=== PATIENT | female | born 1940 | race Caucasian/White ===

== ENCOUNTER → 2016-10-08 | Outpatient (CLI) | payer OTHER ==
[~2016-10-08] MED LIST: AMLO-114 PO; AMX500 PO; APR25 PO; ASPI-435 PO; CALC-388 PO; CALC600T9 PO; CARV12.5 PO; CHOL2000 PO; CLC100 PO; CYAN100020 PO; DABI1CAP PO; DEXT40GE20 PO; DEXT4CHW64 PO; DRON400T PO; FLUV1CAP11 PO; GLCI SQ; INSDGI SC; INSDGIPEN SC; INSDGIPEN SQ; LCTX PO; LORA-741 PO; MISCCAP80 PO; MRLP17X PO; MULTTAB58 PO; NUTR-7 PO; NVLG SQ; NVLGI SC; NVLGI/PEN; NVLGI/PEN SQ; NVLGIPEN SC; NXM/40 PO; OMEG5CAP PO; PANT40TA PO; POLYSOL4 OPB; PROB500T8 PO; PRVC/40; PRVC/40 PO; PYRI100T4 PO; QUET1TAB11 PO; QUET1TAB30 PO; QUET1TAB32 PO; QUET1TAB37 PO; RSP2 PO; RSP3 PO; SIMV10TA5 PO; SRQ25 PO; SRQ300 PO; TPRSR50 PO; XPNIN INH
[2016-10-08 15:53] LABS: HEMATOCRIT 32.9 % (37-47); MEAN CELL VOLUME 90.1 fL (80-100); MEAN CORPUSCULAR HEMOGLOBIN 30.7 pg (25-34); MEAN PLATELET VOLUME 9.9 fL (7.4-10.4); PLATELET COUNT 508 K/uL (130-400); RED BLOOD COUNT 3.65 M/uL (4.2-5.4); WHITE BLOOD COUNT 10.49 K/uL (4.8-10.8)
[2016-10-08 15:58] LABS: URINE APPEARANCE CLOUDY (CLEAR); URINE BILIRUBIN NEG (NEG); URINE COLOR YELLOW; URINE EPITHELIAL CELL AUTO >30 /lpf (0-5); URINE NITRITE POS (NEG); URINE PH 5.5 (4.5-7.5); URINE SPECIFIC GRAVITY 1.002 (1.000-1.030); UROBILINOGEN NEG (NEG)
[2016-10-08 16:00] LABS: MANUAL MICROSCOPIC REQUIRED? NO; REVIEW REQ? NO
[2016-10-08 16:04] LABS: BLOOD UREA NITROGEN 29 mg/dl (7-18); BUN/CREATININE RATIO 16.8 (10-20); CALCIUM 9.7 mg/dl (8.5-10.1); CARBON DIOXIDE 28 mmol/L (21-32); CHLORIDE 100 mmol/L (98-107); GLUCOSE 119 mg/dl (70-99); PHOSPHORUS 3.4 mg/dl (2.5-4.9); POTASSIUM 4.5 mmol/L (3.5-5.1); SODIUM 136 mmol/L (136-145)
== END | disposition home or self-care (01) ==
LOC: C.LAB1850 14:27
PROVIDERS: ATTEND Internal Medicine Nephrology
DX: N18.3 Chronic kidney disease, stage 3 (moderate) (principal)

== ENCOUNTER → 2016-10-15 | Outpatient (CLI) | payer OTHER ==
[2016-10-15 18:38] LABS: RATIO 82.5 mcg/mg (0-30.0)
[2016-10-15 19:14] LABS: URINE APPEARANCE CLOUDY (CLEAR); URINE BILIRUBIN NEG (NEG); URINE COLOR YELLOW; URINE EPITHELIAL CELL AUTO 0-5 /lpf (0-5); URINE NITRITE POS (NEG); URINE SPECIFIC GRAVITY 1.009 (1.000-1.030); UROBILINOGEN NEG (NEG)
[2016-10-15 19:32] LABS: MANUAL MICROSCOPIC REQUIRED? NO; REVIEW REQ? NO
== END | disposition home or self-care (01) ==
LOC: C.LABSPEC 17:28
PROVIDERS: ATTEND Nurse Practitioner Adult Health
DX: E11.65 Type 2 diabetes mellitus with hyperglycemia (principal); R82.90 Unspecified abnormal findings in urine

== ENCOUNTER 2017-02-25 01:53 | Inpatient (IN) | payer OTHER ==
[~2017-02-25] VITALS: Ht 160 cm; Wt 72.9 kg
[2017-02-25] VITALS (7 sets, daily range): BP systolic 104–129; BP diastolic 53–88; PULSE 65–80; TEMP 36.3–37; O2SAT 96–98; BMI 27.6; BMI 27.3
[~2017-02-25 01:53] MED LIST changes: -AMX500 PO; -CALC-388 PO; -CLC100 PO; -DEXT40GE20 PO; -DEXT4CHW64 PO; -GLCI SQ; -INSDGIPEN SC; -INSDGIPEN SQ; -LCTX PO; -MRLP17X PO; -NUTR-7 PO; -NVLG SQ; -NVLGI/PEN; -NVLGI/PEN SQ; -NVLGIPEN SC; -PANT40TA PO; -PRVC/40; -PRVC/40 PO; -PYRI100T4 PO; -QUET1TAB30 PO; -QUET1TAB32 PO; -QUET1TAB37 PO; -RSP2 PO; -RSP3 PO; -SRQ25 PO; -SRQ300 PO; -TPRSR50 PO
[2017-02-25] MEDS ORDERED: SODIUM CHLORIDE 0.9% 500ML 500 ML IV STA (02:39)
--- NOTE | 2017-02-25 02:51 | EMERGENCY ROOM VISIT NOTE ---
History Report prepared by Andrew: Ru Wright Under the Supervision of: Dr. Nini Isabel D.O. First contact with patient: 02:12 Chief Complaint: CONFUSION Stated Complaint: CONFUSION Nursing Triage Summary: pt arrives to ed via ems from home. per ems pt was unclear why she called the ambulance pt was found on couch unable to get up to answer door. pt reports "I thought I was going to . I am blacking in and out. My breathing wasn't right. My spleen hurts and my abdomen." pt also reports black and tary stools. History of Present Illness The patient is a 76 year old female who presents to the Emergency Room with complaints of sudden onset weakness that began shortly prior to arrival. The patient states that she was sitting on her couch at home and was not able to get up. When EMS arrived to her home she was not able to get to the door to let them in and she claims that she felt like she was going to pass out. She denies any vomiting. The patient also mentions noticing some black stools recently. She has had black stool in the past. She has been eating and drinking over the past couple of days. The patient admits to taking Seroquel and Tylenol this evening. She takes Pradaxa daily as a blood thinner. 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 A total of 10 systems reviewed and were otherwise negative. Past Medical & Surgical Medical Problems: (1) Anxiety (2) Benign hypertension (3) Bipolar disorder (4) Cholecystectomy (5) Confusion (6) Diabetes mellitus (7) Gastroesophageal reflux disease (8) Hyperlipidemia (9) Obesity (10) Polyarthritis (11) Schizoaffective disorder (12) UTI Family History Cancer Hypertension Lung disease Social History Smoking Status: Former Smoker Alcohol Use: none Drug Use: none Marital Status: Housing Status: lives alone Occupation Status: retired Current/Historical Medications Scheduled Amlodipine (Norvasc), 10 MG PO DAILY Aspirin (Aspirin 81), 1 TAB PO DAILY Calcium Carbonate-Vitamin D (Calcium + D3 600-200 mg-Unit), 1 TAB PO DAILY Carvedilol (Coreg), 12.5 MG PO BID Cholecalciferol (Vitamin D3), 2,000 UNITS PO Q2D Cyanocobalamin (Vitamin B12), 1,000 MCG PO BID Dabigatran Etexilate Mesylate (Pradaxa), 75 MG PO BID Dronedarone Hcl (Multaq), 400 MG PO BID Fluvoxamine Maleate (Fluvoxamine Maleat Er), 300 MG PO HS Hydralazine Hcl (Apresoline), 25 MG PO TID Insulin Aspart (Novolog), 7 UNITS SQ AC Insulin Glargine (Lantus Solostar), 20 UNITS SQ AMPM Multiple Vitamin (Multivitamin), 1 TAB PO DAILY [place]-3 Fatty Acids (Fish Oil 1200 mg), 2 CAP PO BID Pantoprazole (Protonix), 40 MG PO DAILY Polyethylene Glycol-Propylene (Systane), 1 DROP OPB QID Pravastatin Sod (Pravastatin Sodium), 40 MG HS Probenecid (Benemid), 500 MG PO BID Probiotic Product (Probiotic), 1 CAP PO DAILY Pyridoxine (Vitamin B6), 100 MG PO DAILY Quetiapine Fumarate (Seroquel), 300 MG PO HS Scheduled PRN Levalbuterol Tartrate (Xopenex Hfa), 1-2 PUFFS INH Q6H PRN for SOB/Wheezing Lorazepam (Ativan), 0.5 MG PO BID PRN for Anxiety/Agitation Allergies Coded Allergies: MARIANO Inhibitors (Unverified Allergy, Intermediate, HEPATOTOXICITY, 02/25/17) Amiodarone (Unverified Allergy, Intermediate, HEPATOTOXICITY, 05/01/15) Cephalexin (Verified Allergy, Unknown, unknown, 02/25/17) Erythromycin (Verified Allergy, Unknown, UNSURE, 02/25/17) Levofloxacin (Verified Allergy, Unknown, Unknown., 02/25/17) Reported by PT. Physical Exam Vital Signs Date Time Temp Pulse Resp B/P (MAP) Pulse Ox O2 Delivery O2 Flow Rate FiO2 02/25/17 04:16 93 16 142/57 99 Room Air 02/25/17 03:12 80 20 126/90 99 Room Air 02/25/17 02:00 84 02/25/17 02:00 36.5 86 30 104/70 97 Room Air Physical Exam General: Seems slightly confused, HEENT: Head - normocephalic and atraumatic Pupils are equal, round, and reactive to light. Extraocular eye muscles are intact, and sclera are anicteric. Nose - moist nasal mucosa without discharge. Mouth - Dry buccal mucosa. Oropharynx is nonerythematous and there is no tonsillar exudate or edema noted. Neck: Supple; no JVD, nuchal rigidity, cervical lymphadenopathy. Heart: Regular rate and rhythm. There is a normal S1 and S2 with no murmurs, clicks, or gallops appreciated. Lungs Diminished in all lung kaufman bilaterally. with no wheezes, rales, or rhonchi. Abdomen: Soft, pain to palpation in the LUQ, nondistended, with good bowel sounds. There are no palpable pulsatile masses or hepatosplenomegaly. There is no guarding, rigidity, or rebound noted. Extremities: No evidence of cyanosis, clubbing, or edema. There are easily palpable peripheral pulses. Skin: warm and dry with good turgor. There are multiple area of excoriation over the skin secondary to eczema. Rectal: Heme positive stool. Medical Decision & Procedures ER Provider Diagnostic Interpretation: Radiology results as stated below per my review and the radiologist's interpretation: CT HEAD: Comparison: CT sinuses 08/26/15. No ICH, mass effect, or edema. Ashby-what matter differentiation appears preserved. Patchy cerebral white matter hypoattenuation likely represents chronic small vessel ischemic disease. No evidence of skull fracture. opacified right maxillary sinus and sphenoid sinus, partially opacified ethmoid air cells, similar to prior exam. Clear mastoid air cells. Radiologist: Gabriel Connell M.D. Laboratory Results 02/25/17 02:50 Red Blood Count 3.89, Mean Corpuscular Volume 86.4, Mean Corpuscular Hemoglobin 29.6, Mean Corpuscular Hemoglobin Concent 34.2, Mean Platelet Volume 9.8, Neutrophils (%) (Auto) 59.0, Lymphocytes (%) (Auto) 28.2, Monocytes (%) (Auto) 8.6, Eosinophils (%) (Auto) 3.0, Basophils (%) (Auto) 0.6, Neutrophils # (Auto) 7.38, Lymphocytes # (Auto) 3.53, Monocytes # (Auto) 1.07, Eosinophils # (Auto) 0.38, Basophils # (Auto) 0.07 02/25/17 02:50 Test 02/25/17 02:35 02/25/17 02:50 Urine Color YELLOW Urine Appearance CLEAR (CLEAR) Urine pH 6.5 (4.5-7.5) Urine Specific [place] 1.017 (1.000-1.030) Urine Protein 1+ (NEG) Urine Glucose (UA) NEG (NEG) Urine Ketones NEG (NEG) Urine Occult Blood NEG (NEG) Urine Nitrite NEG (NEG) Urine Bilirubin NEG (NEG) Urine Urobilinogen NEG (NEG) Urine Leukocyte Esterase TRACE (NEG) Urine WBC (Auto) 1-5 /hpf (0-5) Urine RBC (Auto) 0-4 /hpf (0-4) Urine Hyaline Casts (Auto) 1-5 /lpf (0-5) Urine Epithelial Cells (Auto) >30 /lpf (0-5) Urine Bacteria (Auto) NEG (NEG) White Blood Count 12.50 K/uL (4.8-10.8) Red Blood Count 3.89 M/uL (4.2-5.4) Hemoglobin 11.5 g/dL (12.0-16.0) Hematocrit 33.6 % (37-47) Mean Corpuscular Volume 86.4 fL (80-100) Mean Corpuscular Hemoglobin 29.6 pg (25-34) Mean Corpuscular Hemoglobin Concent 34.2 g/dl (32-36) Platelet Count 509 K/uL (130-400) Mean Platelet Volume 9.8 fL (7.4-10.4) Neutrophils (%) (Auto) 59.0 % Lymphocytes (%) (Auto) 28.2 % Monocytes (%) (Auto) 8.6 % Eosinophils (%) (Auto) 3.0 % Basophils (%) (Auto) 0.6 % Neutrophils # (Auto) 7.38 K/uL (1.4-6.5) Lymphocytes # (Auto) 3.53 K/uL (1.2-3.4) Monocytes # (Auto) 1.07 K/uL (0.11-0.59) Eosinophils # (Auto) 0.38 K/uL (0-0.5) Basophils # (Auto) 0.07 K/uL (0-0.2) RDW Standard Deviation 45.4 fL (36.4-46.3) RDW Coefficient of Variation 14.3 % (11.5-14.5) Immature Granulocyte % (Auto) 0.6 % Immature Granulocyte # (Auto) 0.07 K/uL (0.00-0.02) Prothrombin Time 13.5 SECONDS (9.0-12.0) Prothromb Time International Ratio 1.3 (0.9-1.1) Activated Partial Thromboplast Time 39.4 SECONDS (21.0-31.0) Partial Thromboplastin Ratio 1.5 Anion Gap 5.0 mmol/L (3-11) Est Creatinine Clear Calc Drug Dose 33.4 ml/min Estimated GFR () 42.8 Estimated GFR (Non- 36.9 BUN/Creatinine Ratio 28.1 (10-20) Calcium Level 9.1 mg/dl (8.5-10.1) Total Bilirubin 0.2 mg/dl (0.2-1) Direct Bilirubin 0.1 mg/dl (0-0.2) Aspartate Amino Transf (AST/SGOT) 16 U/L (15-37) Alanine Aminotransferase (ALT/SGPT) 28 U/L (12-78) Alkaline Phosphatase 78 U/L (45-117) Total Creatine Kinase 97 U/L (26-192) Creatine Kinase MB 3.6 ng/ml (0.5-3.6) Creatine Kinase MB Ratio 3.7 (0-3.0) Troponin I 0.025 ng/ml (0-0.045) Pro-B-Type Natriuretic Peptide 3007 pg/ml (0-900) Total Protein 6.5 gm/dl (6.4-8.2) Albumin 3.0 gm/dl (3.4-5.0) Thyroid Stimulating Hormone (TSH) 1.710 uIu/ml (0.300-4.500) Acetaminophen Level 7 ug/ml (10-30) Laboratory results per my review. Medications Administered Medications (Trade) Dose Ordered Sig/Krish Route Start Time Stop Time Status Last Admin Dose Admin Sodium Chloride 500 ml @ 999 mls/hr Q31M STAT IV 02/25/17 02:39 02/25/17 03:09 DC 02/25/17 02:55 999 MLS/HR Procedure Medications ordered: Sodium Chloride ECG Indication: altered mental status Rate (beats per minute): 91 Rhythm: atrial fibrillation Findings: no acute ischemic change, no ectopy Comparison ECG Date: 05/01/2015 Change: Atrial Fibrillation is new. ED Course 0232: Past medical records reviewed. The patient was evaluated in room B11B. A complete history and physical exam was performed. Laboratory studies were drawn as above. A twelve-lead EKG was obtained as described above. Patient went for CT scan of the brain 0239: Ordered Sodium Chloride 500 mL @ 999 mL/hr IV. 0352: Rectal exam was heme positive. 0359: The patient believes that she has a history of atrial fibrillation which is why she takes Pradaxa. 0538: I discussed the case with Dr. Guero FERNANDEZ Hospitalist, he will evaluate the patient for further treatment. Medical Decision The patient is a 76 year old female who presents to the Emergency Department for sudden onset weakness. Differential Diagnosis includes; Intracranial hemorrhage, dehydration, encephalopathy, GI bleed, DKA, diabetic hyperglycemia, mediation overdose. Laboratory Results were reviewed and show; white blood cell count of 12.5, hemoglobin of 11.5, BUN 39, creatinine of 1.4 which is baseline for the pt, glucose of 294, normal TSH, troponin 0.025, BNP 3007. Urinalysis shows trace leukocyte esterase. The patient describes having black tarry stools and increasing weakness. The patient states that she was having some difficulty sleeping and therefore took an old Seroquel and some Tylenol. Stools were heme positive. The patient has a history of diabetes but has not been taking blood sugar readings over the past couple of days. The patient appears quite dry on physical exam and somewhat slow to answer questions. I discussed the case with the [facility] Hospitalist who is somewhat for my with the patient and he will evaluate her for further treatment. Consults Time Called: [phone] Consulting Physician: Dr. Guero Durbin Returned Call: [phone] I discussed the case with Dr. Guero Durbin, he will evaluate the patient for further treatment. Impression Primary Impression: Altered mental status Additional Impressions: GI bleed Diabetes mellitus with hyperglycemia Sinusitis Scribe Attestation The scribe's documentation has been prepared under my direction and personally reviewed by me in its entirety. I confirm that the note above accurately reflects all work, treatment, procedures, and medical decision making performed by me. Departure Information Dispostion Being Evaluated By Hospitalist Referrals Jennifer Mclain DO (PCP) Patient Instructions My [facility] Problem Qualifiers
[2017-02-25 02:52] LABS: URINE APPEARANCE CLEAR (CLEAR); URINE BILIRUBIN NEG (NEG); URINE COLOR YELLOW; URINE EPITHELIAL CELL AUTO >30 /lpf (0-5); URINE NITRITE NEG (NEG); URINE PH 6.5 (4.5-7.5); URINE SPECIFIC GRAVITY 1.017 (1.000-1.030); UROBILINOGEN NEG (NEG)
[2017-02-25 02:55] LABS: MANUAL MICROSCOPIC REQUIRED? NO; REVIEW REQ? NO
[2017-02-25 02:59] LABS: BASO % 0.6 %; BASO ABS # 0.07 K/uL (0-0.2); COMPLETE YES; HEMATOCRIT 33.6 % (37-47); IG% 0.6 %; LYMPH % 28.2 %; LYMPH ABS # 3.53 K/uL (1.2-3.4); MEAN CELL VOLUME 86.4 fL (80-100); MEAN CORPUSCULAR HEMOGLOBIN 29.6 pg (25-34); MEAN CORPUSCULAR HGB CONC 34.2 g/dl (32-36); MEAN PLATELET VOLUME 9.8 fL (7.4-10.4); MONO % 8.6 %; PLATELET COUNT 509 K/uL (130-400); RED BLOOD COUNT 3.89 M/uL (4.2-5.4)
[2017-02-25 03:11] LABS: INR 1.3 (0.9-1.1); PARTIAL THROMBOPLASTIN RATIO 1.5; PROTHROMBIN TIME (PATIENT) 13.5 SECONDS (9.0-12.0)
[2017-02-25 03:18] LABS: BUN/CREATININE RATIO 28.1 (10-20); CALCIUM 9.1 mg/dl (8.5-10.1); CREATININE 1.4 mg/dl (0.60-1.20); POTASSIUM 4.7 mmol/L (3.5-5.1)
[2017-02-25 03:29] LABS: CKMB/CK RATIO 3.7 (0-3.0); THYROID STIMULATING HORMONE 1.71 uIu/ml (0.300-4.500)
[2017-02-25] MEDS ORDERED: INSDGIPEN SQ (03:29)
[2017-02-25] MEDS ORDERED: DRON400T PO (03:32)
[2017-02-25] MEDS ORDERED: PRVC/40 (03:36)
[2017-02-25] MEDS ORDERED: CALC-388 PO (03:40)
[2017-02-25] MEDS ORDERED: PANT40TA PO ×2 (03:44→03:55)
[2017-02-25] MEDS ORDERED: NVLG SQ (03:48)
[2017-02-25] MEDS ORDERED: PYRI100T4 PO (03:51)
[2017-02-25] MEDS ORDERED: ALUMINUM/MAGNESIUM/SIMETH (MAALOX MAX) 30 ML UDC PO PRN (05:15)
[2017-02-25] MEDS ORDERED: ONDANSETRON INJ 2 MG/ML 2 ML VIAL IV PRN (05:15)
[2017-02-25] MEDS ORDERED: ACETAMINOPHEN 325 MG TAB PO PRN (05:15)
[2017-02-25] MEDS ORDERED: LEValbuterol HFA 15GM INHALER INH PRN (05:15)
[2017-02-25] MEDS ORDERED: POLYETHYLENE (MIRALAX) 17 GM PACK PO PRN (05:15)
--- NOTE | 2017-02-25 05:16 | History and Physical ---
History & Physical Date & Time of Service: Feb 25, 2017 at 05:16 Chief Complaint: Confusion Primary Care Physician: Jennifer Mclain DO History of Present Illness Source: patient 76-year-old female with anxiety, hypertension, bipolar disorder, diabetes, hyperlipidemia presented to the ER with confusion. The patient states that she was sitting on her couch at home and was not able to get up, she felt very weak and thought she was going to pass out. Denies any chest pain, shortness of breath, palpitations. Denies any vomiting, abdominal pain but has black stool. She denies any urinary complaints, diarrhea, fevers or chills Past Medical/Surgical History Medical Problems: (1) Anxiety Status: Chronic (2) Benign hypertension Status: Chronic (3) Bipolar disorder Status: Chronic (4) Cholecystectomy Status: Resolved (5) Diabetes mellitus Status: Chronic (6) Gastroesophageal reflux disease Status: Chronic (7) Hyperlipidemia Status: Chronic (8) Obesity Status: Chronic (9) Polyarthritis Status: Chronic (10) Schizoaffective disorder Status: Chronic (11) UTI Status: Chronic Family History Cancer Hypertension Lung disease Social History Smoking Status: Former Smoker Drug Use: none Marital Status: Housing status: lives alone Occupational Status: retired Immunizations History of Influenza Vaccine: No Influenza Vaccine Date: Aug 18, 2010 History of Tetanus Vaccine?: Yes History of Pneumococcal: Yes Pneumococcal Date: Aug 18, 2010 History of Hepatitis B Vaccine: No Multi-Drug Resistant Organisms History of MDRO: No Allergies Coded Allergies: MARIANO Inhibitors (Unverified Allergy, Intermediate, HEPATOTOXICITY, 02/25/17) Amiodarone (Unverified Allergy, Intermediate, HEPATOTOXICITY, 05/01/15) Cephalexin (Verified Allergy, Unknown, unknown, 02/25/17) Erythromycin (Verified Allergy, Unknown, UNSURE, 02/25/17) Levofloxacin (Verified Allergy, Unknown, Unknown., 02/25/17) Reported by PT. Home Medications Scheduled Amlodipine (Norvasc), 10 MG PO DAILY Aspirin (Aspirin 81), 1 TAB PO DAILY Calcium Carbonate-Vitamin D (Calcium + D3 600-200 mg-Unit), 1 TAB PO DAILY Carvedilol (Coreg), 12.5 MG PO BID Cholecalciferol (Vitamin D3), 2,000 UNITS PO Q2D Cyanocobalamin (Vitamin B12), 1,000 MCG PO BID Dabigatran Etexilate Mesylate (Pradaxa), 75 MG PO BID Dronedarone Hcl (Multaq), 400 MG PO BID Fluvoxamine Maleate (Fluvoxamine Maleat Er), 300 MG PO HS Hydralazine Hcl (Apresoline), 25 MG PO TID Insulin Aspart (Novolog), 7 UNITS SQ AC Insulin Glargine (Lantus Solostar), 20 UNITS SQ AMPM Multiple Vitamin (Multivitamin), 1 TAB PO DAILY [place]-3 Fatty Acids (Fish Oil 1200 mg), 2 CAP PO BID Pantoprazole (Protonix), 40 MG PO DAILY Polyethylene Glycol-Propylene (Systane), 1 DROP OPB QID Pravastatin Sod (Pravastatin Sodium), 40 MG HS Probenecid (Benemid), 500 MG PO BID Probiotic Product (Probiotic), 1 CAP PO DAILY Pyridoxine (Vitamin B6), 100 MG PO DAILY Quetiapine Fumarate (Seroquel), 300 MG PO HS Scheduled PRN Levalbuterol Tartrate (Xopenex Hfa), 1-2 PUFFS INH Q6H PRN for SOB/Wheezing Lorazepam (Ativan), 0.5 MG PO BID PRN for Anxiety/Agitation Review of Systems Constitutional: + problem reported (weakness), No fever, No chills Eyes: No worsening of vision ENT: No hearing loss Respiratory: No cough, No sputum Cardiovascular: No chest pain Abdomen: No pain, No nausea Musculoskeletal: No joint pain Genitourinary - Female: No dysuria Neurologic: + problem reported (confusion), No memory loss, No paralysis Psychiatric: No depression symptoms Endocrine: No fatigue Hematologic / Lymphatic: No abnormal bleeding/bruising Integumentary: No rash Physical Exam Vital Signs Date Time Temp Pulse Resp B/P (MAP) Pulse Ox O2 Delivery O2 Flow Rate FiO2 02/25/17 04:16 93 16 142/57 99 Room Air 02/25/17 03:12 80 20 126/90 99 Room Air 02/25/17 02:00 84 02/25/17 02:00 36.5 86 30 104/70 97 Room Air General Appearance: WD/WN, no apparent distress Eyes: normal inspection ENT: normal ENT inspection, hearing grossly normal Neck: supple Respiratory/Chest: chest non-tender, lungs clear, normal breath sounds Abdomen/GI: normal bowel sounds, soft, + tenderness (diffusely) Back: normal inspection Extremities/Musculoskelatal: normal inspection 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, no motor/sensory deficits, alert, normal mood/affect, oriented x 3 Diagnostics Laboratory Results Results Past 24 Hours Test 02/25/17 02:35 02/25/17 02:50 Range/Units Urine Color YELLOW Urine Appearance CLEAR CLEAR Urine pH 6.5 4.5-7.5 Urine Specific [place] 1.017 1.000-1.030 Urine Protein 1+ NEG Urine Glucose (UA) NEG NEG Urine Ketones NEG NEG Urine Occult Blood NEG NEG Urine Nitrite NEG NEG Urine Bilirubin NEG NEG Urine Urobilinogen NEG NEG Urine Leukocyte Esterase TRACE NEG Urine WBC (Auto) 1-5 0-5 /hpf Urine RBC (Auto) 0-4 0-4 /hpf Urine Hyaline Casts (Auto) 1-5 0-5 /lpf Urine Epithelial Cells (Auto) >30 0-5 /lpf Urine Bacteria (Auto) NEG NEG White Blood Count 12.50 4.8-10.8 K/uL Red Blood Count 3.89 4.2-5.4 M/uL Hemoglobin 11.5 12.0-16.0 g/dL Hematocrit 33.6 37-47 % Mean Corpuscular Volume 86.4 80-100 fL Mean Corpuscular Hemoglobin 29.6 25-34 pg Mean Corpuscular Hemoglobin Concent 34.2 32-36 g/dl Platelet Count 509 130-400 K/uL Mean Platelet Volume 9.8 7.4-10.4 fL Neutrophils (%) (Auto) 59.0 % Lymphocytes (%) (Auto) 28.2 % Monocytes (%) (Auto) 8.6 % Eosinophils (%) (Auto) 3.0 % Basophils (%) (Auto) 0.6 % Neutrophils # (Auto) 7.38 1.4-6.5 K/uL Lymphocytes # (Auto) 3.53 1.2-3.4 K/uL Monocytes # (Auto) 1.07 0.11-0.59 K/uL Eosinophils # (Auto) 0.38 0-0.5 K/uL Basophils # (Auto) 0.07 0-0.2 K/uL RDW Standard Deviation 45.4 36.4-46.3 fL RDW Coefficient of Variation 14.3 11.5-14.5 % Immature Granulocyte % (Auto) 0.6 % Immature Granulocyte # (Auto) 0.07 0.00-0.02 K/uL Prothrombin Time 13.5 9.0-12.0 SECONDS Prothromb Time International Ratio 1.3 0.9-1.1 Activated Partial Thromboplast Time 39.4 21.0-31.0 SECONDS Partial Thromboplastin Ratio 1.5 Sodium Level 134 136-145 mmol/L Potassium Level 4.7 3.5-5.1 mmol/L Chloride Level 101 98-107 mmol/L Carbon Dioxide Level 28 21-32 mmol/L Anion Gap 5.0 3-11 mmol/L Blood Urea Nitrogen 39 7-18 mg/dl Creatinine 1.40 0.60-1.20 mg/dl Est Creatinine Clear Calc Drug Dose 33.4 ml/min Estimated GFR () 42.8 Estimated GFR (Non- 36.9 BUN/Creatinine Ratio 28.1 10-20 Random Glucose 294 70-99 mg/dl Calcium Level 9.1 8.5-10.1 mg/dl Total Bilirubin 0.2 0.2-1 mg/dl Direct Bilirubin 0.1 0-0.2 mg/dl Aspartate Amino Transf (AST/SGOT) 16 15-37 U/L Alanine Aminotransferase (ALT/SGPT) 28 12-78 U/L Alkaline Phosphatase 78 45-117 U/L Total Creatine Kinase 97 26-192 U/L Creatine Kinase MB 3.6 0.5-3.6 ng/ml Creatine Kinase MB Ratio 3.7 0-3.0 Troponin I 0.025 0-0.045 ng/ml Pro-B-Type Natriuretic Peptide 3007 0-900 pg/ml Total Protein 6.5 6.4-8.2 gm/dl Albumin 3.0 3.4-5.0 gm/dl Thyroid Stimulating Hormone (TSH) 1.710 0.300-4.500 uIu/ml Acetaminophen Level 7 10-30 ug/ml Diagnostic Radiology CT HEAD WITHOUT CONTRAST (CT) CLINICAL HISTORY: Confusion, change in mental status. COMPARISON STUDY: No previous studies for comparison. TECHNIQUE: Axial CT of the brain is performed from the vertex to the skull base. IV contrast was not administered for this examination. CT DOSE: 614.27 mGy.cm FINDINGS: No intra or extra-axial mass lesions are visualized. There is no CT evidence of acute cortical infarction. There is no evidence of midline shift. There is no acute hemorrhage. No calvarial fractures are visualized. There are patchy white matter hypodensities likely on a small vessel basis. There is no evidence of pathologic ventricular dilatation. There is complete opacification of the right maxillary sinus. There is near complete opacification sphenoid sinus. There are multiple opacified ethmoid air cells. IMPRESSION: 1. Extensive paranasal sinus disease 2. No acute intracranial findings Electronically signed by: Shaji Brown M.D. 02/25/2017 6:29 AM Dictated Date/Time: 02/25/2017 6:27 AM Impression Assessment and Plan 76-year-old female with anxiety, hypertension, bipolar disorder, diabetes, hyperlipidemia presented to the ER with confusion. Altered mental status: - Head CT negative with sinusitis - Electrolytes within normal limits - UA negative - MRI brain ordered Chronic Sinusitis: - On head CT - Patient states that she has chronic sinusitis but she kept postponing her surgery - May consider antibiotics GI bleeding: With dark tarry stool - Hemoccult positive - Hemoglobin at 11.5 - Recheck CBC in the afternoon Bipolar disorder: -Continue seroquel, fluoxamine Atrial fibrillation: - Continue Coreg 12.5 mg twice a day , multaq - Anticoagulation with Pradaxa Hypertension - Continue hydralazine, amlodipine Anxiety: - Ativan as needed Diabetes: - Insulin sliding scale DVT prophylaxis: Pradaxa FULL CODE DISP: Admitted to telemetry Attending Addendum: I physically seen and examined this patient, have supervised the medical residents activities, and agree with the H&P as noted above with the following exceptions: NONE The patient is awake, well-developed and adequately nourished, alert and oriented 3, normocephalic and atraumatic, very dry mouth and dry eyes, lying in bed and in no acute distress. HEENT--PERRL, EOMI, mucous membranes and oropharynx dry. Neck--supple, no JVD or bruits, thyroid normal, trachea midline, no adenopathy. Heart--normal S1 and S2, no extra beats, no murmurs, rubs or gallops. Lungs--clear bilaterally with good air movement, no respiratory distress, no accessory muscle use. Abdomen--normal bowel sounds and soft, nontender and nondistended, no hernias or masses, no organomegaly. Extremities--no cyanosis, clubbing or edema. There are good distal pulses b/l. Dermatologic--normal skin turgor, normal color, warm and dry, no abnormal lymph nodes, no rash. Neurologic--cranial nerves II through XII grossly intact. Rheumatologic--normal range of motion, nontender, muscles and joints. Psychiatric--normal affect. Assessment and Plan: 1. Altered mental status--patient with a known history of bipolar disorder and schizoaffective disorder, with normal CT of the head except for chronic sinusitis, and is now back to her baseline. Order an MRI the brain to assess for possible CVA not seen on CT. The patient will be admitted to telemetry for serial cardiac enzymes, cardiac rhythm monitoring and a 2-D echocardiogram with Dopplers. Continue Coreg 12.5 mg by mouth twice a day, Multaq, Pradaxa, hydralazine and amlodipine for atrial fibrillation and hypertension. Level of Care Telemetry Resuscitation Status FULL RESUSCITATION VTE Prophylaxis VTE Risk Assessment Done? Y/N: Yes Risk Level: Moderate Given or contraindicated: Other Anticoagulation (pradaxa) Resident Tracking Resident Involvement: Resident Care Provided Care Provided: Adult Hospital Medicine
[2017-02-25] MEDS ORDERED: GLUCAGON FOR INJ 1 MG VIAL SQ PRN (06:00)
[2017-02-25] MEDS ORDERED: GLUCOSE 10 TABS/TUBE PO PRN (06:00)
[2017-02-25] MEDS ORDERED: GLUCOSE 40% GEL 15 GM TUBE PO PRN (06:00)
[2017-02-25] MEDS ORDERED: DEXTROSE 50% 50 ML SYR IV PRN (06:00)
[2017-02-25] MEDS ORDERED: IV FLUIDS COMPLETED PRN (06:15)
--- NOTE | 2017-02-25 06:30 | DIAGNOSTIC IMAGING REPORT ---
CT HEAD WITHOUT CONTRAST (CT) CLINICAL HISTORY: Confusion, change in mental status. COMPARISON STUDY: No previous studies for comparison. TECHNIQUE: Axial CT of the brain is performed from the vertex to the skull base. IV contrast was not administered for this examination. CT DOSE: 614.27 mGy.cm FINDINGS: No intra or extra-axial mass lesions are visualized. There is no CT evidence of acute cortical infarction. There is no evidence of midline shift. There is no acute hemorrhage. No calvarial fractures are visualized. There are patchy white matter hypodensities likely on a small vessel basis. There is no evidence of pathologic ventricular dilatation. There is complete opacification of the right maxillary sinus. There is near complete opacification sphenoid sinus. There are multiple opacified ethmoid air cells. IMPRESSION: 1. Extensive paranasal sinus disease 2. No acute intracranial findings Electronically signed by: Shaji Brown M.D. 02/25/2017 6:29 AM Dictated Date/Time: 02/25/2017 6:27 AM
[2017-02-25] MEDS: SODIUM CHLORIDE 0.9% 1000ML 1,000 ML IV SCH ×2 (06:37→15:09)
[2017-02-25] MEDS: PYRIDOXINE HCL 50 MG TAB PO SCH (08:51)
[2017-02-25] MEDS: DRONEDARONE 400 MG TAB PO SCH ×2 (08:51→21:43)
[2017-02-25] MEDS: PANTOprazole SOD 40 MG TAB PO SCH (08:52)
[2017-02-25] MEDS: MULTIVITAMIN TAB PO SCH (08:52)
[2017-02-25] MEDS: ASPIRIN 81 MG ECTAB PO SCH (08:52)
[2017-02-25] MEDS: CARVEDILOL 12.5 MG TAB PO SCH ×2 (08:52→21:40)
[2017-02-25] MEDS: AMLODIPINE BESYLATE 5 MG TAB PO SCH (08:52)
[2017-02-25] MEDS: PROBENECID 500 MG TAB PO SCH ×2 (08:53→21:43)
[2017-02-25] MEDS: INSULIN ASPART 100 UNITS/ML 3 ML PEN SC SCH ×4 (09:00→21:57)
[2017-02-25] MEDS ORDERED: DABIGATRAN ELEXILATE 75 MG CAP PO SCH (09:00)
[2017-02-25 13:08] LABS: HEMATOCRIT 33.7 % (37-47); MEAN CELL VOLUME 86.9 fL (80-100); MEAN CORPUSCULAR HEMOGLOBIN 29.1 pg (25-34); MEAN CORPUSCULAR HGB CONC 33.5 g/dl (32-36); MEAN PLATELET VOLUME 9.8 fL (7.4-10.4); PLATELET COUNT 479 K/uL (130-400); RED BLOOD COUNT 3.88 M/uL (4.2-5.4); WHITE BLOOD COUNT 10.97 K/uL (4.8-10.8)
[2017-02-25 13:39] LABS: BUN/CREATININE RATIO 25.6 (10-20); CALCIUM 9.1 mg/dl (8.5-10.1); CREATININE 1.3 mg/dl (0.60-1.20); POTASSIUM 4.1 mmol/L (3.5-5.1)
[2017-02-25 14:32] LABS: HEMATOCRIT 31.2 % (37-47)
--- NOTE | 2017-02-25 14:41 | Progress Note ---
Progress Note Date of Service Feb 25, 2017. Progress Note Patient admitted after midnight. Patient seen and examined by me. Patient states that she's feeling much better and that her shortness of breath has improved. She does complain of a nonproductive cough, weakness and fatigue. She states that she was having very dark, tarry, loose stools prior to arrival. The patient was eating lunch during my exam and she complains of some odynophagia, which she states she's had before. She still notes some lightheadedness but states this has also improved. Physical exam pertinent for rate controlled A. fib, decreased breath sounds throughout, and multiple excoriations of the skin. Patient states that she has a history of eczema that she would often scratch and pick at her skin. She now picks at her skin out of habit. Patient alert and oriented x 3. A/P: Altered mental status--stable/resolved -MRI brain pending -Head CT negative with sinusitis -Electrolytes within normal limits -UA negative -Check B12, folate, and vitamin D -PT/OT evaluate and treat Upper GI bleed--heme positive stool, c/o melena -Hgb 11.5 on admission. Pt has h/o anemia, this is about baseline -Repeat Hgb 10.4 02/25 -Hold Pradaxa -Continue Protonix -Check H&H q6h DM II--last HgbA1c in 2014 -Lantus 10 units SC BID. Decreased from home dose due to poor oral intake -Insulin sliding scale -Check BSGs q ac and qhs -Recheck HgbA1c
[2017-02-25 15:06] LABS: ESTIMATED AVERAGE GLUCOSE 177 mg/dl; HA1C FLAG Normal (Normal)
[2017-02-25 20:04] LABS: HEMATOCRIT 32.1 % (37-47)
[2017-02-25] MEDS: PRAVASTATIN SOD 40 MG TAB PO SCH (21:41)
[2017-02-25] MEDS: QUETIAPINE FUMARATE 300 MG TAB PO SCH (21:43)
[2017-02-25] MEDS: INSULIN GLARGINE SOLOSTAR 100 UNITS/ML 3 ML PEN SC SCH (21:56)
[2017-02-25] MEDS: LORAZEPAM 0.5 MG TAB PO PRN (23:11)
[2017-02-26 03:34] LABS: HEMATOCRIT 38.7 % (37-47)
[2017-02-26] MEDS: SODIUM CHLORIDE 0.9% 1000ML 1,000 ML IV SCH ×3 (03:46→23:16)
[2017-02-26 04:37] VITALS: BP 121/72; PULSE 94; TEMP 36.6; O2SAT 95
[2017-02-26 07:02] LABS: HEMATOCRIT 36.3 % (37-47); MEAN CELL VOLUME 87.5 fL (80-100); MEAN CORPUSCULAR HEMOGLOBIN 29.2 pg (25-34); MEAN CORPUSCULAR HGB CONC 33.3 g/dl (32-36); MEAN PLATELET VOLUME 9.8 fL (7.4-10.4); PLATELET COUNT 520 K/uL (130-400); RED BLOOD COUNT 4.15 M/uL (4.2-5.4); WHITE BLOOD COUNT 11.56 K/uL (4.8-10.8)
[2017-02-26 07:23] VITALS: BP 113/75; PULSE 84; TEMP 36.7; O2SAT 97
[2017-02-26 07:30] LABS: BUN/CREATININE RATIO 18.9 (10-20); CALCIUM 8.9 mg/dl (8.5-10.1); CREATININE 1.4 mg/dl (0.60-1.20); POTASSIUM 3.9 mmol/L (3.5-5.1)
[2017-02-26] MEDS: PYRIDOXINE HCL 50 MG TAB PO SCH (09:00)
[2017-02-26] MEDS: AMLODIPINE BESYLATE 5 MG TAB PO SCH (09:01)
[2017-02-26] MEDS: ASPIRIN 81 MG ECTAB PO SCH (09:01)
[2017-02-26] MEDS: DRONEDARONE 400 MG TAB PO SCH ×2 (09:01→21:21)
[2017-02-26] MEDS: MULTIVITAMIN TAB PO SCH (09:02)
[2017-02-26] MEDS: PROBENECID 500 MG TAB PO SCH ×2 (09:02→22:46)
[2017-02-26] MEDS: PANTOprazole SOD 40 MG TAB PO SCH (09:03)
[2017-02-26] MEDS: CARVEDILOL 12.5 MG TAB PO SCH ×2 (09:03→21:21)
[2017-02-26] MEDS: INSULIN ASPART 100 UNITS/ML 3 ML PEN SC SCH ×4 (09:11→21:20)
[2017-02-26] MEDS: INSULIN GLARGINE SOLOSTAR 100 UNITS/ML 3 ML PEN SC SCH ×2 (09:12→21:21)
[2017-02-26 11:23] VITALS: Ht 160 cm; Wt 72.9 kg
[2017-02-26 11:26] VITALS: BP 127/53; PULSE 86; TEMP 36.6; O2SAT 95
[2017-02-26 14:36] LABS: HEMATOCRIT 33.6 % (37-47)
--- NOTE | 2017-02-26 14:58 | Hospitalist Progress Note ---
Hospitalist Progress Note Date of Service Feb 26, 2017. (Samira Rg ., RAGHAVENDRAC) Subjective Pt evaluation today including: conversation w/ patient, physical exam, chart review, lab review, review of inpatient medication list Pain: None PO Intake: Tolerating PO diet Voiding: no voiding problems Patient is much more confused today and does not make much sense while interviewing her. She does not seem to have any complaints, but she is not currently a reliable historian. She does also exhibit some paranoia during the interview. Unable to obtain reliable ROS due to mental status. Additional Comments: Unable to obtain reliable ROS from patient due to mental status. (Samira Rg ., RAGHAVENDRAC) Objective Vital Signs Date Time Temp Pulse Resp B/P (MAP) Pulse Ox O2 Delivery O2 Flow Rate FiO2 02/26/17 11:29 Room Air 02/26/17 11:26 36.6 86 18 127/53 (77) 95 Room Air 02/26/17 08:45 Room Air 02/26/17 07:23 36.7 84 19 113/75 (88) 97 Room Air 02/26/17 04:37 36.6 94 18 121/72 (88) 95 Room Air 02/26/17 04:00 Room Air 02/25/17 23:59 Room Air 02/25/17 23:31 36.3 80 20 129/88 (102) 98 Room Air 02/25/17 20:00 Room Air 02/25/17 18:55 37.0 65 20 119/69 (86) 97 Room Air 02/25/17 16:00 96 Room Air 02/25/17 15:46 36.8 73 24 109/62 (78) 96 Room Air (Samira Rg ., RAGHAVENDRAC) Physical Exam Notes: General appearance: Well-developed, well-nourished, no apparent distress Head: Normocephalic, atraumatic Eyes: Normal inspection, PERRL, EOMI ENT: Normal ENT inspection, hearing grossly normal, pharynx normal Neck: Supple, no JVD, trachea midline Respiratory/Chest: Lungs clear to auscultation, normal breath sounds, no respiratory distress Cardiovascular: +Irregularly irregular, rate controlled. No gallop, no murmur Abdomen/GI: +Mild diffuse tenderness. Normal bowel sounds, soft Extremities/Musculoskeletal: Normal inspection, no calf tenderness, no pedal edema Neurological/Psych: +Confused, paranoid. Not making sense however she is oriented. Alert, oriented x 3 Skin: +Several excoriations/scabs, unchanged from yesterday. Normal color, warm/dry, no rash (Samira Rg ., PA-C) Laboratory Results Last 24 Hours Test 02/25/17 16:03 02/25/17 19:53 02/25/17 20:13 02/26/17 02:40 Bedside Glucose 147 mg/dl 191 mg/dl Hemoglobin 10.7 g/dL 12.5 g/dL Hematocrit 32.1 % 38.7 % Test 02/26/17 06:15 02/26/17 06:42 02/26/17 06:48 02/26/17 10:48 Bedside Glucose 63 mg/dl 98 mg/dl 289 mg/dl White Blood Count 11.56 K/uL Red Blood Count 4.15 M/uL Hemoglobin 12.1 g/dL Hematocrit 36.3 % Mean Corpuscular Volume 87.5 fL Mean Corpuscular Hemoglobin 29.2 pg Mean Corpuscular Hemoglobin Concent 33.3 g/dl RDW Standard Deviation 47.9 fL RDW Coefficient of Variation 14.8 % Platelet Count 520 K/uL Mean Platelet Volume 9.8 fL Sodium Level 145 mmol/L Potassium Level 3.9 mmol/L Chloride Level 114 mmol/L Carbon Dioxide Level 25 mmol/L Anion Gap 6.0 mmol/L Blood Urea Nitrogen 26 mg/dl Creatinine 1.40 mg/dl Est Creatinine Clear Calc Drug Dose 33.9 ml/min Estimated GFR () 42.8 Estimated GFR (Non- 36.9 BUN/Creatinine Ratio 18.9 Random Glucose 91 mg/dl Calcium Level 8.9 mg/dl Test 02/26/17 14:00 (Samira Rg ., PA-C) Assessment and Plan 76-year-old female with a history of anxiety, hypertension, bipolar disorder, DM II, hyperlipidemia who presented to the ER with confusion. Altered mental status--worsening. Pt significantly more confused today and paranoid, although she remains oriented x 3 -Change to full admission status on tele. No acute events overnight. Pt in a- fib with HR 70s-80s -Head CT negative for CVA, shows sinusitis -B12, folate, TSH and vitamin D all WNL -Electrolytes WNL -MRI brain pending--keep attempting to get a hold of daughter for MRI questionnaire but not answering -UA negative -PT/OT evaluate and treat: initial eval recommended discharging home w/HH PT services, but pt has much worse mental status today, will need to reevaluate -Will need to determine capacity to make her own medical decisions. Unable to get a hold of daughter despite multiple attempts Upper GI bleed, heme positive stool, c/o melena--improving -Hgb 11.5 on admission. Pt has h/o anemia, this is about baseline -Repeat Hgb 10.4 on 02/25 -Hold Pradaxa -Continue Protonix -Check H&H q6h -Hgb improved to 12.1 on 02/26 DM II--last HgbA1c in 2014 -Lantus 10 units SC BID. Decreased from home dose due to poor oral intake -Insulin sliding scale -Check BSGs q ac and qhs -Rechecked HgbA1c 02/25 was 7.8 Chronic Sinusitis - On head CT - Patient states that she has chronic sinusitis but she kept postponing her surgery - May consider antibiotics but pt denies complaints now Bipolar disorder -Continue Seroquel 300 mg PO qhs and fluvoxamine 300 mg PO qd Atrial fibrillation--stable, rate controlled -Continue Coreg 12.5 mg PO BID and dronedarone 400 mg PO BID -Pradaxa on hold for now due to GI bleed Hypertension--stable -Continue hydralazine 25 mg PO TID and amlodipine 10 mg PO qd Anxiety -Ativan as needed Diabetes: -Insulin sliding scale DVT prophylaxis -SCDs Code Status -Level I, FULL RESUSCITATION STATUS (Samira Rg ., PA-C) I agree with PA assessment and plan and have seen and examined pt myself Resting comfortably in bed Pt more confused today Alert and oriented x 3 Unsafe for discharge to home Will keep inpatient PT/OT consulted (Fabricio Ledezma D.O.)
[2017-02-26 15:08] VITALS: BP 116/69; PULSE 84; TEMP 36.6; O2SAT 97
[2017-02-26 19:06] VITALS: BP 148/82; PULSE 82; TEMP 36.7; O2SAT 97
[2017-02-26] MEDS: QUETIAPINE FUMARATE 300 MG TAB PO SCH (21:21)
--- NOTE | 2017-02-26 21:59 | DIAGNOSTIC IMAGING REPORT ---
ORBITS FOR MRI HISTORY: Pre-MRI pre-MRI screening. COMPARISON: None. FINDINGS: There are no radiopaque foreign bodies identified within the orbits. Opacified right maxillary sinus. IMPRESSION: No radiopaque foreign bodies identified within the orbits. The above report was generated using voice recognition software. It may contain grammatical, syntax or spelling errors. Electronically signed by: Aris Pope M.D. 02/26/2017 9:58 PM Dictated Date/Time: 02/26/2017 9:57 PM
[2017-02-26] MEDS: PRAVASTATIN SOD 40 MG TAB PO SCH (22:46)
--- NOTE | 2017-02-26 22:50 | DIAGNOSTIC IMAGING REPORT ---
BRAIN COMBO CLINICAL HISTORY: altered mental status, worsening confusion mental status change COMPARISON STUDY: No previous studies for comparison. TECHNIQUE: Utilizing a 1.5 Tiffanie magnet and dedicated coil, multiplanar, multiecho imaging of the brain was performed pre and postcontrast administration. IV administration of 8.2 mL of Gadavist contrast was uneventful. FINDINGS: Diffusion-weighted images show no acute ischemic process. Signal characteristics of the cerebellar as well as cerebral hemispheres are unremarkable for age. No abnormal postcontrast enhancement. Ventricular system is midline.] Thickening right maxillary and sphenoid sinuses. IMPRESSION: 1. Negative MRI of the brain for age. 2. Mucosal thickening of the right maxillary and sphenoid sinuses. The above report was generated using voice recognition software. It may contain grammatical, syntax or spelling errors. Electronically signed by: Aris Pope M.D. 02/26/2017 10:49 PM Dictated Date/Time: 02/26/2017 10:46 PM
[2017-02-26 23:20] VITALS: BP 148/70; PULSE 103; TEMP 36.8; O2SAT 94
[2017-02-27 04:20] VITALS: BP 132/71; PULSE 65; TEMP 37.2; O2SAT 95
[2017-02-27] MEDS: INSULIN ASPART 100 UNITS/ML 3 ML PEN SC SCH ×4 (07:00→21:25)
[2017-02-27 07:17] LABS: HEMATOCRIT 32.5 % (37-47); MEAN CELL VOLUME 85.8 fL (80-100); MEAN CORPUSCULAR HGB CONC 32.6 g/dl (32-36); MEAN PLATELET VOLUME 9.8 fL (7.4-10.4); PLATELET COUNT 502 K/uL (130-400); RED BLOOD COUNT 3.79 M/uL (4.2-5.4); WHITE BLOOD COUNT 11.98 K/uL (4.8-10.8)
[2017-02-27 07:48] VITALS: BP 152/63; PULSE 64; TEMP 37.1; O2SAT 94
[2017-02-27 08:00] LABS: BUN/CREATININE RATIO 18.9 (10-20); CALCIUM 8.9 mg/dl (8.5-10.1); CREATININE 1.3 mg/dl (0.60-1.20); POTASSIUM 3.5 mmol/L (3.5-5.1)
[2017-02-27] MEDS: ASPIRIN 81 MG ECTAB PO SCH (08:09)
[2017-02-27] MEDS: CARVEDILOL 12.5 MG TAB PO SCH ×2 (08:09→21:20)
[2017-02-27] MEDS: DRONEDARONE 400 MG TAB PO SCH ×2 (08:10→21:20)
[2017-02-27] MEDS: AMLODIPINE BESYLATE 5 MG TAB PO SCH (08:10)
[2017-02-27] MEDS: MULTIVITAMIN TAB PO SCH (08:10)
[2017-02-27] MEDS: PROBENECID 500 MG TAB PO SCH ×2 (08:10→21:20)
[2017-02-27] MEDS: PYRIDOXINE HCL 50 MG TAB PO SCH (08:11)
[2017-02-27] MEDS: PANTOprazole SOD 40 MG TAB PO SCH (08:11)
[2017-02-27] MEDS: INSULIN GLARGINE SOLOSTAR 100 UNITS/ML 3 ML PEN SC SCH ×2 (08:18→21:24)
[2017-02-27] MEDS: SODIUM CHLORIDE 0.9% 1000ML 1,000 ML IV SCH ×2 (08:23→21:21)
[2017-02-27 12:10] VITALS: BP 130/61; PULSE 61; TEMP 37.2; O2SAT 96
--- NOTE | 2017-02-27 12:26 | Progress Note ---
Subjective Date of Service: Feb 27, 2017. Subjective Pt evaluation today including: conversation w/ patient, physical exam, chart review, lab review, review of studies, review of inpatient medication list Resting comfortably in bed Transient confusion No distress noted Problem List Medical Problems: (1) Altered mental status Status: Acute (2) Diabetes mellitus with hyperglycemia Status: Acute (3) GI bleed Status: Acute (4) Sinusitis Status: Acute Review of Systems Constitutional: No fever, No chills, No sweats, No weakness Eyes: No worsening of vision, No eye pain, No redness, No discharge Respiratory: No cough, No sputum, No wheezing, No shortness of breath, No dyspnea on exertion Cardiac: No chest pain, No orthopnea, No PND, No edema Abdomen: No pain, No nausea, No vomiting, No diarrhea, No constipation Musculoskeletal: No joint pain, No muscle pain, No swelling, No calf pain Female : No dysuria, No urinary frequency, No hematuria, No incontinence Neurologic: No memory loss, No paralysis, No weakness, No numbness/tingling Psychiatric: No depression symptoms, No anhedonism, No anxiety Endo: No fatigue, No excessive thirst, No excessive urination Skin: No rash, No itch Objective Vital Signs Date Time Temp Pulse Resp B/P (MAP) Pulse Ox O2 Delivery O2 Flow Rate FiO2 02/27/17 08:00 Room Air 02/27/17 07:48 37.1 64 18 152/63 (92) 94 Room Air 02/27/17 04:20 37.2 65 18 132/71 (91) 95 Room Air 02/27/17 04:00 Room Air 02/27/17 00:01 Room Air 02/26/17 23:20 36.8 103 18 148/70 (96) 94 Room Air 02/26/17 20:00 Room Air 02/26/17 19:06 36.7 82 23 148/82 (104) 97 Room Air 02/26/17 16:30 Room Air 02/26/17 15:08 36.6 84 27 116/69 (85) 97 Room Air Physical Exam General Appearance: WD/WN, no apparent distress Eyes: normal inspection, PERRL, EOMI, sclerae normal Neck: supple, no adenopathy, thyroid normal, no JVD Respiratory/Chest: chest non-tender, lungs clear, normal breath sounds, no respiratory distress Cardiovascular: regular rate, rhythm, no edema, no gallop, no JVD Abdomen: normal bowel sounds, non tender, soft, no organomegaly Neurologic/Psychiatric: no motor/sensory deficits, alert, normal mood/affect, oriented x 3 Laboratory Results Last 24 Hours Test 02/26/17 14:22 02/26/17 16:19 02/26/17 20:39 02/27/17 06:45 Hemoglobin 11.3 g/dL 10.6 g/dL Hematocrit 33.6 % 32.5 % Bedside Glucose 170 mg/dl 293 mg/dl White Blood Count 11.98 K/uL Red Blood Count 3.79 M/uL Mean Corpuscular Volume 85.8 fL Mean Corpuscular Hemoglobin 28.0 pg Mean Corpuscular Hemoglobin Concent 32.6 g/dl RDW Standard Deviation 46.5 fL RDW Coefficient of Variation 14.8 % Platelet Count 502 K/uL Mean Platelet Volume 9.8 fL Sodium Level 143 mmol/L Potassium Level 3.5 mmol/L Chloride Level 111 mmol/L Carbon Dioxide Level 27 mmol/L Anion Gap 5.0 mmol/L Blood Urea Nitrogen 25 mg/dl Creatinine 1.30 mg/dl Est Creatinine Clear Calc Drug Dose 35.8 ml/min Estimated GFR () 46.8 Estimated GFR (Non- 40.4 BUN/Creatinine Ratio 18.9 Random Glucose 85 mg/dl Calcium Level 8.9 mg/dl Test 02/27/17 07:23 02/27/17 11:06 Bedside Glucose 81 mg/dl 171 mg/dl Assessment and Plan 76-year-old female with a history of anxiety, hypertension, bipolar disorder, DM II, hyperlipidemia who presented to the ER with confusion. Altered mental status--resolving. Alert and oriented x 3, MMSE 24/30 -Head CT negative for CVA, shows sinusitis, MRI brain unremarkable -B12, folate, TSH and vitamin D all WNL -Electrolytes WNL -UA negative -PT/OT evaluate and treat: initial eval recommended discharging home w/HH PT services, Spoke to daughter, will further assess confusion and consult psychiatry for establishment of care. Upper GI bleed, heme positive stool, c/o melena--resolved -Hgb 11.5 on admission. Pt has h/o anemia, this is about baseline -Hg 10.6 today -Can resume Pradaxa -Continue Protonix DM II--last HgbA1c in 2014 -Lantus 10 units SC BID. Decreased from home dose due to poor oral intake -Insulin sliding scale -Check BSGs q ac and qhs -Rechecked HgbA1c 02/25 was 7.8 Chronic Sinusitis - On head CT - Patient states that she has chronic sinusitis but she kept postponing her surgery - May consider antibiotics but pt denies complaints now Bipolar disorder -Continue Seroquel 300 mg PO qhs and fluvoxamine 300 mg PO qd Atrial fibrillation--stable, rate controlled -Continue Coreg 12.5 mg PO BID and dronedarone 400 mg PO BID -Pradaxa on hold for now due to GI bleed Hypertension--stable -Continue hydralazine 25 mg PO TID and amlodipine 10 mg PO qd Anxiety -Ativan as needed Diabetes: -Insulin sliding scale DVT prophylaxis -SCDs Code Status -Level I, FULL RESUSCITATION STATUS
--- NOTE | 2017-02-27 14:59 | Psychiatric Consultation ---
Consultation Date of Consultation Feb 27, 2017. Identifying Data Tressa is a 76 yo female who continues to reside alone in [place]. Consult is for "needs provider", request of family (daughter Mily). Patient's [facility] [place] was also contacted to confirm medications. Chief Complaint "I've been perfect, I just ran out of my Seroquel last week". History of Present Illness I saw patient previously in 2009, soon after an inpatient stay for delusions ( dx of schizoaffective disorder). At that time she was following with Dr. Elizalde. Patient seems to have memory difficulties (though she denies) and liaison will be in contact with daughter to confirm recent functioning. Based on external med history and communication with pharmacist Rolando it appears that she has been getting refills through PCP for some time. This would confirm her reports that she's been relatively stable and I assume care ended when Dr. Elizalde left practice site. As the patient rarely leaves her home, there were issues with picking up prescriptions for Ativan at Dr. Horton's office and she switched to Dr. Hernandez who suggested she have a psychiatrist reassess her medications. She states that she wasn't able to get an intake appt (can't tell me where) until March. It looks like she has been off of Luvox 300 mg for at least 2 months and that she ran out of Seroquel in late January. Per PDMP last rx of Ativan #60 tabs was Aug 2016. Regardless of baseline disorganization, patient denies depression or significant anxiety. She states that she sleeps well as "long as I have my Seroquel" and she continues to voice good understanding of the [facility] risks associated with her medications. Past Psychiatric History Current OP Treatment: no current treatment Prior OP Treatment: psychiatrist (Dr. Elizalde) Prior Psych Hospitalizations: other (remote hx of [facility], last inpatient in 2009 at [facility]) Access to a Gun: No Suicide Attempts: No Past Medication Trials Abilify, Ativan, Luvox, Haldol, Cogentin, Seroquel, perhaps others dx of schizoaffective disorder, bipolar type Past Medical/Surgical History (1) Benign hypertension (2) Cholecystectomy (3) Diabetes mellitus (4) Gastroesophageal reflux disease (5) Hyperlipidemia (6) Polyarthritis Allergies Allergies: Coded Allergies: MARIANO Inhibitors (Unverified Allergy, Intermediate, HEPATOTOXICITY, 02/25/17) Amiodarone (Unverified Allergy, Intermediate, HEPATOTOXICITY, 05/01/15) Cephalexin (Verified Allergy, Unknown, unknown, 02/25/17) Erythromycin (Verified Allergy, Unknown, UNSURE, 02/25/17) Levofloxacin (Verified Allergy, Unknown, Unknown., 02/25/17) Reported by PT. Home Medications Scheduled Amlodipine (Norvasc), 10 MG PO DAILY Aspirin (Aspirin 81), 1 TAB PO DAILY Calcium Carbonate-Vitamin D (Calcium + D3 600-200 mg-Unit), 1 TAB PO DAILY Carvedilol (Coreg), 12.5 MG PO BID Cholecalciferol (Vitamin D3), 2,000 UNITS PO Q2D Cyanocobalamin (Vitamin B12), 1,000 MCG PO BID Dabigatran Etexilate Mesylate (Pradaxa), 75 MG PO BID Dronedarone Hcl (Multaq), 400 MG PO BID Fluvoxamine Maleate (Fluvoxamine Maleat Er), 300 MG PO HS Hydralazine Hcl (Apresoline), 25 MG PO TID Insulin Aspart (Novolog), 7 UNITS SQ AC Insulin Glargine (Lantus Solostar), 20 UNITS SQ AMPM Multiple Vitamin (Multivitamin), 1 TAB PO DAILY [place]-3 Fatty Acids (Fish Oil 1200 mg), 2 CAP PO BID Pantoprazole (Protonix), 40 MG PO DAILY Polyethylene Glycol-Propylene (Systane), 1 DROP OPB QID Pravastatin Sod (Pravastatin Sodium), 40 MG HS Probenecid (Benemid), 500 MG PO BID Probiotic Product (Probiotic), 1 CAP PO DAILY Pyridoxine (Vitamin B6), 100 MG PO DAILY Quetiapine Fumarate (Seroquel), 300 MG PO HS Scheduled PRN Levalbuterol Tartrate (Xopenex Hfa), 1-2 PUFFS INH Q6H PRN for SOB/Wheezing Lorazepam (Ativan), 0.5 MG PO BID PRN for Anxiety/Agitation Family History Cancer Hypertension Lung disease Alcohol Use Alcohol Use In Past 12 Months: No Smoking Use Smoking Status: Former Smoker Substance History denied Personal History Education: graduated from high school Children: 2 sons, 3 daughters Legal History: none Psychological Trauma History: Denies Hx Traumatic Event Review of Systems Psych: denies symptoms other than stated above Constitutional: denied Cardiovascular: denied GI: denied Neurologic: denied Remainder of 10 body systems also reviewed and denied other than noted above. Examination Vital Signs Vital Signs Past 12 Hours Date Time Temp Pulse Resp B/P (MAP) Pulse Ox O2 Delivery O2 Flow Rate FiO2 02/27/17 12:10 37.2 61 18 130/61 (84) 96 Room Air 02/27/17 12:00 Room Air 02/27/17 08:00 Room Air 02/27/17 07:48 37.1 64 18 152/63 (92) 94 Room Air 02/27/17 04:20 37.2 65 18 132/71 (91) 95 Room Air 02/27/17 04:00 Room Air Laboratory Results Last 24 Hours Test 02/26/17 16:19 02/26/17 20:39 02/27/17 06:45 02/27/17 07:23 Bedside Glucose 170 mg/dl 293 mg/dl 81 mg/dl White Blood Count 11.98 K/uL Red Blood Count 3.79 M/uL Hemoglobin 10.6 g/dL Hematocrit 32.5 % Mean Corpuscular Volume 85.8 fL Mean Corpuscular Hemoglobin 28.0 pg Mean Corpuscular Hemoglobin Concent 32.6 g/dl RDW Standard Deviation 46.5 fL RDW Coefficient of Variation 14.8 % Platelet Count 502 K/uL Mean Platelet Volume 9.8 fL Sodium Level 143 mmol/L Potassium Level 3.5 mmol/L Chloride Level 111 mmol/L Carbon Dioxide Level 27 mmol/L Anion Gap 5.0 mmol/L Blood Urea Nitrogen 25 mg/dl Creatinine 1.30 mg/dl Est Creatinine Clear Calc Drug Dose 35.8 ml/min Estimated GFR () 46.8 Estimated GFR (Non- 40.4 BUN/Creatinine Ratio 18.9 Random Glucose 85 mg/dl Calcium Level 8.9 mg/dl Test 02/27/17 11:06 Bedside Glucose 171 mg/dl Mental Examination During interview pt is: alert and oriented, cooperative (as able) Eye contact is: poor Motor behavior is: tremor Speech: is pressured Affect: euthymic Mood is: other ("fine") Thought process: circumstantial Thought content: reality based without delusions Suicidal thought are: denied Homicidal thoughts are: denied Hallucinations: denies auditory, denies visual Cognition: language grossly intact, other (decreased memory and attention) Intelligence estimated to be: average Insight: limited Judgement: limited Impression / Recommendations Impression 76 yo female with a history of schizoaffective disorder who reports not having outpatient psychiatric care for some time, primary care no longer felt comfortable overseeing her medications (patient report) and she has essentially run out of medications. It seems as though her memory is poor compared to info in last consult, family will be contacted for input as may be a situation where AAA may need to assess home situation. Apparently she has been calling the pharmacy repeatedly re: her medications. Recommendations primary service resumed Seroquel at 300 mg po qhs. She reports tolerating it well and doesn't wish to start with slower titration I would not restart Luvox at this time she doesn't meet criteria for acute inpatient psychiatric hospitalization, liaison to work with family on identifying an appropriate prescriber. Would likely benefit from case management currently on low dose Ativan prn which isn't ideal given fall risk in elderly, should be tapered outpatient, will continue for now as comfort measure as just restarted Seroquel
[2017-02-27] MEDS ORDERED: SODIUM CHLORIDE 0.65% NA SOLN 45 ML (OCEAN) ONE (15:01)
[2017-02-27 15:49] VITALS: BP 131/61; PULSE 61; TEMP 37.2; O2SAT 98
[2017-02-27 18:59] VITALS: BP 161/72; PULSE 62; TEMP 36.7; O2SAT 98
[2017-02-27] MEDS: DABIGATRAN ELEXILATE 75 MG CAP PO SCH (21:20)
[2017-02-27] MEDS: PRAVASTATIN SOD 40 MG TAB PO SCH (21:20)
[2017-02-27] MEDS: QUETIAPINE FUMARATE 300 MG TAB PO SCH (21:21)
[2017-02-27 23:41] VITALS: BP 136/75; PULSE 71; TEMP 36.8; O2SAT 97
[2017-02-28] MEDS: LORAZEPAM 0.5 MG TAB PO PRN ×2 (01:22→21:06)
[2017-02-28 04:00] VITALS: BP 163/80; PULSE 60; TEMP 36.8; O2SAT 97
[2017-02-28] MEDS: SODIUM CHLORIDE 0.9% 1000ML 1,000 ML IV SCH ×2 (04:20→14:13)
[2017-02-28 06:26] LABS: HEMATOCRIT 31.5 % (37-47); MEAN CELL VOLUME 85.6 fL (80-100); MEAN CORPUSCULAR HEMOGLOBIN 27.2 pg (25-34); MEAN CORPUSCULAR HGB CONC 31.7 g/dl (32-36); MEAN PLATELET VOLUME 9.9 fL (7.4-10.4); PLATELET COUNT 449 K/uL (130-400); RED BLOOD COUNT 3.68 M/uL (4.2-5.4); WHITE BLOOD COUNT 11.04 K/uL (4.8-10.8)
[2017-02-28 06:53] LABS: BUN/CREATININE RATIO 17.7 (10-20); CALCIUM 8.9 mg/dl (8.5-10.1); CREATININE 1.2 mg/dl (0.60-1.20); POTASSIUM 3.5 mmol/L (3.5-5.1)
[2017-02-28] MEDS: INSULIN ASPART 100 UNITS/ML 3 ML PEN SC SCH ×4 (07:00→21:00)
[2017-02-28] MEDS: AMLODIPINE BESYLATE 5 MG TAB PO SCH (08:46)
[2017-02-28] MEDS: ASPIRIN 81 MG ECTAB PO SCH (08:46)
[2017-02-28] MEDS: SACCHAROMYCES BOUL (FLORASTOR) 250 MG CAP PO SCH (08:46)
[2017-02-28] MEDS: PANTOprazole SOD 40 MG TAB PO SCH (08:46)
[2017-02-28] MEDS: DRONEDARONE 400 MG TAB PO SCH ×2 (08:47→21:06)
[2017-02-28] MEDS: DABIGATRAN ELEXILATE 75 MG CAP PO SCH ×2 (08:47→21:05)
[2017-02-28] MEDS: MULTIVITAMIN TAB PO SCH (08:47)
[2017-02-28] MEDS: PROBENECID 500 MG TAB PO SCH ×2 (08:47→21:06)
[2017-02-28] MEDS: PYRIDOXINE HCL 50 MG TAB PO SCH (08:48)
[2017-02-28] MEDS: CARVEDILOL 12.5 MG TAB PO SCH ×2 (08:49→21:06)
[2017-02-28 08:52] VITALS: BP 182/65; PULSE 68; TEMP 38; O2SAT 95
[2017-02-28] MEDS: INSULIN GLARGINE SOLOSTAR 100 UNITS/ML 3 ML PEN SC SCH ×2 (09:05→21:08)
[2017-02-28 10:45] VITALS: BP 128/71; PULSE 61; TEMP 36.6; O2SAT 97
--- NOTE | 2017-02-28 13:18 | Progress Note ---
Subjective Date of Service: Feb 28, 2017. Subjective Pt evaluation today including: conversation w/ patient, physical exam, chart review, lab review, review of studies, review of inpatient medication list Resting comfortably in bed Noted fever overnight No complaints this AM Problem List Medical Problems: (1) Altered mental status Status: Acute (2) Diabetes mellitus with hyperglycemia Status: Acute (3) GI bleed Status: Acute (4) Sinusitis Status: Acute Review of Systems Constitutional: + fever, No chills, No sweats, No weight loss, No weakness Respiratory: No cough, No sputum, No wheezing, No shortness of breath, No dyspnea on exertion Cardiac: No chest pain, No orthopnea, No PND, No edema, No claudication Abdomen: No pain, No nausea, No vomiting, No diarrhea, No constipation Musculoskeletal: No joint pain, No muscle pain, No swelling Female : No dysuria, No urinary frequency, No hematuria, No incontinence Neurologic: No memory loss, No paralysis, No weakness, No numbness/tingling Psychiatric: No depression symptoms, No anhedonism, No anxiety, No insomnia Endo: No fatigue, No excessive thirst Skin: No rash, No itch Objective Vital Signs Date Time Temp Pulse Resp B/P (MAP) Pulse Ox O2 Delivery O2 Flow Rate FiO2 02/28/17 10:45 36.6 61 18 128/71 (90) 97 Room Air 02/28/17 08:52 38.0 68 18 182/65 (104) 95 Room Air 02/28/17 08:00 Room Air 02/28/17 04:02 Room Air 02/28/17 04:00 36.8 60 18 163/80 (107) 97 Room Air 02/28/17 00:00 Room Air 02/27/17 23:41 36.8 71 18 136/75 (95) 97 Room Air 02/27/17 20:00 Room Air 02/27/17 18:59 36.7 62 24 161/72 (101) 98 Room Air 02/27/17 16:00 Room Air 02/27/17 15:49 37.2 61 21 131/61 (84) 98 Room Air Physical Exam General Appearance: WD/WN, no apparent distress Eyes: normal inspection, PERRL, EOMI, sclerae normal ENT: normal ENT inspection, hearing grossly normal, TMs normal, pharynx normal Neck: supple, no adenopathy, thyroid normal, no JVD Respiratory/Chest: chest non-tender, lungs clear, normal breath sounds, no respiratory distress Cardiovascular: regular rate, rhythm, no edema, no gallop, no JVD Abdomen: normal bowel sounds, non tender, soft, no organomegaly Extremities: normal range of motion, non-tender, normal inspection, no pedal edema Neurologic/Psychiatric: no motor/sensory deficits, alert, normal mood/affect, oriented x 3 Laboratory Results Last 24 Hours Test 02/27/17 16:33 02/27/17 20:41 02/28/17 05:48 02/28/17 06:48 Bedside Glucose 198 mg/dl 194 mg/dl 93 mg/dl White Blood Count 11.04 K/uL Red Blood Count 3.68 M/uL Hemoglobin 10.0 g/dL Hematocrit 31.5 % Mean Corpuscular Volume 85.6 fL Mean Corpuscular Hemoglobin 27.2 pg Mean Corpuscular Hemoglobin Concent 31.7 g/dl RDW Standard Deviation 47.0 fL RDW Coefficient of Variation 14.9 % Platelet Count 449 K/uL Mean Platelet Volume 9.9 fL Sodium Level 144 mmol/L Potassium Level 3.5 mmol/L Chloride Level 111 mmol/L Carbon Dioxide Level 28 mmol/L Anion Gap 5.0 mmol/L Blood Urea Nitrogen 21 mg/dl Creatinine 1.20 mg/dl Est Creatinine Clear Calc Drug Dose 38.8 ml/min Estimated GFR () 51.6 Estimated GFR (Non- 44.5 BUN/Creatinine Ratio 17.7 Random Glucose 91 mg/dl Calcium Level 8.9 mg/dl Test 02/28/17 11:15 Bedside Glucose 152 mg/dl Assessment and Plan 76-year-old female with a history of anxiety, hypertension, bipolar disorder, DM II, hyperlipidemia who presented to the ER with confusion. Altered mental status--resolving. Alert and oriented x 3, MMSE 24/30 -Head CT negative for CVA, shows sinusitis, MRI brain unremarkable -B12, folate, TSH and vitamin D all WNL -Electrolytes WNL -UA negative -PT/OT evaluate and treat: initial eval recommended discharging home w/HH PT services, Spoke to daughter, will further assess confusion and consult psychiatry -Cont seroquel at this time and ativan PRN Upper GI bleed, heme positive stool, c/o melena--resolved -Hgb 11.5 on admission. Pt has h/o anemia, this is about baseline -Hg 10 today -Can resume Pradaxa -Continue Protonix DM II--last HgbA1c in 2014 -Lantus 10 units SC BID. Decreased from home dose due to poor oral intake -Insulin sliding scale -Check BSGs q ac and qhs -Rechecked HgbA1c 02/25 was 7.8 Chronic Sinusitis - On head CT - Patient states that she has chronic sinusitis but she kept postponing her surgery - May consider antibiotics but pt denies complaints now Bipolar disorder -Continue Seroquel 300 mg PO qhs and fluvoxamine 300 mg PO qd Atrial fibrillation--stable, rate controlled -Continue Coreg 12.5 mg PO BID and dronedarone 400 mg PO BID -Pradaxa on hold for now due to GI bleed Hypertension--stable -Continue hydralazine 25 mg PO TID and amlodipine 10 mg PO qd Anxiety -Ativan as needed Diabetes: -Insulin sliding scale DVT prophylaxis -SCDs Code Status -Level I, FULL RESUSCITATION STATUS
[2017-02-28 16:03] VITALS: BP 168/81; PULSE 63; TEMP 36.8; O2SAT 96
[2017-02-28 19:56] VITALS: BP 156/70; PULSE 69; TEMP 36.8; O2SAT 96
[2017-02-28] MEDS: QUETIAPINE FUMARATE 300 MG TAB PO SCH (21:06)
[2017-02-28] MEDS: PRAVASTATIN SOD 40 MG TAB PO SCH (21:06)
[2017-02-28 23:26] VITALS: BP 162/69; PULSE 68; TEMP 37.4; O2SAT 96
[2017-03-01] MEDS: SODIUM CHLORIDE 0.9% 1000ML 1,000 ML IV SCH (02:44)
[2017-03-01 04:51] VITALS: BP 114/64; PULSE 58; TEMP 37.2; O2SAT 96
[2017-03-01 07:52] VITALS: BP 134/70; PULSE 60; TEMP 36.8; O2SAT 97
[2017-03-01] MEDS: DABIGATRAN ELEXILATE 75 MG CAP PO SCH ×2 (08:53→20:39)
[2017-03-01] MEDS: SACCHAROMYCES BOUL (FLORASTOR) 250 MG CAP PO SCH (08:53)
[2017-03-01] MEDS: DRONEDARONE 400 MG TAB PO SCH ×2 (08:53→20:39)
[2017-03-01] MEDS: PANTOprazole SOD 40 MG TAB PO SCH (08:53)
[2017-03-01] MEDS: PYRIDOXINE HCL 50 MG TAB PO SCH (08:54)
[2017-03-01] MEDS: ASPIRIN 81 MG ECTAB PO SCH (08:54)
[2017-03-01] MEDS: PROBENECID 500 MG TAB PO SCH ×2 (08:54→20:39)
[2017-03-01] MEDS: MULTIVITAMIN TAB PO SCH (08:54)
[2017-03-01] MEDS: CARVEDILOL 12.5 MG TAB PO SCH ×2 (08:54→20:39)
[2017-03-01] MEDS: AMLODIPINE BESYLATE 5 MG TAB PO SCH (08:54)
[2017-03-01] MEDS: INSULIN ASPART 100 UNITS/ML 3 ML PEN SC SCH ×5 (09:17→20:16)
[2017-03-01] MEDS: INSULIN GLARGINE SOLOSTAR 100 UNITS/ML 3 ML PEN SC SCH ×2 (09:18→20:42)
--- NOTE | 2017-03-01 09:58 | Clinical Documentation Query ---
PETE Sue : CLINICAL DOCUMENTATION QUERY Patient is a 76 year old woman admitted for AMS and GI bleed. Admission BUN and creatinine noted to have been 39 mg/dl and 1.40 mg/dl. Estimated GFR range from 10/2014 to present of 27-44 ml/min. As appropriate, consider documentation as suggested below to capture additional severity of illness and associated risk of mortality within the medical record. Thank you. In your clinical opinion is this patient being managed for: ( ) Chronic kidney disease, stage 3-4 ( ) Other explanation of clinical findings (Please Explain) ( ) Unable to determine (Please Define) ( ) Need to Discuss ( ) Not Agree The medical record reflects the following clinical findings, treatment, and risk factors. Clinical Indicators: As above Treatment: Serial chemistries Risk Factors: Age, medications, hypertension, diabetes Please clarify and document your clinical opinion in the progress notes and discharge summary. Terms such as "probable", "suspected", "likely", "questionable", "possible", or "still to be ruled out" are acceptable. IF IN AGREEMENT, YOU MUST DOCUMENT ABOVE DIAGNOSTIC STATEMENT IN DAILY PROGRESS NOTES AND DISCHARGE SUMMARY. This document is not part of the patient's record. Thank You, Pete Gimenez, RN [phone]
[2017-03-01 11:24] VITALS: BP 150/69; PULSE 61; TEMP 36.7; O2SAT 98
[2017-03-01] MEDS ORDERED: NURSING VERBAL MED ORDER ONE (14:30)
[2017-03-01 15:48] VITALS: BP 147/59; PULSE 61; TEMP 36.6; O2SAT 98
--- NOTE | 2017-03-01 17:31 | Hospitalist Progress Note ---
Hospitalist Progress Note Date of Service Mar 01, 2017. Subjective Patient with no complaints agrees to short term rehab. Objective Vital Signs Date Time Temp Pulse Resp B/P (MAP) Pulse Ox O2 Delivery O2 Flow Rate FiO2 03/01/17 16:42 Room Air 03/01/17 15:48 36.6 61 20 147/59 (88) 98 Room Air 03/01/17 12:00 Room Air 03/01/17 11:24 36.7 61 20 150/69 (96) 98 Room Air 03/01/17 08:00 Room Air 03/01/17 07:52 36.8 60 18 134/70 (91) 97 Room Air 03/01/17 04:51 37.2 58 18 114/64 (81) 96 Room Air 03/01/17 04:00 Room Air 03/01/17 00:00 Room Air 02/28/17 23:26 37.4 68 18 162/69 (100) 96 Room Air 02/28/17 20:00 Room Air 02/28/17 19:56 36.8 69 18 156/70 (98) 96 Room Air Physical Exam General Appearance: no apparent distress ENT: normal ENT inspection, hearing grossly normal Neck: trachea midline Respiratory/Chest: lungs clear Cardiovascular: regular rate, rhythm Abdomen: normal bowel sounds Extremities: normal range of motion Skin: normal color Laboratory Results Last 24 Hours Test 02/28/17 20:16 03/01/17 07:48 03/01/17 16:31 Bedside Glucose 156 mg/dl 75 mg/dl 122 mg/dl Assessment and Plan 76-year-old female with a history of anxiety, hypertension, bipolar disorder, DM II, hyperlipidemia who presented to the ER with confusion. Altered mental status--worsening. Pt significantly more confused today and paranoid, although she remains oriented x 3 -Change to full admission status on tele. No acute events overnight. Pt in a- fib with HR 70s-80s -Head CT negative for CVA, shows sinusitis -B12, folate, TSH and vitamin D all WNL -Electrolytes WNL -MRI brain pending--keep attempting to get a hold of daughter for MRI questionnaire but not answering -UA negative -PT/OT evaluate and treat: Pt agrees to str Upper GI bleed, heme positive stool, c/o melena--improving -Hgb 11.5 on admission. Pt has h/o anemia, this is about baseline -Repeat Hgb 10.4 on 02/25 -Hold Pradaxa -Continue Protonix -Check H&H q6h -Hgb is stable at 10 DM II--last HgbA1c in 2014 -Lantus 10 units SC BID. Decreased from home dose due to poor oral intake -Insulin sliding scale -Check BSGs q ac and qhs -Rechecked HgbA1c 02/25 was 7.8 Chronic Sinusitis - On head CT - Patient states that she has chronic sinusitis but she kept postponing her surgery - May consider antibiotics but pt denies complaints now Bipolar disorder -Continue Seroquel 300 mg PO qhs and fluvoxamine 300 mg PO qd Atrial fibrillation--stable, rate controlled -Continue Coreg 12.5 mg PO BID and dronedarone 400 mg PO BID -Pradaxa on hold for now due to GI bleed Hypertension--stable -Continue hydralazine 25 mg PO TID and amlodipine 10 mg PO qd Anxiety -Ativan as needed Diabetes: -Insulin sliding scale DVT prophylaxis -SCDs Code Status -Level I, FULL RESUSCITATION STATUS
[2017-03-01] MEDS: PRAVASTATIN SOD 40 MG TAB PO SCH (20:39)
[2017-03-01] MEDS: QUETIAPINE FUMARATE 300 MG TAB PO SCH (20:39)
[2017-03-02 00:19] VITALS: BP 138/65; PULSE 62; TEMP 36.6; O2SAT 97
[2017-03-02 07:39] VITALS: BP 144/67; PULSE 52; TEMP 36.7; O2SAT 95
[2017-03-02] MEDS: INSULIN ASPART 100 UNITS/ML 3 ML PEN SC SCH ×4 (09:45→21:20)
[2017-03-02] MEDS: DRONEDARONE 400 MG TAB PO SCH ×2 (09:46→21:12)
[2017-03-02] MEDS: DABIGATRAN ELEXILATE 75 MG CAP PO SCH ×2 (09:46→21:15)
[2017-03-02] MEDS: CARVEDILOL 12.5 MG TAB PO SCH ×2 (09:46→21:14)
[2017-03-02] MEDS: PYRIDOXINE HCL 50 MG TAB PO SCH (09:46)
[2017-03-02] MEDS: MULTIVITAMIN TAB PO SCH (09:46)
[2017-03-02] MEDS: PROBENECID 500 MG TAB PO SCH ×2 (09:46→21:14)
[2017-03-02] MEDS: AMLODIPINE BESYLATE 5 MG TAB PO SCH (09:47)
[2017-03-02] MEDS: PANTOprazole SOD 40 MG TAB PO SCH (09:47)
[2017-03-02] MEDS: ASPIRIN 81 MG ECTAB PO SCH (09:47)
[2017-03-02] MEDS: SACCHAROMYCES BOUL (FLORASTOR) 250 MG CAP PO SCH (09:47)
[2017-03-02] MEDS: INSULIN GLARGINE SOLOSTAR 100 UNITS/ML 3 ML PEN SC SCH ×2 (09:51→21:18)
--- NOTE | 2017-03-02 12:52 | Psychiatric Progress Notes ---
Progress Note Date of Service Mar 02, 2017. Interval History Tressa is a 76 yo female who resides alone in [place], has a history of schizoaffective disorder, admitted to the hospitalist service for altered mental status and weakness. Psychiatry was consulted for "needs provider" at the request of family (daughter Mily). Chief Complaint "I think I've seen you before". Subjective Patient was seen & record reviewed. Patient was seen by Dr. Joe for the initial consult on 02/27/2017, at which time recommendations were to continue quetiapine which the primary service had restarted at 300 mg daily at bedtime and to discontinue Luvox. information services consultant was going to coordinate with the patient's family to ensure that she had outpatient psychiatric follow-up. Apparently, she ran out of her psychotropic medications and had been off of Luvox for at least 2 months and Seroquel for 2-3 weeks prior to admission. She has been confused at times, resting paranoia, and picking at her stomach and arms. At time she is agitated and argumentative with staff, but at other times is cooperative and pleasant. Yesterday she stated that someone was trying to kill her, but felt she would be safe at home. Staff have been attempting to contact her daughter for days, and finally spoke with her today. She does not feel the patient can return home alone. The patient did agree to a referral to [facility] for physical rehabilitation. On my assessment, the patient is pleasant and cooperative. She states her mood is "okay," and denies feeling depressed or anxious. She denies hallucinations, paranoia, SI, and HI. She reports good sleep and appetite, and is eating throughout the interview. She thinks her Seroquel is helpful, and denies side effects. She states that her PCP was prescribing her psych meds, but wanted her to see a psychiatrist, and although she thinks she has an appointment scheduled sometime in March, she cannot recall who it is with. Mental Status Exam During interview pt is: alert and oriented (x 6/6), cooperative (but a limited historian) Appearance: appropriately dressed, appropriately groomed, disheveled Eye contact is: good Motor behavior is: no abnormal motor movements Speech: normal in rate, rhythm & volume Affect: euthymic, other (stable, appropriate, and mood congruent) Mood is: other ("okay") Thought process: circumstantial (speech has a rambling quality to it, but she is able to answer questions appropriately and is redirectable when she gets off topic) Thought content: reality based without delusions Suicidal thought are: denied Homicidal thoughts are: denied Hallucinations: denies auditory, denies visual Cognition: language grossly intact, other (decreased memory and attention) Intelligence estimated to be: average Insight: limited Judgement: limited Impression 76 yo female with a history of schizoaffective disorder who reports not having outpatient psychiatric care for some time, primary care no longer felt comfortable overseeing her medications (patient report) and she ran out of medications. Compared to her mental status at the time of her last consult in 2009, it appears cognitive functioning has deteriorated. She has been referred to [facility], and family are involved as well. Plan 02/27 - primary service resumed Seroquel at 300 mg po qhs. She reports tolerating it well and doesn't wish to start with slower titration. I would not restart Luvox at this time. She doesn't meet criteria for acute inpatient psychiatric hospitalization, liaison to work with family on identifying an appropriate prescriber. Would likely benefit from case management currently on low dose Ativan prn which isn't ideal given fall risk in elderly, should be tapered outpatient, will continue for now as comfort measure as just restarted Seroquel. 02/28 - continue quetiapine 300 mg daily at bedtime. No criteria for inpatient psychiatric treatment. Her altered mental status is most likely due to encephalopathy, as she has demonstrated waxing and waning attention and paranoia in the context of multiple medical problems. Mental status likely also worsened by running out of her psychotropic medications at home. If needed for acute episodes of anxiety or agitation, I will order quetiapine 25 mg when necessary. Recommend avoiding benzodiazepines due to propensity to worsen delirium. The psychiatric liaison nurse or delinquency prevention social worker should contact the patient's daughter to attempt to clarify who she will be seen for outpatient psychiatric care, and to ensure that a timely appointment is scheduled, ideally within a couple weeks of discharge. Visit Code E&M Code: 93659 Data Vital Signs Last 24 Hrs: Date Time Temp Pulse Resp B/P (MAP) Pulse Ox O2 Delivery O2 Flow Rate FiO2 03/02/17 10:15 Room Air 03/02/17 10:00 Room Air 03/02/17 07:39 36.7 52 18 144/67 (92) 95 Room Air 03/02/17 00:19 36.6 62 16 138/65 (89) 97 Room Air 03/02/17 00:00 Room Air 03/01/17 16:42 Room Air 03/01/17 15:48 36.6 61 20 147/59 (88) 98 Room Air Lab Results Last 24 Hrs: Last 24 Hours Test 03/01/17 16:31 03/01/17 19:46 03/02/17 11:35 Bedside Glucose 122 mg/dl 156 mg/dl 183 mg/dl
[2017-03-02 15:42] VITALS: PULSE 66; TEMP 36.9; O2SAT 96
[2017-03-02] MEDS: QUETIAPINE FUMARATE 25 MG TAB PO PRN (17:29)
[2017-03-02] MEDS: QUETIAPINE FUMARATE 300 MG TAB PO SCH (21:12)
[2017-03-02] MEDS: PRAVASTATIN SOD 40 MG TAB PO SCH (21:13)
--- NOTE | 2017-03-02 22:24 | Hospitalist Progress Note ---
Hospitalist Progress Note Date of Service Mar 02, 2017. Subjective Pt evaluation today including: conversation w/ patient, physical exam, lab review Patient has no complaints waiting placement short-term rehabilitation Objective Vital Signs Date Time Temp Pulse Resp B/P (MAP) Pulse Ox O2 Delivery O2 Flow Rate FiO2 03/02/17 16:00 Room Air 03/02/17 15:42 36.9 66 16 96 Room Air 03/02/17 10:15 Room Air 03/02/17 10:00 Room Air 03/02/17 07:39 36.7 52 18 144/67 (92) 95 Room Air 03/02/17 00:19 36.6 62 16 138/65 (89) 97 Room Air 03/02/17 00:00 Room Air Physical Exam General Appearance: no apparent distress Neck: trachea midline Respiratory/Chest: lungs clear Cardiovascular: regular rate, rhythm Abdomen: non tender Extremities: non-tender Neurologic/Psychiatric: alert Laboratory Results Last 24 Hours Test 03/02/17 11:35 03/02/17 16:53 03/02/17 19:51 Bedside Glucose 183 mg/dl 281 mg/dl 202 mg/dl Assessment and Plan 76-year-old female with a history of anxiety, hypertension, bipolar disorder, DM II, hyperlipidemia who presented to the ER with confusion. Altered mental status--worsening. Pt significantly more confused today and paranoid, although she remains oriented x 3 -Change to full admission status on tele. No acute events overnight. Pt in a- fib with HR 70s-80s -Head CT negative for CVA, shows sinusitis -B12, folate, TSH and vitamin D all WNL -Electrolytes WNL -MRI brain pending--keep attempting to get a hold of daughter for MRI questionnaire but not answering -UA negative -PT/OT evaluate and treat: Pt agrees to str Patient's daughter is uncomfortable with her going home will seek short-term rehabilitation Upper GI bleed, heme positive stool, c/o melena--improving -Hgb 11.5 on admission. Pt has h/o anemia, this is about baseline -Repeat Hgb 10.4 on 02/25 -Hold Pradaxa -Continue Protonix -Check H&H q6h -Hgb is stable at 10 DM II--last HgbA1c in 2014 -Lantus 10 units SC BID. Decreased from home dose due to poor oral intake -Insulin sliding scale -Check BSGs q ac and qhs -Rechecked HgbA1c 02/25 was 7.8 Chronic Sinusitis - On head CT - Patient states that she has chronic sinusitis but she kept postponing her surgery - May consider antibiotics but pt denies complaints now Bipolar disorder -Continue Seroquel 300 mg PO qhs and fluvoxamine 300 mg PO qd Atrial fibrillation--stable, rate controlled -Continue Coreg 12.5 mg PO BID and dronedarone 400 mg PO BID -Pradaxa on hold for now due to GI bleed Hypertension--stable -Continue hydralazine 25 mg PO TID and amlodipine 10 mg PO qd Anxiety -Ativan as needed Diabetes: -Insulin sliding scale DVT prophylaxis -SCDs Code Status -Level I, FULL RESUSCITATION STATUS
[2017-03-03 00:28] VITALS: BP 149/79; PULSE 67; TEMP 36.8; O2SAT 94
[2017-03-03] MEDS: INSULIN GLARGINE SOLOSTAR 100 UNITS/ML 3 ML PEN SC SCH ×2 (08:18→20:33)
[2017-03-03] MEDS: INSULIN ASPART 100 UNITS/ML 3 ML PEN SC SCH ×4 (08:18→20:33)
[2017-03-03] MEDS: PYRIDOXINE HCL 50 MG TAB PO SCH (08:23)
[2017-03-03] MEDS: DABIGATRAN ELEXILATE 75 MG CAP PO SCH ×2 (08:23→20:24)
[2017-03-03] MEDS: PROBENECID 500 MG TAB PO SCH ×2 (08:23→20:26)
[2017-03-03] MEDS: QUETIAPINE FUMARATE 25 MG TAB PO PRN (08:23)
[2017-03-03] MEDS: AMLODIPINE BESYLATE 5 MG TAB PO SCH (08:24)
[2017-03-03] MEDS: CARVEDILOL 12.5 MG TAB PO SCH ×2 (08:24→20:25)
[2017-03-03] MEDS: SACCHAROMYCES BOUL (FLORASTOR) 250 MG CAP PO SCH (08:24)
[2017-03-03] MEDS: PANTOprazole SOD 40 MG TAB PO SCH (08:24)
[2017-03-03] MEDS: DRONEDARONE 400 MG TAB PO SCH ×2 (08:24→20:26)
[2017-03-03] MEDS: MULTIVITAMIN TAB PO SCH (08:24)
[2017-03-03] MEDS: ASPIRIN 81 MG ECTAB PO SCH (08:24)
[2017-03-03 08:25] VITALS: BP 145/65; PULSE 62
--- NOTE | 2017-03-03 12:25 | Psychiatric Progress Notes ---
Progress Note Date of Service Mar 03, 2017. Interval History Tressa is a 76 yo female who resides alone in [place], has a history of schizoaffective disorder, admitted to the hospitalist service for altered mental status and weakness. Psychiatry was consulted for "needs provider" at the request of family (daughter Mily). Chief Complaint "Okay". Subjective Patient was seen & assessed, and records reviewed. Yesterday, patient was in the hallway stating that the world was ending, was agitated, but ultimately returned to bed. She has taken all scheduled medications, although at times, she initially refused them. She is tangential and difficult to follow at times in her statements. At time she is pleasant and cooperative, and at other times irritable. Today, she was seen with Laron Hall, MS 4. She states that her mood is "good," but then says people think she is "crazy." She does not feel she is having any problems with her mental health, and thinks that resuming her Seroquel is helping to stabilize her. She reports good sleep, appetite, and mood. She denies hallucinations, SI, and HI. She made several paranoid statements, indicating that she believes this physician in the medical students no which facility she is going to for rehabilitation and are just not telling her. She continues to state she agrees with the plan to go to a rehabilitation facility. She remains unable to say where she had set up outpatient psychiatric services. Mental Status Exam During interview pt is: alert and oriented (to self, place, and time), cooperative (but a limited historian, and more difficult to keep on topic today) Appearance: appropriately dressed, appropriately groomed, disheveled Eye contact is: fair Motor behavior is: psychomotor agitation (restless in bed) Speech: loud, other (hyperverbal) Affect: labile (switching rapidly from elevated to irritable) Mood is: other ("okay") Thought process: tangential (thinking is much looser today, jumping from topic to topic, at times is difficult to follow, but is redirectable) Thought content: reality based without delusions Suicidal thought are: denied Homicidal thoughts are: denied Hallucinations: denies auditory, denies visual Cognition: language grossly intact, other (memory and attention are impaired) Intelligence estimated to be: average Insight: limited Judgement: limited Impression 76 yo female with a history of schizoaffective disorder who reports not having outpatient psychiatric care for some time, primary care no longer felt comfortable overseeing her medications (patient report) and she ran out. Compared to her mental status at the time of her last consult in 2009, it appears cognitive functioning has deteriorated. She has been referred to [facility], and family are involved as well. Plan 02/27 - primary service resumed Seroquel at 300 mg po qhs. She reports tolerating it well and doesn't wish to start with slower titration. I would not restart Luvox at this time. She doesn't meet criteria for acute inpatient psychiatric hospitalization, liaison to work with family on identifying an appropriate prescriber. Would likely benefit from case management currently on low dose Ativan prn which isn't ideal given fall risk in elderly, should be tapered outpatient, will continue for now as comfort measure as just restarted Seroquel. 03/01 - continue quetiapine 300 mg daily at bedtime. No criteria for inpatient psychiatric treatment. Her altered mental status is most likely due to encephalopathy, as she has demonstrated waxing and waning attention and paranoia in the context of multiple medical problems. Mental status likely also worsened by running out of her psychotropic medications at home. If needed for acute episodes of anxiety or agitation, I will order quetiapine 25 mg when necessary. Recommend avoiding benzodiazepines due to propensity to worsen delirium. The psychiatric liaison nurse or long term care social worker should contact the patient's daughter to attempt to clarify who she will be seen for outpatient psychiatric care, and to ensure that a timely appointment is scheduled, ideally within a couple weeks of discharge. 03/03 - patient is more disorganized today, and has had some disruptive behavior on the floor. I will add quetiapine 25 mg twice a day and increase her bedtime dose to 350 mg. Once we know where she is going for placement, the liaison nurse can assist in arranging out patient psychiatric follow-up. Visit Code E&M Code: 98145 Data Vital Signs Last 24 Hrs: Date Time Temp Pulse Resp B/P (MAP) Pulse Ox O2 Delivery O2 Flow Rate FiO2 03/03/17 08:25 62 145/65 (91) 03/03/17 08:00 Room Air 03/03/17 00:28 36.8 67 20 149/79 (102) 94 Room Air 03/03/17 00:00 Room Air 03/02/17 20:00 Room Air 03/02/17 16:00 Room Air 03/02/17 15:42 36.9 66 16 96 Room Air Meds Administered Last 24 Hrs: Meds Administered (Past 24Hrs) Medications (Trade) Dose Ordered Sig/Krish Route Start Time Stop Time Status Last Admin Dose Admin Quetiapine Fumarate (seroQUEL TAB) 25 mg Q4H PRN PO 03/02/17 13:00 04/01/17 12:59 03/03/17 08:23 25 MG Lab Results Last 24 Hrs: Last 24 Hours Test 03/02/17 16:53 03/02/17 19:51 03/03/17 07:48 03/03/17 11:27 Bedside Glucose 281 mg/dl 202 mg/dl 163 mg/dl 181 mg/dl
[2017-03-03 12:45] VITALS: BP 136/79; PULSE 58
[2017-03-03] MEDS: QUETIAPINE FUMARATE 25 MG TAB PO SCH ×2 (16:59→20:23)
--- NOTE | 2017-03-03 18:32 | Hospitalist Progress Note ---
Hospitalist Progress Note Date of Service Mar 03, 2017. Subjective Pt evaluation today including: conversation w/ patient No medical complaints Objective Vital Signs Date Time Temp Pulse Resp B/P (MAP) Pulse Ox O2 Delivery O2 Flow Rate FiO2 03/03/17 16:00 Room Air 03/03/17 12:45 58 136/79 (98) 03/03/17 08:25 62 145/65 (91) 03/03/17 08:00 Room Air 03/03/17 00:28 36.8 67 20 149/79 (102) 94 Room Air 03/03/17 00:00 Room Air 03/02/17 20:00 Room Air Physical Exam General Appearance: no apparent distress ENT: hearing grossly normal Neck: trachea midline Respiratory/Chest: lungs clear Cardiovascular: regular rate, rhythm Abdomen: normal bowel sounds Extremities: normal range of motion Laboratory Results Last 24 Hours Test 03/02/17 19:51 03/03/17 07:48 03/03/17 11:27 03/03/17 16:57 Bedside Glucose 202 mg/dl 163 mg/dl 181 mg/dl 119 mg/dl Assessment and Plan 76-year-old female with a history of anxiety, hypertension, bipolar disorder, DM II, hyperlipidemia who presented to the ER with confusion. Altered mental status--worsening. Pt significantly more confused today and paranoid, although she remains oriented x 3 -Change to full admission status on tele. No acute events overnight. Pt in a- fib with HR 70s-80s -Head CT negative for CVA, shows sinusitis -B12, folate, TSH and vitamin D all WNL -Electrolytes WNL -PT/OT evaluate and treat: Pt agrees to str Patient's daughter is uncomfortable with her going home will seek short-term rehabilitation Upper GI bleed, heme positive stool, c/o melena--improving -Hgb 11.5 on admission. Pt has h/o anemia, this is about baseline -Repeat Hgb 10.4 on 02/25 -Hold Pradaxa -Continue Protonix -Check H&H q6h -Hgb is stable at 10 DM II--last HgbA1c in 2014 -Lantus 10 units SC BID. Decreased from home dose due to poor oral intake -Insulin sliding scale -Check BSGs q ac and qhs -Rechecked HgbA1c 02/25 was 7.8 Chronic Sinusitis - On head CT - Patient states that she has chronic sinusitis but she kept postponing her surgery - May consider antibiotics but pt denies complaints now Bipolar disorder -seroquel being adjusted by psychaitry Atrial fibrillation--stable, rate controlled -Continue Coreg 12.5 mg PO BID and dronedarone 400 mg PO BID -Pradaxa on hold for now due to GI bleed Hypertension--stable -Continue hydralazine 25 mg PO TID and amlodipine 10 mg PO qd Anxiety -Ativan as needed Diabetes: -Insulin sliding scale DVT prophylaxis -SCDs Code Status -Level I, FULL RESUSCITATION STATUS Discharge planning: [facility]
[2017-03-03] MEDS: QUETIAPINE FUMARATE 300 MG TAB PO SCH (20:29)
[2017-03-03] MEDS: PRAVASTATIN SOD 40 MG TAB PO SCH (20:29)
[2017-03-03 23:32] VITALS: BP 126/81; PULSE 62; TEMP 36.4; O2SAT 97
[2017-03-04 07:32] VITALS: BP 179/92; PULSE 57; TEMP 36.8; O2SAT 96
[2017-03-04] MEDS: CARVEDILOL 12.5 MG TAB PO SCH ×2 (08:47→21:56)
[2017-03-04] MEDS: AMLODIPINE BESYLATE 5 MG TAB PO SCH (08:49)
[2017-03-04] MEDS: ASPIRIN 81 MG ECTAB PO SCH (08:49)
[2017-03-04 08:50] VITALS: PULSE 66
[2017-03-04] MEDS: DABIGATRAN ELEXILATE 75 MG CAP PO SCH ×2 (08:50→21:56)
[2017-03-04] MEDS: DRONEDARONE 400 MG TAB PO SCH ×2 (08:50→21:56)
[2017-03-04] MEDS: PYRIDOXINE HCL 50 MG TAB PO SCH (08:50)
[2017-03-04] MEDS: MULTIVITAMIN TAB PO SCH (08:51)
[2017-03-04] MEDS: SACCHAROMYCES BOUL (FLORASTOR) 250 MG CAP PO SCH (08:51)
[2017-03-04] MEDS: PANTOprazole SOD 40 MG TAB PO SCH (08:52)
[2017-03-04] MEDS: QUETIAPINE FUMARATE 25 MG TAB PO SCH ×3 (08:53→21:24)
[2017-03-04] MEDS: INSULIN GLARGINE SOLOSTAR 100 UNITS/ML 3 ML PEN SC SCH ×2 (09:14→20:04)
[2017-03-04] MEDS: PROBENECID 500 MG TAB PO SCH ×2 (09:59→21:56)
[2017-03-04] MEDS: INSULIN ASPART 100 UNITS/ML 3 ML PEN SC SCH ×4 (10:05→21:00)
[2017-03-04 14:10] VITALS: BP 158/80; PULSE 63
[2017-03-04 15:44] VITALS: BP 175/74; PULSE 71; TEMP 36.7; O2SAT 93
--- NOTE | 2017-03-04 17:15 | Hospitalist Progress Note ---
Hospitalist Progress Note Date of Service Mar 04, 2017. Subjective Pt evaluation today including: conversation w/ patient, physical exam, chart review, lab review Pain: no complaints Objective Vital Signs Date Time Temp Pulse Resp B/P (MAP) Pulse Ox O2 Delivery O2 Flow Rate FiO2 03/04/17 16:00 Room Air 03/04/17 15:44 36.7 71 20 175/74 (107) 93 Room Air 03/04/17 14:10 63 158/80 (106) 03/04/17 08:50 66 03/04/17 07:51 Room Air 03/04/17 07:32 36.8 57 18 179/92 (121) 96 Room Air 03/04/17 00:00 Room Air 03/03/17 23:32 36.4 62 18 126/81 (96) 97 Room Air Physical Exam General Appearance: no apparent distress Eyes: normal inspection ENT: hearing grossly normal Neck: trachea midline Respiratory/Chest: lungs clear Cardiovascular: regular rate, rhythm Abdomen: normal bowel sounds, non tender Laboratory Results Last 24 Hours Test 03/03/17 20:23 03/04/17 07:43 03/04/17 11:26 03/04/17 16:20 Bedside Glucose 237 mg/dl 217 mg/dl 228 mg/dl 75 mg/dl Test 03/04/17 17:02 Assessment and Plan 76-year-old female with a history of anxiety, hypertension, bipolar disorder, DM II, hyperlipidemia who presented to the ER with confusion. Altered mental status--worsening. Pt significantly more confused today and paranoid, although she remains oriented x 3 -Change to full admission status on tele. No acute events overnight. Pt in a- fib with HR 70s-80s -Head CT negative for CVA, shows sinusitis -B12, folate, TSH and vitamin D all WNL -Electrolytes WNL -PT/OT evaluate and treat: Pt agrees to str Patient's daughter is uncomfortable with her going home will seek short-term rehabilitation Upper GI bleed, heme positive stool, c/o melena--improving -Hgb 11.5 on admission. Pt has h/o anemia, this is about baseline -Repeat Hgb 10.4 on 02/25 -Hold Pradaxa -Continue Protonix -Check H&H q6h -Hgb is stable at 10 DM II--last HgbA1c in 2014 -Lantus 10 units SC BID. Decreased from home dose due to poor oral intake -Insulin sliding scale -Check BSGs q ac and qhs -Rechecked HgbA1c 02/25 was 7.8 Chronic Sinusitis - On head CT - Patient states that she has chronic sinusitis but she kept postponing her surgery -Will try augmentin to see if delerium improves Bipolar disorder -seroquel being adjusted by psychaitry Atrial fibrillation--stable, rate controlled -Continue Coreg 12.5 mg PO BID and dronedarone 400 mg PO BID -Pradaxa on hold for now due to GI bleed Hypertension--stable -Continue hydralazine 25 mg PO TID and amlodipine 10 mg PO qd Anxiety -Ativan as needed Diabetes: -Insulin sliding scale DVT prophylaxis -SCDs Code Status -Level I, FULL RESUSCITATION STATUS
[2017-03-04] MEDS ORDERED: HALOPERIDOL LACTATE 5 MG/ML 1 ML VIAL IM PRN ×2 (19:45→21:00)
[2017-03-04] MEDS ORDERED: HALOPERIDOL LACTATE 5 MG/ML 1 ML VIAL ONE (19:54)
[2017-03-04] MEDS: QUETIAPINE FUMARATE 300 MG TAB PO SCH (21:23)
[2017-03-04] MEDS: PRAVASTATIN SOD 40 MG TAB PO SCH (21:25)
[2017-03-05] MEDS: INSULIN ASPART 100 UNITS/ML 3 ML PEN SC SCH ×3 (06:30→16:30)
[2017-03-05 07:36] LABS: HEMATOCRIT 34.8 % (37-47); MEAN CELL VOLUME 83.7 fL (80-100); MEAN CORPUSCULAR HEMOGLOBIN 28.4 pg (25-34); MEAN PLATELET VOLUME 9.2 fL (7.4-10.4); PLATELET COUNT 579 K/uL (130-400); RED BLOOD COUNT 4.16 M/uL (4.2-5.4); WHITE BLOOD COUNT 9.77 K/uL (4.8-10.8)
[2017-03-05 07:49] LABS: MEAN CORPUSCULAR HGB CONC 33.9 g/dl (32-36)
[2017-03-05 07:57] LABS: BUN/CREATININE RATIO 21.3 (10-20); CALCIUM 9.4 mg/dl (8.5-10.1); CREATININE 1.6 mg/dl (0.60-1.20); POTASSIUM 3.4 mmol/L (3.5-5.1)
[2017-03-05 08:00] VITALS: O2SAT 93
[2017-03-05] MEDS: PANTOprazole SOD 40 MG TAB PO SCH (08:00)
[2017-03-05] MEDS: DABIGATRAN ELEXILATE 75 MG CAP PO SCH (08:00)
[2017-03-05] MEDS: INSULIN GLARGINE SOLOSTAR 100 UNITS/ML 3 ML PEN SC SCH (08:00)
[2017-03-05] MEDS: ASPIRIN 81 MG ECTAB PO SCH (08:00)
[2017-03-05] MEDS: AMLODIPINE BESYLATE 5 MG TAB PO SCH (08:00)
[2017-03-05] MEDS: PYRIDOXINE HCL 50 MG TAB PO SCH (08:00)
[2017-03-05] MEDS: PROBENECID 500 MG TAB PO SCH (08:00)
[2017-03-05] MEDS: MULTIVITAMIN TAB PO SCH (08:00)
[2017-03-05] MEDS: SACCHAROMYCES BOUL (FLORASTOR) 250 MG CAP PO SCH (08:00)
[2017-03-05] MEDS: CARVEDILOL 12.5 MG TAB PO SCH (08:00)
[2017-03-05] MEDS: DRONEDARONE 400 MG TAB PO SCH (08:00)
[2017-03-05] MEDS: AMOXICILLIN/CLAVULANATE TAB 875 MG TAB PO SCH ×2 (08:00→17:00)
[2017-03-05] MEDS: QUETIAPINE FUMARATE 25 MG TAB PO SCH ×2 (09:00→17:00)
[2017-03-05 09:25] VITALS: BP 169/76; PULSE 73
--- NOTE | 2017-03-05 12:13 | Clinical Documentation Query ---
PETE Sue : CLINICAL DOCUMENTATION QUERY Documentation has included "altered mental status", noting increased confusion and paranoia. She has been evaluated by CT scan of the head, serum chemistries, and psychiatric consultation. This is in the context of sudden discontinuation of psychotropic medications, sinusitis, GI bleed, and bipolar disorder. Please clarify as clinically appropriate. In your clinical opinion is this patient being managed for: ( ) Encephalopathy ( ) Other explanation of clinical findings (Please Explain) ( ) Unable to determine (Please Define) ( ) Need to Discuss ( ) Not Agree The medical record reflects the following clinical findings, treatment, and risk factors. Clinical Indicators: As above Treatment:She has been evaluated by CT scan of the head, serum chemistries, and psychiatric consultation Risk Factors: As above Please clarify and document your clinical opinion in the progress notes and discharge summary. Terms such as "probable", "suspected", "likely", "questionable", "possible", or "still to be ruled out" are acceptable. IF IN AGREEMENT, YOU MUST DOCUMENT ABOVE DIAGNOSTIC STATEMENT IN DAILY PROGRESS NOTES AND DISCHARGE SUMMARY. This document is not part of the patient's record. Thank You, Pete Gimenez, RN [phone]
--- NOTE | 2017-03-05 15:33 | Psychiatric Progress Notes ---
Psychiatric Progress Note Date of Service Mar 05, 2017. Notes Patient reviewed with liaison nurse. Interim progress reviewed. As delirium resolving appears more manic, not yet baseline, paranoid on exam with thought disorganization. 302 completed and I have accepted patient for transfer to [facility].
[2017-03-05 16:00] VITALS: O2SAT 93
[2017-03-05] MEDS ORDERED: NVLGIPEN SC (19:27)
[2017-03-05] MEDS ORDERED: SRQ300 PO (19:27)
[2017-03-05] MEDS ORDERED: DEXT40GE20 PO (19:27)
[2017-03-05] MEDS ORDERED: MRLP17X PO (19:27)
[2017-03-05] MEDS ORDERED: INSDGIPEN SC ×2 (19:27→20:59)
[2017-03-05] MEDS ORDERED: GLCI SQ (19:27)
[2017-03-05] MEDS ORDERED: SRQ25 PO ×3 (19:27)
[2017-03-05] MEDS ORDERED: DEXT4CHW64 PO (19:27)
--- NOTE | 2017-03-05 19:29 | Discharge Instructions ---
Discharge Instructions Date of Service Mar 05, 2017. Admission Reason for Admission: Confusion Discharge Discharge Diagnosis / Problem: Delerium/ Manic Discharge Goals Goal(s): Improve function Activity Recommendations Activity Limitations: per Instructions/Follow-up section . Instructions / Follow-Up Instructions / Follow-Up Primary Care Physician 1 week post discharge Current Hospital Diet Patient's current hospital diet: Diabetes Type 2 Diet, AHA Diet (Heart Healthy) Discharge Diet Recommended Diet: Diabetes Type 1 Diet Pending Studies Studies pending at discharge: no Laboratory Results Hemoglobin A1c Test 02/25/17 14:05 Range/Units Estimated Average Glucose 177 mg/dl Hemoglobin A1c 7.8 H 4.5-5.6 % Medical Emergencies . Who to Call and When: Medical Emergencies: If at any time you feel your situation is an emergency, please call 911 immediately. . Non-Emergent Contact Non-Emergency issues call your: Primary Care Provider . . "Provider Documentation" section prepared by Davis Razo. . VTE Core Measure Inpt VTE Proph given/why not?: Other Anticoagulation (pradaxa)
[2017-03-05 19:33] VITALS: BP 169/76; PULSE 73; TEMP 36.7; O2SAT 93
[2017-03-05] MEDS ORDERED: NVLGI/PEN (20:59)
[2017-03-05] MEDS ORDERED: QUET1TAB37 PO (21:02)
[2017-03-05] MEDS ORDERED: QUET1TAB32 PO (21:04)
[2017-03-05] MEDS ORDERED: QUET1TAB30 PO (21:05)
--- NOTE | 2017-03-18 06:06 | DISCHARGE SUMMARY ---
Please see dictated H and P for full details of her presentation. HISTORY OF PRESENT ILLNESS: A 76-year-old with history of type bipolar disease, hypertension, diabetes and hyperlipidemia who presented with confusion. CAT scan showed extensive paranasal sinus disease, no intracranial findings. The patient was brought in for a workup and her mental status waxed and weaned throughout her hospitalization, but drifted towards paranoia. MRI of the brain was performed and was negative MRI of the brain for her age, mucosal thickening of the right maxillary and saphenous sinuses. The patient suffers from chronic sinusitis and was placed on Augmentin to treat. The patient refused, psychiatry was consulted and case was discussed with case management. The patient's daughter is a power of attorney law clerk and felt that she was not safe to go home and she was admitted to our inpatient unit on a 302 on March 05 for further care. Time spent in review of the chart, discussion with the patient on the date of discharge 31 minutes.
== END 2017-03-05 20:18 | DRG 377 ==
LOC: EDBD 01:53 → C.EDB 01:54 → C.2T 05:16 → ENRESERV 05:35 → C.2T 02-26 11:57 → OBSVTOIN 02-26 14:21 → C.4E 03-01 14:24 → ENRESERV 03-01 14:38
PROVIDERS: ADMIT Family Medicine; ATTEND Hospitalist
DX: K92.2 Gastrointestinal hemorrhage, unspecified (principal); G93.40 Encephalopathy, unspecified; F22 Delusional disorders; F25.9 Schizoaffective disorder, unspecified; E11.65 Type 2 diabetes mellitus with hyperglycemia; J32.9 Chronic sinusitis, unspecified; I11.9 Hypertensive heart disease without heart failure; F31.9 Bipolar disorder, unspecified; F41.9 Anxiety disorder, unspecified; I48.91 Unspecified atrial fibrillation; K21.9 Gastro-esophageal reflux disease without esophagitis; E78.5 Hyperlipidemia, unspecified; E66.9 Obesity, unspecified; Z79.899 Other long term (current) drug therapy; Z79.01 Long term (current) use of anticoagulants; Z79.4 Long term (current) use of insulin; Z79.82 Long term (current) use of aspirin; Z68.28 Body mass index [BMI] 28.0-28.9, adult; Z87.891 Personal history of nicotine dependence; Z82.49 Family history of ischemic heart disease and other diseases of the circulatory system

== ENCOUNTER 2017-03-05 20:30 | Inpatient (IN) | payer OTHER ==
[~2017-03-05] VITALS: Ht 160 cm; Wt 66.8 kg
[~2017-03-05 20:30] MED LIST changes: +CALC-388 PO; -CALC600T9 PO; +DEXT40GE20 PO; +DEXT4CHW64 PO; +GLCI SQ; -INSDGI SC; +INSDGIPEN SC; +INSDGIPEN SQ; +MRLP17X PO; +NVLG SQ; -NVLGI SC; +NVLGIPEN SC; -NXM/40 PO; +PANT40TA PO; +PRVC/40; +PYRI100T4 PO; -SIMV10TA5 PO; +SRQ25 PO; +SRQ300 PO
[2017-03-05 20:45] VITALS: BP 169/76; PULSE 73; TEMP 36.7; BMI 28.5
[2017-03-05] MEDS ORDERED: INSDGIPEN SC (20:59)
[2017-03-05] MEDS ORDERED: NVLGI/PEN (20:59)
[2017-03-05] MEDS ORDERED: QUET1TAB37 PO (21:02)
[2017-03-05] MEDS ORDERED: QUET1TAB32 PO (21:04)
[2017-03-05] MEDS ORDERED: QUET1TAB30 PO (21:05)
--- NOTE | 2017-03-05 21:15 | Psychiatric History & Physical ---
Psychiatric History & Physical Date of Service: Mar 05, 2017. Identifying Data Tressa is a 76 yo female who continues to reside alone in [place]. Ms. Cyr was admitted to the medical floor for cardiac work-up/delirium on and seen for initial consultation on 02/27. She was followed on the medical floor and manic behavior became more apparent as other issues resolved and she was ultimately transferred to [facility] on a 302 commitment supported by her daughter (ROS). Chief Complaint "Why do you keep looking at the doctor?". History of Present Illness Ms. Cyr was last seen by consult service in 2009, soon after an inpatient stay for delusions (dx of schizoaffective disorder). At that time she was following with Dr. Elizalde. Patient seems to have memory difficulties (though she denies) and daughter reported that she becomes paranoid when she offers additional in home help. The patient has been getting refills through [facility] primary care for some time. As the patient rarely leaves her home, there were issues with picking up prescriptions for Ativan at Dr. Horton's office and she switched to Dr. Hernandez who suggested she have a psychiatrist reassess her medications. Nurse liaison later did confirm that she was referred to [facility] but when she was contacted to schedule an appointment she declined. It looks like she has been off of Luvox 300 mg for at least 2 months and that she ran out of Seroquel in late January. Per PDMP last rx of Ativan #60 tabs was Aug 2016. Her regular pharmacy describes her calling repeatedly ( sometimes multiple times in the same day) confused about her refills. Following initial consult, patient either sundowned or became increasingly disorganized on the medical floor. She would wander in the halls and scream to patients about going to hell. She was reassessed by Dr. Carvalho on 03/02--She has been confused at times, resting paranoia, and picking at her stomach and arms. At time she is agitated and argumentative with staff, but at other times is cooperative and pleasant. Yesterday she stated that someone was trying to kill her, but felt she would be safe at home. Staff have been attempting to contact her daughter for days, and finally spoke with her today. She does not feel the patient can return home alone. On 03/03/17--Yesterday, patient was in the hallway stating that the world was ending, was agitated, but ultimately returned to bed. She has taken all scheduled medications, although at times, she initially refused them. She is tangential and difficult to follow at times in her statements. At time she is pleasant and cooperative, and at other times irritable. Today, she was seen with Laron Hall, MS 4. She states that her mood is "good," but then says people think she is "crazy." She does not feel she is having any problems with her mental health, and thinks that resuming her Seroquel is helping to stabilize her. She reports good sleep, appetite, and mood. She denies hallucinations, SI, and HI. She made several paranoid statements, indicating that she believes this physician in the medical students no which facility she is going to for rehabilitation and are just not telling her. Seroquel prn and higher dose at was ordered by Dr. Carvalho. The patient appears to have received 2 doses of Haldol yesterday for agitated behavior. This am she was expansive, loud, paranoid in my interactions with her. She doesn't qualify for rehab or SNF per primary team and daughter reports current symptoms are consistent with her previous episodes of dee. Past Psychiatric History Current OP Treatment: no current treatment Prior OP Treatment: psychiatrist (Dr. Elizalde) Prior Psych Hospitalizations: other ([facility], last inpatient in 2009 at [facility]) Access to a Gun: No Suicide Attempts: No Past Medication Trials Abilify, Ativan, Luvox, Haldol, Cogentin, Seroquel, perhaps others dx of schizoaffective disorder, bipolar type Past Medical/Surgical History (1) Benign hypertension (2) Cholecystectomy (3) Diabetes mellitus (4) Gastroesophageal reflux disease (5) Hyperlipidemia (6) Polyarthritis Allergies Allergies: Coded Allergies: MARIANO Inhibitors (Unverified Allergy, Intermediate, HEPATOTOXICITY, 02/25/17) Amiodarone (Unverified Allergy, Intermediate, HEPATOTOXICITY, 05/01/15) Cephalexin (Verified Allergy, Unknown, unknown, 02/25/17) Erythromycin (Verified Allergy, Unknown, UNSURE, 02/25/17) Levofloxacin (Verified Allergy, Unknown, Unknown., 02/25/17) Reported by PT. Home Medications on admission to floor Scheduled Amlodipine (Norvasc), 10 MG PO DAILY Aspirin (Aspirin 81), 1 TAB PO DAILY Calcium Carbonate-Vitamin D (Calcium + D3 600-200 mg-Unit), 1 TAB PO DAILY Carvedilol (Coreg), 12.5 MG PO BID Cholecalciferol (Vitamin D3), 2,000 UNITS PO Q2D Cyanocobalamin (Vitamin B12), 1,000 MCG PO BID Dabigatran Etexilate Mesylate (Pradaxa), 75 MG PO BID Dronedarone Hcl (Multaq), 400 MG PO BID Fluvoxamine Maleate (Fluvoxamine Maleat Er), 300 MG PO HS Hydralazine Hcl (Apresoline), 25 MG PO TID Insulin Aspart (Novolog), 7 UNITS SQ AC Insulin Glargine (Lantus Solostar), 20 UNITS SQ AMPM Multiple Vitamin (Multivitamin), 1 TAB PO DAILY [place]-3 Fatty Acids (Fish Oil 1200 mg), 2 CAP PO BID Pantoprazole (Protonix), 40 MG PO DAILY Polyethylene Glycol-Propylene (Systane), 1 DROP OPB QID Pravastatin Sod (Pravastatin Sodium), 40 MG HS Probenecid (Benemid), 500 MG PO BID Probiotic Product (Probiotic), 1 CAP PO DAILY Pyridoxine (Vitamin B6), 100 MG PO DAILY Quetiapine Fumarate (Seroquel), 300 MG PO HS; ; 25 mg prn added 50 mg pm and increased to 350 mg hs Scheduled PRN Levalbuterol Tartrate (Xopenex Hfa), 1-2 PUFFS INH Q6H PRN for SOB/Wheezing Lorazepam (Ativan), 0.5 MG PO BID PRN for Anxiety/Agitation Family History Cancer Hypertension Lung disease Alcohol Use Alcohol Use In Past 12 Months: No Smoking Use Smoking Status: Former Smoker Substance History denied Personal History Education: graduated from high school Children: 2 sons, 3 daughters Legal History: none Psychological Trauma History: Denies Hx Traumatic Event Review of Systems Psych: denies symptoms other than stated above Constitutional: denied Cardiovascular: denied GI: denied Neurologic: denied Remainder of 10 body systems also reviewed and denied other than noted above. Examination Vital Signs A physical exam was performed in the medical floor prior to admission to the unit. I accept that physical as correct and Dr. Razo's medical clearance for the inpatient physical exam. Vital Signs Past 12 Hours Date Time Temp Pulse Resp B/P (MAP) Pulse Ox O2 Delivery O2 Flow Rate FiO2 03/05/17 20:45 36.7 73 20 169/76 Laboratory Results Test 02/25/17 02:35 02/25/17 02:50 02/25/17 14:05 02/27/17 06:45 Urine Color YELLOW Urine Appearance CLEAR Urine pH 6.5 Urine Specific [place] 1.017 Urine Protein 1+ Urine Glucose (UA) NEG Urine Ketones NEG Urine Occult Blood NEG Urine Nitrite NEG Urine Bilirubin NEG Urine Urobilinogen NEG Urine Leukocyte Esterase TRACE H Urine WBC (Auto) 1-5 Urine RBC (Auto) 0-4 Urine Hyaline Casts (Auto) 1-5 Urine Epithelial Cells (Auto) >30 H Urine Bacteria (Auto) NEG Immature Granulocyte % (Auto) 0.6 White Blood Count 12.50 H 11.98 H Red Blood Count 3.89 L 3.79 L Hemoglobin 11.5 L 10.6 L Hematocrit 33.6 L 32.5 L Mean Corpuscular Volume 86.4 85.8 Mean Corpuscular Hemoglobin 29.6 28.0 Mean Corpuscular Hemoglobin Concent 34.2 32.6 Platelet Count 509 H 502 H Mean Platelet Volume 9.8 9.8 Neutrophils (%) (Auto) 59.0 Lymphocytes (%) (Auto) 28.2 Monocytes (%) (Auto) 8.6 Eosinophils (%) (Auto) 3.0 Basophils (%) (Auto) 0.6 Neutrophils # (Auto) 7.38 H Lymphocytes # (Auto) 3.53 H Monocytes # (Auto) 1.07 H Eosinophils # (Auto) 0.38 Basophils # (Auto) 0.07 Immature Granulocyte # (Auto) 0.07 H Prothrombin Time 13.5 H Prothrombin Time INR 1.3 H PTT 39.4 H Partial Thromboplastin Ratio 1.5 Total Bilirubin 0.2 Direct Bilirubin 0.1 Aspartate Amino Transferase (AST) 16 Alanine Aminotransferase (ALT) 28 Alkaline Phosphatase 78 Total Creatine Kinase 97 Creatine Kinase MB 3.6 Creatine Kinase MB Ratio 3.7 H Troponin I 0.025 Pro-B-Type Natriuretic Peptide 3007 H Total Protein 6.5 Albumin 3.0 L Thyroid Stimulating Hormone (TSH) 1.710 Acetaminophen Level 7 L Estimated Average Glucose 177 Hemoglobin A1c 7.8 H Vitamin B12 Level 890 25-Hydroxy Vitamin D Total 36.1 Folate > 24.00 RDW Standard Deviation 46.5 H RDW Coefficient of Variation 14.8 H Sodium Level 143 Potassium Level 3.5 Chloride Level 111 H Carbon Dioxide Level 27 Anion Gap 5.0 Blood Urea Nitrogen 25 H Creatinine 1.30 H Est Creatinine Clear Calc Drug Dose 35.8 Estimated GFR () 46.8 Estimated GFR (Non- 40.4 BUN/Creatinine Ratio 18.9 Random Glucose 85 Calcium Level 8.9 Test 02/28/17 05:48 03/04/17 20:00 03/05/17 07:21 03/05/17 11:29 White Blood Count 11.04 H 9.77 Red Blood Count 3.68 L 4.16 L Hemoglobin 10.0 L 11.8 L Hematocrit 31.5 L 34.8 L Mean Corpuscular Volume 85.6 83.7 Mean Corpuscular Hemoglobin 27.2 28.4 Mean Corpuscular Hemoglobin Concent 31.7 L 33.9 RDW Standard Deviation 47.0 H 43.6 RDW Coefficient of Variation 14.9 H 14.2 Platelet Count 449 H 579 H Mean Platelet Volume 9.9 9.2 Sodium Level 144 143 Potassium Level 3.5 3.4 L Chloride Level 111 H 109 H Carbon Dioxide Level 28 25 Anion Gap 5.0 9.0 Blood Urea Nitrogen 21 H 34 H Creatinine 1.20 1.60 H Est Creatinine Clear Calc Drug Dose 38.8 29.5 Estimated GFR () 51.6 36.4 Estimated GFR (Non- 44.5 31.4 BUN/Creatinine Ratio 17.7 21.3 H Random Glucose 91 72 Calcium Level 8.9 9.4 POC Glucose 182 H 202 H Test 03/05/17 16:30 POC Glucose 244 H Mental Examination During interview pt is: alert and oriented to self/place, superficially cooperative. Eye contact is: poor Motor behavior is: psychomotor restlessness Speech: is pressured Affect: labile Mood is: "why do you need to know?" Thought process: circumstantial Thought content: paranoid Suicidal thought are: denied Homicidal thoughts are: denied Hallucinations: denies auditory, denies visual Cognition: language grossly intact, other (decreased memory and attention) Intelligence estimated to be: average Insight: poor Judgement: poor Impression / Recommendations Impression 76 yo female with a history of schizoaffective disorder who reports not having outpatient psychiatric care for some time, primary care no longer felt comfortable overseeing her medications (patient report) and she has essentially run out of medications. It seems as though her memory is poor compared to info in last consult, difficult to make any assessment of a major cognitive disorder given resolving delirium and manic symptoms. Recommendations [facility] on q 15 min checks (behavioral with suicide precautions) for safety. The patient will participate in group, recreational and milieu therapies and will be offered additional individual and family sessions as clinically appropriate. Continue meds as ordered on the medical floor as Seroquel only increased on 03/03. Defer additional rx to [facility] architect psychiatrist as value opinion as geriatric specialist.
[2017-03-05] MEDS ORDERED: LEValbuterol HFA 15GM INHALER INH PRN (21:30)
[2017-03-05] MEDS ORDERED: NURSING VERBAL MED ORDER ONE ×2 (21:30)
[2017-03-05] MEDS ORDERED: GLUCOSE 40% GEL 15 GM TUBE PO PRN (21:45)
[2017-03-05] MEDS ORDERED: BISMUTH SUBSALICYLATE PER ML OMNICELL CHARGE PO PRN (21:45)
[2017-03-05] MEDS ORDERED: hydrOXYzine HCL 25 MG TAB PO PRN ×2 (21:45)
[2017-03-05] MEDS ORDERED: DEXTROSE 50% 50 ML SYR IV PRN (21:45)
[2017-03-05] MEDS ORDERED: BENZTROPINE MESYLATE 0.5 MG TAB PO PRN (21:45)
[2017-03-05] MEDS ORDERED: GLUCAGON FOR INJ 1 MG VIAL SQ PRN (21:45)
[2017-03-05] MEDS ORDERED: SODIUM CHLORIDE 0.65% NA SOLN 45 ML (OCEAN) PRN (21:45)
[2017-03-05] MEDS ORDERED: GLUCOSE 10 TABS/TUBE PO PRN (21:45)
[2017-03-05] MEDS ORDERED: MAGNESIUM HYDROXIDE SUSP 30 ML UDC PO PRN (21:45)
[2017-03-05] MEDS ORDERED: QUETIAPINE FUMARATE 100 MG TAB PO SCH (22:00)
[2017-03-05] MEDS: CYANOCOBALAMIN 500 MCG TAB (VIT B-12) PO SCH (22:00)
[2017-03-05 22:35] VITALS: BP 200/70; PULSE 79
[2017-03-05] MEDS: DABIGATRAN ELEXILATE 75 MG CAP PO SCH (22:37)
[2017-03-05] MEDS: CARVEDILOL 12.5 MG TAB PO SCH (22:38)
[2017-03-05] MEDS: PROBENECID 500 MG TAB PO SCH (22:38)
[2017-03-05] MEDS: PRAVASTATIN SOD 40 MG TAB PO SCH (22:39)
[2017-03-05] MEDS: DRONEDARONE 400 MG TAB PO SCH (22:39)
[2017-03-05] MEDS: OMEGA-3 (PURIFIED FISH OIL) 1 GM CAP PO SCH (22:42)
[2017-03-05] MEDS: INSULIN ASPART 100 UNITS/ML 3 ML PEN SC SCH (22:47)
[2017-03-05] MEDS: INSULIN GLARGINE SOLOSTAR 100 UNITS/ML 3 ML PEN SC SCH (22:48)
[2017-03-06] MEDS: HALOPERIDOL 5 MG TAB PO PRN (06:34)
[2017-03-06 07:05] VITALS: TEMP 36.4
[2017-03-06] MEDS: MULTIVITAMIN TAB PO SCH (07:34)
[2017-03-06] MEDS: DABIGATRAN ELEXILATE 75 MG CAP PO SCH ×2 (07:34→22:00)
[2017-03-06] MEDS: OMEGA-3 (PURIFIED FISH OIL) 1 GM CAP PO SCH ×2 (07:35→22:00)
[2017-03-06] MEDS: CYANOCOBALAMIN 500 MCG TAB (VIT B-12) PO SCH ×2 (07:36→22:00)
[2017-03-06] MEDS: LACTOBACILLUS ACIDOPHILUS (FLORANEX) TAB PO SCH (07:37)
[2017-03-06] MEDS: AMLODIPINE BESYLATE 5 MG TAB PO SCH (07:37)
[2017-03-06] MEDS: PANTOprazole SOD 40 MG TAB PO SCH (07:38)
[2017-03-06] MEDS: CARVEDILOL 12.5 MG TAB PO SCH ×2 (07:38→22:00)
[2017-03-06] MEDS: ASPIRIN 81 MG ECTAB PO SCH (07:38)
[2017-03-06] MEDS: DRONEDARONE 400 MG TAB PO SCH ×2 (07:38→22:00)
[2017-03-06] MEDS: CALCIUM 600MG + VIT D 400 IU TAB PO SCH (07:38)
[2017-03-06] MEDS: PROBENECID 500 MG TAB PO SCH ×2 (07:39→22:00)
[2017-03-06] MEDS: QUETIAPINE FUMARATE 25 MG TAB PO SCH ×2 (07:39→17:11)
[2017-03-06] MEDS: PYRIDOXINE HCL 50 MG TAB PO SCH (07:40)
[2017-03-06 07:51] VITALS: BP 180/98; PULSE 74; TEMP 36.4
[2017-03-06] MEDS: INSULIN ASPART 100 UNITS/ML 3 ML PEN SC SCH ×4 (08:00→22:00)
[2017-03-06] MEDS: SYSTANE~ORDER AWAITING ACTION SCH ×3 (08:00→16:00)
[2017-03-06] MEDS: INSULIN GLARGINE SOLOSTAR 100 UNITS/ML 3 ML PEN SC SCH ×2 (09:00→22:21)
[2017-03-06] MEDS: QUETIAPINE FUMARATE 25 MG TAB PO PRN (11:16)
--- NOTE | 2017-03-06 12:31 | Psychiatric Progress Notes ---
Progress Note Date of Service Mar 06, 2017. Interval History Tressa is a 76 yo female who continues to reside alone in [place]. Ms. Cyr was admitted to the medical floor for cardiac work-up/delirium on and seen for initial consultation on 02/27. She was followed on the medical floor and manic behavior became more apparent as other issues resolved and she was ultimately transferred to [facility] on a 302 commitment supported by her daughter (ROS). Chief Complaint "Get out". Subjective Patient was seen & assessed interval progress reviewed with Treatment Team. Per staff, patient has appeared labile. She was transferred from the floor yesterday on a 302 after appearing more disorganized and history is obtained from family that her current clinical status is not atypical for a psychiatric decompensation for her. Patient did slip and fall on urine this morning and has been frequently voiding on the floor and publicly disrobing. Remains hyperverbal. On interview she demonstrates quickly changing affect. She is initially quite hostile and demands that I leave and quickly switches into telling me what a good person I am and crying out loud wondering why she treated me so poorly. "Why did I do that to my son? Your mother with a capital M!" She denied acute physical concerns. She was not able to rationally discuss her medication regimen or recall history. Staff to perceive positive response from Seroquel so far. Review of Systems Patient minimally participatory and review of systems. She denied pain or physical concerns Sleep Information Total Hours of Sleep: 1.50 Meal Information Percent of Breakfast Consumed: 75 Mental Status Exam During interview pt is: uncooperative Appearance: disheveled Eye contact is: fair Motor behavior is: psychomotor retardation Speech: loud Affect: labile Mood is: angry Thought process: flight of ideas, looseness of associations Thought content: delusions Suicidal thought are: denied Homicidal thoughts are: denied Cognition: other (memory is impaired in all spheres presently) Insight: severely impaired Judgement: severely impaired Plan (1) Schizoaffective disorder 03/06 - History supports previous good effect of Seroquel and decompensation associated with noncompliance -Will increase at bedtime Seroquel to 400 mg tonight -Attempting to review history with daughter to consider a more potent antipsychotic such as Risperdal as alternative - Received Haldol prn 1 this a.m. DM II - continue Lantus 10 units SC BID. Decreased from home dose due to poor oral intake - Insulin sliding scale - Checking BSGs q ac and qhs Atrial fibrillation -Continue Coreg, dronedarone, and pradaxa Hypertension -Continue amlodipine 03/06 - increase hydralazine to qid Visit Code E&M Code: 12971 Data Vital Signs Last 24 Hrs: Date Time Temp Pulse Resp B/P (MAP) Pulse Ox O2 Delivery O2 Flow Rate FiO2 03/06/17 07:51 36.4 74 18 180/98 03/06/17 07:05 36.4 03/05/17 22:35 79 200/70 03/05/17 20:45 36.7 73 20 169/76 Meds Administered Last 24 Hrs: Meds Administered (Past 24Hrs) Medications (Trade) Dose Ordered Sig/Krish Route Start Time Stop Time Status Last Admin Dose Admin Insulin Aspart (novoLOG ASPART) SLIDING SCALE ACHS SC 03/05/17 22:00 04/04/17 21:59 03/05/17 22:47 5 UNITS Amlodipine Besylate (Norvasc Tab) 10 mg DAILY PO 03/06/17 09:00 04/05/17 08:59 03/06/17 07:37 10 MG Aspirin (Ecotrin Tab) 81 mg DAILY PO 03/06/17 09:00 04/05/17 08:59 03/06/17 07:38 81 MG Carvedilol (Coreg Tab) 12.5 mg BID PO 03/05/17 22:00 04/04/17 21:59 03/06/17 07:38 12.5 MG Dabigatran (Pradaxa Cap) 75 mg BID PO 03/05/17 22:00 04/04/17 21:59 03/06/17 07:34 75 MG Dronedarone (Multaq Tab) 400 mg BID PO 03/05/17 22:00 04/04/17 21:59 03/06/17 07:38 400 MG Hydralazine HCl (Apresoline Tab) 25 mg TID PO 03/05/17 22:00 04/04/17 21:59 03/06/17 07:35 25 MG Insulin Glargine (Lantus Solostar Pen) 10 units BID SC 03/05/17 22:00 04/04/17 21:59 03/06/17 09:00 10 UNITS Multivitamins (Multivitamin Tab) 1 tab DAILY PO 03/06/17 09:00 04/05/17 08:59 03/06/17 07:34 1 TAB Pantoprazole Sodium (Protonix Tab) 40 mg DAILY PO 03/06/17 09:00 04/05/17 08:59 03/06/17 07:38 40 MG Pravastatin Sodium (Pravachol Tab) 40 mg HS PO 03/05/17 22:00 04/04/17 21:59 03/05/17 22:39 40 MG Probenecid (Probenecid Tab) 500 mg BID PO 03/05/17 22:00 04/04/17 21:59 03/06/17 07:39 500 MG Pyridoxine HCl (Vitamin B-6 Tab) 100 mg DAILY PO 03/06/17 09:00 04/05/17 08:59 03/06/17 07:40 100 MG Quetiapine Fumarate (seroQUEL TAB) 25 mg Q4H PRN PO 03/05/17 21:30 04/04/17 21:29 03/06/17 11:16 25 MG Quetiapine Fumarate (seroQUEL TAB) 50 mg BID17 PO 03/06/17 09:00 04/05/17 08:59 03/06/17 07:39 50 MG Quetiapine Fumarate (seroQUEL TAB) 350 mg HS PO 03/05/17 22:00 04/04/17 21:59 03/05/17 22:40 350 MG Calcium/Vitamin D (Caltrate Plus Tab) 1 tab DAILY PO 03/06/17 09:00 04/05/17 08:59 03/06/17 07:38 1 TAB Cyanocobalamin (Vitamin B-12 Tab) 1,000 mcg BID PO 03/05/17 22:00 04/04/17 21:59 03/06/17 07:36 1,000 MCG Fish Oil ([place]-3 (Purified Fish Oil) Cap) 2 gm BID PO 03/05/17 22:00 04/04/17 21:59 03/06/17 07:35 2 GM Lactobacillus Acidophilus (Floranex Tab) 4 tab DAILY PO 03/06/17 09:00 04/05/17 08:59 03/06/17 07:37 4 TAB Haloperidol (Haldol Tab) 5 mg Q8 PRN PO 03/05/17 21:45 04/04/17 21:44 03/06/17 06:34 5 MG
[2017-03-06] MEDS: QUETIAPINE FUMARATE 200 MG TAB PO SCH (22:00)
[2017-03-06] MEDS: PRAVASTATIN SOD 40 MG TAB PO SCH (22:00)
[2017-03-07 05:57] VITALS: BMI 28.5
[2017-03-07] MEDS: ASPIRIN 81 MG ECTAB PO SCH (07:53)
[2017-03-07] MEDS: CALCIUM 600MG + VIT D 400 IU TAB PO SCH (07:53)
[2017-03-07] MEDS: CARVEDILOL 12.5 MG TAB PO SCH ×2 (07:53→20:32)
[2017-03-07] MEDS: LACTOBACILLUS ACIDOPHILUS (FLORANEX) TAB PO SCH (07:54)
[2017-03-07] MEDS: MULTIVITAMIN TAB PO SCH (07:55)
[2017-03-07] MEDS: DRONEDARONE 400 MG TAB PO SCH ×2 (07:55→20:32)
[2017-03-07] MEDS: AMLODIPINE BESYLATE 5 MG TAB PO SCH (07:55)
[2017-03-07] MEDS: OMEGA-3 (PURIFIED FISH OIL) 1 GM CAP PO SCH ×2 (07:55→20:32)
[2017-03-07] MEDS: DABIGATRAN ELEXILATE 75 MG CAP PO SCH ×2 (07:55→20:32)
[2017-03-07] MEDS: PYRIDOXINE HCL 50 MG TAB PO SCH (07:56)
[2017-03-07] MEDS: QUETIAPINE FUMARATE 25 MG TAB PO SCH ×2 (07:56→16:46)
[2017-03-07] MEDS: CYANOCOBALAMIN 500 MCG TAB (VIT B-12) PO SCH ×2 (07:56→20:33)
[2017-03-07] MEDS: PANTOprazole SOD 40 MG TAB PO SCH (07:56)
[2017-03-07] MEDS: PROBENECID 500 MG TAB PO SCH ×2 (07:56→20:33)
[2017-03-07] MEDS: CHOLECALCIFEROL 1000 INTER.UNIT TAB PO SCH (07:57)
[2017-03-07] MEDS: HALOPERIDOL 5 MG TAB PO PRN ×2 (07:57→18:38)
[2017-03-07] MEDS: INSULIN ASPART 100 UNITS/ML 3 ML PEN SC SCH ×4 (09:31→20:34)
[2017-03-07] MEDS: INSULIN GLARGINE SOLOSTAR 100 UNITS/ML 3 ML PEN SC SCH ×2 (09:35→19:56)
--- NOTE | 2017-03-07 10:33 | Psychiatric Progress Notes ---
Progress Note Date of Service Mar 07, 2017. Interval History Tressa is a 76 yo female who continues to reside alone in [place]. Ms. Cyr was admitted to the medical floor for cardiac work-up/delirium on and seen for initial consultation on 02/27. She was followed on the medical floor and manic behavior became more apparent as other issues resolved and she was ultimately transferred to [facility] on a 302 commitment supported by her daughter (ROS). Chief Complaint "Hallelujah!" Subjective Patient was seen & assessed interval progress reviewed with Treatment Team. Per staff, patient seemed to be calming yesterday and took 2 naps in the afternoon however she slept very poorly overnight and was quite restless. Unfortunately she refused her bedtime Seroquel last evening and seemed to recognize that the dose had been changed. Blood sugars trending in the mid 100s. Received Haldol when necessary 1. Daughter did not return a call yesterday (attempting to expand database regarding treatment history.) On interview she is more calm and less irritable this morning but still very disorganized in her thought process. She states "he was in love with me. It didn't make sense." Review of Systems Constitutional: + problem reported (insomnia) Abdomen: No pain Sleep Information Total Hours of Sleep: 2.50 Meal Information Percent of Breakfast Consumed: 0 Percent of Dinner Consumed: 75 Mental Status Exam During interview pt is: uncooperative Appearance: disheveled Eye contact is: fair Motor behavior is: psychomotor agitation (stands from seated position briefly several times during interview) Speech: loud Affect: labile Mood is: other (not characterized) Thought process: flight of ideas, looseness of associations Thought content: delusions Suicidal thought are: denied Homicidal thoughts are: denied Hallucinations: denies visual Cognition: other (memory is impaired in all spheres presently) Insight: severely impaired Judgement: severely impaired Plan (1) Schizoaffective disorder 03/06 - History supports previous good effect of Seroquel and decompensation associated with noncompliance -Will increase at bedtime Seroquel to 400 mg tonight -Attempting to review history with daughter to consider a more potent antipsychotic such as Risperdal as alternative - Received Haldol prn 1 this a.m. 03/07 - information available at present supports h/o benefit on seroquel. will continue with that agent for now, titrating as indicated. reviewed need for compliance wiht pt this am and she seemed receptive, hoverer we will have t wait and see if she is compliant tonight. continue haldol prn which she is tolerating well so far. - repeat screening labs in AM DM II - continue Lantus 10 units SC BID. Decreased from home dose due to poor oral intake - Insulin sliding scale - Checking BSGs q ac and qhs Atrial fibrillation -Continue Coreg, dronedarone, and pradaxa Hypertension -Continue amlodipine 03/06 - increase hydralazine to qid Visit Code E&M Code: 44844 Data Vital Signs Last 24 Hrs: Date Time Temp Pulse Resp B/P (MAP) Pulse Ox O2 Delivery O2 Flow Rate FiO2 03/07/17 06:37 Meds Administered Last 24 Hrs: Meds Administered (Past 24Hrs) Medications (Trade) Dose Ordered Sig/Krish Route Start Time Stop Time Status Last Admin Dose Admin Insulin Aspart (novoLOG ASPART) SLIDING SCALE ACHS SC 03/05/17 22:00 04/04/17 21:59 03/06/17 17:15 3 UNITS Amlodipine Besylate (Norvasc Tab) 10 mg DAILY PO 03/06/17 09:00 04/05/17 08:59 03/07/17 07:55 10 MG Aspirin (Ecotrin Tab) 81 mg DAILY PO 03/06/17 09:00 04/05/17 08:59 03/07/17 07:53 81 MG Carvedilol (Coreg Tab) 12.5 mg BID PO 03/05/17 22:00 04/04/17 21:59 03/07/17 07:53 12.5 MG Dabigatran (Pradaxa Cap) 75 mg BID PO 03/05/17 22:00 04/04/17 21:59 03/07/17 07:55 75 MG Dronedarone (Multaq Tab) 400 mg BID PO 03/05/17 22:00 04/04/17 21:59 03/07/17 07:55 400 MG Hydralazine HCl (Apresoline Tab) 25 mg TID PO 03/05/17 22:00 03/06/17 12:45 DC 03/06/17 07:35 25 MG Insulin Glargine (Lantus Solostar Pen) 10 units BID SC 03/05/17 22:00 04/04/17 21:59 03/07/17 09:35 10 UNITS Multivitamins (Multivitamin Tab) 1 tab DAILY PO 03/06/17 09:00 04/05/17 08:59 03/07/17 07:55 1 TAB Pantoprazole Sodium (Protonix Tab) 40 mg DAILY PO 03/06/17 09:00 04/05/17 08:59 03/07/17 07:56 40 MG Pravastatin Sodium (Pravachol Tab) 40 mg HS PO 03/05/17 22:00 04/04/17 21:59 03/05/17 22:39 40 MG Probenecid (Probenecid Tab) 500 mg BID PO 03/05/17 22:00 04/04/17 21:59 03/07/17 07:56 500 MG Pyridoxine HCl (Vitamin B-6 Tab) 100 mg DAILY PO 03/06/17 09:00 04/05/17 08:59 03/07/17 07:56 100 MG Quetiapine Fumarate (seroQUEL TAB) 25 mg Q4H PRN PO 03/05/17 21:30 04/04/17 21:29 03/06/17 11:16 25 MG Quetiapine Fumarate (seroQUEL TAB) 50 mg BID17 PO 03/06/17 09:00 04/05/17 08:59 03/07/17 07:56 50 MG Quetiapine Fumarate (seroQUEL TAB) 350 mg HS PO 03/05/17 22:00 03/06/17 12:46 DC 03/05/17 22:40 350 MG Calcium/Vitamin D (Caltrate Plus Tab) 1 tab DAILY PO 03/06/17 09:00 04/05/17 08:59 03/07/17 07:53 1 TAB Cholecalciferol (Vitamin D Tab) 2,000 inter.unit Q2D@0900 PO 03/07/17 09:00 04/06/17 08:59 03/07/17 07:57 2,000 INTER.UNIT Cyanocobalamin (Vitamin B-12 Tab) 1,000 mcg BID PO 03/05/17 22:00 04/04/17 21:59 03/07/17 07:56 1,000 MCG Fish Oil ([place]-3 (Purified Fish Oil) Cap) 2 gm BID PO 03/05/17 22:00 04/04/17 21:59 03/07/17 07:55 2 GM Lactobacillus Acidophilus (Floranex Tab) 4 tab DAILY PO 03/06/17 09:00 04/05/17 08:59 03/07/17 07:54 4 TAB Haloperidol (Haldol Tab) 5 mg Q8 PRN PO 03/05/17 21:45 04/04/17 21:44 03/07/17 07:57 5 MG Hydralazine HCl (Apresoline Tab) 25 mg QID PO 03/06/17 13:00 04/04/17 12:59 03/07/17 07:53 25 MG
[2017-03-07] MEDS: QUETIAPINE FUMARATE 25 MG TAB PO PRN ×2 (11:30→19:17)
[2017-03-07 16:50] VITALS: BP 172/73; PULSE 71
[2017-03-07] MEDS: QUETIAPINE FUMARATE 200 MG TAB PO SCH (20:33)
[2017-03-07] MEDS: PRAVASTATIN SOD 40 MG TAB PO SCH (20:33)
[2017-03-08 06:37] LABS: BASO % 0.4 %; BASO ABS # 0.04 K/uL (0-0.2); COMPLETE YES; HEMATOCRIT 32.2 % (37-47); IG% 0.3 %; LYMPH % 36.4 %; LYMPH ABS # 3.84 K/uL (1.2-3.4); MEAN CELL VOLUME 85.2 fL (80-100); MEAN CORPUSCULAR HEMOGLOBIN 28.8 pg (25-34); MEAN CORPUSCULAR HGB CONC 33.9 g/dl (32-36); MEAN PLATELET VOLUME 9.3 fL (7.4-10.4); MONO % 10.1 %; NEUT % 49.8 %; PLATELET COUNT 655 K/uL (130-400); RED BLOOD COUNT 3.78 M/uL (4.2-5.4); WHITE BLOOD COUNT 10.54 K/uL (4.8-10.8)
[2017-03-08 07:09] LABS: BUN/CREATININE RATIO 23.5 (10-20); CALCIUM 9.8 mg/dl (8.5-10.1); CREATININE 1.4 mg/dl (0.60-1.20); POTASSIUM 3.6 mmol/L (3.5-5.1)
[2017-03-08 07:35] VITALS: BP_SYST 145; BP_SYST 166; BP_DIAS 81; BP_DIAS 93; PULSE 69; TEMP 36.7
[2017-03-08] MEDS: INSULIN ASPART 100 UNITS/ML 3 ML PEN SC SCH ×4 (08:58→21:49)
[2017-03-08] MEDS: CYANOCOBALAMIN 500 MCG TAB (VIT B-12) PO SCH ×3 (09:00→21:49)
[2017-03-08] MEDS: LACTOBACILLUS ACIDOPHILUS (FLORANEX) TAB PO SCH ×2 (09:00→09:54)
[2017-03-08] MEDS: DRONEDARONE 400 MG TAB PO SCH ×3 (09:00→21:48)
[2017-03-08] MEDS: MULTIVITAMIN TAB PO SCH ×2 (09:00→09:51)
[2017-03-08] MEDS: CALCIUM 600MG + VIT D 400 IU TAB PO SCH ×2 (09:00→09:51)
[2017-03-08] MEDS: OMEGA-3 (PURIFIED FISH OIL) 1 GM CAP PO SCH ×3 (09:00→21:48)
[2017-03-08] MEDS: QUETIAPINE FUMARATE 25 MG TAB PO SCH ×2 (09:38→17:00)
[2017-03-08] MEDS: QUETIAPINE FUMARATE 25 MG TAB PO PRN (09:39)
[2017-03-08] MEDS: AMLODIPINE BESYLATE 5 MG TAB PO SCH (09:43)
[2017-03-08] MEDS: DABIGATRAN ELEXILATE 75 MG CAP PO SCH ×2 (09:44→21:48)
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
[2017-03-08] MEDS: ASPIRIN 81 MG ECTAB PO SCH (09:45)
[2017-03-08] MEDS: CARVEDILOL 12.5 MG TAB PO SCH ×2 (09:45→21:48)
[2017-03-08] MEDS: PANTOprazole SOD 40 MG TAB PO SCH (09:51)
[2017-03-08] MEDS: PROBENECID 500 MG TAB PO SCH ×2 (09:51→21:49)
[2017-03-08] MEDS: PYRIDOXINE HCL 50 MG TAB PO SCH (09:52)
[2017-03-08] MEDS: INSULIN GLARGINE SOLOSTAR 100 UNITS/ML 3 ML PEN SC SCH ×2 (10:04→21:12)
[2017-03-08] MEDS: HALOPERIDOL 5 MG TAB PO PRN (11:46)
[2017-03-08] MEDS: QUETIAPINE FUMARATE 200 MG TAB PO SCH (21:49)
[2017-03-08] MEDS: PRAVASTATIN SOD 40 MG TAB PO SCH (21:49)
[2017-03-09 07:28] VITALS: BP 171/84; PULSE 96
[2017-03-09] MEDS: INSULIN ASPART 100 UNITS/ML 3 ML PEN SC SCH ×4 (08:00→22:00)
--- NOTE | 2017-03-09 08:35 | Psychiatric Progress Notes ---
Progress Note Date of Service Mar 09, 2017. Interval History Tressa is a 76 y/o female who resides alone in [place], has a diagnosis of schizoaffective disorder bipolar type, and was admitted to the medical floor for cardiac work-up/delirium on 02/26/17 and seen for initial consultation on . She was followed on the medical floor and manic behavior became more apparent as other issues resolved, so she was ultimately transferred to [facility] on a 302 commitment supported by her daughter (ROS). She is on a 303 as of 03/09/17. Chief Complaint "No". Subjective Patient was seen & assessed interval progress reviewed with Treatment Team. Staff report she has been irritable, labile, hyperverbal, and inappropriate. She is not able to tolerate groups. She remains in the VERITO and is intrusive with staff. She requires frequent redirection and is rude to staff. She is refusing most of her medications, including her antipsychotic and antihypertensive, and blood pressure and pulse are elevated this morning. She did not attend her 303 hearing, and the petition was granted. She was seen in the VERITO, as she refused to move away from the nurse's station door, where she was standing and staring into the nurse's station, talking to herself. Most of her answers are nonsensical. She had refused all of her morning medications, but staff were eventually able to get her to take her Seroquel with significant encouragement. She initially agreed to take her blood pressure medication, but then refused when it was offered. Her blood pressure is elevated at 171/84, and pulse at 96. When asked why she is refusing the medication, she says "you know." Explained my concerns regarding her elevated blood pressure and pulse, and the importance of taking her blood pressure medications, and she says "I don 't care, it has nothing to do with me, it's you." She cannot explain why she is refusing the medication, and does not appear to understand the risks of doing so. She refuses to leave the nurse's station door, even when staff are attempting to enter and exit the room. She says "it's working on hard to get me , either blind or ." She is repeatedly pulling down her lower right eyelid and sticking her finger in her eye, and it is very red and irritated. She will not respond to redirection or instructions to stop her behavior. She initially says mood is "okay," then says she can't eat because of "what's going on here." Statements are very disjointed and nonsensical, stating "wait a minute, that, just thinking." Sleep Information Total Hours of Sleep: 3.00 Meal Information Percent of Breakfast Consumed: 80 Percent of Lunch Consumed: 50 Percent of Dinner Consumed: 50 Mental Status Exam During interview pt is: uncooperative (refuses to move away from the door and sit down for the interview), other (grossly disorganized, irritable, uncooperative) Appearance: disheveled, other (overweight, dressed in 2 hospital gowns, right eye is red and irritated) Eye contact is: fair Motor behavior is: steady gait & station, no abnormal motor movements Speech: other (at times whispers under her breath, and other times voice is loud) Affect: labile, irritable, other (inappropriate and incongruent with stated mood) Mood is: other ("okay") Thought process: tangential, flight of ideas, looseness of associations, incoherent Thought content: paranoid (about medications, family members, other people) Hallucinations: other (does not answer with related information) Cognition: other (all spheres impaired) Insight: severely impaired Judgement: severely impaired Impression Patient remains grossly disorganized, paranoid, and unable to provide for her own basic needs. She is refusing most of her medications, including her antihypertensives and antipsychotic medication, and her condition is worsening, both psychiatrically and medically. Blood pressure and pulse have been high, and she is unable to engage in discussion of the need for these medications or to appreciate the risks of refusing them. Staff have been able to get her to take some of her medications with significant encouragement, but we may need to consider medications over objection if she continues to refuse them. She is unable to participate in groups or therapy due to the severity of her psychotic symptoms and erratic behavior, and remains in the VERITO with close supervision from staff. She requires staff assistance for all ADLs, and we're following her lab values closely due to poorly-controlled medical conditions and lack of self-care and good oral intake. Plan (1) Schizoaffective disorder 03/06 - History supports previous good effect of Seroquel and decompensation associated with noncompliance -Will increase at bedtime Seroquel to 400 mg tonight -Attempting to review history with daughter to consider a more potent antipsychotic such as Risperdal as alternative - Received Haldol prn 1 this a.m. 03/07 - information available at present supports h/o benefit on seroquel. will continue with that agent for now, titrating as indicated. reviewed need for compliance with pt this am and she seemed receptive, hoverer we will have t wait and see if she is compliant tonight. continue haldol prn which she is tolerating well so far. - repeat screening labs in AM 03/08 - Continue quetiapine 50 mg twice a day, and increase bedtime dose to 500 mg. Check fasting labs tomorrow morning. - Continue haloperidol and quetiapine as needed for psychosis. - File for a 303 commitment. 03/09 - Recommend medications over objection, as patient is refusing her antipsychotic and her condition is deteriorating, leading to refusal of medications for HTN and elevated pulse and BP, which put her at risk of [place] and stroke. Sleep and appetite are poor, and she is grossly disorganized and psychotic. Will request a second opinion from another physician (medical translator, Dr. Joe), and spoke with her daughter Mily who is POA, who is in agreement with medications over objection if needed. - Fasting labs were ordered for this morning but patient refused the blood draw. Will re-order for tomorrow. (2) Renal failure 03/08 - be when elevated at 33, and creatinine 1.40. It appears she's had chronic renal dysfunction, with BUN and of 31 and creatinine of 1.9 in September 2016. We will continue to monitor, and consider the need to consult the hospitalist. 03/09 - Pt refused recheck of creatinine and BUN. DM II - continue Lantus 10 units SC BID. Decreased from home dose due to poor oral intake - Insulin sliding scale - Checking BSGs q ac and qhs Atrial fibrillation -Continue Coreg, dronedarone, and pradaxa Hypertension -Continue amlodipine 03/06 - increase hydralazine to qid Discharge / Aftercare Planning Primary Care Physician: Name: Dr Mclain Visit Code E&M Code: 85175 Data Vital Signs Last 24 Hrs: Date Time Temp Pulse Resp B/P (MAP) Pulse Ox O2 Delivery O2 Flow Rate FiO2 7/25/17 07:28 96 16 171/84 03/09/17 07:02 Meds Administered Last 24 Hrs: Meds Administered (Past 24Hrs) Medications (Trade) Dose Ordered Sig/Krish Route Start Time Stop Time Status Last Admin Dose Admin Cholecalciferol (Vitamin D Tab) 2,000 inter.unit Q2D@0900 PO 03/07/17 09:00 04/06/17 08:59 03/07/17 07:57 2,000 INTER.UNIT Lab Results Last 24 Hrs: Last 24 Hours Test 03/09/17 08:00 Problem Qualifiers (1) Schizoaffective disorder: Schizoaffective disorder type: bipolar Qualified Codes: F25.0 - Schizoaffective disorder, bipolar type
[2017-03-09] MEDS: QUETIAPINE FUMARATE 25 MG TAB PO SCH ×2 (08:59→15:47)
[2017-03-09] MEDS: SYSTANE~ORDER AWAITING ACTION SCH ×2 (08:59→15:53)
[2017-03-09] MEDS: DRONEDARONE 400 MG TAB PO SCH ×2 (09:00→22:00)
[2017-03-09] MEDS: CYANOCOBALAMIN 500 MCG TAB (VIT B-12) PO SCH ×2 (09:00→22:00)
[2017-03-09] MEDS: CALCIUM 600MG + VIT D 400 IU TAB PO SCH (09:00)
[2017-03-09] MEDS: OMEGA-3 (PURIFIED FISH OIL) 1 GM CAP PO SCH ×2 (09:00→22:00)
[2017-03-09] MEDS: ASPIRIN 81 MG ECTAB PO SCH (09:00)
[2017-03-09] MEDS: PANTOprazole SOD 40 MG TAB PO SCH (09:00)
[2017-03-09] MEDS: INSULIN GLARGINE SOLOSTAR 100 UNITS/ML 3 ML PEN SC SCH ×2 (09:00→22:00)
[2017-03-09] MEDS: DABIGATRAN ELEXILATE 75 MG CAP PO SCH ×2 (09:00→22:00)
[2017-03-09] MEDS: LACTOBACILLUS ACIDOPHILUS (FLORANEX) TAB PO SCH (09:00)
[2017-03-09] MEDS: PROBENECID 500 MG TAB PO SCH ×2 (09:00→22:00)
[2017-03-09] MEDS: CHOLECALCIFEROL 1000 INTER.UNIT TAB PO SCH (09:00)
[2017-03-09] MEDS: PYRIDOXINE HCL 50 MG TAB PO SCH (09:00)
[2017-03-09] MEDS: MULTIVITAMIN TAB PO SCH (09:00)
[2017-03-09 11:37] VITALS: BP 162/82; PULSE 102
[2017-03-09] MEDS: CARVEDILOL 12.5 MG TAB PO SCH ×2 (11:45→22:00)
[2017-03-09] MEDS: HALOPERIDOL 5 MG TAB PO PRN (11:45)
[2017-03-09] MEDS: AMLODIPINE BESYLATE 5 MG TAB PO SCH (11:45)
[2017-03-09] MEDS: QUETIAPINE FUMARATE 25 MG TAB PO PRN (15:46)
[2017-03-09 16:03] VITALS: BP 121/78; PULSE 77
--- NOTE | 2017-03-09 17:19 | Psych Management Progress Note ---
Psychiatry Second Opinion Date of Service: Mar 09, 2017. 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 She remains confused with labile mood and inappropriate behaviors consistent with dee in patient with longstanding schizoaffective disorder though I continue to expect some degree of cognitive dysfunction superimposed on underlying mental health issues. Staff reports reviewed: yells out for security, poured coffee in several spots on her floor. She is angry and irritable with obsecene gestures and hypersexual comments toward male staff. It is medically necessary that patient continue psychiatric medications for the treatment of her condition. Patient is currently on a [address] Carvalho spoke with [facility] who also supports treatments as recommended here. If patient would refuse medications she is likely to decompensate further with significant risk of within the next [address] I concur with Dr. Carvalho's medical opinion that meds should be given over objection.
[2017-03-09 20:44] VITALS: BP 184/87; PULSE 81
[2017-03-09] MEDS: PRAVASTATIN SOD 40 MG TAB PO SCH (22:00)
[2017-03-09] MEDS: QUETIAPINE FUMARATE 200 MG TAB PO SCH (22:00)
[2017-03-10] MEDS: SYSTANE~ORDER AWAITING ACTION SCH ×3 (08:00→16:00)
[2017-03-10] MEDS: INSULIN ASPART 100 UNITS/ML 3 ML PEN SC SCH ×4 (08:00→21:04)
--- NOTE | 2017-03-10 08:12 | Psychiatric Progress Notes ---
Progress Note Date of Service Mar 10, 2017. Interval History Tressa is a 76 y/o female who resides alone in [place], has a diagnosis of schizoaffective disorder bipolar type, and was admitted to the medical floor for cardiac work-up/delirium on 02/26/17 and seen for initial consultation on . She was followed on the medical floor and manic behavior became more apparent as other issues resolved, so she was ultimately transferred to [facility] on a 302 commitment supported by her daughter (ROS). She is on a 303 as of 03/09/17. Chief Complaint "Ok so far". Subjective Patient was seen & assessed interval progress reviewed with Treatment Team. Staff report she is refusing all meds, but were able to get her to take quetiapine 50mg, haloperidol 5mg prn, and amlodipine yesterday, although she refused all other meds. She is angry, appears to be hallucinating, threw water at staff, and yells out frequently. She is sexually focused, making sexually inappropriate comments to staff. She refused staff's attempts to assist her to shower and put on clean clothes. She frequently spills things on herself, and defecated on the floor. Her blood pressure was elevated last night at 184/87, and she refused vital signs and blood glucose this morning. She is refusing to allow blood draws for labs that have been ordered. She only slept 1 hour overnight. She was seen in her room where she is dozing in her chair. She answers most questions with unrelated information. When asked about sleep, she says "what is it now, look at me." She says she is not going to take any meds, "I'm doing fine without them now!" When informed she will be given medications over objection, she says "I won't take them, I'll first!" She refuses to answer further questions. Sleep Information Total Hours of Sleep: 1.00 Meal Information Percent of Breakfast Consumed: 0 Percent of Lunch Consumed: 5 Percent of Dinner Consumed: 20 Mental Status Exam During interview pt is: uncooperative, other (grossly disorganized, irritable, uncooperative) Appearance: disheveled, other (overweight, dressed in 2 hospital gowns, seated ) Eye contact is: other (staring) Motor behavior is: no abnormal motor movements Speech: other (at times talks quietly under her breath, and other times voice is loud) Affect: irritable, constricted, other (inappropriate and incongruent with stated mood) Mood is: other ("okay") Thought process: tangential, looseness of associations, incoherent (at times), other (answers most questions with unrelated information ) Thought content: paranoid (about medications, family members, staff) Hallucinations: other (does not answer with related information) Cognition: other (all spheres impaired) Insight: severely impaired Judgement: severely impaired Impression Patient remains grossly disorganized, paranoid, and unable to provide for her own basic needs. She is refusing most of her medications, including her antihypertensives and antipsychotic medication, and her condition is worsening, both psychiatrically and medically. Blood pressure and pulse have been high, and she is unable to engage in discussion of the need for these medications or to appreciate the risks of refusing them. She has been seen by two physicians and medications over objection are recommended. Staff have been able to get her to take some of her medications with significant encouragement, but we may need to consider medications over objection if she continues to refuse them. She is unable to participate in groups or therapy due to the severity of her psychotic symptoms and erratic behavior, and remains in the VER[facility] with close supervision from staff. She requires staff assistance for all ADLs, and we're following her lab values closely due to poorly-controlled medical conditions and lack of self-care and good oral intake. Plan (1) Schizoaffective disorder 03/06 - History supports previous good effect of Seroquel and decompensation associated with noncompliance -Will increase at bedtime Seroquel to 400 mg tonight -Attempting to review history with daughter to consider a more potent antipsychotic such as Risperdal as alternative - Received Haldol prn 1 this a.m. 03/07 - information available at present supports h/o benefit on seroquel. will continue with that agent for now, titrating as indicated. reviewed need for compliance with pt this am and she seemed receptive, hoverer we will have t wait and see if she is compliant tonight. continue haldol prn which she is tolerating well so far. - repeat screening labs in AM 03/08 - Continue quetiapine 50 mg twice a day, and increase bedtime dose to 500 mg. Check fasting labs tomorrow morning. - Continue haloperidol and quetiapine as needed for psychosis. - File for a 303 commitment. 03/09 - Recommend medications over objection, as patient is refusing her antipsychotic and her condition is deteriorating, leading to refusal of medications for HTN and elevated pulse and BP, which put her at risk of [place] and stroke. Sleep and appetite are poor, and she is grossly disorganized and psychotic. Will request a second opinion from another physician (medical staff manager, Dr. Joe), and spoke with her daughter Mily who is POA, who is in agreement with medications over objection if needed. - Fasting labs were ordered for this morning but patient refused the blood draw. Will re-order for tomorrow. 03/10 - Dr. Joe saw patient and agrees with meds over objection. Will add Haldol 5mg IM for refusal of oral quetiapine, and for now will move quetiapine to the morning, so that more staff will be present when attempting to give medication, and so that antipsychotics can be given at the same time as antihypertensives, hopefully improving medication compliance. He can be moved back to bedtime once she is more consistently taking oral medication. Continue to encourage medication compliance. - She refused quetiapine this morning, so received Haldol IM. - Fasting glucose and lipids ordered for tomorrow (2) Renal failure 03/08 - be when elevated at 33, and creatinine 1.40. It appears she's had chronic renal dysfunction, with BUN and of 31 and creatinine of 1.9 in September 2016. We will continue to monitor, and consider the need to consult the hospitalist. 03/09 - Pt refused recheck of creatinine and BUN. 03/10 - BMP results reviewed: BUN 41, and creatinine 1.50. Continue to encourage fluids, and recheck creatinine in 2 days. Consider need for medical consultation, as she is at risk for worsening renal function and dehydration she does not drink enough, and may require transfer to the medical floor for IV fluids if this occurs. (3) Hypertension 03/10 - intermittently refusing antihypertensive education, with elevated blood pressure and pulse (blood pressure this morning 184/87). Often refuses to allow staff to get vital signs. He did take hydralazine and amlodipine today, and asked staff to attempt to recheck vital signs if she will allow it. DM II - continue Lantus 10 units SC BID. Decreased from home dose due to poor oral intake - Insulin sliding scale - Checking BSGs q ac and qhs Atrial fibrillation -Continue Coreg, dronedarone, and pradaxa Hypertension -Continue amlodipine 03/06 - increase hydralazine to qid Discharge / Aftercare Planning Primary Care Physician: Name: Dr Mclain Visit Code E&M Code: 86661 Data Vital Signs Last 24 Hrs: Date Time Temp Pulse Resp B/P (MAP) Pulse Ox O2 Delivery O2 Flow Rate FiO2 03/10/17 07:12 03/09/17 20:44 81 184/87 03/09/17 16:03 77 121/78 03/09/17 14:23 03/09/17 11:37 102 162/82 Problem Qualifiers (1) Schizoaffective disorder: Schizoaffective disorder type: bipolar Qualified Codes: F25.0 - Schizoaffective disorder, bipolar type
[2017-03-10] MEDS: CALCIUM 600MG + VIT D 400 IU TAB PO SCH (09:00)
[2017-03-10] MEDS: QUETIAPINE FUMARATE 25 MG TAB PO SCH ×2 (09:00→17:20)
[2017-03-10] MEDS: CYANOCOBALAMIN 500 MCG TAB (VIT B-12) PO SCH ×2 (09:00→21:43)
[2017-03-10] MEDS: OMEGA-3 (PURIFIED FISH OIL) 1 GM CAP PO SCH ×2 (09:00→21:43)
[2017-03-10] MEDS: ASPIRIN 81 MG ECTAB PO SCH (09:00)
[2017-03-10] MEDS: QUETIAPINE FUMARATE 200 MG TAB PO SCH (09:00)
[2017-03-10] MEDS: LACTOBACILLUS ACIDOPHILUS (FLORANEX) TAB PO SCH (09:00)
[2017-03-10] MEDS: DABIGATRAN ELEXILATE 75 MG CAP PO SCH ×2 (09:00→21:42)
[2017-03-10] MEDS: PANTOprazole SOD 40 MG TAB PO SCH (09:00)
[2017-03-10] MEDS: PYRIDOXINE HCL 50 MG TAB PO SCH (09:00)
[2017-03-10] MEDS: PROBENECID 500 MG TAB PO SCH ×2 (09:00→21:27)
[2017-03-10] MEDS: MULTIVITAMIN TAB PO SCH (09:00)
[2017-03-10] MEDS: INSULIN GLARGINE SOLOSTAR 100 UNITS/ML 3 ML PEN SC SCH ×2 (10:00→21:28)
[2017-03-10] MEDS: CARVEDILOL 12.5 MG TAB PO SCH ×2 (10:00→21:04)
[2017-03-10] MEDS: HALOPERIDOL LACTATE 5 MG/ML 1 ML VIAL IM PRN (10:38)
[2017-03-10 10:59] VITALS: BP_SYST 153; BP_SYST 182; BP_DIAS 125; PULSE 153
[2017-03-10 11:07] LABS: BUN/CREATININE RATIO 27.5 (10-20); CALCIUM 10.2 mg/dl (8.5-10.1); CREATININE 1.5 mg/dl (0.60-1.20); POTASSIUM 4.2 mmol/L (3.5-5.1)
[2017-03-10] MEDS: AMLODIPINE BESYLATE 5 MG TAB PO SCH (11:28)
[2017-03-10] MEDS: DRONEDARONE 400 MG TAB PO SCH ×2 (11:28→21:27)
[2017-03-10 17:23] VITALS: BP 135/84; PULSE 81
[2017-03-10] MEDS ORDERED: QUETIAPINE FUMARATE 100 MG TAB PO ONE (18:10)
[2017-03-10 21:03] VITALS: BP 136/90; PULSE 59
[2017-03-10] MEDS: PRAVASTATIN SOD 40 MG TAB PO SCH (21:27)
[2017-03-11] MEDS: LACTOBACILLUS ACIDOPHILUS (FLORANEX) TAB PO SCH (09:00)
[2017-03-11] MEDS: PYRIDOXINE HCL 50 MG TAB PO SCH (09:00)
[2017-03-11] MEDS: ASPIRIN 81 MG ECTAB PO SCH (09:00)
[2017-03-11] MEDS: CYANOCOBALAMIN 500 MCG TAB (VIT B-12) PO SCH ×2 (09:00→21:40)
[2017-03-11] MEDS: PANTOprazole SOD 40 MG TAB PO SCH (09:00)
[2017-03-11] MEDS: QUETIAPINE FUMARATE 25 MG TAB PO SCH ×2 (09:00→18:32)
[2017-03-11] MEDS: INSULIN ASPART 100 UNITS/ML 3 ML PEN SC SCH ×4 (09:30→21:41)
[2017-03-11 09:31] VITALS: BP 130/81; PULSE 120; TEMP 36.8
[2017-03-11] MEDS: CALCIUM 600MG + VIT D 400 IU TAB PO SCH (09:38)
--- NOTE | 2017-03-11 09:54 | Psychiatric Progress Notes ---
Progress Note Date of Service Mar 11, 2017. Interval History Tressa is a 76 y/o female who resides alone in [place], has a diagnosis of schizoaffective disorder bipolar type, and was admitted to the medical floor for cardiac work-up/delirium on 02/26/17 and seen for initial consultation on . She was followed on the medical floor and manic behavior became more apparent as other issues resolved, so she was ultimately transferred to [facility] on a 302 commitment supported by her daughter (ROS). She is on a 303 as of 03/09/17. Chief Complaint None stated. Subjective Patient was seen & assessed interval progress reviewed with Treatment Team. The patient is lying in bed, arousable to verbal. She does not open her eyes, and is clearly sedated. She does not answer most questions, but says she is OK and wants to talk about something, but keeps falling back to sleep. Staff report that she was refusing meds yesterday again, and so received an IM of haldol, which she accepted without having. She then took her Seroquel 500 mg. po at 1720 and was cooperative enough later to take some of her HS meds. She remained intermittantly agitated and paranoid, kicked at a staff member, and continues to think that staff are her children. Review of Systems Constitutional: + fatigue ENT: No hearing loss, No unusual epistaxis, No nasal symptoms, No sore throat, No tinnitus, No dental problems, No trouble swallowing, No problem reported Respiratory: No cough, No sputum, No wheezing, No shortness of breath, No dyspnea on exertion, No dyspnea at rest, No hemoptysis, No problem reported Cardiovascular: No chest pain, No orthopnea, No PND, No edema, No claudication , No palpitations, No problem reported Abdomen: No pain, No nausea, No vomiting, No diarrhea, No constipation, No GI bleeding, No problem reported Musculoskeletal: No joint pain, No muscle pain, No swelling, No calf pain, No problem reported Neurologic: No memory loss, No paralysis, No weakness, No numbness/tingling, No vertigo, No balance problems, No problem reported Psychiatric: + problem reported (paranoid and agitated at times) Integumentary: No rash, No itch, No new/changing skin lesions, No color change , No bleeding, No problem reported Sleep Information Total Hours of Sleep: 8.75 Meal Information Percent of Breakfast Consumed: 100 Percent of Lunch Consumed: 75 Percent of Dinner Consumed: 10 Mental Status Exam During interview pt is: other (sedated) Appearance: disheveled Eye contact is: other (none) Motor behavior is: other Speech: other (minimal, slurred) Affect: other (flat, tired) Mood is: other (unable to assess due to sedation) Thought process: other (unable to assess due to sedation) Thought content: paranoid (about medications, family members, staff) Hallucinations: other (unable to assess due to sedation) Cognition: other (all spheres impaired) Intelligence estimated to be: average Insight: severely impaired Judgement: severely impaired Impression We now have 2 physian order for meds over objection. Yesterday she voluntarily accepted one IM of haldol and later took some of her meds PO. Today she is sedated, but sorely in need of the sleep. We will hold AM dose of seroquel and prefer to administer at HS to allow patient time to wake. We may need to consider reducing the dose if she remains sedated after taking. 303 granted on 03/09. Plan (1) Schizoaffective disorder 03/06 - History supports previous good effect of Seroquel and decompensation associated with noncompliance -Will increase at bedtime Seroquel to 400 mg tonight -Attempting to review history with daughter to consider a more potent antipsychotic such as Risperdal as alternative - Received Haldol prn 1 this a.m. 03/07 - information available at present supports h/o benefit on seroquel. will continue with that agent for now, titrating as indicated. reviewed need for compliance with pt this am and she seemed receptive, hoverer we will have t wait and see if she is compliant tonight. continue haldol prn which she is tolerating well so far. - repeat screening labs in AM 03/08 - Continue quetiapine 50 mg twice a day, and increase bedtime dose to 500 mg. Check fasting labs tomorrow morning. - Continue haloperidol and quetiapine as needed for psychosis. - File for a 303 commitment. 03/09 - Recommend medications over objection, as patient is refusing her antipsychotic and her condition is deteriorating, leading to refusal of medications for HTN and elevated pulse and BP, which put her at risk of AK and stroke. Sleep and appetite are poor, and she is grossly disorganized and psychotic. Will request a second opinion from another physician (medical technicians, Dr. Joe), and spoke with her daughter Mily who is POA, who is in agreement with medications over objection if needed. - Fasting labs were ordered for this morning but patient refused the blood draw. Will re-order for tomorrow. 03/10 - Dr. Joe saw patient and agrees with meds over objection. Will add Haldol 5mg IM for refusal of oral quetiapine, and for now will move quetiapine to the morning, so that more staff will be present when attempting to give medication, and so that antipsychotics can be given at the same time as antihypertensives, hopefully improving medication compliance. He can be moved back to bedtime once she is more consistently taking oral medication. Continue to encourage medication compliance. - She refused quetiapine this morning, so received Haldol IM. - Fasting glucose and lipids ordered for tomorrow 03/11 - Hold AM seroquel today due to sedation, but give at HS - Continue with meds over objection by 2 physician order (2) Renal failure 03/08 - be when elevated at 33, and creatinine 1.40. It appears she's had chronic renal dysfunction, with BUN and of 31 and creatinine of 1.9 in September 2016. We will continue to monitor, and consider the need to consult the hospitalist. 03/09 - Pt refused recheck of creatinine and BUN. 03/10 - BMP results reviewed: BUN 41, and creatinine 1.50. Continue to encourage fluids, and recheck creatinine in 2 days. Consider need for medical consultation, as she is at risk for worsening renal function and dehydration she does not drink enough, and may require transfer to the medical floor for IV fluids if this occurs. (3) Hypertension 03/10 - intermittently refusing antihypertensive education, with elevated blood pressure and pulse (blood pressure this morning 184/87). Often refuses to allow staff to get vital signs. He did take hydralazine and amlodipine today, and asked staff to attempt to recheck vital signs if she will allow it. DM II - continue Lantus 10 units SC BID. Decreased from home dose due to poor oral intake - Insulin sliding scale - Checking BSGs q ac and qhs Atrial fibrillation -Continue Coreg, dronedarone, and pradaxa Hypertension -Continue amlodipine 03/06 - increase hydralazine to qid Discharge / Aftercare Planning Primary Care Physician: Name: Dr Mclain Visit Code E&M Code: 21449 Risk Factors Assessment : Yes /single/: Yes Higher / Fall in social status: No Access to guns: No Health problems: Yes Mental Health Diagnoses: Yes Substance use disorders: No Previous psychiatric stay: Yes Protective Factors Assessment : No Responsible for young children: No Employed: No Stable relationships: No Supportive family: Yes Data Vital Signs Last 24 Hrs: Date Time Temp Pulse Resp B/P (MAP) Pulse Ox O2 Delivery O2 Flow Rate FiO2 03/11/17 09:31 36.8 120 18 130/81 03/10/17 21:03 59 16 136/90 03/10/17 17:23 81 135/84 03/10/17 10:59 153 182/125 Meds Administered Last 24 Hrs: Meds Administered (Past 24Hrs) Medications (Trade) Dose Ordered Sig/Krish Route Start Time Stop Time Status Last Admin Dose Admin Haloperidol Lactate (Haldol Inj) 5 mg QAM PRN IM 03/10/17 08:30 04/09/17 08:29 03/10/17 10:38 5 MG Quetiapine Fumarate (seroQUEL TAB) 500 mg 1810 ONCE PO 03/10/17 18:10 03/10/17 18:11 DC 03/10/17 17:20 500 MG Lab Results Last 24 Hrs: Last 24 Hours Test 03/10/17 10:08 03/11/17 06:53 Sodium Level 137 mmol/L Potassium Level 4.2 mmol/L Chloride Level 103 mmol/L Carbon Dioxide Level 23 mmol/L Anion Gap 11.0 mmol/L Blood Urea Nitrogen 41 mg/dl Creatinine 1.50 mg/dl Est Creatinine Clear Calc Drug Dose 31.5 ml/min Estimated GFR () 39.4 Estimated GFR (Non- 34.0 BUN/Creatinine Ratio 27.5 Random Glucose 187 mg/dl Calcium Level 10.2 mg/dl Fasting Glucose 87 mg/dl Triglycerides Level 74 mg/dl Cholesterol Level 130 mg/dl HDL Cholesterol 43 mg/dl LDL Cholesterol, Calculated 72 mg/dl VLDL Cholesterol, Calculated 15 mg/dl Cholesterol/HDL Ratio 3.0 Problem Qualifiers (1) Schizoaffective disorder: Schizoaffective disorder type: bipolar Qualified Codes: F25.0 - Schizoaffective disorder, bipolar type
[2017-03-11] MEDS ORDERED: PHARMACY GLYCEMIC MGMT CONSULT PRN (10:20)
[2017-03-11] MEDS: DRONEDARONE 400 MG TAB PO SCH ×2 (11:00→21:40)
[2017-03-11] MEDS: CARVEDILOL 12.5 MG TAB PO SCH ×2 (11:00→21:40)
[2017-03-11] MEDS: AMLODIPINE BESYLATE 5 MG TAB PO SCH (11:00)
[2017-03-11] MEDS: QUETIAPINE FUMARATE 200 MG TAB PO SCH (11:00)
[2017-03-11] MEDS: PROBENECID 500 MG TAB PO SCH ×2 (11:00→21:40)
[2017-03-11] MEDS: DABIGATRAN ELEXILATE 75 MG CAP PO SCH ×2 (11:00→21:40)
--- NOTE | 2017-03-11 11:21 | Pharmacy Progress Note ---
Glycemic Control Intl Consult Date of Service Mar 11, 2017. Scope Glycemic Pharmacist consulted by Avelina GLASS on 03/11/17 for glycemic control and to write orders per [facility] inpatient glycemic control protocol Objective Weight (Kilograms): 72.900 HbA1c 7.8% on 02/25/17 Recent Pertinent Medications Outpatient Anti-diabetic Regimen: * Lantus 10 units SQ BID * NovoLog ACHS The patient is currently receiving: * Basal insulin: Lantus 10 units every 12 hours * Correctional Insulin: Novolog Correction per scale ACHS Goal Range: Low 140 mg/dL - High 180 mg/dL Correction Factor: 35 mg/dL/unit * Prandial insulin: Per carb ratio of 1 unit per 10 grams CHO consumed Assessment & Plan ASSESSMENT: * 76yo diabetic female with adequate outpatient control per recent A1c * Pt has been receiving her outpatient regimen of Lantus + NovoLog but has been refusing multiple doses of basal and prandial insulin coverage. * She has been receiving an average of ~ 10 units of basal insulin per day but is ordered 20 units/day * Pt is very sedated this morning, AM fasting BSG slightly below goal range for inpatient targets ---> decrease in basal insulin warranted * Post prandial BSGs fluctuate up and down but this is most likely secondary to erratic PO intake and refusing coverage. * ADA & AACE recommend a goal blood sugar range 140-180 mg/dl for the majority of critically ill & non-critically ill patients. However, more stringent targets may be selected in individual cases. Will utilize slightly more stringent goal range of 110-150mg/dl for a well controlled diabetic at baseline. Slightly higher range d/t sedation and inconsistent PO intake. PLAN FOR INPATIENT GLYCEMIC CONTROL: * Basal insulin * Decrease dosing to Lantus 10 units SQ HS * No Lantus this morning for AM fasting BSG of 87mg/dl and sedation * Bolus insulin * NovoLog per scale ACHS or Q6hrs while NPO * Goal Range: Low 110 mg/dL - High 150 mg/dL * Correction Factor: 35 mg/dL/unit * Nutritional / Prandial insulin per carb ratio of 1 unit per 10 grams CHO consumed * Please note that the plan above was derived based on current level of insulin resistance and hospital stress. These recommendations are appropriate for inpatient admission only. Plan of care upon discharge will need to be reassessed to avoid potential outpatient hypo/hyperglycemia. Thank you.
[2017-03-11] MEDS: SYSTANE~ORDER AWAITING ACTION SCH (15:36)
[2017-03-11 16:30] VITALS: BP 151/101; PULSE 105
[2017-03-11] MEDS ORDERED: QUETIAPINE FUMARATE 100 MG TAB PO ONE ×2 (18:15→18:30)
[2017-03-11] MEDS: PRAVASTATIN SOD 40 MG TAB PO SCH (21:40)
[2017-03-11] MEDS: INSULIN GLARGINE SOLOSTAR 100 UNITS/ML 3 ML PEN SC SCH (21:40)
[2017-03-11 21:42] VITALS: BP 143/75; PULSE 166
[2017-03-11 22:35] VITALS: BP 96/62; PULSE 156
[2017-03-11 22:49] VITALS: PULSE 109
[2017-03-12 07:43] LABS: CREATININE 1.4 mg/dl (0.60-1.20)
[2017-03-12] MEDS: INSULIN ASPART 100 UNITS/ML 3 ML PEN SC SCH ×4 (08:00→22:00)
[2017-03-12 08:38] VITALS: BP 144/87; PULSE 106
[2017-03-12] MEDS: CARVEDILOL 12.5 MG TAB PO SCH ×2 (09:00→22:22)
[2017-03-12] MEDS: PROBENECID 500 MG TAB PO SCH ×2 (09:00→22:00)
[2017-03-12] MEDS: DABIGATRAN ELEXILATE 75 MG CAP PO SCH ×2 (09:00→22:00)
[2017-03-12] MEDS: ASPIRIN 81 MG ECTAB PO SCH (09:00)
[2017-03-12] MEDS: AMLODIPINE BESYLATE 5 MG TAB PO SCH (09:00)
[2017-03-12] MEDS: PANTOprazole SOD 40 MG TAB PO SCH (09:00)
[2017-03-12] MEDS: QUETIAPINE FUMARATE 25 MG TAB PO SCH (09:00)
[2017-03-12] MEDS: DRONEDARONE 400 MG TAB PO SCH ×2 (09:00→22:22)
[2017-03-12] MEDS: LACTOBACILLUS ACIDOPHILUS (FLORANEX) TAB PO SCH (09:00)
[2017-03-12] MEDS: PYRIDOXINE HCL 50 MG TAB PO SCH (09:00)
[2017-03-12] MEDS: QUETIAPINE FUMARATE 200 MG TAB PO SCH ×2 (09:00→22:00)
[2017-03-12] MEDS: CYANOCOBALAMIN 500 MCG TAB (VIT B-12) PO SCH ×2 (09:00→22:00)
[2017-03-12] MEDS: HALOPERIDOL LACTATE 5 MG/ML 1 ML VIAL IM PRN (09:51)
--- NOTE | 2017-03-12 11:39 | Psychiatric Progress Notes ---
Progress Note Date of Service Mar 12, 2017. Interval History Tressa is a 76 y/o female who resides alone in [place], has a diagnosis of schizoaffective disorder bipolar type, and was admitted to the medical floor for cardiac work-up/delirium on 02/26/17 and seen for initial consultation on . She was followed on the medical floor and manic behavior became more apparent as other issues resolved, so she was ultimately transferred to [facility] on a 302 commitment supported by her daughter (ROS). She is on a 303 as of 03/09/17. Chief Complaint "Your eyebrows are beautiful". Subjective Patient was seen & assessed interval progress reviewed with Treatment Team. Able to take a few more bites of food/fluid with encouragement. Incontinent X2 , cooperative with oral care. Seroquel had been moved to am so that if refusal could get IM when staff most equipped but sedating for patient and didn't get dose until 6 pm yesterday, did sleep >12 hours. When she is awake she remains psychotic and paranoid, thought her Sprite was poison. Tachy related to underlying psych condition. Review of Systems patient is unable to complete due to psychosis. Sleep Information Total Hours of Sleep: 13.50 Meal Information Percent of Breakfast Consumed: 20 Percent of Lunch Consumed: 0 Percent of Dinner Consumed: 10 Mental Status Exam During interview pt is: other (sedated) Appearance: disheveled Eye contact is: poor Motor behavior is: no abnormal motor movements Speech: other (non-spontaneous) Affect: other (flat, tired) Mood is: dysphoric Thought process: other (very disorganized) Thought content: paranoid Suicidal thought are: Plan: denied Homicidal thoughts are: denied Hallucinations: other (did not appear to be responding to internal stimuli) Cognition: other (all spheres impaired) Intelligence estimated to be: average Insight: severely impaired Judgement: severely impaired Impression We have 2 physian order for meds over objection. 303 granted on 03/09. Increased doses of Seroquel do not appear to be helping her psychosis and are overly sedating. Plan (1) Schizoaffective disorder 03/06 - History supports previous good effect of Seroquel and decompensation associated with noncompliance -Will increase at bedtime Seroquel to 400 mg tonight -Attempting to review history with daughter to consider a more potent antipsychotic such as Risperdal as alternative - Received Haldol prn 1 this a.m. 03/07 - information available at present supports h/o benefit on seroquel. will continue with that agent for now, titrating as indicated. reviewed need for compliance with pt this am and she seemed receptive, hoverer we will have t wait and see if she is compliant tonight. continue haldol prn which she is tolerating well so far. - repeat screening labs in AM 03/08 - Continue quetiapine 50 mg twice a day, and increase bedtime dose to 500 mg. Check fasting labs tomorrow morning. - Continue haloperidol and quetiapine as needed for psychosis. - File for a 303 commitment. 03/09 - Recommend medications over objection, as patient is refusing her antipsychotic and her condition is deteriorating, leading to refusal of medications for HTN and elevated pulse and BP, which put her at risk of [place] and stroke. Sleep and appetite are poor, and she is grossly disorganized and psychotic. Will request a second opinion from another physician (curator medical museum, Dr. Joe), and spoke with her daughter Mily who is POA, who is in agreement with medications over objection if needed. - Fasting labs were ordered for this morning but patient refused the blood draw. Will re-order for tomorrow. 03/10 - Dr. Joe saw patient and agrees with meds over objection. Will add Haldol 5mg IM for refusal of oral quetiapine, and for now will move quetiapine to the morning, so that more staff will be present when attempting to give medication, and so that antipsychotics can be given at the same time as antihypertensives, hopefully improving medication compliance. He can be moved back to bedtime once she is more consistently taking oral medication. Continue to encourage medication compliance. - She refused quetiapine this morning, so received Haldol IM. - Fasting glucose and lipids ordered for tomorrow 03/11 - Hold AM seroquel today due to sedation, but give at HS - Continue with meds over objection by 2 physician order 03/12 --extensive discussion with daughter re: lack of progress with Seroquel and concerns about sedation and fall risk longer term given age. Also reviewed that if option of a dissolvable that perhaps would be more receptive and minimize IM injections. Risks/benefits/alternatives reviewed with daughter/POA who was in support of a trial of Risperdal M-tab. She did report baseline concerns about memory predating this episode as would argue with her about tasks they just did. Ms. Cyr has declined to visit with family during holidays and therefore they admittedly haven't interacted with her much in person in the past 1.5 years. She does become guarded/argumentative on the phone and more reclusive at her housing complex. Daughter notes increase in hoarding behaviors. Reviewed that likely even when recovered that she will be unable to live alone without more support and she stated that she/brother had already been checking out nursing facilities. Will decrease Seroquel to 200 mg for 2 nights then d/c. Start Risperdal 1 mg Mtab this pm then BID starting tomorrow with IM Haldol for refusal of am dose. Monitor tachy. (2) Renal failure 03/08 - be when elevated at 33, and creatinine 1.40. It appears she's had chronic renal dysfunction, with BUN and of 31 and creatinine of 1.9 in September 2016. We will continue to monitor, and consider the need to consult the hospitalist. 03/09 - Pt refused recheck of creatinine and BUN. 03/10 - BMP results reviewed: BUN 41, and creatinine 1.50. Continue to encourage fluids, and recheck creatinine in 2 days. Consider need for medical consultation, as she is at risk for worsening renal function and dehydration she does not drink enough, and may require transfer to the medical floor for IV fluids if this occurs. 03/12--labs improved a little today, encourage PO. (3) Hypertension 03/10 - intermittently refusing antihypertensive education, with elevated blood pressure and pulse (blood pressure this morning 184/87). Often refuses to allow staff to get vital signs. He did take hydralazine and amlodipine today, and asked staff to attempt to recheck vital signs if she will allow it. DM II - continue Lantus 10 units SC BID. Decreased from home dose due to poor oral intake - Insulin sliding scale - Checking BSGs q ac and qhs Atrial fibrillation -Continue Coreg, dronedarone, and pradaxa Hypertension -Continue amlodipine 03/06 - increase hydralazine to qid Discharge / Aftercare Planning Primary Care Physician: Name: Dr Mclain Visit Code E&M Code: 17421 Risk Factors Assessment : Yes /single/: Yes Higher / Fall in social status: No Access to guns: No Health problems: Yes Mental Health Diagnoses: Yes Substance use disorders: No Previous psychiatric stay: Yes Protective Factors Assessment : No Responsible for young children: No Employed: No Stable relationships: No Supportive family: Yes Data Vital Signs Last 24 Hrs: Date Time Temp Pulse Resp B/P (MAP) Pulse Ox O2 Delivery O2 Flow Rate FiO2 03/12/17 08:38 106 16 144/87 03/11/17 22:49 109 16 03/11/17 22:35 156 96/62 03/11/17 21:42 166 143/75 03/11/17 16:30 105 151/101 Meds Administered Last 24 Hrs: Meds Administered (Past 24Hrs) Medications (Trade) Dose Ordered Sig/Krish Route Start Time Stop Time Status Last Admin Dose Admin Quetiapine Fumarate (seroQUEL TAB) 500 mg 1810 ONCE PO 03/10/17 18:10 03/11/17 18:21 DC 03/10/17 17:20 500 MG Insulin Glargine (Lantus Solostar Pen) 10 units HS SC 03/11/17 22:00 04/10/17 21:59 03/11/17 21:40 10 UNITS Quetiapine Fumarate (seroQUEL TAB) 500 mg 1830 ONCE PO 03/11/17 18:30 03/11/17 18:31 DC 03/11/17 17:57 500 MG Lab Results Last 24 Hrs: Last 24 Hours Test 03/12/17 07:01 Creatinine 1.40 mg/dl Est Creatinine Clear Calc Drug Dose 33.7 ml/min Estimated GFR () 42.8 Estimated GFR (Non- 36.9 Problem Qualifiers (1) Schizoaffective disorder: Schizoaffective disorder type: bipolar Qualified Codes: F25.0 - Schizoaffective disorder, bipolar type
[2017-03-12] MEDS: RISPERIDONE ODT 1MG PO SCH (17:19)
[2017-03-12] MEDS: INSULIN GLARGINE SOLOSTAR 100 UNITS/ML 3 ML PEN SC SCH (22:00)
[2017-03-12] MEDS: PRAVASTATIN SOD 40 MG TAB PO SCH (22:00)
[2017-03-12] MEDS: SYSTANE~ORDER AWAITING ACTION SCH (23:20)
[2017-03-13] MEDS: QUETIAPINE FUMARATE 200 MG TAB PO SCH ×2 (00:33→17:39)
[2017-03-13 08:11] VITALS: BP 129/71; PULSE 108
--- NOTE | 2017-03-13 09:46 | Psychiatric Progress Notes ---
Progress Note Date of Service Mar 13, 2017. Interval History Tressa is a 76 y/o female who resides alone in [place], has a diagnosis of schizoaffective disorder bipolar type, and was admitted to the medical floor for cardiac work-up/delirium on 02/26/17 and seen for initial consultation on . She was followed on the medical floor and manic behavior became more apparent as other issues resolved, so she was ultimately transferred to [facility] on a 302 commitment supported by her daughter (ROS). She is on a 303 as of 03/09/17. Chief Complaint "You puffed up", irritable derogatory comments about examiner after having compliment appearance yesterday. Subjective Patient was seen & assessed interval progress reviewed with nursing. She did not sleep as much yesterday as Seroquel tapering but poor sleep overnight. She wouldn't accept Seroquel until after midnight and remained religiously preoccupied and confused most of pm/overnight. She is repeatedly incontinent of bowel and threatens to throw at staff, some resistance to self-care but hasn' t been physically combative. Continues to confuse staff as her daughter. Today she is sitting up and accepting milk/cereal snack prior to breakfast tray arriving. Missing some doses of insulin but gluc checks OK as PO still somewhat limited. Review of Systems Patient denies but is unreliable shorthand reporter given psychosis/dee. Sleep Information Total Hours of Sleep: 1.00 Meal Information Percent of Breakfast Consumed: 75 Percent of Lunch Consumed: 5 Percent of Dinner Consumed: 5 Mental Status Exam During interview pt is: uncooperative Appearance: appropriately groomed Eye contact is: fair Motor behavior is: no abnormal motor movements Speech: loud Affect: irritable Mood is: dysphoric Thought process: tangential Thought content: delusions Suicidal thought are: denied, Plan: denied Homicidal thoughts are: denied Hallucinations: other (did not appear to be responding to internal stimuli) Cognition: other (all spheres impaired) Intelligence estimated to be: average Insight: severely impaired Judgement: severely impaired Impression We have 2 physian order for meds over objection. 303 granted on 03/09. Increased doses of Seroquel do not appear to be helping her psychosis and are overly sedating. Plan (1) Schizoaffective disorder 03/06 - History supports previous good effect of Seroquel and decompensation associated with noncompliance -Will increase at bedtime Seroquel to 400 mg tonight -Attempting to review history with daughter to consider a more potent antipsychotic such as Risperdal as alternative - Received Haldol prn 1 this a.m. 03/07 - information available at present supports h/o benefit on seroquel. will continue with that agent for now, titrating as indicated. reviewed need for compliance with pt this am and she seemed receptive, hoverer we will have t wait and see if she is compliant tonight. continue haldol prn which she is tolerating well so far. - repeat screening labs in AM 03/08 - Continue quetiapine 50 mg twice a day, and increase bedtime dose to 500 mg. Check fasting labs tomorrow morning. - Continue haloperidol and quetiapine as needed for psychosis. - File for a 303 commitment. 03/09 - Recommend medications over objection, as patient is refusing her antipsychotic and her condition is deteriorating, leading to refusal of medications for HTN and elevated pulse and BP, which put her at risk of AR and stroke. Sleep and appetite are poor, and she is grossly disorganized and psychotic. Will request a second opinion from another physician (medical appointment scheduler, Dr. Joe), and spoke with her daughter Mily who is POA, who is in agreement with medications over objection if needed. - Fasting labs were ordered for this morning but patient refused the blood draw. Will re-order for tomorrow. 03/10 - Dr. Joe saw patient and agrees with meds over objection. Will add Haldol 5mg IM for refusal of oral quetiapine, and for now will move quetiapine to the morning, so that more staff will be present when attempting to give medication, and so that antipsychotics can be given at the same time as antihypertensives, hopefully improving medication compliance. He can be moved back to bedtime once she is more consistently taking oral medication. Continue to encourage medication compliance. - She refused quetiapine this morning, so received Haldol IM. - Fasting glucose and lipids ordered for tomorrow 03/11 - Hold AM seroquel today due to sedation, but give at HS - Continue with meds over objection by 2 physician order 03/12 --extensive discussion with daughter re: lack of progress with Seroquel and concerns about sedation and fall risk longer term given age. Also reviewed that if option of a dissolvable that perhaps would be more receptive and minimize IM injections. Risks/benefits/alternatives reviewed with daughter/POA who was in support of a trial of Risperdal M-tab. She did report baseline concerns about memory predating this episode as would argue with her about tasks they just did. Ms. Cyr has declined to visit with family during holidays and therefore they admittedly haven't interacted with her much in person in the past 1.5 years. She does become guarded/argumentative on the phone and more reclusive at her housing complex. Daughter notes increase in hoarding behaviors. Reviewed that likely even when recovered that she will be unable to live alone without more support and she stated that she/brother had already been checking out nursing facilities. Will decrease Seroquel to 200 mg for 2 nights then d/c. Start Risperdal 1 mg Mtab this pm then BID starting tomorrow with IM Haldol for refusal of am dose. Monitor tachy. 03/13 --did take Risperdal M tab last pm, monitor on BID dosing. Will order prn sleep aide as remains poor and Seroquel being discontinued after tonight. Risperdal increase likely tomorrow. Discussed implementing a toileting protocol with nursing. (2) Renal failure 03/08 - be when elevated at 33, and creatinine 1.40. It appears she's had chronic renal dysfunction, with BUN and of 31 and creatinine of 1.9 in September 2016. We will continue to monitor, and consider the need to consult the hospitalist. 03/09 - Pt refused recheck of creatinine and BUN. 03/10 - BMP results reviewed: BUN 41, and creatinine 1.50. Continue to encourage fluids, and recheck creatinine in 2 days. Consider need for medical consultation, as she is at risk for worsening renal function and dehydration she does not drink enough, and may require transfer to the medical floor for IV fluids if this occurs. 03/12--labs improved a little today, encourage PO. (3) Hypertension 03/10 - intermittently refusing antihypertensive education, with elevated blood pressure and pulse (blood pressure this morning 184/87). Often refuses to allow staff to get vital signs. He did take hydralazine and amlodipine today, and asked staff to attempt to recheck vital signs if she will allow it. DM II - continue Lantus 10 units SC BID. Decreased from home dose due to poor oral intake - Insulin sliding scale - Checking BSGs q ac and qhs Atrial fibrillation -Continue Coreg, dronedarone, and pradaxa Hypertension -Continue amlodipine 03/06 - increase hydralazine to qid Discharge / Aftercare Planning Primary Care Physician: Name: Dr Mclain Visit Code E&M Code: 42733 Risk Factors Assessment : Yes /single/: Yes Higher / Fall in social status: No Access to guns: No Health problems: Yes Mental Health Diagnoses: Yes Substance use disorders: No Previous psychiatric stay: Yes Protective Factors Assessment : No Responsible for young children: No Employed: No Stable relationships: No Supportive family: Yes Data Vital Signs Last 24 Hrs: Date Time Temp Pulse Resp B/P (MAP) Pulse Ox O2 Delivery O2 Flow Rate FiO2 03/13/17 08:11 108 16 129/71 Meds Administered Last 24 Hrs: Meds Administered (Past 24Hrs) Medications (Trade) Dose Ordered Sig/Krish Route Start Time Stop Time Status Last Admin Dose Admin Insulin Glargine (Lantus Solostar Pen) 10 units HS SC 03/11/17 22:00 04/10/17 21:59 03/11/17 21:40 10 UNITS Quetiapine Fumarate (seroQUEL TAB) 500 mg 1830 ONCE PO 03/11/17 18:30 03/11/17 18:31 DC 03/11/17 17:57 500 MG Quetiapine Fumarate (seroQUEL TAB) 200 mg HS PO 03/12/17 22:00 03/14/17 21:59 03/13/17 00:33 200 MG Risperidone (Risperdal M Tab) 1 mg BID17 PO 03/12/17 17:00 04/11/17 16:59 03/12/17 17:19 1 MG Problem Qualifiers (1) Schizoaffective disorder: Schizoaffective disorder type: bipolar Qualified Codes: F25.0 - Schizoaffective disorder, bipolar type
[2017-03-13] MEDS: PROBENECID 500 MG TAB PO SCH ×2 (10:49→20:10)
[2017-03-13] MEDS: AMLODIPINE BESYLATE 5 MG TAB PO SCH (10:49)
[2017-03-13] MEDS: DRONEDARONE 400 MG TAB PO SCH ×2 (10:49→20:10)
[2017-03-13] MEDS: RISPERIDONE ODT 1MG PO SCH ×2 (10:49→17:35)
[2017-03-13] MEDS: CARVEDILOL 12.5 MG TAB PO SCH ×2 (10:49→20:10)
[2017-03-13] MEDS: LACTOBACILLUS ACIDOPHILUS (FLORANEX) TAB PO SCH (10:50)
[2017-03-13] MEDS: SYSTANE~ORDER AWAITING ACTION SCH ×2 (10:50→16:00)
[2017-03-13] MEDS: PANTOprazole SOD 40 MG TAB PO SCH (10:50)
[2017-03-13] MEDS: ASPIRIN 81 MG ECTAB PO SCH (10:50)
[2017-03-13] MEDS: CYANOCOBALAMIN 500 MCG TAB (VIT B-12) PO SCH ×2 (10:50→20:12)
[2017-03-13] MEDS: PYRIDOXINE HCL 50 MG TAB PO SCH (10:50)
[2017-03-13] MEDS: DABIGATRAN ELEXILATE 75 MG CAP PO SCH ×2 (10:50→20:10)
[2017-03-13] MEDS: INSULIN ASPART 100 UNITS/ML 3 ML PEN SC SCH ×4 (10:51→20:44)
[2017-03-13 13:43] VITALS: BP 148/84; PULSE 60
[2017-03-13] MEDS: INSULIN GLARGINE SOLOSTAR 100 UNITS/ML 3 ML PEN SC SCH (20:12)
[2017-03-13] MEDS: PRAVASTATIN SOD 40 MG TAB PO SCH (20:12)
[2017-03-13] MEDS: RISPERIDONE ODT 1MG PO PRN (22:01)
[2017-03-14 08:00] VITALS: BP 120/84; PULSE 96; TEMP 36.6
[2017-03-14] MEDS: INSULIN ASPART 100 UNITS/ML 3 ML PEN SC SCH ×4 (08:00→21:00)
[2017-03-14] MEDS: ASPIRIN 81 MG ECTAB PO SCH (09:00)
[2017-03-14] MEDS: DABIGATRAN ELEXILATE 75 MG CAP PO SCH ×2 (09:00→20:29)
[2017-03-14] MEDS: DRONEDARONE 400 MG TAB PO SCH ×2 (09:00→20:29)
[2017-03-14] MEDS: PYRIDOXINE HCL 50 MG TAB PO SCH (09:00)
[2017-03-14] MEDS: AMLODIPINE BESYLATE 5 MG TAB PO SCH (09:00)
[2017-03-14] MEDS: PANTOprazole SOD 40 MG TAB PO SCH (09:00)
[2017-03-14] MEDS: PROBENECID 500 MG TAB PO SCH ×2 (09:00→21:00)
[2017-03-14] MEDS: CYANOCOBALAMIN 500 MCG TAB (VIT B-12) PO SCH ×2 (09:00→21:00)
[2017-03-14] MEDS: RISPERIDONE ODT 1MG PO SCH ×2 (09:00→16:48)
[2017-03-14] MEDS: LACTOBACILLUS ACIDOPHILUS (FLORANEX) TAB PO SCH (09:00)
[2017-03-14] MEDS: CARVEDILOL 12.5 MG TAB PO SCH ×2 (09:00→20:59)
--- NOTE | 2017-03-14 10:26 | Pharmacy Progress Note ---
Glycemic: Assessment & Plan Date of Service Mar 14, 2017. Assessment & Plan ASSESSMENT: * 76yo diabetic female with adequate outpatient control per recent A1c * Pt has been receiving her outpatient regimen of Lantus + NovoLog but has been refusing multiple doses of basal and prandial insulin coverage. * 03/11: Received 12 units total; refused doses * 03/12: Received 0 units of insulin; refused multiple doses included basal insulin * 03/13: Received most Novolog SQ injections but refused basal insulin again * Post prandial BSGs fluctuate up and down but this is most likely secondary to erratic PO intake and refusing coverage. * Pharmacy unable to titrate insulin given the refusal various basal/bolus dosing. * Continue current regimen and only titrate when safe and appropriate. * ADA & AACE recommend a goal blood sugar range 140-180 mg/dl for the majority of critically ill & non-critically ill patients. However, more stringent targets may be selected in individual cases. Will utilize slightly more stringent goal range of 110-150mg/dl for a well controlled diabetic at baseline. Slightly higher range d/t sedation and inconsistent PO intake. PLAN FOR INPATIENT GLYCEMIC CONTROL: * Basal insulin * Lantus 10 units SQ HS * Bolus insulin * NovoLog per scale ACHS or Q6hrs while NPO * Goal Range: Low 110 mg/dL - High 150 mg/dL * Correction Factor: 35 mg/dL/unit * Nutritional / Prandial insulin per carb ratio of 1 unit per 10 grams CHO consumed * Please note that the plan above was derived based on current level of insulin resistance and hospital stress. These recommendations are appropriate for inpatient admission only. Plan of care upon discharge will need to be reassessed to avoid potential outpatient hypo/hyperglycemia.
[2017-03-14] MEDS: SYSTANE~ORDER AWAITING ACTION SCH ×3 (10:36→16:00)
--- NOTE | 2017-03-14 11:40 | Psychiatric Progress Notes ---
Progress Note Date of Service Mar 14, 2017. Interval History Tressa is a 76 y/o female who resides alone in [place], has a diagnosis of schizoaffective disorder bipolar type, and was admitted to the medical floor for cardiac work-up/delirium on 02/26/17 and seen for initial consultation on . She was followed on the medical floor and manic behavior became more apparent as other issues resolved, so she was ultimately transferred to [facility] on a 302 commitment supported by her daughter (ROS). She is on a 303 as of 03/09/17. Chief Complaint "They are poisoning me and coming in and raping me". Subjective Patient was seen & assessed interval progress reviewed with nursing Per nursing patinet remains delusional and disorganized incontinent of bowel and bladder at times and resistant to assisted self care (e.g. resistant to toileting schedule, and resistant to clean up) Patient was paranoid last evening yelling for help and took her regularly prescribed risperdal and also received a prn risperdal. Her BS remain mildly elevated 167 last PM but she continues to refuse her evening basal level of insulin. In discussion with pharmacy her blood sugars are slowlying increasing with time 80s- 140-160 and concern is for monitoring especially over the next 48+ hours when sugars could become provocatively elevated. Pharmay is monitoring but not making new recs until they can see the impact of consistent dosing of the current recs and the resulting BS Patient is seen in her room laying on the bed in a slightly askew manner. SHe opens eyes to verbal stimuli and shares that she is "terrible and okay" Terrible because "they are coming in and doing bad things....they are poisoning me" When asked if she has pain she says "not right now but sometimes I have pain all over because people are coming in and pushing on me" She reports that "people are coming in and raping me" SHe states she is not eating because of the food being posoned. Per nursing the patient states her meds are poison and is taking them, and that she ate 100 % of her AM meal today. Review of Systems ROS: denies pain, denies headache, denies n/v/d, she complains of feeling unsteady when she walks Sleep Information Total Hours of Sleep: 3.75 Meal Information Percent of Breakfast Consumed: 100 Percent of Lunch Consumed: 85 Percent of Dinner Consumed: 85 Mental Status Exam During interview pt is: other (cooperative to provider's questions but uncooperative wtih ADLs with nursing) Appearance: appropriately groomed Eye contact is: fair Motor behavior is: no abnormal motor movements (does walk unassisted, not unsteady but tentative) Speech: normal in rate, rhythm & volume (sad tone labile to tears) Affect: tearful (talks about her dtr and her sons), other (labile) Mood is: dysphoric Thought process: tangential Thought content: paranoid, delusions, persecution, other (disorganized at times ) Suicidal thought are: denied, Plan: denied Homicidal thoughts are: denied Hallucinations: other (did not appear to be responding to internal stimuli) Cognition: other (all spheres impaired) Intelligence estimated to be: average Insight: severely impaired Judgement: severely impaired Impression We have 2 physian order for meds over objection. 303 granted on 03/09. Increased doses of Seroquel do not appear to be helping her psychosis and are overly sedating. Plan (1) Schizoaffective disorder 03/06 - History supports previous good effect of Seroquel and decompensation associated with noncompliance -Will increase at bedtime Seroquel to 400 mg tonight -Attempting to review history with daughter to consider a more potent antipsychotic such as Risperdal as alternative - Received Haldol prn 1 this a.m. 03/07 - information available at present supports h/o benefit on seroquel. will continue with that agent for now, titrating as indicated. reviewed need for compliance with pt this am and she seemed receptive, hoverer we will have t wait and see if she is compliant tonight. continue haldol prn which she is tolerating well so far. - repeat screening labs in AM 03/08 - Continue quetiapine 50 mg twice a day, and increase bedtime dose to 500 mg. Check fasting labs tomorrow morning. - Continue haloperidol and quetiapine as needed for psychosis. - File for a 303 commitment. 03/09 - Recommend medications over objection, as patient is refusing her antipsychotic and her condition is deteriorating, leading to refusal of medications for HTN and elevated pulse and BP, which put her at risk of [place] and stroke. Sleep and appetite are poor, and she is grossly disorganized and psychotic. Will request a second opinion from another physician (medical scribe, Dr. Joe), and spoke with her daughter Mily who is POA, who is in agreement with medications over objection if needed. - Fasting labs were ordered for this morning but patient refused the blood draw. Will re-order for tomorrow. 03/10 - Dr. Joe saw patient and agrees with meds over objection. Will add Haldol 5mg IM for refusal of oral quetiapine, and for now will move quetiapine to the morning, so that more staff will be present when attempting to give medication, and so that antipsychotics can be given at the same time as antihypertensives, hopefully improving medication compliance. He can be moved back to bedtime once she is more consistently taking oral medication. Continue to encourage medication compliance. - She refused quetiapine this morning, so received Haldol IM. - Fasting glucose and lipids ordered for tomorrow 03/11 - Hold AM seroquel today due to sedation, but give at HS - Continue with meds over objection by 2 physician order 03/12 --extensive discussion with daughter re: lack of progress with Seroquel and concerns about sedation and fall risk longer term given age. Also reviewed that if option of a dissolvable that perhaps would be more receptive and minimize IM injections. Risks/benefits/alternatives reviewed with daughter/ROS who was in support of a trial of Risperdal M-tab. She did report baseline concerns about memory predating this episode as would argue with her about tasks they just did. Ms. Cyr has declined to visit with family during holidays and therefore they admittedly haven't interacted with her much in person in the past 1.5 years. She does become guarded/argumentative on the phone and more reclusive at her housing complex. Daughter notes increase in hoarding behaviors. Reviewed that likely even when recovered that she will be unable to live alone without more support and she stated that she/brother had already been checking out nursing facilities. Will decrease Seroquel to 200 mg for 2 nights then d/c. Start Risperdal 1 mg Mtab this pm then BID starting tomorrow with IM Haldol for refusal of am dose. Monitor tachy. 03/13 --did take Risperdal M tab last pm, monitor on BID dosing. Will order prn sleep aide as remains poor and Seroquel being discontinued after tonight. Risperdal increase likely tomorrow. Discussed implementing a toileting protocol with nursing. 03/14 - had risperdal 1mg po bid as scheduled, and 1mg prn for agitation/psychosis , will need to watch sleep off seroquel (last dose 03/13/17), has haldol IM for po refusal (2) Renal failure 03/08 - be when elevated at 33, and creatinine 1.40. It appears she's had chronic renal dysfunction, with BUN and of 31 and creatinine of 1.9 in September 2016. We will continue to monitor, and consider the need to consult the hospitalist. 03/09 - Pt refused recheck of creatinine and BUN. 03/10 - BMP results reviewed: BUN 41, and creatinine 1.50. Continue to encourage fluids, and recheck creatinine in 2 days. Consider need for medical consultation, as she is at risk for worsening renal function and dehydration she does not drink enough, and may require transfer to the medical floor for IV fluids if this occurs. 03/12--labs improved a little today, encourage PO. 03/14/17 - ate full meal this AM despite ongoing delusion of being poisoned, she will have Creatinine drawn in the AM tomorrow (3) Hypertension 03/06 - increase hydralazine to qid and continue amlodipine 03/10 - intermittently refusing antihypertensive education, with elevated blood pressure and pulse (blood pressure this morning 184/87). Often refuses to allow staff to get vital signs. He did take hydralazine and amlodipine today, and asked staff to attempt to recheck vital signs if she will allow it. 03/14 - BP is WNL DM II - continue Lantus 10 units SC BID. Decreased from home dose due to poor oral intake - Insulin sliding scale - Checking BSGs q ac and qhs 03/14 - pharmacy continues to follow but due to refusal of evening basal insulin no new formal recs placed, pharamcist cautions about her slowly elevating sugars. Discussed with team as AM BS's are not dangerously high we will monitor and reconsider if forced insulin over objection is needed if the risks of BS elevations in the short term outweight the risks of forced medication. Atrial fibrillation -Continue Coreg, dronedarone, and pradaxa Discharge / Aftercare Planning Primary Care Physician: Name: Dr Mclain Visit Code E&M Code: 79966 Risk Factors Assessment : Yes /single/: Yes Higher / Fall in social status: No Access to guns: No Health problems: Yes Mental Health Diagnoses: Yes Substance use disorders: No Previous psychiatric stay: Yes Protective Factors Assessment : No Responsible for young children: No Employed: No Stable relationships: No Supportive family: Yes Data Vital Signs Last 24 Hrs: Date Time Temp Pulse Resp B/P (MAP) Pulse Ox O2 Delivery O2 Flow Rate FiO2 03/14/17 08:00 36.6 96 16 120/84 03/13/17 13:43 60 16 148/84 Meds Administered Last 24 Hrs: Meds Administered (Past 24Hrs) Medications (Trade) Dose Ordered Sig/Krish Route Start Time Stop Time Status Last Admin Dose Admin Quetiapine Fumarate (seroQUEL TAB) 200 mg HS PO 03/12/17 22:00 03/14/17 21:59 03/13/17 17:39 200 MG Risperidone (Risperdal M Tab) 1 mg BID17 PO 03/12/17 17:00 04/11/17 16:59 03/14/17 09:00 1 MG Risperidone (Risperdal M Tab) 1 mg Q8 PRN PO 03/13/17 10:00 04/12/17 09:59 03/13/17 22:01 1 MG Problem Qualifiers (1) Schizoaffective disorder: Schizoaffective disorder type: bipolar Qualified Codes: F25.0 - Schizoaffective disorder, bipolar type
[2017-03-14 16:57] VITALS: BP 134/85; PULSE 84
[2017-03-14] MEDS: RISPERIDONE ODT 1MG PO PRN (20:32)
[2017-03-14] MEDS: INSULIN GLARGINE SOLOSTAR 100 UNITS/ML 3 ML PEN SC SCH (21:00)
[2017-03-14] MEDS: PRAVASTATIN SOD 40 MG TAB PO SCH (21:00)
[2017-03-15 06:27] VITALS: BP 150/77; PULSE 72
[2017-03-15 07:08] LABS: CREATININE 1.4 mg/dl (0.60-1.20)
[2017-03-15] MEDS: SYSTANE~ORDER AWAITING ACTION SCH ×3 (08:00→15:33)
[2017-03-15] MEDS: ASPIRIN 81 MG ECTAB PO SCH ×2 (09:00→09:10)
[2017-03-15] MEDS: CYANOCOBALAMIN 500 MCG TAB (VIT B-12) PO SCH ×2 (09:00→21:04)
[2017-03-15] MEDS: PYRIDOXINE HCL 50 MG TAB PO SCH (09:00)
[2017-03-15] MEDS: PANTOprazole SOD 40 MG TAB PO SCH (09:00)
[2017-03-15] MEDS: DRONEDARONE 400 MG TAB PO SCH ×3 (09:00→21:02)
[2017-03-15] MEDS: PROBENECID 500 MG TAB PO SCH ×2 (09:00→21:03)
[2017-03-15] MEDS: LACTOBACILLUS ACIDOPHILUS (FLORANEX) TAB PO SCH (09:00)
[2017-03-15] MEDS: RISPERIDONE ODT 1MG PO SCH (09:09)
[2017-03-15] MEDS: CARVEDILOL 12.5 MG TAB PO SCH ×3 (09:10→21:02)
[2017-03-15] MEDS: AMLODIPINE BESYLATE 5 MG TAB PO SCH (09:11)
[2017-03-15] MEDS: DABIGATRAN ELEXILATE 75 MG CAP PO SCH ×2 (09:12→21:02)
[2017-03-15] MEDS: INSULIN ASPART 100 UNITS/ML 3 ML PEN SC SCH ×4 (10:00→21:42)
--- NOTE | 2017-03-15 10:48 | Medical Student: BHU Only ---
Psychiatric Progress Note Date of Service: Mar 15, 2017. Subjective: Tressa Cyr is a 76 yo female with a known history of schizoaffective disorder , bipolar type, and apparent progressive memory difficulty with paranoid delusions. She was first admitted for mental status changes and was then transferred to the [facility] on a 302 per her daughter (ROS) who notes progressive mental decline and worsening paranoia. She has been on the U for 10 days. Today she reports that her food is poisoned and pointed out "Ste[place]on" who she referred to as the maintenance technician on the roof. She does not leave her room and was hesitant to have blinds open. She is very emotionally labile, going from being pleasant and providing complements to being angry within 10 seconds. She also became tearful twice during our conversation. When asked a question to which she did not appear to know the answer to, her answer was always "you find that out". She did talk about her family, although she could not remember all of her five children's names. She notes one son has . She lives alone in [place] at an apartment. She did take her risperdol this morning and received 3units of IM insulin following blood glucose in 170s. She is very skeptical of medications, as they can be poison. Objective: General: Tired, elderly appearing female. Mental Status Exam: During interview pt is: emotionally labile, requires radio to be on, talks but repeatedly says she will not talk. Appearance: somewhat disheveled Eye contact is: good Motor behavior is: normal Speech: normal, pauses when tearful Affect: emotionally quite labile. Tearful, frustrated, and friendly/ complimentary all within span of seconds. Mood is: dysphoric Thought process: disorganized Thought content: paranoid, delusions, persecution, Suicidal thought are: denies SI Homicidal thoughts are: denies HI Hallucinations: none Cognition: memory impaired, slow to respond at times. becomes frustrated when does not know answer Intelligence estimated to be: normal Insight: severely impaired Judgement: severely impaired Assessment: 1. Schizoaffective disorder, bipolar type: Patient continues to be emotionally labile. Has had variable medical compliance. Currently taking risperidone 1mg tid. Last dose of quetiapine 200mg on 03/13. Will continue to encourage interaction with others, time out of room. Will keep blinds open during day, closed at night for orientation and to help avoid . 2.Chronic Kidney Disease: Creatinine stable at 1.4 this morning. Will continue to monitor q 2-3 days. 3. DMII: BG running in 160s-170s consistently, with some refusal of insulin. Will continue with sliding scale insulin aspart to cover meals and basal insulin glargine 20 units qhs. 4. HTN: AMlodipine 10mg qd, carvedilol 2.5mg qd, dronedarone 400mg bid. Continue 81mg asa and dabigatran 75bid 5. Continued stay for 7-10 days due to uncertain housing situation. Recommend SNF.
--- NOTE | 2017-03-15 12:11 | Psychiatric Progress Notes ---
Progress Note Date of Service Mar 15, 2017. Interval History Tressa is a 76 y/o female who resides alone in [place], has a diagnosis of schizoaffective disorder bipolar type, and was admitted to the medical floor for cardiac work-up/delirium on 02/26/17 and seen for initial consultation on . She was followed on the medical floor and manic behavior became more apparent as other issues resolved, so she was ultimately transferred to [facility] on a 302 commitment supported by her daughter (ROS). She is on a 303 as of 03/09/17. Chief Complaint "Here we go again". Subjective Patient was seen & assessed interval progress reviewed with Treatment Team. Staff report the patient has been very paranoid, tearful, labile, and irritable , refusing multiple medications including her insulin, and generally uncooperative. She appears very suspicious of staff, often refusing to answer questions or take medications when they're brought to her. She continues to sleep poorly, was awake very early this morning and came to the nurse's station several times, staring at staff, stating that they were all "going to care home." She initially refused her morning vital signs, but allowed a blood draw for labs. She initially refused her morning medications, but with significant encouragement, she did take risperidone, Norvasc, Pradaxa, and insulin this morning. She demanded that staff give her new Depends, and stated that if they did not do it immediately, she would throw her dirty diaper in the hallway. She continues to believe certain staff are her children, and is unable to reality test. She is disorganized, mixing her various food and drinks together. She remains in a private room in the [facility], and cannot tolerate groups and programming. On my assessment, she is poorly cooperative and inappropriate , pulling down her adult diaper and then having difficulty putting it back on. She often answers questions with unrelated information, and is angry and suspicious, stating "what are you writing down?" She refuses to answer some questions, stating "here we go again!" Although she denies hallucinations, she appears to be responding to internal stimuli, stating "what just happened? What did he say?" Sleep Information Total Hours of Sleep: 3.00 Meal Information Percent of Breakfast Consumed: 100 Percent of Lunch Consumed: 90 Percent of Dinner Consumed: 75 Mental Status Exam During interview pt is: other (poorly cooperative with the interview, and a poor historian) Appearance: disheveled, other (dressed in a hospital gown; pulling her adult diaper down and having difficulty putting it back on.) Eye contact is: fair (staring intently at times) Motor behavior is: no abnormal motor movements (walking unassisted) Speech: normal in rate, rhythm & volume (angry tone at times) Affect: irritable, other (labile) Thought process: tangential, other (disorganized, often answers with unrelated information ) Thought content: paranoid, delusions, persecution, other (disorganized) Suicidal thought are: denied Homicidal thoughts are: denied Hallucinations: other (appears to be responding to internal stimuli) Cognition: other (all spheres impaired) Intelligence estimated to be: average Insight: severely impaired Judgement: severely impaired Impression We have a two-physician order for meds over objection. 303 granted on 03/09. Increased doses of Seroquel poorly effective for psychosis and over sedating, so switched to risperidone M tab on 03/11. Plan (1) Schizoaffective disorder 03/06 - History supports previous good effect of Seroquel and decompensation associated with noncompliance -Will increase at bedtime Seroquel to 400 mg tonight -Attempting to review history with daughter to consider a more potent antipsychotic such as Risperdal as alternative - Received Haldol prn 1 this a.m. 03/07 - information available at present supports h/o benefit on seroquel. will continue with that agent for now, titrating as indicated. reviewed need for compliance with pt this am and she seemed receptive, hoverer we will have t wait and see if she is compliant tonight. continue haldol prn which she is tolerating well so far. - repeat screening labs in AM 03/08 - Continue quetiapine 50 mg twice a day, and increase bedtime dose to 500 mg. Check fasting labs tomorrow morning. - Continue haloperidol and quetiapine as needed for psychosis. - File for a 303 commitment. 03/09 - Recommend medications over objection, as patient is refusing her antipsychotic and her condition is deteriorating, leading to refusal of medications for HTN and elevated pulse and BP, which put her at risk of AL and stroke. Sleep and appetite are poor, and she is grossly disorganized and psychotic. Will request a second opinion from another physician (medical research tech, Dr. Joe), and spoke with her daughter Mily who is POA, who is in agreement with medications over objection if needed. - Fasting labs were ordered for this morning but patient refused the blood draw. Will re-order for tomorrow. 03/10 - Dr. Joe saw patient and agrees with meds over objection. Will add Haldol 5mg IM for refusal of oral quetiapine, and for now will move quetiapine to the morning, so that more staff will be present when attempting to give medication, and so that antipsychotics can be given at the same time as antihypertensives, hopefully improving medication compliance. He can be moved back to bedtime once she is more consistently taking oral medication. Continue to encourage medication compliance. - She refused quetiapine this morning, so received Haldol IM. - Fasting glucose and lipids ordered for tomorrow 03/11 - Hold AM seroquel today due to sedation, but give at HS - Continue with meds over objection by 2 physician order 03/12 --extensive discussion with daughter re: lack of progress with Seroquel and concerns about sedation and fall risk longer term given age. Also reviewed that if option of a dissolvable that perhaps would be more receptive and minimize IM injections. Risks/benefits/alternatives reviewed with daughter/ROS who was in support of a trial of Risperdal M-tab. She did report baseline concerns about memory predating this episode as would argue with her about tasks they just did. Ms. Cyr has declined to visit with family during holidays and therefore they admittedly haven't interacted with her much in person in the past 1.5 years. She does become guarded/argumentative on the phone and more reclusive at her housing complex. Daughter notes increase in hoarding behaviors. Reviewed that likely even when recovered that she will be unable to live alone without more support and she stated that she/brother had already been checking out nursing facilities. Will decrease Seroquel to 200 mg for 2 nights then d/c. Start Risperdal 1 mg Mtab this pm then BID starting tomorrow with IM Haldol for refusal of am dose. Monitor tachy. 03/13 --did take Risperdal M tab last pm, monitor on BID dosing. Will order prn sleep aide as remains poor and Seroquel being discontinued after tonight. Risperdal increase likely tomorrow. Discussed implementing a toileting protocol with nursing. 03/14 - had risperdal 1mg po bid as scheduled, and 1mg prn for agitation/ psychosis, will need to watch sleep off seroquel (last dose 03/13/17), has haldol IM for po refusal 03/15 - Increase risperidone to 1mg qam and 2mg qhs. Tolerating well, no tachycardia or hypotension. Sleep has deteriorated. (2) Renal failure 03/08 - be when elevated at 33, and creatinine 1.40. It appears she's had chronic renal dysfunction, with BUN and of 31 and creatinine of 1.9 in September 2016. We will continue to monitor, and consider the need to consult the hospitalist. 03/09 - Pt refused recheck of creatinine and BUN. 03/10 - BMP results reviewed: BUN 41, and creatinine 1.50. Continue to encourage fluids, and recheck creatinine in 2 days. Consider need for medical consultation, as she is at risk for worsening renal function and dehydration she does not drink enough, and may require transfer to the medical floor for IV fluids if this occurs. 03/12--labs improved a little today, encourage PO. 03/14/17 - ate full meal this AM despite ongoing delusion of being poisoned, she will have Creatinine drawn in the AM tomorrow (3) Hypertension 03/06 - increase hydralazine to qid and continue amlodipine 03/10 - intermittently refusing antihypertensive education, with elevated blood pressure and pulse (blood pressure this morning 184/87). Often refuses to allow staff to get vital signs. He did take hydralazine and amlodipine today, and asked staff to attempt to recheck vital signs if she will allow it. 03/14 - BP is WNL DM II - continue Lantus 10 units SC BID. Decreased from home dose due to poor oral intake - Insulin sliding scale - Checking BSGs q ac and qhs 03/14 - pharmacy continues to follow but due to refusal of evening basal insulin no new formal recs placed, pharamcist cautions about her slowly elevating sugars. Discussed with team as AM BS's are not dangerously high we will monitor and reconsider if forced insulin over objection is needed if the risks of BS elevations in the short term outweight the risks of forced medication. Atrial fibrillation -Continue Coreg, dronedarone, and pradaxa Discharge / Aftercare Planning Primary Care Physician: Name: Dr Mclain Visit Code E&M Code: 98717 Risk Factors Assessment : Yes /single/: Yes Higher / Fall in social status: No Access to guns: No Health problems: Yes Mental Health Diagnoses: Yes Substance use disorders: No Previous psychiatric stay: Yes Protective Factors Assessment : No Responsible for young children: No Employed: No Stable relationships: No Supportive family: Yes Data Vital Signs Last 24 Hrs: Date Time Temp Pulse Resp B/P (MAP) Pulse Ox O2 Delivery O2 Flow Rate FiO2 03/15/17 06:27 72 17 150/77 03/14/17 16:57 84 16 134/85 Lab Results Last 24 Hrs: Last 24 Hours Test 03/15/17 06:19 03/15/17 07:33 Creatinine 1.40 mg/dl Est Creatinine Clear Calc Drug Dose 33.7 ml/min Estimated GFR () 42.8 Estimated GFR (Non- 36.9 Bedside Glucose 171 mg/dl Problem Qualifiers (1) Schizoaffective disorder: Schizoaffective disorder type: bipolar Qualified Codes: F25.0 - Schizoaffective disorder, bipolar type
[2017-03-15] MEDS ORDERED: INSULIN GLARGINE SOLOSTAR 100 UNITS/ML 3 ML PEN SC ONE (12:30)
--- NOTE | 2017-03-15 13:15 | Pharmacy Progress Note ---
Glycemic: Assessment & Plan Date of Service Mar 15, 2017. Assessment & Plan ASSESSMENT: * The patient is currently receiving 11-15 units of insulin per day. * BSGs ranging 124 - 328 mg/dl over the past 24hrs. * BSGs are rising secondary to patient reducing insulin coverage (both basal insulin and carb coverage). * PO intake has returned to about baseline. * Pt will need to accept her insulin doses or severe hyperglycemia/dehydration/ renal impairment will follow. PLAN: * Basal insulin: * Lantus 20 units SQ x 1 dose now. Pt has refused basal insulin x 2 days but nursing to give full daily dose now. Then, resume outpatient dosing of Lantus 10 units SQ BID * Bolus insulin * Novolog per scale ACHS * Goal Range: Low 110 mg/dL - High 150 mg/dL * Correction Factor: 35 mg/dL/unit * Prandial insulin: Per carb ratio of 1 unit per 10 grams CHO consumed Pharmacy will continue to monitor patient daily and write orders per [facility] inpatient glycemic control protocol. Thanks. * Please note that the plan above was derived based on current level of insulin resistance and hospital stress. These recommendations are appropriate for inpatient admission only. Plan of care upon discharge will need to be reassessed to avoid potential outpatient hypo/hyperglycemia.
[2017-03-15] MEDS: RISPERIDONE ODT 1MG PO PRN (16:58)
[2017-03-15] MEDS: PRAVASTATIN SOD 40 MG TAB PO SCH (21:03)
[2017-03-15] MEDS ORDERED: RISPERIDONE ODT 1MG PO SCH (22:00)
[2017-03-16] MEDS: TRAZODONE HCL 100 MG TAB PO PRN (00:34)
[2017-03-16] MEDS: ACETAMINOPHEN 325 MG TAB PO PRN (00:40)
[2017-03-16] MEDS: LACTOBACILLUS ACIDOPHILUS (FLORANEX) TAB PO SCH (09:00)
[2017-03-16] MEDS: PANTOprazole SOD 40 MG TAB PO SCH (09:00)
[2017-03-16] MEDS ORDERED: INSULIN GLARGINE SOLOSTAR 100 UNITS/ML 3 ML PEN SC SCH (09:00)
[2017-03-16] MEDS: CYANOCOBALAMIN 500 MCG TAB (VIT B-12) PO SCH ×2 (09:00→20:47)
[2017-03-16] MEDS ORDERED: RISPERIDONE ODT 1MG PO SCH (09:00)
[2017-03-16] MEDS: PYRIDOXINE HCL 50 MG TAB PO SCH (09:00)
[2017-03-16] MEDS: ASPIRIN 81 MG ECTAB PO SCH (09:00)
--- NOTE | 2017-03-16 09:50 | Pharmacy Progress Note ---
Glycemic Control Progress Note Date of Service Mar 16, 2017. Scope Glycemic Pharmacist consulted for glycemic control to write orders per [facility] inpatient glycemic control protocol. Objective Accuchecks BSG (last 24hrs): Item Value Date Time Bedside Glucose 124 mg/dl 03/14/17 1246 Bedside Glucose 134 mg/dl 03/14/17 1629 Bedside Glucose 208 mg/dl 03/14/17 2023 Bedside Glucose 171 mg/dl 03/15/17 0733 Bedside Glucose 328 mg/dl 03/15/17 1100 Bedside Glucose 100 mg/dl 03/15/17 1600 Bedside Glucose 182 mg/dl 03/15/17 2100 HbA1c: 7.8% on 02/25/17 Recent Pertinent Medications Outpatient Anti-diabetic Regimen: * Lantus 10 units SQ BID * NovoLog ACHS The patient is currently receiving: * Basal insulin: Lantus 20 units every 24 hours * Correctional Insulin: Novolog Correction per scale ACHS Goal Range: Low 110 mg/dL - High 150 mg/dL Correction Factor: 35 mg/dL/unit * Prandial insulin: Per carb ratio of 1 unit per 10 grams CHO consumed Outpatient Anti-Diabetic Meds Basal Insulin Bolus Insulin Assessment & Plan ASSESSMENT: * 76yo diabetic female with adequate outpatient control per recent A1c * Pt was ordered her outpatient regimen of Lantus + NovoLog but has been refusing multiple doses of basal and prandial insulin coverage. * She has been receiving an average of ~ 15-30 units of insulin per day depending on how many doses she refused * Pt with moderate-severe hyperglycemia episode yesterday (BSG = 328mg/dl) secondary to refusing basal insulin x 2 days * Pt is ordered Lantus 10 units SQ BID as an outpatient but had been refusing one of these doses per day. Pt received Lantus 20 units SQ daily yesterday which corrected hyperglycemia and is yielding adequate control today. Will change to Lantus 20 units SQ daily {instead of 10 units SQ BID} to help increase compliance. * Post prandial BSGs fluctuate up and down but this is most likely secondary to erratic PO intake and refusing coverage. * ADA & AACE recommend a goal blood sugar range 140-180 mg/dl for the majority of critically ill & non-critically ill patients. However, more stringent targets may be selected in individual cases. Will utilize slightly more stringent goal range of 110-150mg/dl for a well controlled diabetic at baseline. Slightly higher range d/t sedation and inconsistent PO intake. PLAN FOR INPATIENT GLYCEMIC CONTROL: * Basal insulin: continue same dosing but change frequency. * Change to Lantus 20 units SQ daily in AM * Bolus insulin: no change * NovoLog per scale ACHS or Q6hrs while NPO * Goal Range: Low 110 mg/dL - High 150 mg/dL * Correction Factor: 35 mg/dL/unit * Nutritional / Prandial insulin per carb ratio of 1 unit per 10 grams CHO consumed * Please note that the plan above was derived based on current level of insulin resistance and hospital stress. These recommendations are appropriate for inpatient admission only. Plan of care upon discharge will need to be reassessed to avoid potential outpatient hypo/hyperglycemia. Thank you.
[2017-03-16] MEDS: INSULIN GLARGINE SOLOSTAR 100 UNITS/ML 3 ML PEN SC SCH (09:55)
[2017-03-16] MEDS: INSULIN ASPART 100 UNITS/ML 3 ML PEN SC SCH ×4 (09:57→20:45)
[2017-03-16] MEDS: AMLODIPINE BESYLATE 5 MG TAB PO SCH (10:00)
[2017-03-16] MEDS: CARVEDILOL 12.5 MG TAB PO SCH ×2 (10:00→20:47)
[2017-03-16] MEDS: DABIGATRAN ELEXILATE 75 MG CAP PO SCH ×2 (10:00→20:47)
[2017-03-16] MEDS: DRONEDARONE 400 MG TAB PO SCH ×2 (10:00→20:47)
[2017-03-16] MEDS: PROBENECID 500 MG TAB PO SCH ×2 (10:00→20:47)
[2017-03-16 11:12] VITALS: BP_SYST 154; BP_SYST 173; BP_DIAS 85; BP_DIAS 88; PULSE 88; TEMP 36.8
--- NOTE | 2017-03-16 12:01 | Psychiatric Progress Notes ---
Progress Note Date of Service Mar 16, 2017. Interval History Tressa is a 76 y/o female who resides alone in [place], has a diagnosis of schizoaffective disorder bipolar type, and was admitted to the medical floor for cardiac work-up/delirium on 02/26/17 and seen for initial consultation on . She was followed on the medical floor and manic behavior became more apparent as other issues resolved, so she was ultimately transferred to [facility] on a 302 commitment supported by her daughter (ROS). She is on a 303 as of 03/09/17. Chief Complaint "I'm fine.". Subjective Patient was seen & assessed interval progress reviewed with Treatment Team. The patient is resting in her bed, but arouses easily to verbal. She says that her mood is fine, and denies SI/HI. She denies aud/vis hallucinations. She does not feel safe here saying that if she goes to group and "he comes back in, I'll leave.". When asked who "he" is, she says someone names Adam (no one here by that name). She remains paranoid of the staff at times and of medicines picking and choosing which meds she will take, but has taken her psych meds and has not required meds over objection. She still believes that some of the staff are her children and she can be heard talking to herself about them, in her room. She requires assistance and encouragement to shower, but has been eating well. She is easily irritable, at times yelling at people. Staff note that her behavior deteriorates in the evening as if . Review of Systems Constitutional: + fatigue ENT: No hearing loss, No unusual epistaxis, No nasal symptoms, No sore throat, No tinnitus, No dental problems, No trouble swallowing, No problem reported Respiratory: No cough, No sputum, No wheezing, No shortness of breath, No dyspnea on exertion, No dyspnea at rest, No hemoptysis, No problem reported Cardiovascular: No chest pain, No orthopnea, No PND, No edema, No claudication , No palpitations, No problem reported Abdomen: No pain, No nausea, No vomiting, No diarrhea, No constipation, No GI bleeding, No problem reported Musculoskeletal: No joint pain, No muscle pain, No swelling, No calf pain, No problem reported Neurologic: No memory loss, No paralysis, No weakness, No numbness/tingling, No vertigo, No balance problems, No problem reported Psychiatric: + problem reported (paranoid) Integumentary: No rash, No itch, No new/changing skin lesions, No color change , No bleeding, No problem reported Sleep Information Total Hours of Sleep: 3.00 Meal Information Percent of Breakfast Consumed: 90 Percent of Lunch Consumed: 100 Percent of Dinner Consumed: 80 Mental Status Exam During interview pt is: other (poorly cooperative with the interview, and a poor historian, tired) Appearance: disheveled, other (dressed in a hospital gown; pulling her adult diaper down and having difficulty putting it back on.) Eye contact is: other (none, keeps her eyes closed throughout) Motor behavior is: no abnormal motor movements (walking unassisted) Speech: normal in rate, rhythm & volume (angry tone at times) Affect: other (tired) Mood is: irritable Thought process: tangential, other (disorganized, often answers with unrelated information ) Thought content: paranoid, delusions, persecution, other (disorganized) Suicidal thought are: denied Homicidal thoughts are: denied Hallucinations: denies auditory, denies visual Cognition: other (all spheres impaired) Intelligence estimated to be: average Insight: severely impaired Judgement: severely impaired Impression We have a two-physician order for meds over objection. 303 granted on 03/09. Patient remains delusional, paranoid. Is sleeping some in the day and getting poor sleep at night. Will switch Risperdal to all HS and increase to 4 mg. Will try to get a weight today Plan (1) Schizoaffective disorder 03/06 - History supports previous good effect of Seroquel and decompensation associated with noncompliance -Will increase at bedtime Seroquel to 400 mg tonight -Attempting to review history with daughter to consider a more potent antipsychotic such as Risperdal as alternative - Received Haldol prn 1 this a.m. 03/07 - information available at present supports h/o benefit on seroquel. will continue with that agent for now, titrating as indicated. reviewed need for compliance with pt this am and she seemed receptive, hoverer we will have t wait and see if she is compliant tonight. continue haldol prn which she is tolerating well so far. - repeat screening labs in AM 03/08 - Continue quetiapine 50 mg twice a day, and increase bedtime dose to 500 mg. Check fasting labs tomorrow morning. - Continue haloperidol and quetiapine as needed for psychosis. - File for a 303 commitment. 03/09 - Recommend medications over objection, as patient is refusing her antipsychotic and her condition is deteriorating, leading to refusal of medications for HTN and elevated pulse and BP, which put her at risk of CA and stroke. Sleep and appetite are poor, and she is grossly disorganized and psychotic. Will request a second opinion from another physician (medical technologist prn, Dr. Joe), and spoke with her daughter Mily who is POA, who is in agreement with medications over objection if needed. - Fasting labs were ordered for this morning but patient refused the blood draw. Will re-order for tomorrow. 03/10 - Dr. Joe saw patient and agrees with meds over objection. Will add Haldol 5mg IM for refusal of oral quetiapine, and for now will move quetiapine to the morning, so that more staff will be present when attempting to give medication, and so that antipsychotics can be given at the same time as antihypertensives, hopefully improving medication compliance. He can be moved back to bedtime once she is more consistently taking oral medication. Continue to encourage medication compliance. - She refused quetiapine this morning, so received Haldol IM. - Fasting glucose and lipids ordered for tomorrow 03/11 - Hold AM seroquel today due to sedation, but give at HS - Continue with meds over objection by 2 physician order 03/12 --extensive discussion with daughter re: lack of progress with Seroquel and concerns about sedation and fall risk longer term given age. Also reviewed that if option of a dissolvable that perhaps would be more receptive and minimize IM injections. Risks/benefits/alternatives reviewed with daughter/ROS who was in support of a trial of Risperdal M-tab. She did report baseline concerns about memory predating this episode as would argue with her about tasks they just did. Ms. Cyr has declined to visit with family during holidays and therefore they admittedly haven't interacted with her much in person in the past 1.5 years. She does become guarded/argumentative on the phone and more reclusive at her housing complex. Daughter notes increase in hoarding behaviors. Reviewed that likely even when recovered that she will be unable to live alone without more support and she stated that she/brother had already been checking out nursing facilities. Will decrease Seroquel to 200 mg for 2 nights then d/c. Start Risperdal 1 mg Mtab this pm then BID starting tomorrow with IM Haldol for refusal of am dose. Monitor tachy. 03/13 --did take Risperdal M tab last pm, monitor on BID dosing. Will order prn sleep aide as remains poor and Seroquel being discontinued after tonight. Risperdal increase likely tomorrow. Discussed implementing a toileting protocol with nursing. 03/14 - had risperdal 1mg po bid as scheduled, and 1mg prn for agitation/ psychosis, will need to watch sleep off seroquel (last dose 03/13/17), has haldol IM for po refusal 03/15 - Increase risperidone to 1mg qam and 2mg qhs. Tolerating well, no tachycardia or hypotension. Sleep has deteriorated. 03/16 -Move Risperdal to all HS and increase to 4 mg. HS (2) Renal failure 03/08 - be when elevated at 33, and creatinine 1.40. It appears she's had chronic renal dysfunction, with BUN and of 31 and creatinine of 1.9 in September 2016. We will continue to monitor, and consider the need to consult the hospitalist. 03/09 - Pt refused recheck of creatinine and BUN. 03/10 - BMP results reviewed: BUN 41, and creatinine 1.50. Continue to encourage fluids, and recheck creatinine in 2 days. Consider need for medical consultation, as she is at risk for worsening renal function and dehydration she does not drink enough, and may require transfer to the medical floor for IV fluids if this occurs. 03/12--labs improved a little today, encourage PO. 03/14/17 - ate full meal this AM despite ongoing delusion of being poisoned, she will have Creatinine drawn in the AM tomorrow (3) Hypertension 03/06 - increase hydralazine to qid and continue amlodipine 03/10 - intermittently refusing antihypertensive education, with elevated blood pressure and pulse (blood pressure this morning 184/87). Often refuses to allow staff to get vital signs. He did take hydralazine and amlodipine today, and asked staff to attempt to recheck vital signs if she will allow it. 03/14 - BP is WNL DM II - continue Lantus 10 units SC BID. Decreased from home dose due to poor oral intake - Insulin sliding scale - Checking BSGs q ac and qhs 03/14 - pharmacy continues to follow but due to refusal of evening basal insulin no new formal recs placed, pharamcist cautions about her slowly elevating sugars. Discussed with team as AM BS's are not dangerously high we will monitor and reconsider if forced insulin over objection is needed if the risks of BS elevations in the short term outweight the risks of forced medication. Atrial fibrillation -Continue Coreg, dronedarone, and pradaxa Discharge / Aftercare Planning Primary Care Physician: Name: Dr Mclain Visit Code E&M Code: 75209 Risk Factors Assessment : Yes /single/: Yes Higher / Fall in social status: No Access to guns: No Health problems: Yes Mental Health Diagnoses: Yes Substance use disorders: No Previous psychiatric stay: Yes Protective Factors Assessment : No Responsible for young children: No Employed: No Stable relationships: No Supportive family: Yes Data Vital Signs Last 24 Hrs: Date Time Temp Pulse Resp B/P (MAP) Pulse Ox O2 Delivery O2 Flow Rate FiO2 03/16/17 11:12 36.8 88 16 173/88 154/85 Meds Administered Last 24 Hrs: Meds Administered (Past 24Hrs) Medications (Trade) Dose Ordered Sig/Krish Route Start Time Stop Time Status Last Admin Dose Admin Risperidone (Risperdal M Tab) 1 mg QAM PO 03/16/17 09:00 04/15/17 08:59 03/16/17 10:00 1 MG Insulin Glargine (Lantus Solostar Pen) 20 units NOW ONCE SC 03/15/17 12:30 03/15/17 12:31 DC 03/15/17 12:47 20 UNITS Risperidone (Risperdal M Tab) 2 mg HS PO 03/15/17 22:00 04/14/17 21:59 03/15/17 21:03 2 MG Insulin Glargine (Lantus Solostar Pen) 20 units DAILY SC 03/16/17 09:00 04/15/17 08:59 03/16/17 09:55 20 UNITS Lab Results Last 24 Hrs: 03/08/17 06:23 Red Blood Count 3.78, Mean Corpuscular Volume 85.2, Mean Corpuscular Hemoglobin 28.8, Mean Corpuscular Hemoglobin Concent 33.9, Mean Platelet Volume 9.3, Neutrophils (%) (Auto) 49.8, Lymphocytes (%) (Auto) 36.4, Monocytes (%) (Auto) 10.1, Eosinophils (%) (Auto) 3.0, Basophils (%) (Auto) 0.4, Neutrophils # (Auto ) 5.25, Lymphocytes # (Auto) 3.84, Monocytes # (Auto) 1.06, Eosinophils # (Auto ) 0.32, Basophils # (Auto) 0.04 03/10/17 10:08 03/15/17 06:19 Test 03/08/17 06:23 03/10/17 10:08 03/11/17 06:53 03/15/17 06:19 White Blood Count 10.54 K/uL (4.8-10.8) Red Blood Count 3.78 M/uL (4.2-5.4) Hemoglobin 10.9 g/dL (12.0-16.0) Hematocrit 32.2 % (37-47) Mean Corpuscular Volume 85.2 fL (80-100) Mean Corpuscular Hemoglobin 28.8 pg (25-34) Mean Corpuscular Hemoglobin Concent 33.9 g/dl (32-36) Platelet Count 655 K/uL (130-400) Mean Platelet Volume 9.3 fL (7.4-10.4) Neutrophils (%) (Auto) 49.8 % Lymphocytes (%) (Auto) 36.4 % Monocytes (%) (Auto) 10.1 % Eosinophils (%) (Auto) 3.0 % Basophils (%) (Auto) 0.4 % Neutrophils # (Auto) 5.25 K/uL (1.4-6.5) Lymphocytes # (Auto) 3.84 K/uL (1.2-3.4) Monocytes # (Auto) 1.06 K/uL (0.11-0.59) Eosinophils # (Auto) 0.32 K/uL (0-0.5) Basophils # (Auto) 0.04 K/uL (0-0.2) RDW Standard Deviation 44.6 fL (36.4-46.3) RDW Coefficient of Variation 14.3 % (11.5-14.5) Immature Granulocyte % (Auto) 0.3 % Immature Granulocyte # (Auto) 0.03 K/uL (0.00-0.02) Anion Gap 11.0 mmol/L (3-11) BUN/Creatinine Ratio 27.5 (10-20) Calcium Level 10.2 mg/dl (8.5-10.1) Fasting Glucose 87 mg/dl (70-99) Triglycerides Level 74 mg/dl (0-150) Cholesterol Level 130 mg/dl (0-200) HDL Cholesterol 43 mg/dl LDL Cholesterol, Calculated 72 mg/dl VLDL Cholesterol, Calculated 15 mg/dl Cholesterol/HDL Ratio 3.0 Est Creatinine Clear Calc Drug Dose 33.7 ml/min Estimated GFR () 42.8 Estimated GFR (Non- 36.9 Test 03/15/17 07:33 Bedside Glucose 171 mg/dl (70-90) Problem Qualifiers (1) Schizoaffective disorder: Schizoaffective disorder type: bipolar Qualified Codes: F25.0 - Schizoaffective disorder, bipolar type
[2017-03-16] MEDS: RISPERIDONE ODT 1MG PO PRN (14:23)
[2017-03-16] MEDS: SYSTANE~ORDER AWAITING ACTION SCH ×2 (15:27)
[2017-03-16 16:58] VITALS: BP 129/74; PULSE 69
[2017-03-16 20:44] VITALS: BP 132/72; PULSE 92
[2017-03-16] MEDS: PRAVASTATIN SOD 40 MG TAB PO SCH (20:47)
[2017-03-16] MEDS: RISPERIDONE ODT 1MG PO SCH (20:47)
[2017-03-17] MEDS: PROBENECID 500 MG TAB PO SCH ×2 (09:00→23:49)
[2017-03-17] MEDS: LACTOBACILLUS ACIDOPHILUS (FLORANEX) TAB PO SCH (09:00)
[2017-03-17] MEDS: PANTOprazole SOD 40 MG TAB PO SCH (09:00)
[2017-03-17] MEDS: DABIGATRAN ELEXILATE 75 MG CAP PO SCH ×2 (09:00→23:49)
[2017-03-17] MEDS: PYRIDOXINE HCL 50 MG TAB PO SCH (09:00)
[2017-03-17] MEDS: CYANOCOBALAMIN 500 MCG TAB (VIT B-12) PO SCH ×2 (09:00→23:50)
[2017-03-17 09:21] VITALS: BP 95/67; PULSE 109; TEMP 36.6
[2017-03-17] MEDS: CARVEDILOL 12.5 MG TAB PO SCH ×2 (09:52→23:49)
[2017-03-17] MEDS: ASPIRIN 81 MG ECTAB PO SCH (09:52)
[2017-03-17] MEDS: DRONEDARONE 400 MG TAB PO SCH ×2 (09:52→23:49)
[2017-03-17] MEDS: AMLODIPINE BESYLATE 5 MG TAB PO SCH (09:53)
[2017-03-17] MEDS: INSULIN GLARGINE SOLOSTAR 100 UNITS/ML 3 ML PEN SC SCH (09:55)
[2017-03-17] MEDS: INSULIN ASPART 100 UNITS/ML 3 ML PEN SC SCH ×4 (10:19→23:51)
[2017-03-17 10:24] VITALS: BP 135/85; PULSE 84
--- NOTE | 2017-03-17 10:34 | Psychiatric Progress Notes ---
Progress Note Date of Service Mar 17, 2017. Interval History Tressa is a 76 y/o female who resides alone in [place], has a diagnosis of schizoaffective disorder bipolar type, and was admitted to the medical floor for cardiac work-up/delirium on 02/26/17 and seen for initial consultation on . She was followed on the medical floor and manic behavior became more apparent as other issues resolved, so she was ultimately transferred to [facility] on a 302 commitment supported by her daughter (ROS). She is on a 303 as of 03/09/17. Chief Complaint "I'm greeeeeaaaaat!". Subjective Patient was seen & assessed interval progress reviewed with Treatment Team. Patient would not speak with me on my first attempt, telling me to leave. During my second visit, she is seated on the bed writing. She answers my questions but with a sarcastic and suspicious tone. She answers most questions with "Greeeaaat!", and is then surveying and critiquing my name tag, my appearance. She does say that her thoughts are moving fast, "but normal". She will not answer questions about delusions or paranoia. Staff report that she remains delusional and possibly hallucinating about a man she calls Adam who she avoids thinking he is there to hurt her. This may or may not be a peer on the unit (not named Adam). She was observed to be out of her room more yesterday, in the dayroom reading a magazine, and has not been incontinent as she had been previously. She also took all of her meds PO yesterday, without need for meds over objection. Review of Systems Constitutional: No fever, No chills, No sweats, No weight loss, No weakness, No fatigue, No problem reported ENT: No hearing loss, No unusual epistaxis, No nasal symptoms, No sore throat, No tinnitus, No dental problems, No trouble swallowing, No problem reported Respiratory: No cough, No sputum, No wheezing, No shortness of breath, No dyspnea on exertion, No dyspnea at rest, No hemoptysis, No problem reported Cardiovascular: No chest pain, No orthopnea, No PND, No edema, No claudication , No palpitations, No problem reported Abdomen: No pain, No nausea, No vomiting, No diarrhea, No constipation, No GI bleeding, No problem reported Musculoskeletal: No joint pain, No muscle pain, No swelling, No calf pain, No problem reported Neurologic: No memory loss, No paralysis, No weakness, No numbness/tingling, No vertigo, No balance problems, No problem reported Psychiatric: + problem reported ("I'm Greeeaat!") Integumentary: No rash, No itch, No new/changing skin lesions, No color change , No bleeding, No problem reported Sleep Information Total Hours of Sleep: 7.50 Meal Information Percent of Breakfast Consumed: 100 Percent of Lunch Consumed: 80 Percent of Dinner Consumed: 50 Mental Status Exam During interview pt is: uncooperative Appearance: appropriately dressed, disheveled Eye contact is: good Motor behavior is: no abnormal motor movements (walking unassisted) Speech: normal in rate, rhythm & volume (angry tone at times, sarcastic) Affect: blunted Mood is: irritable Thought process: other (distracted by suspiciousness) Thought content: paranoid, delusions, persecution Suicidal thought are: denied Homicidal thoughts are: denied Hallucinations: denies auditory (will not answer), denies visual Cognition: other (all spheres impaired) Intelligence estimated to be: average Insight: severely impaired Judgement: severely impaired Impression We have a two-physician order for meds over objection. 303 granted on 03/09. Patient remains delusional, paranoid. She took all of her meds PO yesterday and slept better on nights, but today is irritable and resisting meds and nursing interventions. She may need an AM dose of risperdal, but would like to give it another day or so as I would like to see her awake in the day and sleeping at night. Plan (1) Schizoaffective disorder 03/06 - History supports previous good effect of Seroquel and decompensation associated with noncompliance -Will increase at bedtime Seroquel to 400 mg tonight -Attempting to review history with daughter to consider a more potent antipsychotic such as Risperdal as alternative - Received Haldol prn 1 this a.m. 03/07 - information available at present supports h/o benefit on seroquel. will continue with that agent for now, titrating as indicated. reviewed need for compliance with pt this am and she seemed receptive, hoverer we will have t wait and see if she is compliant tonight. continue haldol prn which she is tolerating well so far. - repeat screening labs in AM 03/08 - Continue quetiapine 50 mg twice a day, and increase bedtime dose to 500 mg. Check fasting labs tomorrow morning. - Continue haloperidol and quetiapine as needed for psychosis. - File for a 303 commitment. 03/09 - Recommend medications over objection, as patient is refusing her antipsychotic and her condition is deteriorating, leading to refusal of medications for HTN and elevated pulse and BP, which put her at risk of MT and stroke. Sleep and appetite are poor, and she is grossly disorganized and psychotic. Will request a second opinion from another physician (medical accounting clerk, Dr. Joe), and spoke with her daughter Mily who is POA, who is in agreement with medications over objection if needed. - Fasting labs were ordered for this morning but patient refused the blood draw. Will re-order for tomorrow. 03/10 - Dr. Joe saw patient and agrees with meds over objection. Will add Haldol 5mg IM for refusal of oral quetiapine, and for now will move quetiapine to the morning, so that more staff will be present when attempting to give medication, and so that antipsychotics can be given at the same time as antihypertensives, hopefully improving medication compliance. He can be moved back to bedtime once she is more consistently taking oral medication. Continue to encourage medication compliance. - She refused quetiapine this morning, so received Haldol IM. - Fasting glucose and lipids ordered for tomorrow 03/11 - Hold AM seroquel today due to sedation, but give at HS - Continue with meds over objection by 2 physician order 03/12 --extensive discussion with daughter re: lack of progress with Seroquel and concerns about sedation and fall risk longer term given age. Also reviewed that if option of a dissolvable that perhaps would be more receptive and minimize IM injections. Risks/benefits/alternatives reviewed with daughter/ROS who was in support of a trial of Risperdal M-tab. She did report baseline concerns about memory predating this episode as would argue with her about tasks they just did. Ms. Cyr has declined to visit with family during holidays and therefore they admittedly haven't interacted with her much in person in the past 1.5 years. She does become guarded/argumentative on the phone and more reclusive at her housing complex. Daughter notes increase in hoarding behaviors. Reviewed that likely even when recovered that she will be unable to live alone without more support and she stated that she/brother had already been checking out nursing facilities. Will decrease Seroquel to 200 mg for 2 nights then d/c. Start Risperdal 1 mg Mtab this pm then BID starting tomorrow with IM Haldol for refusal of am dose. Monitor tachy. 03/13 --did take Risperdal M tab last pm, monitor on BID dosing. Will order prn sleep aide as remains poor and Seroquel being discontinued after tonight. Risperdal increase likely tomorrow. Discussed implementing a toileting protocol with nursing. 03/14 - had risperdal 1mg po bid as scheduled, and 1mg prn for agitation/ psychosis, will need to watch sleep off seroquel (last dose 03/13/17), has haldol IM for po refusal 03/15 - Increase risperidone to 1mg qam and 2mg qhs. Tolerating well, no tachycardia or hypotension. Sleep has deteriorated. 03/16 -Move Risperdal to all HS and increase to 4 mg. HS 03/17 - Continue current meds (2) Renal failure 03/08 - be when elevated at 33, and creatinine 1.40. It appears she's had chronic renal dysfunction, with BUN and of 31 and creatinine of 1.9 in September 2016. We will continue to monitor, and consider the need to consult the hospitalist. 03/09 - Pt refused recheck of creatinine and BUN. 03/10 - BMP results reviewed: BUN 41, and creatinine 1.50. Continue to encourage fluids, and recheck creatinine in 2 days. Consider need for medical consultation, as she is at risk for worsening renal function and dehydration she does not drink enough, and may require transfer to the medical floor for IV fluids if this occurs. 03/12--labs improved a little today, encourage PO. 03/14/17 - ate full meal this AM despite ongoing delusion of being poisoned, she will have Creatinine drawn in the AM tomorrow (3) Hypertension 03/06 - increase hydralazine to qid and continue amlodipine 03/10 - intermittently refusing antihypertensive education, with elevated blood pressure and pulse (blood pressure this morning 184/87). Often refuses to allow staff to get vital signs. He did take hydralazine and amlodipine today, and asked staff to attempt to recheck vital signs if she will allow it. 03/14 - BP is WNL DM II - continue Lantus 10 units SC BID. Decreased from home dose due to poor oral intake - Insulin sliding scale - Checking BSGs q ac and qhs 03/14 - pharmacy continues to follow but due to refusal of evening basal insulin no new formal recs placed, pharamcist cautions about her slowly elevating sugars. Discussed with team as AM BS's are not dangerously high we will monitor and reconsider if forced insulin over objection is needed if the risks of BS elevations in the short term outweight the risks of forced medication. Atrial fibrillation -Continue Coreg, dronedarone, and pradaxa Discharge / Aftercare Planning Primary Care Physician: Name: Dr Mclain Visit Code E&M Code: 52419 Risk Factors Assessment : Yes /single/: Yes Higher / Fall in social status: No Access to guns: No Health problems: Yes Mental Health Diagnoses: Yes Substance use disorders: No Previous psychiatric stay: Yes Protective Factors Assessment : No Responsible for young children: No Employed: No Stable relationships: No Supportive family: Yes Data Vital Signs Last 24 Hrs: Date Time Temp Pulse Resp B/P (MAP) Pulse Ox O2 Delivery O2 Flow Rate FiO2 03/17/17 09:21 36.6 109 16 95/67 03/17/17 06:57 03/16/17 20:44 92 132/72 03/16/17 16:58 69 129/74 03/16/17 11:12 36.8 88 16 173/88 154/85 Meds Administered Last 24 Hrs: Meds Administered (Past 24Hrs) Medications (Trade) Dose Ordered Sig/Krish Route Start Time Stop Time Status Last Admin Dose Admin Risperidone (Risperdal M Tab) 1 mg QAM PO 03/16/17 09:00 03/16/17 12:02 DC 03/16/17 10:00 1 MG Insulin Glargine (Lantus Solostar Pen) 20 units NOW ONCE SC 03/15/17 12:30 03/15/17 12:31 DC 03/15/17 12:47 20 UNITS Risperidone (Risperdal M Tab) 2 mg HS PO 03/15/17 22:00 03/16/17 12:02 DC 03/15/17 21:03 2 MG Insulin Glargine (Lantus Solostar Pen) 20 units DAILY SC 03/16/17 09:00 04/15/17 08:59 03/16/17 09:55 20 UNITS Risperidone (Risperdal M Tab) 4 mg HS PO 03/16/17 22:00 04/15/17 21:59 03/16/17 20:47 4 MG Lab Results Last 24 Hrs: 03/08/17 06:23 Red Blood Count 3.78, Mean Corpuscular Volume 85.2, Mean Corpuscular Hemoglobin 28.8, Mean Corpuscular Hemoglobin Concent 33.9, Mean Platelet Volume 9.3, Neutrophils (%) (Auto) 49.8, Lymphocytes (%) (Auto) 36.4, Monocytes (%) (Auto) 10.1, Eosinophils (%) (Auto) 3.0, Basophils (%) (Auto) 0.4, Neutrophils # (Auto ) 5.25, Lymphocytes # (Auto) 3.84, Monocytes # (Auto) 1.06, Eosinophils # (Auto ) 0.32, Basophils # (Auto) 0.04 03/10/17 10:08 03/15/17 06:19 Test 03/08/17 06:23 03/10/17 10:08 03/11/17 06:53 03/15/17 06:19 White Blood Count 10.54 K/uL (4.8-10.8) Red Blood Count 3.78 M/uL (4.2-5.4) Hemoglobin 10.9 g/dL (12.0-16.0) Hematocrit 32.2 % (37-47) Mean Corpuscular Volume 85.2 fL (80-100) Mean Corpuscular Hemoglobin 28.8 pg (25-34) Mean Corpuscular Hemoglobin Concent 33.9 g/dl (32-36) Platelet Count 655 K/uL (130-400) Mean Platelet Volume 9.3 fL (7.4-10.4) Neutrophils (%) (Auto) 49.8 % Lymphocytes (%) (Auto) 36.4 % Monocytes (%) (Auto) 10.1 % Eosinophils (%) (Auto) 3.0 % Basophils (%) (Auto) 0.4 % Neutrophils # (Auto) 5.25 K/uL (1.4-6.5) Lymphocytes # (Auto) 3.84 K/uL (1.2-3.4) Monocytes # (Auto) 1.06 K/uL (0.11-0.59) Eosinophils # (Auto) 0.32 K/uL (0-0.5) Basophils # (Auto) 0.04 K/uL (0-0.2) RDW Standard Deviation 44.6 fL (36.4-46.3) RDW Coefficient of Variation 14.3 % (11.5-14.5) Immature Granulocyte % (Auto) 0.3 % Immature Granulocyte # (Auto) 0.03 K/uL (0.00-0.02) Anion Gap 11.0 mmol/L (3-11) BUN/Creatinine Ratio 27.5 (10-20) Calcium Level 10.2 mg/dl (8.5-10.1) Fasting Glucose 87 mg/dl (70-99) Triglycerides Level 74 mg/dl (0-150) Cholesterol Level 130 mg/dl (0-200) HDL Cholesterol 43 mg/dl LDL Cholesterol, Calculated 72 mg/dl VLDL Cholesterol, Calculated 15 mg/dl Cholesterol/HDL Ratio 3.0 Est Creatinine Clear Calc Drug Dose 33.7 ml/min Estimated GFR () 42.8 Estimated GFR (Non- 36.9 Test 03/15/17 07:33 Bedside Glucose 171 mg/dl (70-90) Problem Qualifiers (1) Schizoaffective disorder: Schizoaffective disorder type: bipolar Qualified Codes: F25.0 - Schizoaffective disorder, bipolar type
[2017-03-17] MEDS: RISPERIDONE ODT 1MG PO PRN (18:14)
[2017-03-17 21:59] VITALS: BP 114/67; PULSE 63
[2017-03-17] MEDS: SYSTANE~ORDER AWAITING ACTION SCH (23:47)
[2017-03-17] MEDS: PRAVASTATIN SOD 40 MG TAB PO SCH (23:49)
[2017-03-17] MEDS: RISPERIDONE ODT 1MG PO SCH (23:50)
[2017-03-18 07:59] VITALS: BP 120/77; PULSE 111; TEMP 36.4
[2017-03-18] MEDS: SYSTANE~ORDER AWAITING ACTION SCH (08:00)
[2017-03-18] MEDS: CARVEDILOL 12.5 MG TAB PO SCH ×2 (08:01→20:37)
[2017-03-18] MEDS: PROBENECID 500 MG TAB PO SCH ×2 (08:02→20:37)
[2017-03-18] MEDS: DRONEDARONE 400 MG TAB PO SCH ×2 (08:02→20:25)
[2017-03-18] MEDS: DABIGATRAN ELEXILATE 75 MG CAP PO SCH ×2 (08:02→20:37)
[2017-03-18] MEDS: PANTOprazole SOD 40 MG TAB PO SCH (08:02)
[2017-03-18] MEDS: AMLODIPINE BESYLATE 5 MG TAB PO SCH (08:02)
[2017-03-18] MEDS: PYRIDOXINE HCL 50 MG TAB PO SCH (08:03)
[2017-03-18] MEDS: CYANOCOBALAMIN 500 MCG TAB (VIT B-12) PO SCH ×2 (08:03→20:25)
[2017-03-18] MEDS: INSULIN GLARGINE SOLOSTAR 100 UNITS/ML 3 ML PEN SC SCH (08:06)
[2017-03-18] MEDS: LACTOBACILLUS ACIDOPHILUS (FLORANEX) TAB PO SCH (08:23)
[2017-03-18] MEDS: ASPIRIN 81 MG ECTAB PO SCH (08:23)
[2017-03-18] MEDS: INSULIN ASPART 100 UNITS/ML 3 ML PEN SC SCH ×4 (09:22→20:25)
[2017-03-18 10:19] LABS: CREATININE 1.6 mg/dl (0.60-1.20)
--- NOTE | 2017-03-18 11:32 | Psychiatric Progress Notes ---
Progress Note Date of Service Mar 18, 2017. Interval History Tressa is a 76 y/o female who resides alone in [place], has a diagnosis of schizoaffective disorder bipolar type, and was admitted to the medical floor for cardiac work-up/delirium on 02/26/17 and seen for initial consultation on . She was followed on the medical floor and manic behavior became more apparent as other issues resolved, so she was ultimately transferred to [facility] on a 302 commitment supported by her daughter (ROS). She is on a 303 as of 03/09/17. Chief Complaint "Always worse". Subjective Patient was seen & assessed interval progress reviewed with Treatment Team. Per staff, pt remains delusional, irritable, resistive. Has been out of room more recently. On interview, pt reports feeling worse and worse. She tells me there are people from upstairs are pouring things into her that are bad for her. Seems to be hallucinating and delusional. She initially states that she has pain all over but unable to identify any specific concern and then denied pain. Sleep Information Total Hours of Sleep: 6.00 Meal Information Percent of Breakfast Consumed: 90 Percent of Lunch Consumed: 50 Percent of Dinner Consumed: 100 Mental Status Exam During interview pt is: cooperative Appearance: appropriately dressed, disheveled Eye contact is: good Motor behavior is: no abnormal motor movements (walking unassisted) Speech: normal in rate, rhythm & volume (angry tone at times, sarcastic) Affect: blunted Mood is: irritable Thought process: other (distracted by suspiciousness) Thought content: paranoid, delusions, persecution Suicidal thought are: denied Homicidal thoughts are: denied Hallucinations: denies auditory (will not answer), denies visual Cognition: other (all spheres impaired) Intelligence estimated to be: average Insight: severely impaired Judgement: severely impaired Impression We have a two-physician order for meds over objection. 303 granted on 03/09. Patient remains delusional, paranoid. She took all of her meds PO yesterday and slept better on nights, but today is irritable and resisting meds and nursing interventions. She may need an AM dose of risperdal, but would like to give it another day or so as I would like to see her awake in the day and sleeping at night. Plan (1) Schizoaffective disorder 03/06 - History supports previous good effect of Seroquel and decompensation associated with noncompliance -Will increase at bedtime Seroquel to 400 mg tonight -Attempting to review history with daughter to consider a more potent antipsychotic such as Risperdal as alternative - Received Haldol prn 1 this a.m. 03/07 - information available at present supports h/o benefit on seroquel. will continue with that agent for now, titrating as indicated. reviewed need for compliance with pt this am and she seemed receptive, hoverer we will have t wait and see if she is compliant tonight. continue haldol prn which she is tolerating well so far. - repeat screening labs in AM 03/08 - Continue quetiapine 50 mg twice a day, and increase bedtime dose to 500 mg. Check fasting labs tomorrow morning. - Continue haloperidol and quetiapine as needed for psychosis. - File for a 303 commitment. 03/09 - Recommend medications over objection, as patient is refusing her antipsychotic and her condition is deteriorating, leading to refusal of medications for HTN and elevated pulse and BP, which put her at risk of ND and stroke. Sleep and appetite are poor, and she is grossly disorganized and psychotic. Will request a second opinion from another physician (director medical economics, Dr. Joe), and spoke with her daughter Mily who is POA, who is in agreement with medications over objection if needed. - Fasting labs were ordered for this morning but patient refused the blood draw. Will re-order for tomorrow. 03/10 - Dr. Joe saw patient and agrees with meds over objection. Will add Haldol 5mg IM for refusal of oral quetiapine, and for now will move quetiapine to the morning, so that more staff will be present when attempting to give medication, and so that antipsychotics can be given at the same time as antihypertensives, hopefully improving medication compliance. He can be moved back to bedtime once she is more consistently taking oral medication. Continue to encourage medication compliance. - She refused quetiapine this morning, so received Haldol IM. - Fasting glucose and lipids ordered for tomorrow 03/11 - Hold AM seroquel today due to sedation, but give at HS - Continue with meds over objection by 2 physician order 7/28 --extensive discussion with daughter re: lack of progress with Seroquel and concerns about sedation and fall risk longer term given age. Also reviewed that if option of a dissolvable that perhaps would be more receptive and minimize IM injections. Risks/benefits/alternatives reviewed with daughter/POA who was in support of a trial of Risperdal M-tab. She did report baseline concerns about memory predating this episode as would argue with her about tasks they just did. Ms. Cyr has declined to visit with family during holidays and therefore they admittedly haven't interacted with her much in person in the past 1.5 years. She does become guarded/argumentative on the phone and more reclusive at her housing complex. Daughter notes increase in hoarding behaviors. Reviewed that likely even when recovered that she will be unable to live alone without more support and she stated that she/brother had already been checking out nursing facilities. Will decrease Seroquel to 200 mg for 2 nights then d/c. Start Risperdal 1 mg Mtab this pm then BID starting tomorrow with IM Haldol for refusal of am dose. Monitor tachy. 03/13 --did take Risperdal M tab last pm, monitor on BID dosing. Will order prn sleep aide as remains poor and Seroquel being discontinued after tonight. Risperdal increase likely tomorrow. Discussed implementing a toileting protocol with nursing. 03/14 - had risperdal 1mg po bid as scheduled, and 1mg prn for agitation/ psychosis, will need to watch sleep off seroquel (last dose 03/13/17), has haldol IM for po refusal 03/15 - Increase risperidone to 1mg qam and 2mg qhs. Tolerating well, no tachycardia or hypotension. Sleep has deteriorated. 03/16 -Move Risperdal to all HS and increase to 4 mg. HS 03/17 - Continue current meds 03/18 - remains delusional but affect slowly more composed and able to tolerate more stimulation out of room - as we approach ceiling of dose range of risperdal, if additional calming action needed in daytime, could consider re-initiation of low dose seroquel or perhaps very low dose trazodone. (2) Renal failure 03/08 - be when elevated at 33, and creatinine 1.40. It appears she's had chronic renal dysfunction, with BUN and of 31 and creatinine of 1.9 in September 2016. We will continue to monitor, and consider the need to consult the hospitalist. 03/09 - Pt refused recheck of creatinine and BUN. 03/10 - BMP results reviewed: BUN 41, and creatinine 1.50. Continue to encourage fluids, and recheck creatinine in 2 days. Consider need for medical consultation, as she is at risk for worsening renal function and dehydration she does not drink enough, and may require transfer to the medical floor for IV fluids if this occurs. 03/12--labs improved a little today, encourage PO. 03/14/17 - ate full meal this AM despite ongoing delusion of being poisoned, she will have Creatinine drawn in the AM tomorrow 03/18 - creat inc to 1.6 and EGFR declining today. - push po - consider medicine c/s (3) Hypertension 03/06 - increase hydralazine to qid and continue amlodipine 03/10 - intermittently refusing antihypertensive education, with elevated blood pressure and pulse (blood pressure this morning 184/87). Often refuses to allow staff to get vital signs. He did take hydralazine and amlodipine today, and asked staff to attempt to recheck vital signs if she will allow it. 03/14 - BP is WNL DM II - continue Lantus 10 units SC BID. Decreased from home dose due to poor oral intake - Insulin sliding scale - Checking BSGs q ac and qhs 03/14 - pharmacy continues to follow but due to refusal of evening basal insulin no new formal recs placed, pharamcist cautions about her slowly elevating sugars. Discussed with team as AM BS's are not dangerously high we will monitor and reconsider if forced insulin over objection is needed if the risks of BS elevations in the short term outweight the risks of forced medication. Atrial fibrillation -Continue Coreg, dronedarone, and pradaxa Discharge / Aftercare Planning Primary Care Physician: Name: Dr Mclain Visit Code E&M Code: 63787 Risk Factors Assessment : Yes /single/: Yes Higher / Fall in social status: No Access to guns: No Health problems: Yes Mental Health Diagnoses: Yes Substance use disorders: No Previous psychiatric stay: Yes Protective Factors Assessment : No Responsible for young children: No Employed: No Stable relationships: No Supportive family: Yes Data Vital Signs Last 24 Hrs: Date Time Temp Pulse Resp B/P (MAP) Pulse Ox O2 Delivery O2 Flow Rate FiO2 03/18/17 07:59 36.4 111 16 120/77 03/17/17 21:59 63 114/67 Meds Administered Last 24 Hrs: Meds Administered (Past 24Hrs) Medications (Trade) Dose Ordered Sig/Krish Route Start Time Stop Time Status Last Admin Dose Admin Risperidone (Risperdal M Tab) 4 mg HS PO 03/16/17 22:00 04/15/17 21:59 03/17/17 23:50 4 MG Lab Results Last 24 Hrs: Last 24 Hours Test 03/17/17 12:09 03/17/17 17:19 03/17/17 21:52 03/18/17 07:45 Bedside Glucose 212 mg/dl 126 mg/dl 197 mg/dl 185 mg/dl Test 03/18/17 09:31 Creatinine 1.60 mg/dl Est Creatinine Clear Calc Drug Dose 28.1 ml/min Estimated GFR () 36.4 Estimated GFR (Non- 31.4 Problem Qualifiers (1) Schizoaffective disorder: Schizoaffective disorder type: bipolar Qualified Codes: F25.0 - Schizoaffective disorder, bipolar type
[2017-03-18] MEDS ORDERED: INSULIN ASPART 100 UNITS/ML 3 ML PEN SC ONE (11:45)
--- NOTE | 2017-03-18 12:59 | Pharmacy Progress Note ---
Glycemic: Assessment & Plan Date of Service Mar 18, 2017. Assessment & Plan The patient is currently receiving ~30 units of insulin per day. BSGs ranging 125 - 323 mg/dl over the past 24hrs. * Basal insulin: Lantus 20 units every 24 hours * Correctional Insulin: Novolog Correction per scale ACHS Goal Range: Low 110 mg/dL - High 150 mg/dL Correction Factor: 35 mg/dL/unit * Prandial insulin: Per carb ratio of 1 unit per 10 grams CHO consumed ASSESSMENT: * Patient still refusing occasional doses * RN called re: pre-lunch BSG of 323 today. Patient had an AM snack (yogurt) that was not covered but the nurse reported she usually has an AM snack. BSGs are not consistently elevated so I am hesitant to have the nurses always cover the snack with insulin. PLAN: * Give additional 3 units of Novolog with lunch dose for elevated BSG * Continue CF 35 * Continue CR 10 * Continue Lantus 20 units once daily - patient has not been refusing this since changed to once daily Pharmacy will continue to monitor patient daily and write orders per [facility] inpatient glycemic control protocol. Thanks. * Please note that the plan above was derived based on current level of insulin resistance and hospital stress. These recommendations are appropriate for inpatient admission only. Plan of care upon discharge will need to be reassessed to avoid potential outpatient hypo/hyperglycemia.
[2017-03-18 13:32] VITALS: BP 115/66; PULSE 67
[2017-03-18] MEDS: RISPERIDONE ODT 1MG PO PRN (16:34)
[2017-03-18] MEDS: RISPERIDONE ODT 1MG PO SCH (20:25)
[2017-03-18] MEDS: PRAVASTATIN SOD 40 MG TAB PO SCH (20:37)
[2017-03-18 20:41] VITALS: BP 128/74; PULSE 109
[2017-03-19 08:08] VITALS: BP_SYST 100; BP_SYST 137; BP_DIAS 68; BP_DIAS 78; PULSE 108; PULSE 57; TEMP 36.7
[2017-03-19] MEDS: CYANOCOBALAMIN 500 MCG TAB (VIT B-12) PO SCH ×2 (09:00→20:00)
[2017-03-19] MEDS: PYRIDOXINE HCL 50 MG TAB PO SCH (09:00)
[2017-03-19] MEDS: PANTOprazole SOD 40 MG TAB PO SCH (09:00)
[2017-03-19] MEDS: LACTOBACILLUS ACIDOPHILUS (FLORANEX) TAB PO SCH (09:00)
[2017-03-19] MEDS: SYSTANE~ORDER AWAITING ACTION SCH ×3 (09:07→15:44)
[2017-03-19] MEDS: PROBENECID 500 MG TAB PO SCH ×2 (09:08→20:00)
[2017-03-19] MEDS: AMLODIPINE BESYLATE 5 MG TAB PO SCH (09:08)
[2017-03-19] MEDS: CARVEDILOL 12.5 MG TAB PO SCH ×2 (09:08→20:00)
[2017-03-19] MEDS: DRONEDARONE 400 MG TAB PO SCH ×2 (09:08→20:00)
[2017-03-19] MEDS: ASPIRIN 81 MG ECTAB PO SCH (09:08)
[2017-03-19] MEDS: DABIGATRAN ELEXILATE 75 MG CAP PO SCH ×2 (09:08→20:00)
[2017-03-19] MEDS: INSULIN GLARGINE SOLOSTAR 100 UNITS/ML 3 ML PEN SC SCH (09:09)
[2017-03-19] MEDS: INSULIN ASPART 100 UNITS/ML 3 ML PEN SC SCH ×5 (09:09→21:00)
--- NOTE | 2017-03-19 09:38 | Psychiatric Progress Notes ---
Progress Note Date of Service Mar 19, 2017. Interval History Tressa is a 76 y/o female who resides alone in [place], has a diagnosis of schizoaffective disorder bipolar type, and was admitted to the medical floor for cardiac work-up/delirium on 02/26/17 and seen for initial consultation on . She was followed on the medical floor and manic behavior became more apparent as other issues resolved, so she was ultimately transferred to [facility] on a 302 commitment supported by her daughter (ROS). She is on a 303 as of 03/09/17. Chief Complaint "I'm fine.". Subjective Patient was seen & assessed interval progress reviewed with Treatment Team. the patient has been more consistent in taking her scheduled meds. She has not required meds over objection. She continues to be delusional thinking that several staff are her son and daughter. She refuses to put on street clothes, wearing hospital gowns, but has not been incontinent at all. She has been more cooperative with staff, with less anger. Today she is oriented to place, person and year, but does not know what day of the week, and thinks that its May or June. Other than those staff members that she is delusional about, she is able to remember staff's names. She has been out of her room more , spending a little time in the day room, and has been showering with assistance. She says that her mood is "fine", denies SI/HI or aud/vis hallucinations. Review of Systems Constitutional: No fever, No chills, No sweats, No weight loss, No weakness, No fatigue, No problem reported ENT: No hearing loss, No unusual epistaxis, No nasal symptoms, No sore throat, No tinnitus, No dental problems, No trouble swallowing, No problem reported Respiratory: No cough, No sputum, No wheezing, No shortness of breath, No dyspnea on exertion, No dyspnea at rest, No hemoptysis, No problem reported Cardiovascular: No chest pain, No orthopnea, No PND, No edema, No claudication , No palpitations, No problem reported Abdomen: + constipation Musculoskeletal: No joint pain, No muscle pain, No swelling, No calf pain, No problem reported Neurologic: No memory loss, No paralysis, No weakness, No numbness/tingling, No vertigo, No balance problems, No problem reported Psychiatric: + problem reported (delusions) Integumentary: No rash, No itch, No new/changing skin lesions, No color change , No bleeding, No problem reported Sleep Information Total Hours of Sleep: 4.75 Meal Information Percent of Breakfast Consumed: 90 Percent of Lunch Consumed: 10 Percent of Dinner Consumed: 100 Mental Status Exam During interview pt is: cooperative Appearance: appropriately dressed (in hospital gowns), disheveled Eye contact is: good Motor behavior is: no abnormal motor movements (walking unassisted) Speech: normal in rate, rhythm & volume Affect: blunted Mood is: other ("fine") Thought process: goal directed, other (distracted by suspiciousness) Thought content: paranoid, delusions, persecution, other Suicidal thought are: denied Homicidal thoughts are: denied Hallucinations: denies auditory, denies visual Cognition: other (disoriented to month, day and date) Intelligence estimated to be: average Insight: severely impaired Judgement: severely impaired Impression We have a two-physician order for meds over objection. 303 granted on 03/09. Patient remains delusional, paranoid. She is more compliant in terms of taking her meds willingly although refused her lantus last night. Renal studies slightly worse and have asked nursing to push fluids today and will check again in the AM. If worse will need medicine consult. Will increase Risperdal to 5 mg. HS. Plan (1) Schizoaffective disorder 03/06 - History supports previous good effect of Seroquel and decompensation associated with noncompliance -Will increase at bedtime Seroquel to 400 mg tonight -Attempting to review history with daughter to consider a more potent antipsychotic such as Risperdal as alternative - Received Haldol prn 1 this a.m. 03/07 - information available at present supports h/o benefit on seroquel. will continue with that agent for now, titrating as indicated. reviewed need for compliance with pt this am and she seemed receptive, hoverer we will have t wait and see if she is compliant tonight. continue haldol prn which she is tolerating well so far. - repeat screening labs in AM 03/08 - Continue quetiapine 50 mg twice a day, and increase bedtime dose to 500 mg. Check fasting labs tomorrow morning. - Continue haloperidol and quetiapine as needed for psychosis. - File for a 303 commitment. 03/09 - Recommend medications over objection, as patient is refusing her antipsychotic and her condition is deteriorating, leading to refusal of medications for HTN and elevated pulse and BP, which put her at risk of ND and stroke. Sleep and appetite are poor, and she is grossly disorganized and psychotic. Will request a second opinion from another physician (medical receptionist biller, Dr. Joe), and spoke with her daughter Mily who is POA, who is in agreement with medications over objection if needed. - Fasting labs were ordered for this morning but patient refused the blood draw. Will re-order for tomorrow. 03/10 - Dr. Joe saw patient and agrees with meds over objection. Will add Haldol 5mg IM for refusal of oral quetiapine, and for now will move quetiapine to the morning, so that more staff will be present when attempting to give medication, and so that antipsychotics can be given at the same time as antihypertensives, hopefully improving medication compliance. He can be moved back to bedtime once she is more consistently taking oral medication. Continue to encourage medication compliance. - She refused quetiapine this morning, so received Haldol IM. - Fasting glucose and lipids ordered for tomorrow 03/11 - Hold AM seroquel today due to sedation, but give at HS - Continue with meds over objection by 2 physician order 03/12 --extensive discussion with daughter re: lack of progress with Seroquel and concerns about sedation and fall risk longer term given age. Also reviewed that if option of a dissolvable that perhaps would be more receptive and minimize IM injections. Risks/benefits/alternatives reviewed with daughter/PODeena who was in support of a trial of Risperdal M-tab. She did report baseline concerns about memory predating this episode as would argue with her about tasks they just did. Ms. Cyr has declined to visit with family during holidays and therefore they admittedly haven't interacted with her much in person in the past 1.5 years. She does become guarded/argumentative on the phone and more reclusive at her housing complex. Daughter notes increase in hoarding behaviors. Reviewed that likely even when recovered that she will be unable to live alone without more support and she stated that she/brother had already been checking out nursing facilities. Will decrease Seroquel to 200 mg for 2 nights then d/c. Start Risperdal 1 mg Mtab this pm then BID starting tomorrow with IM Haldol for refusal of am dose. Monitor tachy. 03/13 --did take Risperdal M tab last pm, monitor on BID dosing. Will order prn sleep aide as remains poor and Seroquel being discontinued after tonight. Risperdal increase likely tomorrow. Discussed implementing a toileting protocol with nursing. 03/14 - had risperdal 1mg po bid as scheduled, and 1mg prn for agitation/ psychosis, will need to watch sleep off seroquel (last dose 03/13/17), has haldol IM for po refusal 03/15 - Increase risperidone to 1mg qam and 2mg qhs. Tolerating well, no tachycardia or hypotension. Sleep has deteriorated. 03/16 -Move Risperdal to all HS and increase to 4 mg. HS 03/17 - Continue current meds 03/18 - remains delusional but affect slowly more composed and able to tolerate more stimulation out of room - as we approach ceiling of dose range of risperdal, if additional calming action needed in daytime, could consider re-initiation of low dose seroquel or perhaps very low dose trazodone. 03/19 - Increase Risperdal to 5 mg. HS (2) Renal failure 03/08 - be when elevated at 33, and creatinine 1.40. It appears she's had chronic renal dysfunction, with BUN and of 31 and creatinine of 1.9 in September 2016. We will continue to monitor, and consider the need to consult the hospitalist. 03/09 - Pt refused recheck of creatinine and BUN. 03/10 - BMP results reviewed: BUN 41, and creatinine 1.50. Continue to encourage fluids, and recheck creatinine in 2 days. Consider need for medical consultation, as she is at risk for worsening renal function and dehydration she does not drink enough, and may require transfer to the medical floor for IV fluids if this occurs. 03/12--labs improved a little today, encourage PO. 03/14/17 - ate full meal this AM despite ongoing delusion of being poisoned, she will have Creatinine drawn in the AM tomorrow 03/18 - creat inc to 1.6 and EGFR declining today. - push po - consider medicine c/s 03/19 - Will have staff push fluids with her today and check PRP tomorrow. If worse, will consult medicine (3) Hypertension 03/06 - increase hydralazine to qid and continue amlodipine 03/10 - intermittently refusing antihypertensive education, with elevated blood pressure and pulse (blood pressure this morning 184/87). Often refuses to allow staff to get vital signs. He did take hydralazine and amlodipine today, and asked staff to attempt to recheck vital signs if she will allow it. 03/14 - BP is WNL DM II - continue Lantus 10 units SC BID. Decreased from home dose due to poor oral intake - Insulin sliding scale - Checking BSGs q ac and qhs 03/14 - pharmacy continues to follow but due to refusal of evening basal insulin no new formal recs placed, pharamcist cautions about her slowly elevating sugars. Discussed with team as AM BS's are not dangerously high we will monitor and reconsider if forced insulin over objection is needed if the risks of BS elevations in the short term outweight the risks of forced medication. Atrial fibrillation -Continue Coreg, dronedarone, and pradaxa Discharge / Aftercare Planning Primary Care Physician: Name: Dr Mclain Visit Code E&M Code: 24285 Risk Factors Assessment : Yes /single/: Yes Higher / Fall in social status: No Access to guns: No Health problems: Yes Mental Health Diagnoses: Yes Substance use disorders: No Previous psychiatric stay: Yes Protective Factors Assessment : No Responsible for young children: No Employed: No Stable relationships: No Supportive family: Yes Data Vital Signs Last 24 Hrs: Date Time Temp Pulse Resp B/P (MAP) Pulse Ox O2 Delivery O2 Flow Rate FiO2 03/19/17 08:08 36.7 57 16 137/78 108 100/68 03/18/17 20:41 109 18 128/74 03/18/17 13:32 67 115/66 Meds Administered Last 24 Hrs: Meds Administered (Past 24Hrs) Medications (Trade) Dose Ordered Sig/Krish Route Start Time Stop Time Status Last Admin Dose Admin Insulin Aspart (novoLOG ASPART) 3 units ONE ONCE SC 03/18/17 11:45 03/18/17 11:46 DC 03/18/17 13:11 3 UNITS Lab Results Last 24 Hrs: Last 24 Hours Test 03/18/17 09:31 03/18/17 11:29 03/18/17 13:52 03/18/17 14:17 Creatinine 1.60 mg/dl Est Creatinine Clear Calc Drug Dose 28.1 ml/min Estimated GFR () 36.4 Estimated GFR (Non- 31.4 Bedside Glucose 323 mg/dl 304 mg/dl 272 mg/dl Test 03/18/17 16:48 03/18/17 20:07 03/19/17 07:58 Bedside Glucose 111 mg/dl 206 mg/dl 138 mg/dl Problem Qualifiers (1) Schizoaffective disorder: Schizoaffective disorder type: bipolar Qualified Codes: F25.0 - Schizoaffective disorder, bipolar type
[2017-03-19 10:52] VITALS: Ht 160 cm; Wt 66.8 kg
--- NOTE | 2017-03-19 12:45 | Pharmacy Progress Note ---
Glycemic: Assessment & Plan Date of Service Mar 19, 2017. Assessment & Plan The patient is currently receiving 35 units of insulin per day. BSGs ranging 111 - 236 mg/dl over the past 24hrs. * Basal insulin: Lantus 20 units every 24 hours * Correctional Insulin: Novolog Correction per scale ACHS Goal Range: Low 110 mg/dL - High 150 mg/dL Correction Factor: 35 mg/dL/unit * Prandial insulin: Per carb ratio of 1 unit per 10 grams CHO consumed ASSESSMENT/PLAN FOR INPATIENT GLYCEMIC CONTROL: * Patient still occasionally refusing insulin doses - usually in the afternoon * Lunch BSG continues to be elevated and patient did not have an AM snack today (confirmed with the nurse) * Will plan to tighten the CR for breakfast only * Tighten from 10 -> 8 Pharmacy will continue to monitor patient daily and write orders per [facility] inpatient glycemic control protocol. Thanks. * Please note that the plan above was derived based on current level of insulin resistance and hospital stress. These recommendations are appropriate for inpatient admission only. Plan of care upon discharge will need to be reassessed to avoid potential outpatient hypo/hyperglycemia.
[2017-03-19] MEDS: RISPERIDONE 1 MG TAB PO SCH (20:00)
[2017-03-19] MEDS ORDERED: RISPERIDONE ODT 1MG PO SCH (20:00)
[2017-03-19] MEDS: PRAVASTATIN SOD 40 MG TAB PO SCH (20:00)
[2017-03-19] MEDS ORDERED: RISPERIDONE 1 MG TAB PO SCH (22:00)
[2017-03-20 07:06] VITALS: BP 145/83; PULSE 105
[2017-03-20] MEDS: CARVEDILOL 12.5 MG TAB PO SCH ×2 (07:38→20:29)
[2017-03-20] MEDS: DABIGATRAN ELEXILATE 75 MG CAP PO SCH ×2 (07:38→20:29)
[2017-03-20] MEDS: DRONEDARONE 400 MG TAB PO SCH ×2 (07:38→20:29)
[2017-03-20] MEDS: AMLODIPINE BESYLATE 5 MG TAB PO SCH (07:39)
[2017-03-20 07:40] LABS: BUN/CREATININE RATIO 22.2 (10-20); CALCIUM 9.2 mg/dl (8.5-10.1); CREATININE 1.3 mg/dl (0.60-1.20)
[2017-03-20] MEDS: SYSTANE~ORDER AWAITING ACTION SCH ×3 (08:00→15:35)
[2017-03-20] MEDS: PRAVASTATIN SOD 40 MG TAB PO SCH ×2 (08:00→20:30)
[2017-03-20] MEDS: PROBENECID 500 MG TAB PO SCH ×2 (08:00→20:00)
[2017-03-20] MEDS: CYANOCOBALAMIN 500 MCG TAB (VIT B-12) PO SCH ×2 (08:00→20:00)
[2017-03-20] MEDS: PANTOprazole SOD 40 MG TAB PO SCH (09:00)
[2017-03-20] MEDS: ASPIRIN 81 MG ECTAB PO SCH (09:00)
[2017-03-20] MEDS: LACTOBACILLUS ACIDOPHILUS (FLORANEX) TAB PO SCH ×2 (09:00→09:29)
[2017-03-20] MEDS: PYRIDOXINE HCL 50 MG TAB PO SCH (09:00)
[2017-03-20] MEDS: INSULIN ASPART 100 UNITS/ML 3 ML PEN SC SCH ×4 (09:06→20:38)
[2017-03-20] MEDS: INSULIN GLARGINE SOLOSTAR 100 UNITS/ML 3 ML PEN SC SCH (09:07)
--- NOTE | 2017-03-20 09:20 | Psychiatric Progress Notes ---
Progress Note Date of Service Mar 20, 2017. Interval History Tressa is a 76 y/o female who resides alone in [place], has a diagnosis of schizoaffective disorder bipolar type, and was admitted to the medical floor for cardiac work-up/delirium on 02/26/17 and seen for initial consultation on . She was followed on the medical floor and manic behavior became more apparent as other issues resolved, so she was ultimately transferred to [facility] on a 302 commitment supported by her daughter (ROS). She is on a 303 as of 03/09/17. Chief Complaint "God bless you". Subjective Patient was seen & assessed interval progress reviewed with Nursing. Pt continues to express paranoid and delusional thinking with a sikhism focus. She stated that the groups are "not real" indicating that they are part of an act and that all the medications are poison. She indicated liking me but that I was going to hell for what I do. She stated "God bless you" a number of separate times in the assessment. She stated that her comments to me were coming from GOD and that she is saying what she is told to say. She denied AH or VH. She refused risperdal last night and this morning's prn dose indicating that "all the meds are poison" and is aware that haldol IM would be given as an injection for giving medication over objection. She indicated that was fine. She reports sleeping well and through the night .She endorsed l appetite and eating all of her breakfast expect her toast. She indicated a few times in non direct manner about having fiction writer end the assessment. However, after ending the assessment she approached nurses station to focus on watching fiction writer with attempt to engage further with fiction writer making comments such as "I give more for you then for myself" and a bit later said through the closed door to fiction writer's office "you are , too bad...you proved my point" and then walked away. Review of Systems Constitutional: + fever, + chills, + sweats, + weight loss, + weakness, + fatigue, + problem reported Cardiovascular: No chest pain, No orthopnea, No PND, No edema, No claudication , No palpitations, No problem reported Psychiatric: + problem reported (paranoid delusional thinking without insight) Sleep Information Total Hours of Sleep: 6.75 Meal Information Percent of Breakfast Consumed: 85 Percent of Lunch Consumed: 90 Percent of Dinner Consumed: 90 Mental Status Exam During interview pt is: cooperative Appearance: appropriately dressed (in hospital gowns), disheveled Eye contact is: good Motor behavior is: no abnormal motor movements (walking unassisted) Speech: normal in rate, rhythm & volume Affect: blunted Mood is: anxious, other ("ok") Thought process: goal directed, other (distracted by suspiciousness) Thought content: paranoid, delusions, persecution, other Suicidal thought are: denied Homicidal thoughts are: denied Hallucinations: denies auditory, denies visual Cognition: other (disoriented to month, day and date) Intelligence estimated to be: average Insight: severely impaired Judgement: severely impaired Impression We have a two-physician order for meds over objection. 303 granted on 03/09. Patient remains delusional, paranoid. She is more compliant in terms of taking her meds willingly although refused her lantus last night. Renal studies slightly worse and have asked nursing to push fluids today and will check again in the AM. If worse will need medicine consult. Will increase Risperdal to 5 mg. HS. Plan (1) Schizoaffective disorder 03/06 - History supports previous good effect of Seroquel and decompensation associated with noncompliance -Will increase at bedtime Seroquel to 400 mg tonight -Attempting to review history with daughter to consider a more potent antipsychotic such as Risperdal as alternative - Received Haldol prn 1 this a.m. 03/07 - information available at present supports h/o benefit on seroquel. will continue with that agent for now, titrating as indicated. reviewed need for compliance with pt this am and she seemed receptive, hoverer we will have t wait and see if she is compliant tonight. continue haldol prn which she is tolerating well so far. - repeat screening labs in AM 03/08 - Continue quetiapine 50 mg twice a day, and increase bedtime dose to 500 mg. Check fasting labs tomorrow morning. - Continue haloperidol and quetiapine as needed for psychosis. - File for a 303 commitment. 03/09 - Recommend medications over objection, as patient is refusing her antipsychotic and her condition is deteriorating, leading to refusal of medications for HTN and elevated pulse and BP, which put her at risk of TN and stroke. Sleep and appetite are poor, and she is grossly disorganized and psychotic. Will request a second opinion from another physician (medical service representative, Dr. Joe), and spoke with her daughter Mily who is POA, who is in agreement with medications over objection if needed. - Fasting labs were ordered for this morning but patient refused the blood draw. Will re-order for tomorrow. 03/10 - Dr. Joe saw patient and agrees with meds over objection. Will add Haldol 5mg IM for refusal of oral quetiapine, and for now will move quetiapine to the morning, so that more staff will be present when attempting to give medication, and so that antipsychotics can be given at the same time as antihypertensives, hopefully improving medication compliance. He can be moved back to bedtime once she is more consistently taking oral medication. Continue to encourage medication compliance. - She refused quetiapine this morning, so received Haldol IM. - Fasting glucose and lipids ordered for tomorrow 03/11 - Hold AM seroquel today due to sedation, but give at HS - Continue with meds over objection by 2 physician order 03/12 --extensive discussion with daughter re: lack of progress with Seroquel and concerns about sedation and fall risk longer term given age. Also reviewed that if option of a dissolvable that perhaps would be more receptive and minimize IM injections. Risks/benefits/alternatives reviewed with daughter/POA who was in support of a trial of Risperdal M-tab. She did report baseline concerns about memory predating this episode as would argue with her about tasks they just did. Ms. Cyr has declined to visit with family during holidays and therefore they admittedly haven't interacted with her much in person in the past 1.5 years. She does become guarded/argumentative on the phone and more reclusive at her housing complex. Daughter notes increase in hoarding behaviors. Reviewed that likely even when recovered that she will be unable to live alone without more support and she stated that she/brother had already been checking out nursing facilities. Will decrease Seroquel to 200 mg for 2 nights then d/c. Start Risperdal 1 mg Mtab this pm then BID starting tomorrow with IM Haldol for refusal of am dose. Monitor tachy. 03/13 --did take Risperdal M tab last pm, monitor on BID dosing. Will order prn sleep aide as remains poor and Seroquel being discontinued after tonight. Risperdal increase likely tomorrow. Discussed implementing a toileting protocol with nursing. 03/14 - had risperdal 1mg po bid as scheduled, and 1mg prn for agitation/ psychosis, will need to watch sleep off seroquel (last dose 03/13/17), has haldol IM for po refusal 03/15 - Increase risperidone to 1mg qam and 2mg qhs. Tolerating well, no tachycardia or hypotension. Sleep has deteriorated. 03/16 -Move Risperdal to all HS and increase to 4 mg. HS 03/17 - Continue current meds 03/18 - remains delusional but affect slowly more composed and able to tolerate more stimulation out of room - as we approach ceiling of dose range of risperdal, if additional calming action needed in daytime, could consider re-initiation of low dose seroquel or perhaps very low dose trazodone. 03/19 - Increase Risperdal to 5 mg. HS 03/20 - pt refused risperdal 03/19 night dosing and is refusing the prn dose this morning as well. has refused some of her medical meds as well, including only taking part of her norvasc dose. We will give haldol 5mg M over objection 03/20 am. Clarified this order to give haldol over injection the next am if refusing risperdal the evening prior. However with staff spending time with pt she decided to take a 2mg prn dosage of risperdal m tab mid morning 03/20 and thus held the haldol IM dose for today. -continue meds unchanged. risperdal hs dose changed to regular tab from M tab on 03/19 for significantly reducing number of pills (2) Renal failure 03/08 - be when elevated at 33, and creatinine 1.40. It appears she's had chronic renal dysfunction, with BUN and of 31 and creatinine of 1.9 in September 2016. We will continue to monitor, and consider the need to consult the hospitalist. 03/09 - Pt refused recheck of creatinine and BUN. 03/10 - BMP results reviewed: BUN 41, and creatinine 1.50. Continue to encourage fluids, and recheck creatinine in 2 days. Consider need for medical consultation, as she is at risk for worsening renal function and dehydration she does not drink enough, and may require transfer to the medical floor for IV fluids if this occurs. 03/12--labs improved a little today, encourage PO. 03/14/17 - ate full meal this AM despite ongoing delusion of being poisoned, she will have Creatinine drawn in the AM tomorrow 03/18 - creat inc to 1.6 and EGFR declining today. - push po - consider medicine c/s 03/19 - Will have staff push fluids with her today and check PRP tomorrow. If worse, will consult medicine 03/20 Cr lowered to 1.3 and BUN lowered to 22.2, continue to monitor and continue to encourage fluid intake and po intake and med compliance (3) Hypertension 03/06 - increase hydralazine to qid and continue amlodipine 03/10 - intermittently refusing antihypertensive education, with elevated blood pressure and pulse (blood pressure this morning 184/87). Often refuses to allow staff to get vital signs. He did take hydralazine and amlodipine today, and asked staff to attempt to recheck vital signs if she will allow it. 03/14 - BP is WNL 03/20 BP increased this am, likely tied to refusal of meds, attempting to address DM II - continue Lantus 10 units SC BID. Decreased from home dose due to poor oral intake - Insulin sliding scale - Checking BSGs q ac and qhs 03/14 - pharmacy continues to follow but due to refusal of evening basal insulin no new formal recs placed, pharamcist cautions about her slowly elevating sugars. Discussed with team as AM BS's are not dangerously high we will monitor and reconsider if forced insulin over objection is needed if the risks of BS elevations in the short term outweight the risks of forced medication. Atrial fibrillation -Continue Coreg, dronedarone, and pradaxa Discharge / Aftercare Planning Primary Care Physician: Name: Dr Mclain Visit Code E&M Code: 48331 Risk Factors Assessment : Yes /single/: Yes Higher / Fall in social status: No Access to guns: No Health problems: Yes Mental Health Diagnoses: Yes Substance use disorders: No Previous psychiatric stay: Yes Protective Factors Assessment : No Responsible for young children: No Employed: No Stable relationships: No Supportive family: Yes Data Vital Signs Last 24 Hrs: Date Time Temp Pulse Resp B/P (MAP) Pulse Ox O2 Delivery O2 Flow Rate FiO2 03/20/17 07:06 105 16 145/83 Meds Administered Last 24 Hrs: Meds Administered (Past 24Hrs) Medications (Trade) Dose Ordered Sig/Krish Route Start Time Stop Time Status Last Admin Dose Admin Insulin Aspart (novoLOG ASPART) 3 units ONE ONCE SC 03/18/17 11:45 03/18/17 11:46 DC 03/18/17 13:11 3 UNITS Carvedilol (Coreg Tab) 12.5 mg BID@ PO 03/19/17 20:00 04/18/17 19:59 03/20/17 07:38 12.5 MG Dabigatran (Pradaxa Cap) 75 mg BID@ PO 03/19/17 20:00 04/18/17 19:59 03/20/17 07:38 75 MG Dronedarone (Multaq Tab) 400 mg BID@799,1999 PO 03/19/17 20:00 04/18/17 19:59 03/20/17 07:38 400 MG Hydralazine HCl (Apresoline Tab) 25 mg TID PO 03/19/17 14:00 04/18/17 13:59 03/20/17 07:40 25 MG Insulin Aspart (novoLOG ASPART) SLIDING SCALE TID@1200,1715,2200 SC 03/19/17 12:45 04/18/17 12:44 03/19/17 21:00 2 UNITS Lab Results Last 24 Hrs: Last 24 Hours Test 03/19/17 11:43 03/19/17 17:07 03/19/17 20:37 03/20/17 07:00 Bedside Glucose 236 mg/dl 167 mg/dl 176 mg/dl Sodium Level 141 mmol/L Potassium Level 4.0 mmol/L Chloride Level 108 mmol/L Carbon Dioxide Level 27 mmol/L Anion Gap 6.0 mmol/L Blood Urea Nitrogen 29 mg/dl Creatinine 1.30 mg/dl Est Creatinine Clear Calc Drug Dose 34.6 ml/min Estimated GFR () 46.8 Estimated GFR (Non- 40.4 BUN/Creatinine Ratio 22.2 Random Glucose 169 mg/dl Calcium Level 9.2 mg/dl Test 03/20/17 07:28 Bedside Glucose 168 mg/dl Problem Qualifiers (1) Schizoaffective disorder: Schizoaffective disorder type: bipolar Qualified Codes: F25.0 - Schizoaffective disorder, bipolar type
[2017-03-20] MEDS ORDERED: RISPERIDONE ODT 1MG PO ONE (10:15)
--- NOTE | 2017-03-20 13:18 | Pharmacy Progress Note ---
Glycemic Control Progress Note Date of Service Mar 20, 2017. Scope Glycemic Pharmacist consulted for glycemic control to write orders per [facility] inpatient glycemic control protocol. Objective Accuchecks BSG (last 24hrs): Test 03/19/17 17:07 03/19/17 20:37 03/20/17 07:00 03/20/17 07:28 Bedside Glucose 167 mg/dl (70-90) 176 mg/dl (70-90) 168 mg/dl (70-90) Random Glucose 169 mg/dl (70-99) Test 03/20/17 12:06 Bedside Glucose 272 mg/dl (70-90) Recent Pertinent Medications Outpatient Anti-diabetic Regimen: * Lantus 10 units SQ BID * NovoLog ACHS The patient is currently receiving: * Basal insulin: Lantus 20 units every 24 hours * Correctional Insulin: Novolog Correction per scale ACHS Goal Range: Low 110 mg/dL - High 150 mg/dL Correction Factor: 35 mg/dL/unit * Prandial insulin: Per carb ratio of 1 unit per 10 grams CHO consumed {breakfast} * Prandial insulin: Per carb ratio of 1 unit per 8 grams CHO consumed {all other meals} Assessment & Plan ASSESSMENT: * 76yo diabetic female with adequate outpatient control per recent A1c * Pt has been difficult to manage and maintain adequate glycemic control secondary to snacking between meals without CHO coverage and pt refusing insulin doses. Pharmacy has been titrating insulin dosing very conservatively since BSG trends are not necessarily accurate. * Pt has accepted all insulin doses x 24hrs+ will make slight adjustments today. * Pt has been consistently receiving ~ 40 units of insulin per day * AM fasting BSG slightly elevated at 168mg/dl --> will increase basal insulin slightly * Post-prandial BSGs still elevated, especially after breakfast (this is usually d/t snack between meals without coverage). Will tighten CR slightly * ADA & AACE recommend a goal blood sugar range 140-180 mg/dl for the majority of critically ill & non-critically ill patients. However, more stringent targets may be selected in individual cases. Will utilize slightly more stringent goal range of 110-140mg/dl for a well controlled diabetic at baseline. Slightly higher range d/t sedation and inconsistent PO intake. PLAN FOR INPATIENT GLYCEMIC CONTROL: * Basal insulin: increase dose * Change to Lantus 24 units SQ daily in AM * Bolus insulin: tighten CR slightly * NovoLog per scale ACHS or Q6hrs while NPO * Goal Range: Low 110 mg/dL - High 140 mg/dL * Correction Factor: 35 mg/dL/unit * Nutritional / Prandial insulin per carb ratio of 1 unit per 7 grams CHO consumed at breakfast & per CR of 1:9 for all other meals. * Please note that the plan above was derived based on current level of insulin resistance and hospital stress. These recommendations are appropriate for inpatient admission only. Plan of care upon discharge will need to be reassessed to avoid potential outpatient hypo/hyperglycemia. Thank you.
[2017-03-20 14:32] VITALS: BP 135/85; PULSE 77
[2017-03-20] MEDS: HALOPERIDOL 5 MG TAB PO PRN (16:13)
[2017-03-20] MEDS: RISPERIDONE 1 MG TAB PO SCH (20:00)
[2017-03-20] MEDS: TRAZODONE HCL 100 MG TAB PO PRN (22:08)
[2017-03-21] MEDS: DABIGATRAN ELEXILATE 75 MG CAP PO SCH ×2 (08:00→20:15)
[2017-03-21] MEDS: SYSTANE~ORDER AWAITING ACTION SCH ×3 (08:00→15:35)
[2017-03-21 08:35] VITALS: BP 115/70; PULSE 103; PULSE 115; TEMP 36.5
[2017-03-21] MEDS: LACTOBACILLUS ACIDOPHILUS (FLORANEX) TAB PO SCH (09:00)
[2017-03-21] MEDS: INSULIN GLARGINE SOLOSTAR 100 UNITS/ML 3 ML PEN SC SCH (09:22)
[2017-03-21] MEDS: INSULIN ASPART 100 UNITS/ML 3 ML PEN SC SCH ×4 (09:23→20:40)
[2017-03-21] MEDS: CARVEDILOL 12.5 MG TAB PO SCH ×2 (09:42→20:16)
[2017-03-21] MEDS: DRONEDARONE 400 MG TAB PO SCH ×2 (09:43→20:15)
[2017-03-21] MEDS: PRAVASTATIN SOD 40 MG TAB PO SCH ×2 (09:43→20:15)
[2017-03-21] MEDS: PROBENECID 500 MG TAB PO SCH ×2 (09:43→20:15)
[2017-03-21] MEDS: CYANOCOBALAMIN 500 MCG TAB (VIT B-12) PO SCH ×2 (09:43→20:15)
[2017-03-21] MEDS: ASPIRIN 81 MG ECTAB PO SCH (09:44)
[2017-03-21] MEDS: PANTOprazole SOD 40 MG TAB PO SCH (09:44)
[2017-03-21] MEDS: AMLODIPINE BESYLATE 5 MG TAB PO SCH (09:44)
[2017-03-21] MEDS: PYRIDOXINE HCL 50 MG TAB PO SCH (09:45)
--- NOTE | 2017-03-21 13:10 | Psychiatric Progress Notes ---
Progress Note Date of Service Mar 21, 2017. Interval History Tressa is a 76 y/o female who resides alone in [place], has a diagnosis of schizoaffective disorder bipolar type, and was admitted to the medical floor for cardiac work-up/delirium on 02/26/17 and seen for initial consultation on . She was followed on the medical floor and manic behavior became more apparent as other issues resolved, so she was ultimately transferred to [facility] on a 302 commitment supported by her daughter (ROS). She is on a 303 as of 03/09/17. Chief Complaint "The person in the ceiling is causing things in my body". Subjective Patient was seen & assessed interval progress reviewed with nursing. pt is with some improved engagement this am, not irritable during assessment and staff report irritability has improved today overall. pt not stating that her medication is poison today and does say the medication has good in it that she does obtain. She complains of a person in the ceiling that is impacting her body. When inquiring what is happening to her body, she indicates vaguely lots of things and that she has various pains that come and go and currently in her wrist. She then stated perhaps that is not from the person in the ceiling. She indicated that is not as focused on God or on editorial writer going to Hell and appears to question some of her delusional thoughts at times while maintaining other ones. She obtained a prn po haldol dose yesterday late afternoon and staff reported that they seem to notice more of an positive impact after risperdal doses then haldol doses. She denied SI or HI. She is more open to engaging with editorial writer. She continues to show ambivalence. Yesterday afternoon/evening she was making comments to peers that were inappropriate she has asked staff for a cup to spit in and staff wonder about hypersalivation/ drooling s/e as rationale for wanting to spit, unable to clarify this with pt Review of Systems ENT: + problem reported (possible drooling/hypersalination ) Abdomen: No pain, No nausea, No vomiting, No diarrhea, No constipation, No GI bleeding, No problem reported Musculoskeletal: + joint pain Psychiatric: + problem reported (delusional thinking) Sleep Information Total Hours of Sleep: 5.00 Meal Information Percent of Breakfast Consumed: 90 Percent of Lunch Consumed: 90 Percent of Dinner Consumed: 75 Mental Status Exam During interview pt is: cooperative Appearance: appropriately dressed (in hospital gowns), disheveled Eye contact is: good Motor behavior is: no abnormal motor movements (walking unassisted) Speech: normal in rate, rhythm & volume Affect: blunted, other (less irritable and more pleasant ) Mood is: other ("fine") Thought process: goal directed, other (distracted by suspiciousness) Thought content: paranoid, delusions (some ambivalance to her delusional thinking at times today ), persecution, other Suicidal thought are: denied Homicidal thoughts are: denied Hallucinations: denies auditory, denies visual Cognition: other (disoriented to month, day and date) Intelligence estimated to be: average Insight: severely impaired Judgement: severely impaired Impression We have a two-physician order for meds over objection. 303 granted on 03/09. Patient remains delusional, paranoid. She is more compliant in terms of taking her meds willingly although refused her lantus last night. Renal studies slightly worse and have asked nursing to push fluids today and will check again in the AM. If worse will need medicine consult. Will increase Risperdal to 5 mg. HS. Plan (1) Schizoaffective disorder 03/06 - History supports previous good effect of Seroquel and decompensation associated with noncompliance -Will increase at bedtime Seroquel to 400 mg tonight -Attempting to review history with daughter to consider a more potent antipsychotic such as Risperdal as alternative - Received Haldol prn 1 this a.m. 03/07 - information available at present supports h/o benefit on seroquel. will continue with that agent for now, titrating as indicated. reviewed need for compliance with pt this am and she seemed receptive, hoverer we will have t wait and see if she is compliant tonight. continue haldol prn which she is tolerating well so far. - repeat screening labs in AM 03/08 - Continue quetiapine 50 mg twice a day, and increase bedtime dose to 500 mg. Check fasting labs tomorrow morning. - Continue haloperidol and quetiapine as needed for psychosis. - File for a 303 commitment. 03/09 - Recommend medications over objection, as patient is refusing her antipsychotic and her condition is deteriorating, leading to refusal of medications for HTN and elevated pulse and BP, which put her at risk of VA and stroke. Sleep and appetite are poor, and she is grossly disorganized and psychotic. Will request a second opinion from another physician (medical territory manager, Dr. Joe), and spoke with her daughter Mily who is POA, who is in agreement with medications over objection if needed. - Fasting labs were ordered for this morning but patient refused the blood draw. Will re-order for tomorrow. 03/10 - Dr. Joe saw patient and agrees with meds over objection. Will add Haldol 5mg IM for refusal of oral quetiapine, and for now will move quetiapine to the morning, so that more staff will be present when attempting to give medication, and so that antipsychotics can be given at the same time as antihypertensives, hopefully improving medication compliance. He can be moved back to bedtime once she is more consistently taking oral medication. Continue to encourage medication compliance. - She refused quetiapine this morning, so received Haldol IM. - Fasting glucose and lipids ordered for tomorrow 03/11 - Hold AM seroquel today due to sedation, but give at HS - Continue with meds over objection by 2 physician order 03/12 --extensive discussion with daughter re: lack of progress with Seroquel and concerns about sedation and fall risk longer term given age. Also reviewed that if option of a dissolvable that perhaps would be more receptive and minimize IM injections. Risks/benefits/alternatives reviewed with daughter/POA who was in support of a trial of Risperdal M-tab. She did report baseline concerns about memory predating this episode as would argue with her about tasks they just did. Ms. Cyr has declined to visit with family during holidays and therefore they admittedly haven't interacted with her much in person in the past 1.5 years. She does become guarded/argumentative on the phone and more reclusive at her housing complex. Daughter notes increase in hoarding behaviors. Reviewed that likely even when recovered that she will be unable to live alone without more support and she stated that she/brother had already been checking out nursing facilities. Will decrease Seroquel to 200 mg for 2 nights then d/c. Start Risperdal 1 mg Mtab this pm then BID starting tomorrow with IM Haldol for refusal of am dose. Monitor tachy. 03/13 --did take Risperdal M tab last pm, monitor on BID dosing. Will order prn sleep aide as remains poor and Seroquel being discontinued after tonight. Risperdal increase likely tomorrow. Discussed implementing a toileting protocol with nursing. 03/14 - had risperdal 1mg po bid as scheduled, and 1mg prn for agitation/ psychosis, will need to watch sleep off seroquel (last dose 03/13/17), has haldol IM for po refusal 03/15 - Increase risperidone to 1mg qam and 2mg qhs. Tolerating well, no tachycardia or hypotension. Sleep has deteriorated. 03/16 -Move Risperdal to all HS and increase to 4 mg. HS 03/17 - Continue current meds 03/18 - remains delusional but affect slowly more composed and able to tolerate more stimulation out of room - as we approach ceiling of dose range of risperdal, if additional calming action needed in daytime, could consider re-initiation of low dose seroquel or perhaps very low dose trazodone. 03/19 - Increase Risperdal to 5 mg. HS 03/20 - pt refused risperdal 03/19 night dosing and is refusing the prn dose this morning as well. has refused some of her medical meds as well, including only taking part of her norvasc dose. We will give haldol 5mg M over objection 03/20 am. Clarified this order to give haldol over injection the next am if refusing risperdal the evening prior. However with staff spending time with pt she decided to take a 2mg prn dosage of risperdal m tab mid morning 03/20 and thus held the haldol IM dose for today. -continue meds unchanged. risperdal hs dose changed to regular tab from M tab on 03/19 for significantly reducing number of pills 03/21 continue meds unchanged, advised nursing to focus on risperdal prn as first choice of prn option, jimena if within a day of pt missing some of her scheduled risperdal dosage. consider med for potential hypersalivation, however since tends to be anticholinergic and pt might be having some dementia aspects to her presentation and with degrees of confusion, that could be worsened by such meds while unclear how significant any hypersalivation is, holding this for now (2) Renal failure 03/08 - be when elevated at 33, and creatinine 1.40. It appears she's had chronic renal dysfunction, with BUN and of 31 and creatinine of 1.9 in September 2016. We will continue to monitor, and consider the need to consult the hospitalist. 03/09 - Pt refused recheck of creatinine and BUN. 03/10 - BMP results reviewed: BUN 41, and creatinine 1.50. Continue to encourage fluids, and recheck creatinine in 2 days. Consider need for medical consultation, as she is at risk for worsening renal function and dehydration she does not drink enough, and may require transfer to the medical floor for IV fluids if this occurs. 03/12--labs improved a little today, encourage PO. 03/14/17 - ate full meal this AM despite ongoing delusion of being poisoned, she will have Creatinine drawn in the AM tomorrow 03/18 - creat inc to 1.6 and EGFR declining today. - push po - consider medicine c/s 03/19 - Will have staff push fluids with her today and check PRP tomorrow. If worse, will consult medicine 03/20 Cr lowered to 1.3 and BUN lowered to 22.2, continue to monitor and continue to encourage fluid intake and po intake and med compliance (3) Hypertension 03/06 - increase hydralazine to qid and continue amlodipine 03/10 - intermittently refusing antihypertensive education, with elevated blood pressure and pulse (blood pressure this morning 184/87). Often refuses to allow staff to get vital signs. He did take hydralazine and amlodipine today, and asked staff to attempt to recheck vital signs if she will allow it. 03/14 - BP is WNL 03/20 BP increased this am, likely tied to refusal of meds, attempting to address DM II - continue Lantus 10 units SC BID. Decreased from home dose due to poor oral intake - Insulin sliding scale - Checking BSGs q ac and qhs 03/14 - pharmacy continues to follow but due to refusal of evening basal insulin no new formal recs placed, pharamcist cautions about her slowly elevating sugars. Discussed with team as AM BS's are not dangerously high we will monitor and reconsider if forced insulin over objection is needed if the risks of BS elevations in the short term outweight the risks of forced medication. Atrial fibrillation -Continue Coreg, dronedarone, and pradaxa Discharge / Aftercare Planning Primary Care Physician: Name: Dr Mclain Visit Code E&M Code: 17796 Risk Factors Assessment : Yes /single/: Yes Higher / Fall in social status: No Access to guns: No Health problems: Yes Mental Health Diagnoses: Yes Substance use disorders: No Previous psychiatric stay: Yes Protective Factors Assessment : No Responsible for young children: No Employed: No Stable relationships: No Supportive family: Yes Data Vital Signs Last 24 Hrs: Date Time Temp Pulse Resp B/P (MAP) Pulse Ox O2 Delivery O2 Flow Rate FiO2 03/21/17 08:35 36.5 115 16 115/70 103 03/20/17 14:32 77 135/85 Meds Administered Last 24 Hrs: Meds Administered (Past 24Hrs) Medications (Trade) Dose Ordered Sig/Krish Route Start Time Stop Time Status Last Admin Dose Admin Probenecid (Probenecid Tab) 500 mg BID@ PO 03/19/17 20:00 04/18/17 19:59 03/21/17 09:43 500 MG Carvedilol (Coreg Tab) 12.5 mg BID@ PO 03/19/17 20:00 04/18/17 19:59 03/21/17 09:42 12.5 MG Cyanocobalamin (Vitamin B-12 Tab) 1,000 mcg BID@ PO 03/19/17 20:00 04/18/17 19:59 03/21/17 09:43 1,000 MCG Dabigatran (Pradaxa Cap) 75 mg BID@ PO 03/19/17 20:00 04/18/17 19:59 03/21/17 08:00 75 MG Dronedarone (Multaq Tab) 400 mg BID@ PO 03/19/17 20:00 04/18/17 19:59 03/21/17 09:43 400 MG Pravastatin Sodium (Pravachol Tab) 40 mg DAILY@ PO 03/19/17 20:00 04/18/17 19:59 03/21/17 09:43 40 MG Hydralazine HCl (Apresoline Tab) 25 mg TID PO 03/19/17 14:00 04/18/17 13:59 03/21/17 09:00 25 MG Risperidone (Risperdal Tab) 5 mg DAILY@1999 PO 03/19/17 20:00 04/18/17 19:59 03/20/17 20:00 5 MG Insulin Aspart (novoLOG ASPART) SLIDING SCALE QDB SC 03/20/17 09:00 04/19/17 08:59 03/21/17 09:23 6 UNITS Risperidone (Risperdal M Tab) 2 mg NOW ONCE PO 03/20/17 10:15 03/20/17 10:16 DC 03/20/17 10:26 2 MG Insulin Glargine (Lantus Solostar Pen) 24 units DAILY SC 03/21/17 09:00 04/20/17 08:59 03/21/17 09:22 24 UNITS Lab Results Last 24 Hrs: Last 24 Hours Test 03/20/17 15:51 03/20/17 20:34 03/21/17 08:03 03/21/17 11:53 Bedside Glucose 211 mg/dl 122 mg/dl 149 mg/dl 234 mg/dl Problem Qualifiers (1) Schizoaffective disorder: Schizoaffective disorder type: bipolar Qualified Codes: F25.0 - Schizoaffective disorder, bipolar type
[2017-03-21 13:30] VITALS: BP 109/74; PULSE 93
[2017-03-21] MEDS: RISPERIDONE ODT 1MG PO PRN (13:46)
--- NOTE | 2017-03-21 14:12 | Pharmacy Progress Note ---
Glycemic Control Progress Note Date of Service Mar 21, 2017. Scope Glycemic Pharmacist consulted for glycemic control to write orders per [facility] inpatient glycemic control protocol. Objective Accuchecks BSG (last 24hrs): Test 03/20/17 15:51 03/20/17 20:34 03/21/17 08:03 03/21/17 11:53 Bedside Glucose 211 mg/dl (70-90) 122 mg/dl (70-90) 149 mg/dl (70-90) 234 mg/dl (70-90) Recent Pertinent Medications Outpatient Anti-diabetic Regimen: * Lantus 10 units SQ BID * NovoLog ACHS The patient is currently receiving: * Basal insulin: Lantus 24 units every 24 hours * Correctional Insulin: Novolog Correction per scale ACHS Goal Range: Low 110 mg/dL - High 150 mg/dL Correction Factor: 35 mg/dL/unit * Prandial insulin: Per carb ratio of 1 unit per 7 grams CHO consumed {breakfast} * Prandial insulin: Per carb ratio of 1 unit per 9 grams CHO consumed {all other meals} Assessment & Plan ASSESSMENT: * 76yo diabetic female with adequate outpatient control per recent A1c * Pt has been difficult to manage and maintain adequate glycemic control secondary to snacking between meals without CHO coverage and pt refusing insulin doses. Pharmacy has been titrating insulin dosing very conservatively since BSG trends are not necessarily accurate. * Pt has accepted all insulin doses x 24hrs+ will make slight adjustments today. * Pt has been consistently receiving ~ 40 units of insulin per day * AM fasting BSG slightly elevated at 149mg/dl --> will receive increased dose of 24 units today. * Post-prandial BSGs still elevated, especially after breakfast (this is usually d/t snack between meals without coverage). Will tighten CR slightly * ADA & AACE recommend a goal blood sugar range 140-180 mg/dl for the majority of critically ill & non-critically ill patients. However, more stringent targets may be selected in individual cases. Will utilize slightly more stringent goal range of 110-140mg/dl for a well controlled diabetic at baseline. Slightly higher range d/t sedation and inconsistent PO intake. PLAN FOR INPATIENT GLYCEMIC CONTROL: * Basal insulin: no change * Lantus 24 units SQ daily in AM * Bolus insulin: tighten CF/CR slightly * NovoLog per scale ACHS or Q6hrs while NPO * Goal Range: Low 110 mg/dL - High 140 mg/dL * Correction Factor: 20 mg/dL/unit * Nutritional / Prandial insulin per carb ratio of 1 unit per 6 grams CHO consumed at breakfast & per CR of 1:8 for all other meals. * Please note that the plan above was derived based on current level of insulin resistance and hospital stress. These recommendations are appropriate for inpatient admission only. Plan of care upon discharge will need to be reassessed to avoid potential outpatient hypo/hyperglycemia. Thank you.
[2017-03-21 20:14] VITALS: BP 144/80; PULSE 93
[2017-03-21] MEDS: RISPERIDONE 1 MG TAB PO SCH (20:15)
[2017-03-21] MEDS: TRAZODONE HCL 100 MG TAB PO PRN (22:30)
[2017-03-22] MEDS: TRAZODONE HCL 100 MG TAB PO PRN ×2 (01:32→23:05)
[2017-03-22 08:20] VITALS: BP 118/74; PULSE 87; TEMP 36.9
--- NOTE | 2017-03-22 08:44 | Psychiatric Progress Notes ---
Progress Note Date of Service Mar 22, 2017. Interval History Tressa is a 76 y/o female who resides alone in [place], has a diagnosis of schizoaffective disorder bipolar type, and was admitted to the medical floor for cardiac work-up/delirium on 02/26/17 and seen for initial consultation on . She was followed on the medical floor and manic behavior became more apparent as other issues resolved, so she was ultimately transferred to [facility] on a 302 commitment supported by her daughter (ROS). She is on a 303 as of 03/09/17. Chief Complaint "Maia...Dr. Joe". Subjective Patient was seen & assessed interval progress reviewed with Treatment Team. Staff report she remains irritable, refusing medications at times, and unable to tolerate groups. She is paranoid, accusing staff of trying to kill her, and reporting that there are people in the ceiling who want to harm her. She believes certain staff are her children. She does not respond to attempts to reality test. Her daughter Mily visited this weekend and reported that this is the worst she has ever seen her. The patient states her mood is "grrrreat!" She refuses to respond to multiple questions, staring suspiciously at this physician. At one point she refers to me as "Dr. Joe," and then says "you again?" in an irritated tone of voice. She states that she slept poorly last night and was up most of the night, but denies feeling tired today. She states she is not eating because "a lotta people are trying to poison me, especially that kitchen downstairs lady." She refuses to answer further questions about this, and then dismisses this physician, stating "you can go now!" Sleep Information Total Hours of Sleep: 2.75 Meal Information Percent of Breakfast Consumed: 90 Percent of Lunch Consumed: 90 Percent of Dinner Consumed: 100 Mental Status Exam During interview pt is: cooperative (partially), guarded, other (alert, refuses to answer orientation questions) Appearance: appropriately dressed (in hospital gowns), disheveled, appeared stated age Eye contact is: good (staring suspiciously) Motor behavior is: no abnormal motor movements (walking unassisted) Speech: normal in rate, rhythm & volume (irritated tone) Affect: irritable, constricted Mood is: other ("grrrreat!") Thought process: goal directed, other (difficult to assess due to very vague, short answers; at times refusing to answer questions) Thought content: paranoid, delusions (believes people are trying to poison her through the food), persecution Suicidal thought are: denied Homicidal thoughts are: denied Hallucinations: other (refuses to answer) Cognition: other (all spheres impaired) Intelligence estimated to be: average Insight: severely impaired Judgement: severely impaired Impression We have a two-physician order for meds over objection. 303 granted on 03/09. Patient remains delusional and paranoid. She is more compliant in terms of taking her meds willingly although still refuses her antipsychotic and insulin at times. We continue to monitor her kidney function, and have asked nursing to encourage fluids. Plan (1) Schizoaffective disorder 03/06 - History supports previous good effect of Seroquel and decompensation associated with noncompliance -Will increase at bedtime Seroquel to 400 mg tonight -Attempting to review history with daughter to consider a more potent antipsychotic such as Risperdal as alternative - Received Haldol prn 1 this a.m. 03/07 - information available at present supports h/o benefit on seroquel. will continue with that agent for now, titrating as indicated. reviewed need for compliance with pt this am and she seemed receptive, hoverer we will have t wait and see if she is compliant tonight. continue haldol prn which she is tolerating well so far. - repeat screening labs in AM 03/08 - Continue quetiapine 50 mg twice a day, and increase bedtime dose to 500 mg. Check fasting labs tomorrow morning. - Continue haloperidol and quetiapine as needed for psychosis. - File for a 303 commitment. 03/09 - Recommend medications over objection, as patient is refusing her antipsychotic and her condition is deteriorating, leading to refusal of medications for HTN and elevated pulse and BP, which put her at risk of RI and stroke. Sleep and appetite are poor, and she is grossly disorganized and psychotic. Will request a second opinion from another physician (biomedical electronics technician, Dr. Joe), and spoke with her daughter Mily who is POA, who is in agreement with medications over objection if needed. - Fasting labs were ordered for this morning but patient refused the blood draw. Will re-order for tomorrow. 03/10 - Dr. Joe saw patient and agrees with meds over objection. Will add Haldol 5mg IM for refusal of oral quetiapine, and for now will move quetiapine to the morning, so that more staff will be present when attempting to give medication, and so that antipsychotics can be given at the same time as antihypertensives, hopefully improving medication compliance. He can be moved back to bedtime once she is more consistently taking oral medication. Continue to encourage medication compliance. - She refused quetiapine this morning, so received Haldol IM. - Fasting glucose and lipids ordered for tomorrow 03/11 - Hold AM seroquel today due to sedation, but give at HS - Continue with meds over objection by 2 physician order 03/12 --extensive discussion with daughter re: lack of progress with Seroquel and concerns about sedation and fall risk longer term given age. Also reviewed that if option of a dissolvable that perhaps would be more receptive and minimize IM injections. Risks/benefits/alternatives reviewed with daughter/POA who was in support of a trial of Risperdal M-tab. She did report baseline concerns about memory predating this episode as would argue with her about tasks they just did. Ms. Cyr has declined to visit with family during holidays and therefore they admittedly haven't interacted with her much in person in the past 1.5 years. She does become guarded/argumentative on the phone and more reclusive at her housing complex. Daughter notes increase in hoarding behaviors. Reviewed that likely even when recovered that she will be unable to live alone without more support and she stated that she/brother had already been checking out nursing facilities. Will decrease Seroquel to 200 mg for 2 nights then d/c. Start Risperdal 1 mg Mtab this pm then BID starting tomorrow with IM Haldol for refusal of am dose. Monitor tachy. 03/13 --did take Risperdal M tab last pm, monitor on BID dosing. Will order prn sleep aide as remains poor and Seroquel being discontinued after tonight. Risperdal increase likely tomorrow. Discussed implementing a toileting protocol with nursing. 03/14 - had risperdal 1mg po bid as scheduled, and 1mg prn for agitation/ psychosis, will need to watch sleep off seroquel (last dose 03/13/17), has haldol IM for po refusal 03/15 - Increase risperidone to 1mg qam and 2mg qhs. Tolerating well, no tachycardia or hypotension. Sleep has deteriorated. 03/16 -Move Risperdal to all HS and increase to 4 mg. HS 03/17 - Continue current meds 03/18 - remains delusional but affect slowly more composed and able to tolerate more stimulation out of room - as we approach ceiling of dose range of risperdal, if additional calming action needed in daytime, could consider re-initiation of low dose seroquel or perhaps very low dose trazodone. 03/19 - Increase Risperdal to 5 mg. HS 03/20 - pt refused risperdal 03/19 night dosing and is refusing the prn dose this morning as well. has refused some of her medical meds as well, including only taking part of her norvasc dose. We will give haldol 5mg M over objection 03/20 am. Clarified this order to give haldol over injection the next am if refusing risperdal the evening prior. However with staff spending time with pt she decided to take a 2mg prn dosage of risperdal m tab mid morning 03/20 and thus held the haldol IM dose for today. -continue meds unchanged. risperdal hs dose changed to regular tab from M tab on 03/19 for significantly reducing number of pills 03/21 continue meds unchanged, advised nursing to focus on risperdal prn as first choice of prn option, jimena if within a day of pt missing some of her scheduled risperdal dosage. consider med for potential hypersalivation, however since tends to be anticholinergic and pt might be having some dementia aspects to her presentation and with degrees of confusion, that could be worsened by such meds while unclear how significant any hypersalivation is, holding this for now 03/22 - continue current meds. (2) Renal failure 03/08 - be when elevated at 33, and creatinine 1.40. It appears she's had chronic renal dysfunction, with BUN and of 31 and creatinine of 1.9 in September 2016. We will continue to monitor, and consider the need to consult the hospitalist. 03/09 - Pt refused recheck of creatinine and BUN. 03/10 - BMP results reviewed: BUN 41, and creatinine 1.50. Continue to encourage fluids, and recheck creatinine in 2 days. Consider need for medical consultation, as she is at risk for worsening renal function and dehydration she does not drink enough, and may require transfer to the medical floor for IV fluids if this occurs. 03/12--labs improved a little today, encourage PO. 03/14/17 - ate full meal this AM despite ongoing delusion of being poisoned, she will have Creatinine drawn in the AM tomorrow 03/18 - creat inc to 1.6 and EGFR declining today. - push po - consider medicine c/s 03/19 - Will have staff push fluids with her today and check PRP tomorrow. If worse, will consult medicine 03/20 Cr lowered to 1.3 and BUN lowered to 22.2, continue to monitor and continue to encourage fluid intake and po intake and med compliance (3) Hypertension 03/06 - increase hydralazine to qid and continue amlodipine 03/10 - intermittently refusing antihypertensive education, with elevated blood pressure and pulse (blood pressure this morning 184/87). Often refuses to allow staff to get vital signs. He did take hydralazine and amlodipine today, and asked staff to attempt to recheck vital signs if she will allow it. 03/14 - BP is WNL 03/20 - BP increased this am, likely tied to refusal of meds, attempting to address 03/22 - continues to have intermittent elevated blood pressure, but has been more compliant with medications. DM II - continue Lantus 10 units SC BID. Decreased from home dose due to poor oral intake - Insulin sliding scale - Checking BSGs q ac and qhs 03/14 - pharmacy continues to follow but due to refusal of evening basal insulin no new formal recs placed, pharamcist cautions about her slowly elevating sugars. Discussed with team as AM BS's are not dangerously high we will monitor and reconsider if forced insulin over objection is needed if the risks of BS elevations in the short term outweight the risks of forced medication. Atrial fibrillation -Continue Coreg, dronedarone, and pradaxa Discharge / Aftercare Planning Primary Care Physician: Name: Dr Mclain Visit Code E&M Code: 04847 Risk Factors Assessment : Yes /single/: Yes Higher / Fall in social status: No Access to guns: No Health problems: Yes Mental Health Diagnoses: Yes Substance use disorders: No Previous psychiatric stay: Yes Protective Factors Assessment : No Responsible for young children: No Employed: No Stable relationships: No Supportive family: Yes Data Vital Signs Last 24 Hrs: Date Time Temp Pulse Resp B/P (MAP) Pulse Ox O2 Delivery O2 Flow Rate FiO2 03/22/17 08:20 36.9 87 14 118/74 03/21/17 20:14 93 16 144/80 03/21/17 13:30 93 109/74 Meds Administered Last 24 Hrs: Meds Administered (Past 24Hrs) Medications (Trade) Dose Ordered Sig/Krish Route Start Time Stop Time Status Last Admin Dose Admin Insulin Aspart (novoLOG ASPART) SLIDING SCALE QDB SC 03/20/17 09:00 04/19/17 08:59 03/21/17 09:23 6 UNITS Risperidone (Risperdal M Tab) 2 mg NOW ONCE PO 03/20/17 10:15 03/20/17 10:16 DC 03/20/17 10:26 2 MG Insulin Glargine (Lantus Solostar Pen) 24 units DAILY SC 03/21/17 09:00 04/20/17 08:59 03/21/17 09:22 24 UNITS Lab Results Last 24 Hrs: Last 24 Hours Test 03/21/17 11:53 03/21/17 15:49 03/21/17 20:07 03/22/17 07:42 Bedside Glucose 234 mg/dl 202 mg/dl 172 mg/dl 150 mg/dl Problem Qualifiers (1) Schizoaffective disorder: Schizoaffective disorder type: bipolar Qualified Codes: F25.0 - Schizoaffective disorder, bipolar type
[2017-03-22] MEDS: SYSTANE~ORDER AWAITING ACTION SCH ×3 (09:11→15:56)
[2017-03-22] MEDS: DRONEDARONE 400 MG TAB PO SCH ×2 (09:12→19:37)
[2017-03-22] MEDS: CARVEDILOL 12.5 MG TAB PO SCH ×2 (09:12→19:36)
[2017-03-22] MEDS: DABIGATRAN ELEXILATE 75 MG CAP PO SCH ×2 (09:12→19:37)
[2017-03-22] MEDS: PROBENECID 500 MG TAB PO SCH ×2 (09:13→19:37)
[2017-03-22] MEDS: AMLODIPINE BESYLATE 5 MG TAB PO SCH (09:14)
[2017-03-22] MEDS: INSULIN GLARGINE SOLOSTAR 100 UNITS/ML 3 ML PEN SC SCH (09:18)
[2017-03-22] MEDS: INSULIN ASPART 100 UNITS/ML 3 ML PEN SC SCH ×4 (09:20→21:11)
[2017-03-22] MEDS: PRAVASTATIN SOD 40 MG TAB PO SCH ×2 (09:34→19:37)
[2017-03-22] MEDS: LACTOBACILLUS ACIDOPHILUS (FLORANEX) TAB PO SCH (09:35)
[2017-03-22] MEDS: PANTOprazole SOD 40 MG TAB PO SCH (09:35)
[2017-03-22] MEDS: PYRIDOXINE HCL 50 MG TAB PO SCH (09:35)
[2017-03-22] MEDS: CYANOCOBALAMIN 500 MCG TAB (VIT B-12) PO SCH ×2 (09:35→19:43)
[2017-03-22] MEDS: ASPIRIN 81 MG ECTAB PO SCH (09:35)
--- NOTE | 2017-03-22 12:28 | Pharmacy Progress Note ---
Glycemic Control Progress Note Date of Service Mar 22, 2017. Scope Glycemic Pharmacist consulted for glycemic control to write orders per [facility] inpatient glycemic control protocol. Objective Accuchecks BSG (last 24hrs): Test 03/21/17 11:53 03/21/17 15:49 03/21/17 20:07 03/22/17 07:42 Bedside Glucose 234 mg/dl (70-90) 202 mg/dl (70-90) 172 mg/dl (70-90) 150 mg/dl (70-90) Recent Pertinent Medications The patient is currently receiving: * Basal insulin: Lantus 24 units every 24 hours (in the morning) * Correctional Insulin: Novolog Correction per scale ACHS Goal Range: Low 110 mg/dL - High 140 mg/dL Correction Factor: 20 mg/dL/unit for breakfast and 25 mg/dL/unit for all other times * Prandial insulin: Per carb ratio of 1 unit per 6 grams CHO consumed for breakfast and 1 unit per 7 grams CHO consumed for all other times Outpatient Anti-Diabetic Meds Lantus 10 units SQ BID Novolog ACHS Assessment & Plan ASSESSMENT: * See progress note from 03/08/2017 for more background info, in short: Ms Cyr is a 76 y/o F admitted to the [facility]. Currently, the patient has been snacking between meals without carbohydrate coverage. She also has a history of refusing insulin. Her insulin is being titrated slowly as a result. * Pt receiving SQ basal bolus insulin regimen for hyperglycemia secondary to baseline DM (outpatient regimen on hold). * Patient is currently receiving an average of 40-50 units of insulin per day * 24 units of basal insulin * 27 units of prandial/correctional insulin * BSGs ranging 149 - 234 mg/dl over the past 24hrs * Changes needed to insulin regimen: * AM Fasting BSG = 150 mg/dl. This is similar to the fasting blood sugar from yesterday; it appears that patient is tolerating increased Lantus dosing. Will continue to monitor patient as closely as she allows. Will not titrate upwards due to the patient's history of noncompliance. If patient continues to tolerate this dosing, will increase Lantus for tomorrow. * Post-prandial BSGs are higher than desired. Yesterday, breakfast parameters were tightened in attempt to control for morning snacking. Other times were also tightened compared to yesterday. However, after a dinner Accucheck of 202 mg/dL, the patient's evening blood sugar improved to 172 mg/dL. These parameters appear to provide better control and will continue. * Total daily dose = 50 units. Patient may require an increase in total daily dose as blood sugars remain elevated. PLAN FOR INPATIENT GLYCEMIC CONTROL: * Continuing Lantus 24 units SQ qAM * Continuing correction factor of 20 mg/dl/unit with breakfast and 25 mg/dL/ unit with all other Accuchecks * Continuing carb ratio of 1 unit per 6 grams CHO consumed with breakfast and 7 grams CHO consumed with all other Accuchecks * Continuing goal range of Low 110 mg/dL - High 140 mg/dL RECOMMENDATIONS FOR DISCHARGE: * Patient's A1C appears reasonably well controlled for patient's co- morbidities. May be possible to continue outpatient regimen. * Please note that the plan above was derived based on current level of insulin resistance and hospital stress. These recommendations are appropriate for inpatient admission only. Plan of care upon discharge will need to be reassessed to avoid potential outpatient hypo/hyperglycemia. Thank you.
[2017-03-22] MEDS: RISPERIDONE 1 MG TAB PO SCH (19:37)
[2017-03-22 19:45] VITALS: BP 124/81; PULSE 84
[2017-03-23 07:01] VITALS: BP_SYST 111; BP_SYST 121; BP_DIAS 61; BP_DIAS 74; PULSE 106; PULSE 97; TEMP 36.8
[2017-03-23] MEDS: SYSTANE~ORDER AWAITING ACTION SCH ×3 (08:00→16:00)
[2017-03-23] MEDS: CYANOCOBALAMIN 500 MCG TAB (VIT B-12) PO SCH ×2 (08:00→20:12)
[2017-03-23] MEDS: DRONEDARONE 400 MG TAB PO SCH ×2 (08:07→20:12)
[2017-03-23] MEDS: CARVEDILOL 12.5 MG TAB PO SCH ×2 (08:07→20:12)
[2017-03-23] MEDS: PRAVASTATIN SOD 40 MG TAB PO SCH ×2 (08:08→20:12)
[2017-03-23] MEDS: PROBENECID 500 MG TAB PO SCH ×2 (08:08→20:12)
[2017-03-23] MEDS: DABIGATRAN ELEXILATE 75 MG CAP PO SCH ×2 (08:08→20:12)
[2017-03-23] MEDS: AMLODIPINE BESYLATE 5 MG TAB PO SCH (08:09)
[2017-03-23] MEDS: PANTOprazole SOD 40 MG TAB PO SCH (08:15)
--- NOTE | 2017-03-23 08:56 | Pharmacy Progress Note ---
Glycemic Control Progress Note Date of Service Mar 23, 2017. Scope Glycemic Pharmacist consulted for glycemic control to write orders per [facility] inpatient glycemic control protocol. Objective Accuchecks BSG (last 24hrs): Test 03/22/17 12:14 03/22/17 17:21 03/22/17 20:34 03/23/17 07:29 Bedside Glucose 217 mg/dl (70-90) 142 mg/dl (70-90) 229 mg/dl (70-90) 140 mg/dl (70-90) Recent Pertinent Medications The patient is currently receiving: * Basal insulin: Lantus 24 units every 24 hours (in the morning) * Correctional Insulin: Novolog Correction per scale ACHS Goal Range: Low 110 mg/dL - High 140 mg/dL Correction Factor: 20 mg/dL/unit for breakfast and 25 mg/dL/unit for all other times * Prandial insulin: Per carb ratio of 1 unit per 6 grams CHO consumed for breakfast and 1 unit per 8 grams CHO consumed for all other times Outpatient Anti-Diabetic Meds Lantus 10 units SQ BID Assessment & Plan ASSESSMENT: * See progress note from 03/08/2017 for more background info, in short: Ms Cyr is a 76 y/o F admitted to the [facility]. Currently, the patient has been snacking between meals without carbohydrate coverage. She also has a history of refusing insulin. Her insulin is being titrated slowly as a result. * Pt receiving SQ basal bolus insulin regimen for hyperglycemia secondary to baseline DM (outpatient regimen on hold). * Patient is currently receiving an average of 40-50 units of insulin per day * 24 units of basal insulin * 14 units of prandial/correctional insulin (refused insulin for dinner and bedtime yesterday) * BSGs ranging 142-229 mg/dl over the past 24hrs * Changes needed to insulin regimen: * AM Fasting BSG = 140 mg/dl. This is similar to the fasting blood sugar from yesterday; it appears that patient is tolerating increased Lantus dosing. Will continue to monitor patient as closely as she allows. Will not titrate upwards due to the patient's history of noncompliance, especially since she refused two Novolog doses yesterday. * Post-prandial BSGs are higher than desired. Patient refused Novolog with dinner and bedtime. Unable to evaluate effectiveness of prandial Novolog coverage therefore will continue. * Total daily dose = 50 units. Patient may require an increase in total daily dose as blood sugars remain elevated. PLAN FOR INPATIENT GLYCEMIC CONTROL: * Continuing Lantus 24 units SQ qAM * Continuing correction factor of 20 mg/dl/unit with breakfast and 25 mg/dL/ unit with all other Accuchecks * Continuing carb ratio of 1 unit per 6 grams CHO consumed with breakfast and 8 grams CHO consumed with all other Accuchecks * Continuing goal range of Low 110 mg/dL - High 140 mg/dL RECOMMENDATIONS FOR DISCHARGE: * Patient's A1C appears reasonably well controlled for patient's co- morbidities. May be possible to continue outpatient regimen. * Please note that the plan above was derived based on current level of insulin resistance and hospital stress. These recommendations are appropriate for inpatient admission only. Plan of care upon discharge will need to be reassessed to avoid potential outpatient hypo/hyperglycemia. Thank you.
[2017-03-23] MEDS: LACTOBACILLUS ACIDOPHILUS (FLORANEX) TAB PO SCH (09:00)
[2017-03-23] MEDS: ASPIRIN 81 MG ECTAB PO SCH (09:00)
[2017-03-23] MEDS: PYRIDOXINE HCL 50 MG TAB PO SCH ×2 (09:00→09:18)
[2017-03-23 09:10] VITALS: BP 111/66; PULSE 61
[2017-03-23] MEDS: INSULIN GLARGINE SOLOSTAR 100 UNITS/ML 3 ML PEN SC SCH (09:13)
[2017-03-23] MEDS: INSULIN ASPART 100 UNITS/ML 3 ML PEN SC SCH ×4 (09:14→22:46)
--- NOTE | 2017-03-23 11:10 | Psychiatric Progress Notes ---
Progress Note Date of Service Mar 23, 2017. Interval History Tressa is a 76 y/o female who resides alone in [place], has a diagnosis of schizoaffective disorder bipolar type, and was admitted to the medical floor for cardiac work-up/delirium on 02/26/17 and seen for initial consultation on . She was followed on the medical floor and manic behavior became more apparent as other issues resolved, so she was ultimately transferred to [facility] on a 302 commitment supported by her daughter (ROS). She is on a 303 as of 03/09/17. Chief Complaint Patient stares intently without answering. Subjective Patient was seen & assessed interval progress reviewed with Nursing. Staff report that the patient continues to express paranoid delusions, stating that there were people in her ceiling and that she did not feel safe. At times, she is able to make appropriate conversation, but at other times she is irritable and argumentative. She continues to demonstrate difficulty taking medications as prescribed, appears suspicious and irritable with staff, and we'll count each pill and take an extended time to take them. She refused her insulin last night, stating that it was "poison." Her blood sugars remain high, ranging from 140-229 in the past 24 hours. She continues to refer to one of the nurses as her daughter Gris, despite repeated attempts to orient her to reality. Mood remains labile, changing quickly from pleasant to irritable. herbarium worker contacted her daughter Mily yesterday to discuss scheduling a meeting in starting the referral process for group home. Her daughter is her POA, and had already looked into placement options due to the patient's declining functional status at home. On my assessment today, the patient initially refuses to respond to questions, and turns and walks away muttering under her breath. She appeared to be blessing the cleaning staff. She then returned, but only stared intensely, and did not answer questions. She repeatedly stated "keep it up, we'll keep it up, just like this." She then made comments about this physicians jewelry, and would not respond to questions about mood, sleep, or her thoughts. She stated that "everything that I can is bad" repeatedly. She has refused multiple attempts to have her sign a release for the office of aging so that the target process can be started for group home placement, and cannot demonstrate an understanding of the treatment recommendations that she be placed in a group home, is not expressing a preference for placement, and is unable to appreciate the consequences of her choices or to weigh the risks and benefits of different options. Sleep Information Total Hours of Sleep: 6.00 Meal Information Percent of Breakfast Consumed: 80 Percent of Lunch Consumed: 50 Percent of Dinner Consumed: 90 Mental Status Exam During interview pt is: uncooperative (refuses to answer multiple questions), guarded Appearance: disheveled, appeared stated age, other (wearing 2 hospital gowns) Eye contact is: good (staring intensely and suspiciously) Motor behavior is: no abnormal motor movements (walking unassisted) Speech: normal in rate, rhythm & volume (irritated tone) Affect: labile, irritable, euthymic, other (switches rapidly and frequently from pleasant to irritable and suspicious) Mood is: other ("grrrreat!") Thought process: goal directed, other (difficult to assess due to very vague, short answers; at times refusing to answer questions) Thought content: paranoid, delusions (believes people are trying to poison her through the food and medicine, thinks there are people in her ceiling), persecution Suicidal thought are: denied Homicidal thoughts are: denied Hallucinations: other (will not answer regarding hallucinations, but told staff there were people in her ceiling) Cognition: other (all spheres impaired) Intelligence estimated to be: average Insight: severely impaired Judgement: severely impaired Impression We have a two-physician order for meds over objection, and 303 granted on 03/09. Patient remains delusional and paranoid, labile and poorly cooperative with care. She is more compliant in terms of taking her meds willingly although still refuses her antipsychotic and insulin at times. We continue to monitor her kidney function, and have asked nursing to encourage fluids. She is still too disorganized and irritable to participate meaningfully in groups, and clearly lacks capacity to make decisions about medications and disposition. At this point, it does not appear that she will be able to provide for her own basic needs living independently outside of the hospital. We are involving her daughter Mily who is her POA and will pursue group home placement. Plan (1) Schizoaffective disorder 03/06 - History supports previous good effect of Seroquel and decompensation associated with noncompliance -Will increase at bedtime Seroquel to 400 mg tonight -Attempting to review history with daughter to consider a more potent antipsychotic such as Risperdal as alternative - Received Haldol prn 1 this a.m. 03/07 - information available at present supports h/o benefit on seroquel. will continue with that agent for now, titrating as indicated. reviewed need for compliance with pt this am and she seemed receptive, hoverer we will have t wait and see if she is compliant tonight. continue haldol prn which she is tolerating well so far. - repeat screening labs in AM 03/08 - Continue quetiapine 50 mg twice a day, and increase bedtime dose to 500 mg. Check fasting labs tomorrow morning. - Continue haloperidol and quetiapine as needed for psychosis. - File for a 303 commitment. 03/09 - Recommend medications over objection, as patient is refusing her antipsychotic and her condition is deteriorating, leading to refusal of medications for HTN and elevated pulse and BP, which put her at risk of OH and stroke. Sleep and appetite are poor, and she is grossly disorganized and psychotic. Will request a second opinion from another physician (medical customer service representative, Dr. Joe), and spoke with her daughter Mily who is POA, who is in agreement with medications over objection if needed. - Fasting labs were ordered for this morning but patient refused the blood draw. Will re-order for tomorrow. 03/10 - Dr. Joe saw patient and agrees with meds over objection. Will add Haldol 5mg IM for refusal of oral quetiapine, and for now will move quetiapine to the morning, so that more staff will be present when attempting to give medication, and so that antipsychotics can be given at the same time as antihypertensives, hopefully improving medication compliance. He can be moved back to bedtime once she is more consistently taking oral medication. Continue to encourage medication compliance. - She refused quetiapine this morning, so received Haldol IM. - Fasting glucose and lipids ordered for tomorrow 03/11 - Hold AM seroquel today due to sedation, but give at HS - Continue with meds over objection by 2 physician order 03/12 --extensive discussion with daughter re: lack of progress with Seroquel and concerns about sedation and fall risk longer term given age. Also reviewed that if option of a dissolvable that perhaps would be more receptive and minimize IM injections. Risks/benefits/alternatives reviewed with daughter/POA who was in support of a trial of Risperdal M-tab. She did report baseline concerns about memory predating this episode as would argue with her about tasks they just did. Ms. Cyr has declined to visit with family during holidays and therefore they admittedly haven't interacted with her much in person in the past 1.5 years. She does become guarded/argumentative on the phone and more reclusive at her housing complex. Daughter notes increase in hoarding behaviors. Reviewed that likely even when recovered that she will be unable to live alone without more support and she stated that she/brother had already been checking out nursing facilities. Will decrease Seroquel to 200 mg for 2 nights then d/c. Start Risperdal 1 mg Mtab this pm then BID starting tomorrow with IM Haldol for refusal of am dose. Monitor tachy. 03/13 --did take Risperdal M tab last pm, monitor on BID dosing. Will order prn sleep aide as remains poor and Seroquel being discontinued after tonight. Risperdal increase likely tomorrow. Discussed implementing a toileting protocol with nursing. 03/14 - had risperdal 1mg po bid as scheduled, and 1mg prn for agitation/ psychosis, will need to watch sleep off seroquel (last dose 03/13/17), has haldol IM for po refusal 03/15 - Increase risperidone to 1mg qam and 2mg qhs. Tolerating well, no tachycardia or hypotension. Sleep has deteriorated. 03/16 -Move Risperdal to all HS and increase to 4 mg. HS / - Continue current meds 03/18 - remains delusional but affect slowly more composed and able to tolerate more stimulation out of room - as we approach ceiling of dose range of risperdal, if additional calming action needed in daytime, could consider re-initiation of low dose seroquel or perhaps very low dose trazodone. 03/19 - Increase Risperdal to 5 mg. HS 8/ - pt refused risperdal 03/19 night dosing and is refusing the prn dose this morning as well. has refused some of her medical meds as well, including only taking part of her norvasc dose. We will give haldol 5mg M over objection 03/20 am. Clarified this order to give haldol over injection the next am if refusing risperdal the evening prior. However with staff spending time with pt she decided to take a 2mg prn dosage of risperdal m tab mid morning 03/20 and thus held the haldol IM dose for today. -continue meds unchanged. risperdal hs dose changed to regular tab from M tab on 03/19 for significantly reducing number of pills 03/21 continue meds unchanged, advised nursing to focus on risperdal prn as first choice of prn option, jimena if within a day of pt missing some of her scheduled risperdal dosage. consider med for potential hypersalivation, however since tends to be anticholinergic and pt might be having some dementia aspects to her presentation and with degrees of confusion, that could be worsened by such meds while unclear how significant any hypersalivation is, holding this for now. 03/23 - continue current meds. May need to consider a trial of a different antipsychotic if poor response to risperidone. Has been on risperidone since , and on 5 mg daily since 03/20/2017, so has not had a good trial of the medication yet. Patient lacks capacity to make decisions about medication and disposition. The recommendations at this time are that she go to a group home, as per family, she has cognitively declined in the past year or so and has not been able to live independently. She is unable to understand the recommendations, waited risks and benefits of different options, or appreciate the risks of noncompliance, and therefore these decisions are being deferred to her daughter Mily who is her power of assistant city attorney. Social work to start to target process and pursue group home referrals. Meeting scheduled with daughter for . (2) Renal failure 03/08 - be when elevated at 33, and creatinine 1.40. It appears she's had chronic renal dysfunction, with BUN and of 31 and creatinine of 1.9 in September 2016. We will continue to monitor, and consider the need to consult the hospitalist. 03/09 - Pt refused recheck of creatinine and BUN. 03/10 - BMP results reviewed: BUN 41, and creatinine 1.50. Continue to encourage fluids, and recheck creatinine in 2 days. Consider need for medical consultation, as she is at risk for worsening renal function and dehydration she does not drink enough, and may require transfer to the medical floor for IV fluids if this occurs. 03/12--labs improved a little today, encourage PO. 03/14/17 - ate full meal this AM despite ongoing delusion of being poisoned, she will have Creatinine drawn in the AM tomorrow 03/18 - creat inc to 1.6 and EGFR declining today. - push po - consider medicine c/s 03/19 - Will have staff push fluids with her today and check PRP tomorrow. If worse, will consult medicine 03/20 - Cr lowered to 1.3 and BUN lowered to 22.2, continue to monitor and continue to encourage fluid intake and po intake and med compliance (3) Hypertension 03/06 - increase hydralazine to qid and continue amlodipine 03/10 - intermittently refusing antihypertensive education, with elevated blood pressure and pulse (blood pressure this morning 184/87). Often refuses to allow staff to get vital signs. He did take hydralazine and amlodipine today, and asked staff to attempt to recheck vital signs if she will allow it. 03/14 - BP is WNL 03/20 - BP increased this am, likely tied to refusal of meds, attempting to address 03/22 - continues to have intermittent elevated blood pressure, but has been more compliant with medications. 03/23 - pressure stable the past 24 hours. (4) Diabetes mellitus - continue Lantus 10 units SC BID. Decreased from home dose due to poor oral intake - Insulin sliding scale - Checking BSGs q ac and qhs 03/14 - pharmacy continues to follow but due to refusal of evening basal insulin no new formal recs placed, pharmacist cautions about her slowly elevating sugars. Discussed with team as AM BS's are not dangerously high we will monitor and reconsider if forced insulin over objection is needed if the risks of BS elevations in the short term outweigh the risks of forced medication. (5) Atrial fibrillation -Continue Coreg, dronedarone, and pradaxa Discharge / Aftercare Planning Primary Care Physician: Name: Dr Mclain Visit Code E&M Code: 91158 Risk Factors Assessment : Yes /single/: Yes Higher / Fall in social status: No Access to guns: No Health problems: Yes Mental Health Diagnoses: Yes Substance use disorders: No Previous psychiatric stay: Yes Protective Factors Assessment : No Responsible for young children: No Employed: No Stable relationships: No Supportive family: Yes Data Vital Signs Last 24 Hrs: Date Time Temp Pulse Resp B/P (MAP) Pulse Ox O2 Delivery O2 Flow Rate FiO2 03/23/17 09:10 61 111/66 03/23/17 07:01 36.8 97 16 111/61 106 121/74 03/22/17 19:45 84 14 124/81 Lab Results Last 24 Hrs: Last 24 Hours Test 03/22/17 12:14 03/22/17 17:21 03/22/17 20:34 03/23/17 07:29 Bedside Glucose 217 mg/dl 142 mg/dl 229 mg/dl 140 mg/dl Problem Qualifiers (1) Schizoaffective disorder: Schizoaffective disorder type: bipolar Qualified Codes: F25.0 - Schizoaffective disorder, bipolar type (2) Diabetes mellitus: Diabetes mellitus type: type 2
[2017-03-23 20:10] VITALS: BP 147/80; PULSE 78
[2017-03-23] MEDS: RISPERIDONE 1 MG TAB PO SCH (20:13)
[2017-03-24] MEDS: TRAZODONE HCL 100 MG TAB PO PRN (01:21)
--- NOTE | 2017-03-24 08:26 | Psychiatric Progress Notes ---
Progress Note Date of Service Mar 24, 2017. Interval History Tressa is a 76 y/o female who resides alone in [place], has a diagnosis of schizoaffective disorder bipolar type, and was admitted to the medical floor for cardiac work-up/delirium on 02/26/17 and seen for initial consultation on . She was followed on the medical floor and manic behavior became more apparent as other issues resolved, so she was ultimately transferred to [facility] on a 302 commitment supported by her daughter (ROS). She is on a 303 as of 03/09/17. Chief Complaint "Grrreat." Subjective Patient was seen & assessed interval progress reviewed with Treatment Team. Staff report she continues to be labile and irritable, refusing some of her scheduled medications, but is taking risperidone and insulin. She is not able to tolerate groups. She frequently stands at the nurses' station window and stares at people. She was seen in the dayroom where she was sitting and looking at commitment paperwork. She refuses to answer most questions, saying "wouldn't you like to know?" when asked how she is doing. She refuses to answer questions about mood, sleep, and appetite, saying "you already know!" She was informed about her 304 hearing, and said "I think I'll attend that." Sleep Information Total Hours of Sleep: 4.50 Meal Information Percent of Breakfast Consumed: 80 Percent of Lunch Consumed: 50 Percent of Dinner Consumed: 75 Mental Status Exam During interview pt is: uncooperative (refuses to answer multiple questions), guarded Appearance: disheveled, appeared stated age Eye contact is: good (staring intensely and suspiciously) Motor behavior is: no abnormal motor movements (walking unassisted) Speech: normal in rate, rhythm & volume (irritated tone) Affect: labile, irritable Mood is: other ("grrrreat!") Thought process: goal directed Thought content: paranoid, delusions, persecution Suicidal thought are: denied Homicidal thoughts are: denied Hallucinations: other (will not answer regarding hallucinations, but told staff there were people in her ceiling) Cognition: other (all spheres impaired) Intelligence estimated to be: average Insight: severely impaired Judgement: severely impaired Impression We have a two-physician order for meds over objection, and 303 granted on 03/09. Patient remains delusional and paranoid, labile and poorly cooperative with care. She is more compliant in terms of taking her meds willingly although still refuses her antipsychotic and insulin at times. We continue to monitor her kidney function, and have asked nursing to encourage fluids. She is still too disorganized and irritable to participate meaningfully in groups, and clearly lacks capacity to make decisions about medications and disposition. At this point, it does not appear that she will be able to provide for her own basic needs living independently outside of the hospital. We are involving her daughter Mily who is her POA and will pursue custodial placement. She will have a 304 hearing Tuesday 03/27. Plan (1) Schizoaffective disorder 03/06 - History supports previous good effect of Seroquel and decompensation associated with noncompliance -Will increase at bedtime Seroquel to 400 mg tonight -Attempting to review history with daughter to consider a more potent antipsychotic such as Risperdal as alternative - Received Haldol prn 1 this a.m. 03/07 - information available at present supports h/o benefit on seroquel. will continue with that agent for now, titrating as indicated. reviewed need for compliance with pt this am and she seemed receptive, hoverer we will have t wait and see if she is compliant tonight. continue haldol prn which she is tolerating well so far. - repeat screening labs in AM 03/08 - Continue quetiapine 50 mg twice a day, and increase bedtime dose to 500 mg. Check fasting labs tomorrow morning. - Continue haloperidol and quetiapine as needed for psychosis. - File for a 303 commitment. 03/09 - Recommend medications over objection, as patient is refusing her antipsychotic and her condition is deteriorating, leading to refusal of medications for HTN and elevated pulse and BP, which put her at risk of RI and stroke. Sleep and appetite are poor, and she is grossly disorganized and psychotic. Will request a second opinion from another physician (associate medical director, Dr. Joe), and spoke with her daughter Mily who is POA, who is in agreement with medications over objection if needed. - Fasting labs were ordered for this morning but patient refused the blood draw. Will re-order for tomorrow. 03/10 - Dr. Joe saw patient and agrees with meds over objection. Will add Haldol 5mg IM for refusal of oral quetiapine, and for now will move quetiapine to the morning, so that more staff will be present when attempting to give medication, and so that antipsychotics can be given at the same time as antihypertensives, hopefully improving medication compliance. He can be moved back to bedtime once she is more consistently taking oral medication. Continue to encourage medication compliance. - She refused quetiapine this morning, so received Haldol IM. - Fasting glucose and lipids ordered for tomorrow 03/11 - Hold AM seroquel today due to sedation, but give at HS - Continue with meds over objection by 2 physician order 03/12 --extensive discussion with daughter re: lack of progress with Seroquel and concerns about sedation and fall risk longer term given age. Also reviewed that if option of a dissolvable that perhaps would be more receptive and minimize IM injections. Risks/benefits/alternatives reviewed with daughter/POA who was in support of a trial of Risperdal M-tab. She did report baseline concerns about memory predating this episode as would argue with her about tasks they just did. Ms. Cyr has declined to visit with family during holidays and therefore they admittedly haven't interacted with her much in person in the past 1.5 years. She does become guarded/argumentative on the phone and more reclusive at her housing complex. Daughter notes increase in hoarding behaviors. Reviewed that likely even when recovered that she will be unable to live alone without more support and she stated that she/brother had already been checking out nursing facilities. Will decrease Seroquel to 200 mg for 2 nights then d/c. Start Risperdal 1 mg Mtab this pm then BID starting tomorrow with IM Haldol for refusal of am dose. Monitor tachy. 03/13 --did take Risperdal M tab last pm, monitor on BID dosing. Will order prn sleep aide as remains poor and Seroquel being discontinued after tonight. Risperdal increase likely tomorrow. Discussed implementing a toileting protocol with nursing. 03/14 - had risperdal 1mg po bid as scheduled, and 1mg prn for agitation/ psychosis, will need to watch sleep off seroquel (last dose 03/13/17), has haldol IM for po refusal 03/15 - Increase risperidone to 1mg qam and 2mg qhs. Tolerating well, no tachycardia or hypotension. Sleep has deteriorated. 03/16 -Move Risperdal to all HS and increase to 4 mg. HS 03/17 - Continue current meds 03/18 - remains delusional but affect slowly more composed and able to tolerate more stimulation out of room - as we approach ceiling of dose range of risperdal, if additional calming action needed in daytime, could consider re-initiation of low dose seroquel or perhaps very low dose trazodone. 03/19 - Increase Risperdal to 5 mg. HS 03/20 - pt refused risperdal 03/19 night dosing and is refusing the prn dose this morning as well. has refused some of her medical meds as well, including only taking part of her norvasc dose. We will give haldol 5mg M over objection 03/20 am. Clarified this order to give haldol over injection the next am if refusing risperdal the evening prior. However with staff spending time with pt she decided to take a 2mg prn dosage of risperdal m tab mid morning 03/20 and thus held the haldol IM dose for today. -continue meds unchanged. risperdal hs dose changed to regular tab from M tab on 03/19 for significantly reducing number of pills 03/21 continue meds unchanged, advised nursing to focus on risperdal prn as first choice of prn option, jimena if within a day of pt missing some of her scheduled risperdal dosage. consider med for potential hypersalivation, however since tends to be anticholinergic and pt might be having some dementia aspects to her presentation and with degrees of confusion, that could be worsened by such meds while unclear how significant any hypersalivation is, holding this for now. 03/23 - continue current meds. May need to consider a trial of a different antipsychotic if poor response to risperidone. Has been on risperidone since , and on 5 mg daily since 03/20/2017, so has not had a good trial of the medication yet. Patient lacks capacity to make decisions about medication and disposition. The recommendations at this time are that she go to a custodial, as per family, she has cognitively declined in the past year or so and has not been able to live independently. She is unable to understand the recommendations, waited risks and benefits of different options, or appreciate the risks of noncompliance, and therefore these decisions are being deferred to her daughter Mily who is her power of thermite bomb loader. Social work to start to target process and pursue custodial referrals. Meeting scheduled with daughter for . (2) Renal failure 03/08 - be when elevated at 33, and creatinine 1.40. It appears she's had chronic renal dysfunction, with BUN and of 31 and creatinine of 1.9 in September 2016. We will continue to monitor, and consider the need to consult the hospitalist. 03/09 - Pt refused recheck of creatinine and BUN. 03/10 - BMP results reviewed: BUN 41, and creatinine 1.50. Continue to encourage fluids, and recheck creatinine in 2 days. Consider need for medical consultation, as she is at risk for worsening renal function and dehydration she does not drink enough, and may require transfer to the medical floor for IV fluids if this occurs. 03/12--labs improved a little today, encourage PO. 03/14/17 - ate full meal this AM despite ongoing delusion of being poisoned, she will have Creatinine drawn in the AM tomorrow 03/18 - creat inc to 1.6 and EGFR declining today. - push po - consider medicine c/s 03/19 - Will have staff push fluids with her today and check PRP tomorrow. If worse, will consult medicine 03/20 - Cr lowered to 1.3 and BUN lowered to 22.2, continue to monitor and continue to encourage fluid intake and po intake and med compliance (3) Hypertension 03/06 - increase hydralazine to qid and continue amlodipine 03/10 - intermittently refusing antihypertensive education, with elevated blood pressure and pulse (blood pressure this morning 184/87). Often refuses to allow staff to get vital signs. He did take hydralazine and amlodipine today, and asked staff to attempt to recheck vital signs if she will allow it. 03/14 - BP is WNL 03/20 - BP increased this am, likely tied to refusal of meds, attempting to address 03/22 - continues to have intermittent elevated blood pressure, but has been more compliant with medications. 03/23 - pressure stable the past 24 hours. (4) Diabetes mellitus - continue Lantus 10 units SC BID. Decreased from home dose due to poor oral intake - Insulin sliding scale - Checking BSGs q ac and qhs 03/14 - pharmacy continues to follow but due to refusal of evening basal insulin no new formal recs placed, pharmacist cautions about her slowly elevating sugars. Discussed with team as AM BS's are not dangerously high we will monitor and reconsider if forced insulin over objection is needed if the risks of BS elevations in the short term outweigh the risks of forced medication. (5) Atrial fibrillation -Continue Coreg, dronedarone, and pradaxa Discharge / Aftercare Planning Primary Care Physician: Name: Dr Mclain Visit Code E&M Code: 59914 Risk Factors Assessment : Yes /single/: Yes Higher / Fall in social status: No Access to guns: No Health problems: Yes Mental Health Diagnoses: Yes Substance use disorders: No Previous psychiatric stay: Yes Protective Factors Assessment : No Responsible for young children: No Employed: No Stable relationships: No Supportive family: Yes Data Vital Signs Last 24 Hrs: Date Time Temp Pulse Resp B/P (MAP) Pulse Ox O2 Delivery O2 Flow Rate FiO2 03/23/17 20:10 78 18 147/80 03/23/17 09:10 61 111/66 Lab Results Last 24 Hrs: Last 24 Hours Test 03/23/17 11:37 03/23/17 16:16 03/23/17 20:45 Bedside Glucose 207 mg/dl 141 mg/dl 145 mg/dl Problem Qualifiers (1) Schizoaffective disorder: Schizoaffective disorder type: bipolar Qualified Codes: F25.0 - Schizoaffective disorder, bipolar type (2) Diabetes mellitus: Diabetes mellitus type: type 2
[2017-03-24] MEDS ORDERED: INSULIN GLARGINE SOLOSTAR 100 UNITS/ML 3 ML PEN SC SCH (09:00)
--- NOTE | 2017-03-24 09:08 | Pharmacy Progress Note ---
Glycemic Control Progress Note Date of Service Mar 24, 2017. Scope Glycemic Pharmacist consulted for glycemic control to write orders per [facility] inpatient glycemic control protocol. Objective Accuchecks BSG (last 24hrs): Test 03/23/17 11:37 03/23/17 16:16 03/23/17 20:45 03/24/17 08:30 Bedside Glucose 207 mg/dl (70-90) 141 mg/dl (70-90) 145 mg/dl (70-90) 140 mg/dl (70-90) Recent Pertinent Medications The patient is currently receiving: * Basal insulin: Lantus 24 units every 24 hours (in the morning) * Correctional Insulin: Novolog Correction per scale ACHS Goal Range: Low 110 mg/dL - High 140 mg/dL Correction Factor: 20 mg/dL/unit for breakfast and 25 mg/dL/unit for all other times * Prandial insulin: Per carb ratio of 1 unit per 6 grams CHO consumed for breakfast and 1 unit per 8 grams CHO consumed for all other times Outpatient Anti-Diabetic Meds Lantus 10 units SQ BID Assessment & Plan ASSESSMENT: * See progress note from 03/08/2017 for more background info, in short: Ms Cyr is a 76 y/o F admitted to the [facility]. Currently, the patient has been snacking between meals without carbohydrate coverage. She also has a history of refusing insulin. Her insulin is being titrated slowly as a result. * Pt receiving SQ basal bolus insulin regimen for hyperglycemia secondary to baseline DM (outpatient regimen on hold). * Patient is currently receiving an average of 50 units of insulin per day * 24 units of basal insulin * 24 units of prandial/correctional insulin (refused insulin for dinner and bedtime yesterday) * BSGs ranging 140-207 mg/dl over the past 24hrs * Changes needed to insulin regimen: * AM Fasting BSG = 140 mg/dl. This is similar to the fasting blood sugar from yesterday; it appears that patient is tolerating increased Lantus dosing. Patient has had similar fasting blood sugar for several days indicating basal can be increased. Titrating upwards slowly due to history of noncompliance. * Post-prandial BSGs are similar indicating correction factor and carbohydrate ratio is sufficient. Lunch blood sugar elevated because patient snacking between breakfast and lunch. * Total daily dose = 50 units. Patient may require an increase in total daily dose as blood sugars remain elevated. PLAN FOR INPATIENT GLYCEMIC CONTROL: * INCREASING Lantus to 25 units SQ qAM * Continuing correction factor of 20 mg/dl/unit with breakfast and 25 mg/dL/ unit with all other Accuchecks * Continuing carb ratio of 1 unit per 6 grams CHO consumed with breakfast and 8 grams CHO consumed with all other Accuchecks * Continuing goal range of Low 110 mg/dL - High 140 mg/dL RECOMMENDATIONS FOR DISCHARGE: * Patient's A1C appears reasonably well controlled for patient's co- morbidities. May be possible to continue outpatient regimen. * Please note that the plan above was derived based on current level of insulin resistance and hospital stress. These recommendations are appropriate for inpatient admission only. Plan of care upon discharge will need to be reassessed to avoid potential outpatient hypo/hyperglycemia. Thank you.
[2017-03-24 09:15] VITALS: BP 152/76; PULSE 74
[2017-03-24] MEDS: INSULIN ASPART 100 UNITS/ML 3 ML PEN SC SCH ×4 (09:27→22:00)
[2017-03-24] MEDS: CARVEDILOL 12.5 MG TAB PO SCH (10:24)
[2017-03-24] MEDS: DABIGATRAN ELEXILATE 75 MG CAP PO SCH (10:30)
[2017-03-24] MEDS: DRONEDARONE 400 MG TAB PO SCH (10:30)
[2017-03-24] MEDS: PRAVASTATIN SOD 40 MG TAB PO SCH (10:31)
[2017-03-24] MEDS: CYANOCOBALAMIN 500 MCG TAB (VIT B-12) PO SCH (10:31)
[2017-03-24] MEDS: PROBENECID 500 MG TAB PO SCH (10:31)
[2017-03-24] MEDS: ASPIRIN 81 MG ECTAB PO SCH (10:31)
[2017-03-24] MEDS: PYRIDOXINE HCL 50 MG TAB PO SCH (10:32)
[2017-03-24] MEDS: PANTOprazole SOD 40 MG TAB PO SCH (10:32)
[2017-03-24] MEDS: AMLODIPINE BESYLATE 5 MG TAB PO SCH (10:32)
[2017-03-24 14:11] VITALS: BP 162/94; PULSE 72
[2017-03-24 15:46] VITALS: BP 133/76; PULSE 70
[2017-03-24] MEDS: ALUMINUM/MAGNESIUM SUSP 30 ML UDC PO PRN (18:02)
[2017-03-25] MEDS: TRAZODONE HCL 100 MG TAB PO PRN ×4 (00:57→22:33)
[2017-03-25] MEDS: PRAVASTATIN SOD 40 MG TAB PO SCH ×4 (01:30→20:58)
[2017-03-25] MEDS: DABIGATRAN ELEXILATE 75 MG CAP PO SCH ×4 (01:30→20:58)
[2017-03-25] MEDS: DRONEDARONE 400 MG TAB PO SCH ×4 (01:30→20:58)
[2017-03-25] MEDS: CARVEDILOL 12.5 MG TAB PO SCH ×4 (01:30→20:58)
[2017-03-25] MEDS: PROBENECID 500 MG TAB PO SCH ×4 (01:30→20:58)
[2017-03-25] MEDS: RISPERIDONE 1 MG TAB PO SCH ×2 (01:31→20:58)
[2017-03-25 06:53] VITALS: BP_SYST 127; BP_SYST 144; BP_DIAS 77; BP_DIAS 86; PULSE 73; PULSE 79; TEMP 36.8
[2017-03-25] MEDS ORDERED: BOOST PLUS VANILLA PO SCH ×2 (09:00)
--- NOTE | 2017-03-25 09:07 | Psychiatric Progress Notes ---
Progress Note Date of Service Mar 25, 2017. Interval History Tressa is a 76 y/o female who resides alone in [place], has a diagnosis of schizoaffective disorder bipolar type, and was admitted to the medical floor for cardiac work-up/delirium on 02/26/17 and seen for initial consultation on . She was followed on the medical floor and manic behavior became more apparent as other issues resolved, so she was ultimately transferred to [facility] on a 302 commitment supported by her daughter (ROS). She is on a 303 as of 03/09/17. Chief Complaint "I had trouble falling asleep.". Subjective Patient was seen & assessed interval progress reviewed with Treatment Team. The patient is less irritable this AM. She reports that she had trouble falling asleep but once asleep was able to stay asleep. She is aware that she has lost weight during her stay, and says that she will allow us to weigh her today, but when the scale is brought she refuses to get on it. She is willing to supplement with Boost, but when informed that a orthodontist may want to talk with her first, she becomes skeptical. She is aware that she will have a meeting with her daughter and the Office of Aging today, but her comments about this are disconnected and make no sense. She continues to try to refuse medications, yesterday requiring much encouragement to take her BP meds, and last evening refused HS meds, but later took them on date night caregiver. She remains irritable at times, and delusional that some staff are her children. Review of Systems Constitutional: + fatigue ENT: No hearing loss, No unusual epistaxis, No nasal symptoms, No sore throat, No tinnitus, No dental problems, No trouble swallowing, No problem reported Respiratory: No cough, No sputum, No wheezing, No shortness of breath, No dyspnea on exertion, No dyspnea at rest, No hemoptysis, No problem reported Cardiovascular: No chest pain, No orthopnea, No PND, No edema, No claudication , No palpitations, No problem reported Abdomen: No pain, No nausea, No vomiting, No diarrhea, No constipation, No GI bleeding, No problem reported Musculoskeletal: No joint pain, No muscle pain, No swelling, No calf pain, No problem reported Neurologic: No memory loss, No paralysis, No weakness, No numbness/tingling, No vertigo, No balance problems, No problem reported Psychiatric: + problem reported (irritable) Integumentary: No rash, No itch, No new/changing skin lesions, No color change , No bleeding, No problem reported Sleep Information Total Hours of Sleep: 3.25 Meal Information Percent of Breakfast Consumed: 75 Percent of Lunch Consumed: 95 Percent of Dinner Consumed: 75 Mental Status Exam During interview pt is: cooperative, guarded Appearance: disheveled, appeared stated age Eye contact is: good (staring intensely and suspiciously) Motor behavior is: steady gait & station, no abnormal motor movements Speech: normal in rate, rhythm & volume Affect: euthymic Mood is: irritable (at times) Thought process: goal directed Thought content: paranoid, delusions, persecution Suicidal thought are: denied Homicidal thoughts are: denied Hallucinations: other (will not answer regarding hallucinations, but told staff there were people in her ceiling) Cognition: other (all spheres impaired) Intelligence estimated to be: average Insight: severely impaired Judgement: severely impaired Impression We have a two-physician order for meds over objection, and 303 granted on 03/09. Patient remains delusional and paranoid, labile and poorly cooperative with care. She is more compliant in terms of taking her meds willingly although still refuses her antipsychotic and insulin at times. We continue to monitor her kidney function, and have asked nursing to encourage fluids. She is still too disorganized and irritable to participate meaningfully in groups, and clearly lacks capacity to make decisions about medications and disposition. At this point, it does not appear that she will be able to provide for her own basic needs living independently outside of the hospital. We are involving her daughter Mily who is her POA and will pursue senior care placement. She will have a 304 hearing Tuesday 03/27. A meeting with her daughter and the Office of Aging is scheduled for today. Plan (1) Schizoaffective disorder 03/06 - History supports previous good effect of Seroquel and decompensation associated with noncompliance -Will increase at bedtime Seroquel to 400 mg tonight -Attempting to review history with daughter to consider a more potent antipsychotic such as Risperdal as alternative - Received Haldol prn 1 this a.m. 03/07 - information available at present supports h/o benefit on seroquel. will continue with that agent for now, titrating as indicated. reviewed need for compliance with pt this am and she seemed receptive, hoverer we will have t wait and see if she is compliant tonight. continue haldol prn which she is tolerating well so far. - repeat screening labs in AM 03/08 - Continue quetiapine 50 mg twice a day, and increase bedtime dose to 500 mg. Check fasting labs tomorrow morning. - Continue haloperidol and quetiapine as needed for psychosis. - File for a 303 commitment. 03/09 - Recommend medications over objection, as patient is refusing her antipsychotic and her condition is deteriorating, leading to refusal of medications for HTN and elevated pulse and BP, which put her at risk of ND and stroke. Sleep and appetite are poor, and she is grossly disorganized and psychotic. Will request a second opinion from another physician (biomedical engineering director, Dr. Joe), and spoke with her daughter Mily who is POA, who is in agreement with medications over objection if needed. - Fasting labs were ordered for this morning but patient refused the blood draw. Will re-order for tomorrow. 03/10 - Dr. Joe saw patient and agrees with meds over objection. Will add Haldol 5mg IM for refusal of oral quetiapine, and for now will move quetiapine to the morning, so that more staff will be present when attempting to give medication, and so that antipsychotics can be given at the same time as antihypertensives, hopefully improving medication compliance. He can be moved back to bedtime once she is more consistently taking oral medication. Continue to encourage medication compliance. - She refused quetiapine this morning, so received Haldol IM. - Fasting glucose and lipids ordered for tomorrow 03/11 - Hold AM seroquel today due to sedation, but give at HS - Continue with meds over objection by 2 physician order 03/12 --extensive discussion with daughter re: lack of progress with Seroquel and concerns about sedation and fall risk longer term given age. Also reviewed that if option of a dissolvable that perhaps would be more receptive and minimize IM injections. Risks/benefits/alternatives reviewed with daughter/PODeena who was in support of a trial of Risperdal M-tab. She did report baseline concerns about memory predating this episode as would argue with her about tasks they just did. Ms. Cyr has declined to visit with family during holidays and therefore they admittedly haven't interacted with her much in person in the past 1.5 years. She does become guarded/argumentative on the phone and more reclusive at her housing complex. Daughter notes increase in hoarding behaviors. Reviewed that likely even when recovered that she will be unable to live alone without more support and she stated that she/brother had already been checking out nursing facilities. Will decrease Seroquel to 200 mg for 2 nights then d/c. Start Risperdal 1 mg Mtab this pm then BID starting tomorrow with IM Haldol for refusal of am dose. Monitor tachy. 03/13 --did take Risperdal M tab last pm, monitor on BID dosing. Will order prn sleep aide as remains poor and Seroquel being discontinued after tonight. Risperdal increase likely tomorrow. Discussed implementing a toileting protocol with nursing. 03/14 - had risperdal 1mg po bid as scheduled, and 1mg prn for agitation/ psychosis, will need to watch sleep off seroquel (last dose 03/13/17), has haldol IM for po refusal 03/15 - Increase risperidone to 1mg qam and 2mg qhs. Tolerating well, no tachycardia or hypotension. Sleep has deteriorated. 03/16 -Move Risperdal to all HS and increase to 4 mg. HS 8/ - Continue current meds 03/18 - remains delusional but affect slowly more composed and able to tolerate more stimulation out of room - as we approach ceiling of dose range of risperdal, if additional calming action needed in daytime, could consider re-initiation of low dose seroquel or perhaps very low dose trazodone. 03/19 - Increase Risperdal to 5 mg. HS 8/5 - pt refused risperdal 03/19 night dosing and is refusing the prn dose this morning as well. has refused some of her medical meds as well, including only taking part of her norvasc dose. We will give haldol 5mg M over objection 8 am. Clarified this order to give haldol over injection the next am if refusing risperdal the evening prior. However with staff spending time with pt she decided to take a 2mg prn dosage of risperdal m tab mid morning 03/20 and thus held the haldol IM dose for today. -continue meds unchanged. risperdal hs dose changed to regular tab from M tab on 03/19 for significantly reducing number of pills 03/21 continue meds unchanged, advised nursing to focus on risperdal prn as first choice of prn option, jimena if within a day of pt missing some of her scheduled risperdal dosage. consider med for potential hypersalivation, however since tends to be anticholinergic and pt might be having some dementia aspects to her presentation and with degrees of confusion, that could be worsened by such meds while unclear how significant any hypersalivation is, holding this for now. 03/23 - continue current meds. May need to consider a trial of a different antipsychotic if poor response to risperidone. Has been on risperidone since , and on 5 mg daily since 03/20/2017, so has not had a good trial of the medication yet. Patient lacks capacity to make decisions about medication and disposition. The recommendations at this time are that she go to a senior care, as per family, she has cognitively declined in the past year or so and has not been able to live independently. She is unable to understand the recommendations, waited risks and benefits of different options, or appreciate the risks of noncompliance, and therefore these decisions are being deferred to her daughter Mily who is her power of senior back end java developer. Social work to start to target process and pursue senior care referrals. Meeting scheduled with daughter for . 03/25 Meeting with daughter and Office of Aging today to discuss disposition (2) Renal failure 03/08 - be when elevated at 33, and creatinine 1.40. It appears she's had chronic renal dysfunction, with BUN and of 31 and creatinine of 1.9 in September 2016. We will continue to monitor, and consider the need to consult the hospitalist. 03/09 - Pt refused recheck of creatinine and BUN. 03/10 - BMP results reviewed: BUN 41, and creatinine 1.50. Continue to encourage fluids, and recheck creatinine in 2 days. Consider need for medical consultation, as she is at risk for worsening renal function and dehydration she does not drink enough, and may require transfer to the medical floor for IV fluids if this occurs. 03/12--labs improved a little today, encourage PO. 03/14/17 - ate full meal this AM despite ongoing delusion of being poisoned, she will have Creatinine drawn in the AM tomorrow 03/18 - creat inc to 1.6 and EGFR declining today. - push po - consider medicine c/s 03/19 - Will have staff push fluids with her today and check PRP tomorrow. If worse, will consult medicine 03/20 - Cr lowered to 1.3 and BUN lowered to 22.2, continue to monitor and continue to encourage fluid intake and po intake and med compliance (3) Hypertension 03/06 - increase hydralazine to qid and continue amlodipine 03/10 - intermittently refusing antihypertensive education, with elevated blood pressure and pulse (blood pressure this morning 184/87). Often refuses to allow staff to get vital signs. He did take hydralazine and amlodipine today, and asked staff to attempt to recheck vital signs if she will allow it. 03/14 - BP is WNL 03/20 - BP increased this am, likely tied to refusal of meds, attempting to address 03/22 - continues to have intermittent elevated blood pressure, but has been more compliant with medications. 03/23 - pressure stable the past 24 hours. (4) Diabetes mellitus - continue Lantus 10 units SC BID. Decreased from home dose due to poor oral intake - Insulin sliding scale - Checking BSGs q ac and qhs 03/14 - pharmacy continues to follow but due to refusal of evening basal insulin no new formal recs placed, pharmacist cautions about her slowly elevating sugars. Discussed with team as AM BS's are not dangerously high we will monitor and reconsider if forced insulin over objection is needed if the risks of BS elevations in the short term outweigh the risks of forced medication. 03/25 - Has experienced a 15 lb weight loss since admission. Will order Boost daily (5) Atrial fibrillation -Continue Coreg, dronedarone, and pradaxa Discharge / Aftercare Planning Primary Care Physician: Name: Dr Mclain Visit Code E&M Code: 36082 Risk Factors Assessment : Yes /single/: Yes Higher / Fall in social status: No Access to guns: No Health problems: Yes Mental Health Diagnoses: Yes Substance use disorders: No Previous psychiatric stay: Yes Protective Factors Assessment : No Responsible for young children: No Employed: No Stable relationships: No Supportive family: Yes Data Vital Signs Last 24 Hrs: Date Time Temp Pulse Resp B/P (MAP) Pulse Ox O2 Delivery O2 Flow Rate FiO2 03/25/17 06:53 36.8 73 16 144/86 79 127/77 03/24/17 15:46 70 133/76 03/24/17 14:11 72 18 162/94 03/24/17 09:15 74 16 152/76 Meds Administered Last 24 Hrs: Meds Administered (Past 24Hrs) Medications (Trade) Dose Ordered Sig/Krish Route Start Time Stop Time Status Last Admin Dose Admin Insulin Glargine (Lantus Solostar Pen) 25 units DAILY SC 03/24/17 09:00 03/25/17 08:48 DC 03/24/17 09:26 25 UNITS Lab Results Last 24 Hrs: Last 24 Hours Test 03/24/17 11:34 03/24/17 16:30 03/24/17 21:55 Bedside Glucose 279 mg/dl 188 mg/dl 102 mg/dl Problem Qualifiers (1) Schizoaffective disorder: Schizoaffective disorder type: bipolar Qualified Codes: F25.0 - Schizoaffective disorder, bipolar type (2) Diabetes mellitus: Diabetes mellitus type: type 2
[2017-03-25 09:46] VITALS: BP 124/76; PULSE 113
[2017-03-25] MEDS: AMLODIPINE BESYLATE 5 MG TAB PO SCH ×2 (09:48→13:07)
[2017-03-25] MEDS: INSULIN GLARGINE SOLOSTAR 100 UNITS/ML 3 ML PEN SC SCH (09:49)
[2017-03-25] MEDS: INSULIN ASPART 100 UNITS/ML 3 ML PEN SC SCH ×5 (09:50→22:00)
[2017-03-25] MEDS: ASPIRIN 81 MG ECTAB PO SCH ×2 (10:14→13:07)
[2017-03-25] MEDS: PYRIDOXINE HCL 50 MG TAB PO SCH ×2 (10:15→13:07)
[2017-03-25] MEDS: PANTOprazole SOD 40 MG TAB PO SCH ×2 (10:15→13:07)
--- NOTE | 2017-03-25 10:43 | Pharmacy Progress Note ---
Glycemic Control Progress Note Date of Service Mar 25, 2017. Scope Glycemic Pharmacist consulted for glycemic control to write orders per [facility] inpatient glycemic control protocol. Objective Accuchecks BSG (last 24hrs): Test 03/24/17 11:34 03/24/17 16:30 03/24/17 21:55 03/25/17 08:38 Bedside Glucose 279 mg/dl (70-90) 188 mg/dl (70-90) 102 mg/dl (70-90) 137 mg/dl (70-90) Recent Pertinent Medications The patient is currently receiving: * Basal insulin: Lantus 25 units every 24 hours (in the morning) * Correctional Insulin: Novolog Correction per scale ACHS Goal Range: Low 110 mg/dL - High 140 mg/dL Correction Factor: 20 mg/dL/unit for breakfast and 25 mg/dL/unit for all other times * Prandial insulin: Per carb ratio of 1 unit per 6 grams CHO consumed for breakfast and 1 unit per 8 grams CHO consumed for all other times Outpatient Anti-Diabetic Meds Lantus 10 units SQ BID Assessment & Plan ASSESSMENT: * See progress note from 03/08/2017 for more background info, in short: Ms Cyr is a 76 y/o F admitted to the [facility]. Currently, the patient has been snacking between meals without carbohydrate coverage. She also has a history of refusing insulin. Her insulin is being titrated slowly as a result. * Pt receiving SQ basal bolus insulin regimen for hyperglycemia secondary to baseline DM (outpatient regimen on hold). * Patient is currently receiving an average of 50 units of insulin per day * 25 units of basal insulin * 25 units of prandial/correctional insulin (refused insulin for dinner and bedtime yesterday) * BSGs ranging 102-279 mg/dl over the past 24hrs * Changes needed to insulin regimen: * AM Fasting BSG = 137 mg/dl. This is similar to the fasting blood sugar from yesterday; it appears that patient is tolerating increased Lantus dosing. Patient has had similar fasting blood sugar for several days indicating basal can be increased. Titrating upwards slowly due to history of noncompliance. * Post-prandial BSGs are similar indicating correction factor and carbohydrate ratio is sufficient. Patient was consuming Boost glucose control slightly before and during lunch blood sugar check. * Total daily dose = 50 units. Patient may require an increase in total daily dose as blood sugars remain elevated. PLAN FOR INPATIENT GLYCEMIC CONTROL: * INCREASING Lantus to 27 units SQ qAM * Continuing correction factor of 20 mg/dl/unit with breakfast and 25 mg/dL/ unit with all other Accuchecks * Continuing carb ratio of 1 unit per 6 grams CHO consumed with breakfast and 8 grams CHO consumed with all other Accuchecks * Continuing goal range of Low 110 mg/dL - High 140 mg/dL RECOMMENDATIONS FOR DISCHARGE: * Patient's A1C appears reasonably well controlled for patient's co- morbidities. May be possible to continue outpatient regimen. * Please note that the plan above was derived based on current level of insulin resistance and hospital stress. These recommendations are appropriate for inpatient admission only. Plan of care upon discharge will need to be reassessed to avoid potential outpatient hypo/hyperglycemia. Thank you.
[2017-03-25] MEDS ORDERED: BOOST GLUCOSE CONTROL PO ONE (10:59)
--- NOTE | 2017-03-25 13:36 | Medical Consult ---
Consultation Date of Consultation: Mar 25, 2017. Attending Physician: Nas Jones MD Reason for Consultation: Chest pain History of Present Illness Patient is a 76 y/o female, with PMHx of a.fib, HTN, T2DM, hyperlipidemia, chronic sinusitis, anxiety, and bipolar disorder, who was admitted to [facility] on for delirium. Medical workup unremarkable at that time, but patient continued to have increased manic behavior and was 302 to [facility] on 03/05. Hospitalist team was consulted on 03/25 due to patient complaining of chest pain. EKG showed a.fib w/ rate controlled and no acute changes. Of note, patient has been refusing her medications (Coreg, Pradaxa, Amlodipine, Hydralazine). Patient currently denies any chest pain. She states it was a left-sided chest pain that quickly came and went. The pain did not radiate. She notes that the pain "comes from above," and similar symptoms occur often. Complete ROS positive so unsure of reliability. Patient took all of her medications while in room with RN, Macy escalera. Discussed the importance of taking her medications. She states she is not taking her medications because "they are trying to poison me." Past Medical/Surgical History Medical Problems: a.fib HTN Chronic sinusitis T2DM hyperlipidemia anxiety bipolar disorder Family History Cancer Hypertension Lung disease Social History Smoking Status: Former Smoker Drug Use: none Marital Status: Housing Status: lives alone Occupation Status: retired Allergies Coded Allergies: MARIANO Inhibitors (Unverified Allergy, Intermediate, HEPATOTOXICITY, 02/25/17) Amiodarone (Unverified Allergy, Intermediate, HEPATOTOXICITY, 05/01/15) Cephalexin (Verified Allergy, Unknown, unknown, 02/25/17) Erythromycin (Verified Allergy, Unknown, UNSURE, 02/25/17) Levofloxacin (Verified Allergy, Unknown, Unknown., 02/25/17) Reported by PT. Home Medications Reported Home Medications Medications Dose Route/Sig Max Daily Dose Days Date Category Dose Instructions Seroquel (Quetiapine Fumarate) 25 Mg Tab 25 Mg PO Q4H PRN 03/05/17 Reported Seroquel (Quetiapine Fumarate) 50 Mg Tab 50 Mg PO BID17 03/05/17 Reported Seroquel (Quetiapine Fumarate) 300 Mg Tab 350 Mg PO HS 03/05/17 Reported Lantus Solostar (Insulin Glargine) 100 Unit/Ml Inj 10 Units SC BID 03/05/17 Reported Novolog Flexpen (Insulin Aspart) 100 Units/Ml Inj 03/05/17 Reported SC AC&HS sliding Quetiapine Fumarate 25 Mg Tab 25 Mg PO Q4H PRN 10 03/05/17 Rx Quetiapine Fumarate 300 Mg Tab 300 Mg PO HS 30 03/05/17 Rx Protonix (Pantoprazole Sodium) 40 Mg Tab 40 Mg PO DAILY 02/25/17 Reported Vitamin B6 (Pyridoxine HCl) 100 Mg Tab 100 Mg PO DAILY 02/25/17 Reported Calcium + D3 600-200 mg-Unit (Calcium Carbonate-Vitamin D) 1 Tab Tab 1 Tab PO DAILY 02/25/17 Reported Pravastatin Sodium (Pravastatin Sod) 40 Mg Tab 40 Mg HS 02/25/17 Reported Multaq (Dronedarone Hcl) 400 Mg Tab 400 Mg PO BID 02/25/17 Reported Xopenex Hfa (Levalbuterol Tartrate) Aer 1-2 Puffs INH Q6H PRN 05/01/15 Reported Vitamin D3 (Cholecalciferol) 2,000 Unit Cap 2,000 Units PO Q2D 05/01/15 Reported Vitamin B12 (Cyanocobalamin) 1,000 Mcg Tab 1,000 Mcg PO BID 05/01/15 Reported Systane (Polyethylene Glycol-Propylene) 1 Flaquita Flaquita 1 Drop OPB QID 05/01/15 Reported Seroquel (Quetiapine Fumarate) 300 Mg Tab 300 Mg PO HS 05/01/15 Reported Probiotic (Probiotic Product) 1 Cap Cap 1 Cap PO DAILY 05/01/15 Reported Benemid (Probenecid) 500 Mg Tab 500 Mg PO BID 05/01/15 Reported Pradaxa (Dabigatran Etexilate Mesylate) 75 Mg Cap 75 Mg PO BID 90 05/01/15 Reported Multivitamin (Multiple Vitamin) 1 Tab Tab 1 Tab PO DAILY 05/01/15 Reported Apresoline (Hydralazine Hcl) 25 Mg Tab 25 Mg PO TID 05/01/15 Reported Fish Oil 1200 mg (Strawn-3 Fatty Acids) 1 Cap Cap 2 Cap PO BID 05/01/15 Reported Coreg (Carvedilol) 12.5 Mg Tab 12.5 Mg PO BID 05/01/15 Reported Aspirin 81 (Aspirin) 81 Mg Tab 1 Tab PO DAILY 05/01/15 Reported Norvasc (Amlodipine Besylate) 10 Mg Tab 10 Mg PO DAILY 05/01/15 Reported Current Inpatient Medications Current Inpatient Medications Medications (Trade) Dose Ordered Sig/Krish Route Start Time Stop Time Status Last Admin Dose Admin Acetaminophen (Tylenol Tab) 650 mg Q4H PRN PO 03/05/17 21:45 04/04/17 21:44 03/16/17 00:40 650 MG Al Hydroxide/Mg Hydroxide (Maalox Susp) 30 ml Q4H PRN PO 03/05/17 21:45 04/04/17 21:44 03/24/17 18:02 30 ML Bismuth Subsalicylate (Kaopectate Liqd) 15 ml DAILY PRN PO 03/05/17 21:45 04/04/17 21:44 Magnesium Hydroxide (Milk Of Magnesia Susp) 30 ml DAILY PRN PO 03/05/17 21:45 04/04/17 21:44 Sodium Chloride ([place] Nasal [place]) PRN PRN NA 03/05/17 21:45 04/04/17 21:44 Glucose (Glucose 40% Gel) 15-30 GRAMS 15 GRAMS... UD PRN PO 03/05/17 21:45 04/04/17 21:44 Glucose (Glucose Chew Tab) 4-8 Tablets 4 Tabl... UD PRN PO 03/05/17 21:45 04/04/17 21:44 Dextrose (Dextrose 50% 50ML Syringe) 25-50ML OF 50% DW IV FOR... UD PRN IV 03/05/17 21:45 04/04/17 21:44 Glucagon (Glucagon Inj) 1 mg UD PRN SQ 03/05/17 21:45 04/04/17 21:44 Amlodipine Besylate (Norvasc Tab) 10 mg DAILY PO 03/06/17 09:00 04/05/17 08:59 03/25/17 09:48 5 MG Aspirin (Ecotrin Tab) 81 mg DAILY PO 03/06/17 09:00 04/05/17 08:59 03/21/17 09:44 81 MG Levalbuterol (Xopenex Hfa Inhaler) inhaled Q6H PRN INH 03/05/17 21:30 04/04/17 21:29 Multivitamins (Multivitamin Tab) 1 tab DAILY PO 03/06/17 09:00 04/05/17 08:59 Future Hold 03/07/17 07:55 1 TAB Pantoprazole Sodium (Protonix Tab) 40 mg DAILY PO 03/06/17 09:00 04/05/17 08:59 03/21/17 09:44 40 MG Pyridoxine HCl (Vitamin B-6 Tab) 100 mg DAILY PO 03/06/17 09:00 04/05/17 08:59 03/21/17 09:45 100 MG Calcium/Vitamin D (Caltrate Plus Tab) 1 tab DAILY PO 03/06/17 09:00 04/05/17 08:59 Future Hold 03/07/17 07:53 1 TAB Cholecalciferol (Vitamin D Tab) 2,000 inter.unit Q2D@0900 PO 03/07/17 09:00 04/06/17 08:59 Future Hold 03/07/17 07:57 2,000 INTER.UNIT Fish Oil (Strawn-3 (Purified Fish Oil) Cap) 2 gm BID PO 03/05/17 22:00 04/04/17 21:59 Future Hold 03/07/17 20:32 2 GM Lactobacillus Acidophilus (Floranex Tab) 4 tab DAILY PO 03/06/17 09:00 04/05/17 08:59 Future Hold 03/07/17 07:54 4 TAB Haloperidol (Haldol Tab) 5 mg Q8 PRN PO 03/05/17 21:45 04/04/17 21:44 03/20/17 16:13 5 MG Benztropine Mesylate (Cogentin Tab) 0.5 mg BID PRN PO 03/05/17 21:45 04/04/17 21:44 Haloperidol Lactate (Haldol Inj) 5 mg QAM PRN IM 03/10/17 08:30 04/09/17 08:29 03/12/17 09:51 5 MG Miscellaneous Information (Consult Glycemic Management Pharmacy) 1 ea UD PRN N/A 03/11/17 10:20 04/10/17 10:19 Risperidone (Risperdal M Tab) 1 mg Q8 PRN PO 03/13/17 10:00 04/12/17 09:59 03/21/17 13:46 1 MG Trazodone HCl (Desyrel Tab) 100 mg HS PRN PO 03/13/17 10:00 04/12/17 09:59 03/25/17 02:01 100 MG Probenecid (Probenecid Tab) 500 mg BID@ PO 03/19/17 20:00 04/18/17 19:59 03/25/17 01:30 500 MG Carvedilol (Coreg Tab) 12.5 mg BID@ PO 03/19/17 20:00 04/18/17 19:59 03/25/17 01:30 12.5 MG Cyanocobalamin (Vitamin B-12 Tab) 1,000 mcg BID@ PO 03/19/17 20:00 04/18/17 19:59 Future Hold 03/23/17 20:12 1,000 MCG Dabigatran (Pradaxa Cap) 75 mg BID@ PO 03/19/17 20:00 04/18/17 19:59 03/25/17 01:30 75 MG Dronedarone (Multaq Tab) 400 mg BID@ PO 03/19/17 20:00 04/18/17 19:59 03/25/17 01:30 400 MG Pravastatin Sodium (Pravachol Tab) 40 mg DAILY@ PO 03/19/17 20:00 04/18/17 19:59 03/25/17 01:30 40 MG Hydralazine HCl (Apresoline Tab) 25 mg TID PO 03/19/17 14:00 04/18/17 13:59 03/25/17 01:31 25 MG Risperidone (Risperdal Tab) 5 mg DAILY@1999 PO 03/19/17 20:00 04/18/17 19:59 03/25/17 01:31 5 MG Insulin Aspart (novoLOG ASPART) SLIDING SCALE QDB SC 03/20/17 09:00 04/19/17 08:59 03/25/17 09:50 6 UNITS Insulin Aspart (novoLOG ASPART) SLIDING SCALE TID@1200,1715,2200 OR 03/19/17 12:45 04/18/17 12:44 03/24/17 17:15 9 UNITS Insulin Glargine (Lantus Solostar Pen) 27 units DAILY SC 03/25/17 09:00 04/24/17 08:59 03/25/17 09:49 27 UNITS Enteral Nutritional Formula (Boost Glucose Control) 1 can QDB PO 03/26/17 09:00 04/25/17 08:59 Physical Exam Date Time Temp Pulse Resp B/P (MAP) Pulse Ox O2 Delivery O2 Flow Rate FiO2 03/25/17 09:46 113 18 124/76 03/25/17 06:53 36.8 73 16 144/86 79 127/77 03/24/17 15:46 70 133/76 03/24/17 14:11 72 18 162/94 General Appearance: no apparent distress Head: normocephalic, atraumatic Eyes: PERRL ENT: hearing grossly normal Neck: supple Respiratory/Chest: lungs clear, no respiratory distress, no accessory muscle use Cardiovascular: + irregularly irregular (rate controlled) Abdomen/GI: normal bowel sounds, non tender, soft Back: normal inspection Extremities/Musculoskelatal: no calf tenderness, no pedal edema Neurologic/Psych: alert, + depressed affect, + disoriented Skin: normal color, warm/dry, no rash Laboratory Results Last 24 Hours Test 03/24/17 16:30 03/24/17 21:55 03/25/17 08:38 03/25/17 11:28 Bedside Glucose 188 mg/dl 102 mg/dl 137 mg/dl 223 mg/dl Assessment & Plan Patient is a 76 y/o female, with PMHx of a.fib, HTN, T2DM, hyperlipidemia, chronic sinusitis, anxiety, and bipolar disorder. Hospitalist team was consulted on 03/25 for complaints of chest pain and EKG showing a.fib. A.fib- known h/o: - EKG shows a.fib, no acute changes - Continue Coreg 12.5 BID, Pradaxa 75 mg BID, Multaq 400 mg BID, ASA 81 mg daily DM II- last HgbA1c 02/25= 7.8%: - Continue Lantus 27 u daily - BSG ACHS and sliding insulin scale Chronic Sinusitis: Treated w/ Augmentin during 02/25 admission HTN: Hydralazine 25 mg TID and Amlodipine 10 mg daily Hyperlipidemia: Pravastatin 40 mg daily Anxiety, bipolar disorder: As per psychiatry GI Prophylaxis: Protonix daily DVT Prophylaxis: Pradaxa Code Status: LEVEL V, DNR Dispo: As per psychiatry At this time, patient does not need transferred to medical floor and is stable to remain in BHU. Recommend continued encouragement of medications and monitor for returning s/s of acute cardiac event. PA Physician Supervision Note: I interviewed and examined the patient. Discussed with Tania Marie PAC and agree with findings and plan as documented in the note. Any exceptions or clarifications are listed here: None Patient was complaining of chest pain on the behavioral health unit, and EKG was obtained, it showed A. fib, the patient has a history of A. fib. The patient however is been treated refusing to take her cardiac medications these include antiarrhythmics and rate controlling agents. Tania Marie, the physician's assistant manager quality management above spoke to the patient and convince her to take her medications. Upon evaluation she is mildly tachycardic and irregularly irregular, , she is bipolar and delusional at times Continue to reinforce the need to take her multaq Coreg and Pradaxa Documented By: Ham Ross
--- NOTE | 2017-03-25 17:15 | Psych Management Progress Note ---
Psychiatry Miscellaneous Date of Service: Mar 25, 2017. met with patient for updated MSE in preparation for 304 hearing tomorrow. She understands that recommendation is for her to go to a home but remains paranoid about signing any paperwork, defers to POA. She believes that her other daughter is trying to poison her and is "probably working with you". She has shown improvement since last contact but continues to lack capacity to medical decisions given active paranoid delusions and distractibility/poor memory resulting in inability to fully understand risks/benefits/alternatives. She continues to be resistant to medications.
[2017-03-25 20:04] VITALS: BP 128/80; PULSE 86
[2017-03-26 06:52] VITALS: BP_SYST 102; BP_SYST 104; BP_DIAS 72; BP_DIAS 73; PULSE 121; PULSE 98; TEMP 36.8
[2017-03-26] MEDS: BOOST GLUCOSE CONTROL PO SCH (09:00)
[2017-03-26] MEDS: DRONEDARONE 400 MG TAB PO SCH ×2 (09:40→20:13)
[2017-03-26] MEDS: INSULIN GLARGINE SOLOSTAR 100 UNITS/ML 3 ML PEN SC SCH (09:44)
[2017-03-26] MEDS: INSULIN ASPART 100 UNITS/ML 3 ML PEN SC SCH ×5 (09:47→22:00)
[2017-03-26] MEDS: DABIGATRAN ELEXILATE 75 MG CAP PO SCH ×2 (10:57→20:00)
[2017-03-26] MEDS: CARVEDILOL 12.5 MG TAB PO SCH ×2 (10:57→20:14)
[2017-03-26] MEDS: AMLODIPINE BESYLATE 5 MG TAB PO SCH (11:03)
[2017-03-26] MEDS: PROBENECID 500 MG TAB PO SCH ×2 (11:03→20:00)
[2017-03-26] MEDS: PYRIDOXINE HCL 50 MG TAB PO SCH (11:03)
[2017-03-26] MEDS: PANTOprazole SOD 40 MG TAB PO SCH (11:03)
[2017-03-26] MEDS: PRAVASTATIN SOD 40 MG TAB PO SCH ×2 (11:03→20:00)
[2017-03-26] MEDS: ASPIRIN 81 MG ECTAB PO SCH (11:03)
--- NOTE | 2017-03-26 12:15 | Psychiatric Progress Notes ---
Progress Note Date of Service Mar 26, 2017. Interval History Tressa is a 76 y/o female who resides alone in [place], has a diagnosis of schizoaffective disorder bipolar type, and was admitted to the medical floor for cardiac work-up/delirium on 02/26/17 and seen for initial consultation on . She was followed on the medical floor and manic behavior became more apparent as other issues resolved, so she was ultimately transferred to [facility] on a 302 commitment supported by her daughter (ROS). She is on a 303 as of 03/09/17. Chief Complaint "Well look at you no thank you". Subjective Patient was seen & assessed interval progress reviewed with Treatment Team. Did take hs meds last pm. Toileting improved, more organized, still believes daughter is poisoning her. Ultimately releases taken care of yesterday with other daughter and [employer] process for nursing facility started. Patient had some memory testing with [employer] sales representative facility services. She seems to have some confusion with self care due to memory difficulties here but retains math related to money. Review of Systems Psych: denies symptoms other than stated above Constitutional: denied Cardiovascular: denied GI: denied Neurologic: denied Remainder of 10 body systems also reviewed and denied other than noted above. Sleep Information Total Hours of Sleep: 3.25 Meal Information Percent of Breakfast Consumed: 70 Percent of Lunch Consumed: 100 Percent of Dinner Consumed: 100 Mental Status Exam During interview pt is: cooperative (only superficially) Appearance: disheveled, appeared stated age Eye contact is: good (staring intensely and suspiciously) Motor behavior is: steady gait & station, no abnormal motor movements Speech: normal in rate, rhythm & volume Affect: euthymic Mood is: irritable (at times) Thought process: concrete Thought content: paranoid, delusions, persecution Suicidal thought are: denied Homicidal thoughts are: denied Hallucinations: denies auditory, denies visual Cognition: other (all spheres impaired) Intelligence estimated to be: average Insight: severely impaired Judgement: severely impaired Impression We have a two-physician order for meds over objection, and 303 granted on 03/09. Patient remains delusional and paranoid, labile and poorly cooperative with care. She is more compliant in terms of taking her meds willingly although still refuses her antipsychotic and insulin at times. She is still too disorganized and irritable to participate meaningfully in groups, and clearly lacks capacity to make decisions about medications and disposition. At this point, it does not appear that she will be able to provide for her own basic needs living independently outside of the hospital. We are involving her daughter Mily who is her POA and are pursuing senior living placement. 304 granted 03/26/17. Plan (1) Schizoaffective disorder 03/06 - History supports previous good effect of Seroquel and decompensation associated with noncompliance -Will increase at bedtime Seroquel to 400 mg tonight -Attempting to review history with daughter to consider a more potent antipsychotic such as Risperdal as alternative - Received Haldol prn 1 this a.m. 03/07 - information available at present supports h/o benefit on seroquel. will continue with that agent for now, titrating as indicated. reviewed need for compliance with pt this am and she seemed receptive, hoverer we will have t wait and see if she is compliant tonight. continue haldol prn which she is tolerating well so far. - repeat screening labs in AM 03/08 - Continue quetiapine 50 mg twice a day, and increase bedtime dose to 500 mg. Check fasting labs tomorrow morning. - Continue haloperidol and quetiapine as needed for psychosis. - File for a 303 commitment. 03/09 - Recommend medications over objection, as patient is refusing her antipsychotic and her condition is deteriorating, leading to refusal of medications for HTN and elevated pulse and BP, which put her at risk of TN and stroke. Sleep and appetite are poor, and she is grossly disorganized and psychotic. Will request a second opinion from another physician (medical appointment scheduler, Dr. Joe), and spoke with her daughter Mily who is POA, who is in agreement with medications over objection if needed. - Fasting labs were ordered for this morning but patient refused the blood draw. Will re-order for tomorrow. 03/10 - Dr. Joe saw patient and agrees with meds over objection. Will add Haldol 5mg IM for refusal of oral quetiapine, and for now will move quetiapine to the morning, so that more staff will be present when attempting to give medication, and so that antipsychotics can be given at the same time as antihypertensives, hopefully improving medication compliance. He can be moved back to bedtime once she is more consistently taking oral medication. Continue to encourage medication compliance. - She refused quetiapine this morning, so received Haldol IM. - Fasting glucose and lipids ordered for tomorrow 03/11 - Hold AM seroquel today due to sedation, but give at HS - Continue with meds over objection by 2 physician order 03/12 --extensive discussion with daughter re: lack of progress with Seroquel and concerns about sedation and fall risk longer term given age. Also reviewed that if option of a dissolvable that perhaps would be more receptive and minimize IM injections. Risks/benefits/alternatives reviewed with daughter/POA who was in support of a trial of Risperdal M-tab. She did report baseline concerns about memory predating this episode as would argue with her about tasks they just did. Ms. Cyr has declined to visit with family during holidays and therefore they admittedly haven't interacted with her much in person in the past 1.5 years. She does become guarded/argumentative on the phone and more reclusive at her housing complex. Daughter notes increase in hoarding behaviors. Reviewed that likely even when recovered that she will be unable to live alone without more support and she stated that she/brother had already been checking out nursing facilities. Will decrease Seroquel to 200 mg for 2 nights then d/c. Start Risperdal 1 mg Mtab this pm then BID starting tomorrow with IM Haldol for refusal of am dose. Monitor tachy. 03/13 --did take Risperdal M tab last pm, monitor on BID dosing. Will order prn sleep aide as remains poor and Seroquel being discontinued after tonight. Risperdal increase likely tomorrow. Discussed implementing a toileting protocol with nursing. 03/14 - had risperdal 1mg po bid as scheduled, and 1mg prn for agitation/ psychosis, will need to watch sleep off seroquel (last dose 03/13/17), has haldol IM for po refusal 03/15 - Increase risperidone to 1mg qam and 2mg qhs. Tolerating well, no tachycardia or hypotension. Sleep has deteriorated. 03/16 -Move Risperdal to all HS and increase to 4 mg. HS 03/17 - Continue current meds 03/18 - remains delusional but affect slowly more composed and able to tolerate more stimulation out of room - as we approach ceiling of dose range of risperdal, if additional calming action needed in daytime, could consider re-initiation of low dose seroquel or perhaps very low dose trazodone. 03/19 - Increase Risperdal to 5 mg. HS 03/20 - pt refused risperdal 03/19 night dosing and is refusing the prn dose this morning as well. has refused some of her medical meds as well, including only taking part of her norvasc dose. We will give haldol 5mg M over objection 03/20 am. Clarified this order to give haldol over injection the next am if refusing risperdal the evening prior. However with staff spending time with pt she decided to take a 2mg prn dosage of risperdal m tab mid morning 03/20 and thus held the haldol IM dose for today. -continue meds unchanged. risperdal hs dose changed to regular tab from M tab on 03/19 for significantly reducing number of pills 03/21 continue meds unchanged, advised nursing to focus on risperdal prn as first choice of prn option, jimena if within a day of pt missing some of her scheduled risperdal dosage. consider med for potential hypersalivation, however since tends to be anticholinergic and pt might be having some dementia aspects to her presentation and with degrees of confusion, that could be worsened by such meds while unclear how significant any hypersalivation is, holding this for now. 03/23 - continue current meds. May need to consider a trial of a different antipsychotic if poor response to risperidone. Has been on risperidone since , and on 5 mg daily since 03/20/2017, so has not had a good trial of the medication yet. Patient lacks capacity to make decisions about medication and disposition. The recommendations at this time are that she go to a senior living, as per family, she has cognitively declined in the past year or so and has not been able to live independently. She is unable to understand the recommendations, waited risks and benefits of different options, or appreciate the risks of noncompliance, and therefore these decisions are being deferred to her daughter Mily who is her power of biodiesel operations manager. Social work to start to [employer] process and pursue senior living referrals. Meeting scheduled with daughter for . 03/25 Meeting with daughter and [facility] today to discuss disposition 03/26--304 granted, psychosis improving on Risperdal. (2) Renal failure 03/08 - be when elevated at 33, and creatinine 1.40. It appears she's had chronic renal dysfunction, with BUN and of 31 and creatinine of 1.9 in September 2016. We will continue to monitor, and consider the need to consult the hospitalist. 03/09 - Pt refused recheck of creatinine and BUN. 03/10 - BMP results reviewed: BUN 41, and creatinine 1.50. Continue to encourage fluids, and recheck creatinine in 2 days. Consider need for medical consultation, as she is at risk for worsening renal function and dehydration she does not drink enough, and may require transfer to the medical floor for IV fluids if this occurs. 03/12--labs improved a little today, encourage PO. 03/14/17 - ate full meal this AM despite ongoing delusion of being poisoned, she will have Creatinine drawn in the AM tomorrow 03/18 - creat inc to 1.6 and EGFR declining today. - push po - consider medicine c/s 03/19 - Will have staff push fluids with her today and check PRP tomorrow. If worse, will consult medicine 03/20 - Cr lowered to 1.3 and BUN lowered to 22.2, continue to monitor and continue to encourage fluid intake and po intake and med compliance (3) Hypertension 03/06 - increase hydralazine to qid and continue amlodipine 03/10 - intermittently refusing antihypertensive education, with elevated blood pressure and pulse (blood pressure this morning 184/87). Often refuses to allow staff to get vital signs. He did take hydralazine and amlodipine today, and asked staff to attempt to recheck vital signs if she will allow it. 03/14 - BP is WNL 03/20 - BP increased this am, likely tied to refusal of meds, attempting to address 03/22 - continues to have intermittent elevated blood pressure, but has been more compliant with medications. 03/23 - pressure stable the past 24 hours. (4) Diabetes mellitus - continue Lantus 10 units SC BID. Decreased from home dose due to poor oral intake - Insulin sliding scale - Checking BSGs q ac and qhs 03/14 - pharmacy continues to follow but due to refusal of evening basal insulin no new formal recs placed, pharmacist cautions about her slowly elevating sugars. Discussed with team as AM BS's are not dangerously high we will monitor and reconsider if forced insulin over objection is needed if the risks of BS elevations in the short term outweigh the risks of forced medication. 03/25 - Has experienced a 15 lb weight loss since admission. Will order Boost daily (5) Atrial fibrillation -Continue Coreg, dronedarone, and pradaxa 03/26--episode of CP yesterday, resolved. Medicine input reviewed. Discharge / Aftercare Planning Primary Care Physician: Name: Dr Mclain Visit Code E&M Code: 01030 Risk Factors Assessment : Yes /single/: Yes Higher / Fall in social status: No Access to guns: No Health problems: Yes Mental Health Diagnoses: Yes Substance use disorders: No Previous psychiatric stay: Yes Protective Factors Assessment : No Responsible for young children: No Employed: No Stable relationships: No Supportive family: Yes Data Vital Signs Last 24 Hrs: Date Time Temp Pulse Resp B/P (MAP) Pulse Ox O2 Delivery O2 Flow Rate FiO2 03/26/17 06:52 36.8 121 16 102/73 98 104/72 03/25/17 20:04 86 128/80 Meds Administered Last 24 Hrs: Meds Administered (Past 24Hrs) Medications (Trade) Dose Ordered Sig/Krish Route Start Time Stop Time Status Last Admin Dose Admin Insulin Glargine (Lantus Solostar Pen) 27 units DAILY SC 03/25/17 09:00 04/24/17 08:59 03/26/17 09:44 27 UNITS Enteral Nutritional Formula (Boost Glucose Control) 1 can QDB PO 03/26/17 09:00 04/25/17 08:59 03/26/17 09:00 1 CAN Enteral Nutritional Formula (Boost Glucose Control) 1 can 1059 ONCE PO 03/25/17 10:59 03/25/17 11:05 DC 03/25/17 11:12 1 CAN Lab Results Last 24 Hrs: Last 24 Hours Test 03/25/17 16:46 03/25/17 21:53 03/26/17 09:20 03/26/17 11:13 Bedside Glucose 205 mg/dl 112 mg/dl 129 mg/dl 189 mg/dl Problem Qualifiers (1) Schizoaffective disorder: Schizoaffective disorder type: bipolar Qualified Codes: F25.0 - Schizoaffective disorder, bipolar type (2) Diabetes mellitus: Diabetes mellitus type: type 2
[2017-03-26 13:38] VITALS: BP 110/78; PULSE 83
[2017-03-26 20:15] VITALS: BP 131/90; PULSE 80
[2017-03-26] MEDS: RISPERIDONE 1 MG TAB PO SCH (23:04)
[2017-03-27 07:02] VITALS: BP_SYST 133; BP_SYST 134; BP_DIAS 82; BP_DIAS 84; PULSE 81; PULSE 99; TEMP 36.5
[2017-03-27] MEDS: PROBENECID 500 MG TAB PO SCH ×2 (08:00→20:55)
[2017-03-27] MEDS: ASPIRIN 81 MG ECTAB PO SCH (09:00)
[2017-03-27] MEDS: PANTOprazole SOD 40 MG TAB PO SCH (09:00)
[2017-03-27] MEDS: PYRIDOXINE HCL 50 MG TAB PO SCH (09:00)
[2017-03-27] MEDS: BOOST GLUCOSE CONTROL PO SCH (09:16)
[2017-03-27] MEDS: INSULIN ASPART 100 UNITS/ML 3 ML PEN SC SCH ×4 (09:18→21:35)
[2017-03-27] MEDS: INSULIN GLARGINE SOLOSTAR 100 UNITS/ML 3 ML PEN SC SCH (09:20)
--- NOTE | 2017-03-27 10:09 | Psych Management Progress Note ---
Psychiatry Miscellaneous Date of Service: Mar 27, 2017. Patient seen, MS assessed. Patient is unable to rate mood. Very resistant to meds but did comply, slept >6 hours overnight but not continuous.
[2017-03-27] MEDS: PRAVASTATIN SOD 40 MG TAB PO SCH ×2 (10:38→20:55)
--- NOTE | 2017-03-27 10:48 | Psychiatric Progress Notes ---
Progress Note Date of Service Mar 27, 2017. Interval History Tressa is a 76 y/o female who resides alone in [place], has a diagnosis of schizoaffective disorder bipolar type, and was admitted to the medical floor for cardiac work-up/delirium on 02/26/17 and seen for initial consultation on . She was followed on the medical floor and manic behavior became more apparent as other issues resolved, so she was ultimately transferred to [facility] [[email or web address] on a 302 commitment supported by her daughter (ROS). She is on a 303 as of 03/09/17. Chief Complaint "Bye.". Subjective Patient was seen & assessed interval progress reviewed with Treatment Team. The patient is irritable again today. When I first attempt to see her she will not engage because she is eating her breakfast. When I return later she will only say "bye" in response to my questions. She then comes to the interview room repeatedly with random questions ie "Why are you typing?", "What are you doing?". Nursing reports that she was irritable and rude yesterday, making negative comments about everyone. It was also very difficult to get her meds into her as she would initially refuse them. She does not want to put on strett clothes, saying she is comfortable in hospital gowns. She is observed to have short conversations while in her room alone. Review of Systems Constitutional: + fatigue ENT: No hearing loss, No unusual epistaxis, No nasal symptoms, No sore throat, No tinnitus, No dental problems, No trouble swallowing, No problem reported Respiratory: No cough, No sputum, No wheezing, No shortness of breath, No dyspnea on exertion, No dyspnea at rest, No hemoptysis, No problem reported Cardiovascular: No chest pain, No orthopnea, No PND, No edema, No claudication , No palpitations, No problem reported Abdomen: No pain, No nausea, No vomiting, No diarrhea, No constipation, No GI bleeding, No problem reported Musculoskeletal: No joint pain, No muscle pain, No swelling, No calf pain, No problem reported Neurologic: No memory loss, No paralysis, No weakness, No numbness/tingling, No vertigo, No balance problems, No problem reported Psychiatric: + problem reported (irritable) Integumentary: No rash, No itch, No new/changing skin lesions, No color change , No bleeding, No problem reported Sleep Information Total Hours of Sleep: 6.50 Meal Information Percent of Breakfast Consumed: 100 Percent of Lunch Consumed: 50 Percent of Dinner Consumed: 75 Mental Status Exam During interview pt is: uncooperative Appearance: disheveled, appeared stated age, other (pale) Eye contact is: poor Motor behavior is: steady gait & station, no abnormal motor movements Speech: normal in rate, rhythm & volume Affect: irritable Mood is: irritable Thought process: concrete, other (refusing to engage) Thought content: paranoid, delusions, persecution Suicidal thought are: denied Homicidal thoughts are: denied Hallucinations: denies auditory, denies visual Cognition: other (all spheres impaired) Intelligence estimated to be: average Insight: severely impaired Judgement: severely impaired Impression We have a two-physician order for meds over objection, and 303 granted on 03/09. Patient remains delusional and paranoid, labile and poorly cooperative with care. Nursing is spending a lot of time getting her meds into her, and she is still selective. no chest pain today. Appreciate Ms Marie"s input. Meeting with daughter and Office of Aging this resulted in referrels to longterm, and we await the outcome of several referrals. MA 51 completed and TARGET process initiated. At this point we have high suspicion that there is a significant degree of comorbid dementia effecting the rate and degree of her improvement. We believe that she will be able to be transferred to a nursing facility when one is agreed on and the TARGET process complete. Plan (1) Schizoaffective disorder 03/06 - History supports previous good effect of Seroquel and decompensation associated with noncompliance -Will increase at bedtime Seroquel to 400 mg tonight -Attempting to review history with daughter to consider a more potent antipsychotic such as Risperdal as alternative - Received Haldol prn 1 this a.m. 03/07 - information available at present supports h/o benefit on seroquel. will continue with that agent for now, titrating as indicated. reviewed need for compliance with pt this am and she seemed receptive, hoverer we will have t wait and see if she is compliant tonight. continue haldol prn which she is tolerating well so far. - repeat screening labs in AM 03/08 - Continue quetiapine 50 mg twice a day, and increase bedtime dose to 500 mg. Check fasting labs tomorrow morning. - Continue haloperidol and quetiapine as needed for psychosis. - File for a 303 commitment. 03/09 - Recommend medications over objection, as patient is refusing her antipsychotic and her condition is deteriorating, leading to refusal of medications for HTN and elevated pulse and BP, which put her at risk of AL and stroke. Sleep and appetite are poor, and she is grossly disorganized and psychotic. Will request a second opinion from another physician (medical affairs manager, Dr. Joe), and spoke with her daughter Mily who is POA, who is in agreement with medications over objection if needed. - Fasting labs were ordered for this morning but patient refused the blood draw. Will re-order for tomorrow. 03/10 - Dr. Joe saw patient and agrees with meds over objection. Will add Haldol 5mg IM for refusal of oral quetiapine, and for now will move quetiapine to the morning, so that more staff will be present when attempting to give medication, and so that antipsychotics can be given at the same time as antihypertensives, hopefully improving medication compliance. He can be moved back to bedtime once she is more consistently taking oral medication. Continue to encourage medication compliance. - She refused quetiapine this morning, so received Haldol IM. - Fasting glucose and lipids ordered for tomorrow 03/11 - Hold AM seroquel today due to sedation, but give at HS - Continue with meds over objection by 2 physician order 03/12 --extensive discussion with daughter re: lack of progress with Seroquel and concerns about sedation and fall risk longer term given age. Also reviewed that if option of a dissolvable that perhaps would be more receptive and minimize IM injections. Risks/benefits/alternatives reviewed with daughter/PODeena who was in support of a trial of Risperdal M-tab. She did report baseline concerns about memory predating this episode as would argue with her about tasks they just did. Ms. Cyr has declined to visit with family during holidays and therefore they admittedly haven't interacted with her much in person in the past 1.5 years. She does become guarded/argumentative on the phone and more reclusive at her housing complex. Daughter notes increase in hoarding behaviors. Reviewed that likely even when recovered that she will be unable to live alone without more support and she stated that she/brother had already been checking out nursing facilities. Will decrease Seroquel to 200 mg for 2 nights then d/c. Start Risperdal 1 mg Mtab this pm then BID starting tomorrow with IM Haldol for refusal of am dose. Monitor tachy. 03/13 --did take Risperdal M tab last pm, monitor on BID dosing. Will order prn sleep aide as remains poor and Seroquel being discontinued after tonight. Risperdal increase likely tomorrow. Discussed implementing a toileting protocol with nursing. 03/14 - had risperdal 1mg po bid as scheduled, and 1mg prn for agitation/ psychosis, will need to watch sleep off seroquel (last dose 03/13/17), has haldol IM for po refusal 03/15 - Increase risperidone to 1mg qam and 2mg qhs. Tolerating well, no tachycardia or hypotension. Sleep has deteriorated. 03/16 -Move Risperdal to all HS and increase to 4 mg. HS 03/17 - Continue current meds 03/18 - remains delusional but affect slowly more composed and able to tolerate more stimulation out of room - as we approach ceiling of dose range of risperdal, if additional calming action needed in daytime, could consider re-initiation of low dose seroquel or perhaps very low dose trazodone. 03/19 - Increase Risperdal to 5 mg. HS 03/20 - pt refused risperdal 03/19 night dosing and is refusing the prn dose this morning as well. has refused some of her medical meds as well, including only taking part of her norvasc dose. We will give haldol 5mg M over objection 03/20 am. Clarified this order to give haldol over injection the next am if refusing risperdal the evening prior. However with staff spending time with pt she decided to take a 2mg prn dosage of risperdal m tab mid morning 03/20 and thus held the haldol IM dose for today. -continue meds unchanged. risperdal hs dose changed to regular tab from M tab on 03/19 for significantly reducing number of pills 03/21 continue meds unchanged, advised nursing to focus on risperdal prn as first choice of prn option, jimena if within a day of pt missing some of her scheduled risperdal dosage. consider med for potential hypersalivation, however since tends to be anticholinergic and pt might be having some dementia aspects to her presentation and with degrees of confusion, that could be worsened by such meds while unclear how significant any hypersalivation is, holding this for now. 03/23 - continue current meds. May need to consider a trial of a different antipsychotic if poor response to risperidone. Has been on risperidone since , and on 5 mg daily since 03/20/2017, so has not had a good trial of the medication yet. Patient lacks capacity to make decisions about medication and disposition. The recommendations at this time are that she go to a longterm, as per family, she has cognitively declined in the past year or so and has not been able to live independently. She is unable to understand the recommendations, waited risks and benefits of different options, or appreciate the risks of noncompliance, and therefore these decisions are being deferred to her daughter Mily who is her power of copywriting intern. Social work to start to target process and pursue longterm referrals. Meeting scheduled with daughter for . 03/25 Meeting with daughter and Office of Aging today to discuss disposition 03/26--304 granted, psychosis improving on Risperdal. 03/27 - Suspect a high degree of comorbid dementia. - Referrals pending for nursing facilities, while TARGET process proceeds (2) Renal failure 03/08 - be when elevated at 33, and creatinine 1.40. It appears she's had chronic renal dysfunction, with BUN and of 31 and creatinine of 1.9 in September 2016. We will continue to monitor, and consider the need to consult the hospitalist. 03/09 - Pt refused recheck of creatinine and BUN. 03/10 - BMP results reviewed: BUN 41, and creatinine 1.50. Continue to encourage fluids, and recheck creatinine in 2 days. Consider need for medical consultation, as she is at risk for worsening renal function and dehydration she does not drink enough, and may require transfer to the medical floor for IV fluids if this occurs. 03/12--labs improved a little today, encourage PO. 03/14/17 - ate full meal this AM despite ongoing delusion of being poisoned, she will have Creatinine drawn in the AM tomorrow 03/18 - creat inc to 1.6 and EGFR declining today. - push po - consider medicine c/s 03/19 - Will have staff push fluids with her today and check PRP tomorrow. If worse, will consult medicine 03/20 - Cr lowered to 1.3 and BUN lowered to 22.2, continue to monitor and continue to encourage fluid intake and po intake and med compliance (3) Hypertension 03/06 - increase hydralazine to qid and continue amlodipine 03/10 - intermittently refusing antihypertensive education, with elevated blood pressure and pulse (blood pressure this morning 184/87). Often refuses to allow staff to get vital signs. He did take hydralazine and amlodipine today, and asked staff to attempt to recheck vital signs if she will allow it. 03/14 - BP is WNL 03/20 - BP increased this am, likely tied to refusal of meds, attempting to address 03/22 - continues to have intermittent elevated blood pressure, but has been more compliant with medications. 03/23 - pressure stable the past 24 hours. (4) Diabetes mellitus - continue Lantus 10 units SC BID. Decreased from home dose due to poor oral intake - Insulin sliding scale - Checking BSGs q ac and qhs 03/14 - pharmacy continues to follow but due to refusal of evening basal insulin no new formal recs placed, pharmacist cautions about her slowly elevating sugars. Discussed with team as AM BS's are not dangerously high we will monitor and reconsider if forced insulin over objection is needed if the risks of BS elevations in the short term outweigh the risks of forced medication. 03/25 - Has experienced a 15 lb weight loss since admission. Will order Boost daily (5) Atrial fibrillation -Continue Coreg, dronedarone, and pradaxa 03/26--episode of CP yesterday, resolved. Medicine input reviewed. Discharge / Aftercare Planning Primary Care Physician: Name: Dr Hernandez Psychiatrist: Name: Dr Schilling Visit Code E&M Code: 23171 Risk Factors Assessment : Yes /single/: Yes Higher / Fall in social status: No Access to guns: No Health problems: Yes Mental Health Diagnoses: Yes Substance use disorders: No Previous psychiatric stay: Yes Protective Factors Assessment : No Responsible for young children: No Employed: No Stable relationships: No Supportive family: Yes Data Vital Signs Last 24 Hrs: Date Time Temp Pulse Resp B/P (MAP) Pulse Ox O2 Delivery O2 Flow Rate FiO2 03/27/17 07:02 36.5 81 18 133/84 99 134/82 03/26/17 20:15 80 131/90 03/26/17 13:38 83 110/78 Meds Administered Last 24 Hrs: Meds Administered (Past 24Hrs) Medications (Trade) Dose Ordered Sig/Krish Route Start Time Stop Time Status Last Admin Dose Admin Enteral Nutritional Formula (Boost Glucose Control) 1 can QDB PO 03/26/17 09:00 04/25/17 08:59 03/27/17 09:16 1 CAN Enteral Nutritional Formula (Boost Glucose Control) 1 can 1059 ONCE PO 03/25/17 10:59 03/25/17 11:05 DC 03/25/17 11:12 1 CAN Lab Results Last 24 Hrs: Last 24 Hours Test 03/26/17 11:13 03/26/17 16:25 03/26/17 22:33 03/27/17 07:00 Bedside Glucose 189 mg/dl 223 mg/dl 103 mg/dl 130 mg/dl Problem Qualifiers (1) Schizoaffective disorder: Schizoaffective disorder type: bipolar Qualified Codes: F25.0 - Schizoaffective disorder, bipolar type (2) Diabetes mellitus: Diabetes mellitus type: type 2
--- NOTE | 2017-03-27 10:50 | Pharmacy Progress Note ---
Glycemic Control Progress Note Date of Service Mar 27, 2017. Scope Glycemic Pharmacist consulted for glycemic control to write orders per [facility] inpatient glycemic control protocol. Objective Accuchecks BSG (last 24hrs): Test 03/26/17 11:13 03/26/17 16:25 03/26/17 22:33 03/27/17 07:00 Bedside Glucose 189 mg/dl (70-90) 223 mg/dl (70-90) 103 mg/dl (70-90) 130 mg/dl (70-90) HbA1c: 7.8% 02/25/17 Recent Pertinent Medications The patient is currently receiving: * Basal insulin: Lantus 27 units SQ Q AM * Correctional Insulin: Novolog Correction per scale ACHS Goal Range: Low 110 mg/dL - High 140 mg/dL Correction Factor: 20 mg/dL/unit with breakfast and 25mg/dL/unit with lunch, dinner and bedtime * Prandial insulin: Per carb ratio of 1 unit per 6 grams CHO consumed with breakfast and 1 unit per 9 grams CHO consumed with other meals * Oral Agents: none currently Outpatient Anti-Diabetic Meds Lantus 10 units SQ BID Assessment & Plan ASSESSMENT: 03/27/17 * Glycemic control has been acceptable over the last 24 hours. * BSGs have ranged 103-223mg/dL * Fasting AM BSG 130 today with 27 units of Lantus on board. This is at goal. Will continue. * Post-prandial BSGs have been more difficult to control. However, some of these elevations are due to snacking between meals. When the patient does not snack between meals the CR and CF usually perform fairly well. The pre-dinner BSG spike of 223 yesterday was reported to be due to snacking. Escalating insulin doses to cover BSG elevations due to snacking can lead to hypoglycemia, therefore will not react to yesterday's post-prandial elevations. Will continue to monitor. PLAN FOR INPATIENT GLYCEMIC CONTROL: * Continuing Lantus 27 units SQ Q AM * Continuing correction factor 20 mg/dl/unit w/ breakfast and 25mg/dL/unit with lunch, dinner and HS * Continuing carb ratio 1 unit per 6 grams CHO consumed w/ breakfast and 1 unit per 9 grams CHO w/ lunch and dinner * Continuing goal range Low 110 mg/dL - High 140 mg/dL * Please note that the plan above was derived based on current level of insulin resistance and hospital stress. These recommendations are appropriate for inpatient admission only. Plan of care upon discharge will need to be reassessed to avoid potential outpatient hypo/hyperglycemia. Thank you.
[2017-03-27] MEDS: DRONEDARONE 400 MG TAB PO SCH ×2 (10:54→20:55)
[2017-03-27] MEDS: DABIGATRAN ELEXILATE 75 MG CAP PO SCH ×2 (12:45→20:55)
[2017-03-27] MEDS: CARVEDILOL 12.5 MG TAB PO SCH ×2 (12:45→20:55)
[2017-03-27] MEDS: AMLODIPINE BESYLATE 5 MG TAB PO SCH (12:49)
[2017-03-27 14:25] VITALS: BP 115/77; PULSE 77
[2017-03-27] MEDS ORDERED: POLYETHYLENE (MIRALAX) 17 GM PACK PO ONE (15:30)
--- NOTE | 2017-03-27 15:36 | Progress Note ---
Subjective Date of Service: Mar 27, 2017. Subjective Pt evaluation today including: conversation w/ patient, physical exam, chart review, lab review, conversation w/ office 365 consultant (psych nurse liason ), review of inpatient medication list Pain: mild abdominal PO Intake: fair Voiding: no voiding problems patient knows she is in the hospital and knows she typically lives in [place] she reports seeing people on the ceiling and thinks her daughter works in the psych unit as a nurse denies chest pain or sob last BM documented 03/25 staff report that the patient continues to think she is being poisoned Problem List Medical Problems: (1) Altered mental status Status: Acute (2) Diabetes mellitus with hyperglycemia Status: Acute (3) GI bleed Status: Acute (4) Sinusitis Status: Acute Review of Systems Constitutional: No fever Respiratory: No cough Cardiac: No chest pain Objective Vital Signs Date Time Temp Pulse Resp B/P (MAP) Pulse Ox O2 Delivery O2 Flow Rate FiO2 03/27/17 14:25 77 115/77 03/27/17 07:02 36.5 81 18 133/84 99 134/82 03/26/17 20:15 80 131/90 Physical Exam General Appearance: no apparent distress ENT: pharynx normal Neck: no JVD Respiratory/Chest: lungs clear, no respiratory distress, no accessory muscle use Cardiovascular: no gallop, no murmur, + irregularly irregular Abdomen: normal bowel sounds, non tender, soft, no organomegaly Extremities: no pedal edema Neurologic/Psychiatric: alert Laboratory Results Last 24 Hours Test 03/26/17 16:25 03/26/17 22:33 03/27/17 07:00 03/27/17 12:39 Bedside Glucose 223 mg/dl 103 mg/dl 130 mg/dl 201 mg/dl Assessment and Plan 76yo female - 1. mild abdominal discomfort - possibly due to constipation order bowel regimen and re-eval 2. a. fib - on exam appears to be in a. fib she takes multaq and thus this is likely not efficacious unclear if continuing the multaq is necessary since she has not remained in NSR leave for now continue beta topher continue pradaxa 3. HTN - controlled 4. T2DM - control acceptable; pharmacy managing 5. recent chest pain - has not recurred - monitor 6. schizoaffective disorder - per psych 7. CKD stage 3-4 - repeat BMP in am; depending on CrCl may need to adjust pradaxa dose will continue to follow Discharge planning: half-way facility
[2017-03-27] MEDS: ALUMINUM/MAGNESIUM SUSP 30 ML UDC PO PRN (18:18)
[2017-03-27 19:59] VITALS: BP 138/81; PULSE 92
[2017-03-27] MEDS: RISPERIDONE 1 MG TAB PO SCH (20:55)
[2017-03-27] MEDS: DOCUSATE SODIUM 100 MG CAP PO SCH (20:56)
[2017-03-28 07:07] VITALS: BP_SYST 110; BP_SYST 119; BP_DIAS 70; BP_DIAS 74; PULSE 76; PULSE 78; TEMP 36.5
[2017-03-28 07:47] LABS: HEMATOCRIT 35.9 % (37-47); MEAN CELL VOLUME 87.3 fL (80-100); MEAN CORPUSCULAR HEMOGLOBIN 28.5 pg (25-34); MEAN CORPUSCULAR HGB CONC 32.6 g/dl (32-36); MEAN PLATELET VOLUME 9.4 fL (7.4-10.4); PLATELET COUNT 578 K/uL (130-400); RED BLOOD COUNT 4.11 M/uL (4.2-5.4); WHITE BLOOD COUNT 10.28 K/uL (4.8-10.8)
[2017-03-28 08:17] LABS: BUN/CREATININE RATIO 25.6 (10-20); CALCIUM 9.5 mg/dl (8.5-10.1); CREATININE 1.4 mg/dl (0.60-1.20); POTASSIUM 4.4 mmol/L (3.5-5.1)
[2017-03-28] MEDS: DOCUSATE SODIUM 100 MG CAP PO SCH ×2 (08:30→22:10)
[2017-03-28] MEDS: CARVEDILOL 12.5 MG TAB PO SCH ×2 (08:30→22:08)
[2017-03-28] MEDS: BOOST GLUCOSE CONTROL PO SCH (08:30)
[2017-03-28] MEDS: DRONEDARONE 400 MG TAB PO SCH ×2 (08:30→22:08)
[2017-03-28] MEDS: PANTOprazole SOD 40 MG TAB PO SCH (08:30)
[2017-03-28] MEDS: DABIGATRAN ELEXILATE 75 MG CAP PO SCH ×2 (08:30→22:09)
[2017-03-28] MEDS: ASPIRIN 81 MG ECTAB PO SCH (08:30)
[2017-03-28] MEDS: PRAVASTATIN SOD 40 MG TAB PO SCH ×2 (08:30→22:08)
[2017-03-28] MEDS: PROBENECID 500 MG TAB PO SCH ×2 (08:30→22:09)
[2017-03-28] MEDS: AMLODIPINE BESYLATE 5 MG TAB PO SCH (08:30)
[2017-03-28] MEDS: PYRIDOXINE HCL 50 MG TAB PO SCH (08:30)
--- NOTE | 2017-03-28 08:31 | Psychiatric Progress Notes ---
Progress Note Date of Service Mar 28, 2017. Interval History Tressa is a 76 y/o female who resides alone in [place], has a diagnosis of schizoaffective disorder bipolar type, and was admitted to the medical floor for cardiac work-up/delirium on 02/26/17 and seen for initial consultation on . She was followed on the medical floor and manic behavior became more apparent as other issues resolved, so she was ultimately transferred to [facility] on a 302 commitment supported by her daughter (ROS). She is on a 303 as of 03/09/17. Chief Complaint "Not you.". Subjective Patient was seen & assessed interval progress reviewed with Treatment Team. The patient is irritable again today. She frequently comes by my office to comment or ask a question, but when I ask to meet with her she refuses, much the same as yesterday. She is interacting with peers and spending more time in the day area. Nursing reports that she has been rude, mocking and disrespectful with staff and some peers. She says what's on her mind without thinking. She did take her meds more easily yesterday. She has not reported any further episodes of chest pain. She allowed labs to be drawn this AM. Review of Systems Constitutional: No fever, No chills, No sweats, No weight loss, No weakness, No fatigue, No problem reported ENT: No hearing loss, No unusual epistaxis, No nasal symptoms, No sore throat, No tinnitus, No dental problems, No trouble swallowing, No problem reported Respiratory: No cough, No sputum, No wheezing, No shortness of breath, No dyspnea on exertion, No dyspnea at rest, No hemoptysis, No problem reported Cardiovascular: No chest pain, No orthopnea, No PND, No edema, No claudication , No palpitations, No problem reported Abdomen: No pain, No nausea, No vomiting, No diarrhea, No constipation, No GI bleeding, No problem reported Musculoskeletal: No joint pain, No muscle pain, No swelling, No calf pain, No problem reported Neurologic: No memory loss, No paralysis, No weakness, No numbness/tingling, No vertigo, No balance problems, No problem reported Psychiatric: + problem reported (Irritable, rude) Integumentary: No rash, No itch, No new/changing skin lesions, No color change , No bleeding, No problem reported Sleep Information Total Hours of Sleep: 6.50 Meal Information Percent of Breakfast Consumed: 100 Percent of Lunch Consumed: 100 Percent of Dinner Consumed: 75 Mental Status Exam During interview pt is: uncooperative Appearance: disheveled, appeared stated age, other (pale) Eye contact is: poor Motor behavior is: steady gait & station, no abnormal motor movements Speech: normal in rate, rhythm & volume Affect: irritable Mood is: irritable Thought process: concrete, other (refusing to engage) Thought content: paranoid, delusions, persecution Suicidal thought are: denied Homicidal thoughts are: denied Hallucinations: denies auditory, denies visual Cognition: other (all spheres impaired) Intelligence estimated to be: average Insight: severely impaired Judgement: severely impaired Impression We have a two-physician order for meds over objection, and 303 granted on 03/09. Patient remains delusional and paranoid, labile and poorly cooperative with care. Nursing is spending a lot of time getting her meds into her, and she is still selective. no chest pain today. Appreciate Ms Marie"s input. Meeting with daughter and Office of Aging this resulted in referrels to shelter, and we await the outcome of several referrals. MA 51 completed and TARGET process initiated. At this point we have high suspicion that there is a significant degree of comorbid dementia effecting the rate and degree of her improvement. We believe that she will be able to be transferred to a nursing facility when one is agreed on and the TARGET process complete. Continue current plan. Plan (1) Schizoaffective disorder 03/06 - History supports previous good effect of Seroquel and decompensation associated with noncompliance -Will increase at bedtime Seroquel to 400 mg tonight -Attempting to review history with daughter to consider a more potent antipsychotic such as Risperdal as alternative - Received Haldol prn 1 this a.m. 03/07 - information available at present supports h/o benefit on seroquel. will continue with that agent for now, titrating as indicated. reviewed need for compliance with pt this am and she seemed receptive, hoverer we will have t wait and see if she is compliant tonight. continue haldol prn which she is tolerating well so far. - repeat screening labs in AM 03/08 - Continue quetiapine 50 mg twice a day, and increase bedtime dose to 500 mg. Check fasting labs tomorrow morning. - Continue haloperidol and quetiapine as needed for psychosis. - File for a 303 commitment. 03/09 - Recommend medications over objection, as patient is refusing her antipsychotic and her condition is deteriorating, leading to refusal of medications for HTN and elevated pulse and BP, which put her at risk of NM and stroke. Sleep and appetite are poor, and she is grossly disorganized and psychotic. Will request a second opinion from another physician (medical insurance claims processor, Dr. Joe), and spoke with her daughter Mily who is POA, who is in agreement with medications over objection if needed. - Fasting labs were ordered for this morning but patient refused the blood draw. Will re-order for tomorrow. 03/10 - Dr. Joe saw patient and agrees with meds over objection. Will add Haldol 5mg IM for refusal of oral quetiapine, and for now will move quetiapine to the morning, so that more staff will be present when attempting to give medication, and so that antipsychotics can be given at the same time as antihypertensives, hopefully improving medication compliance. He can be moved back to bedtime once she is more consistently taking oral medication. Continue to encourage medication compliance. - She refused quetiapine this morning, so received Haldol IM. - Fasting glucose and lipids ordered for tomorrow 03/11 - Hold AM seroquel today due to sedation, but give at HS - Continue with meds over objection by 2 physician order 03/12 --extensive discussion with daughter re: lack of progress with Seroquel and concerns about sedation and fall risk longer term given age. Also reviewed that if option of a dissolvable that perhaps would be more receptive and minimize IM injections. Risks/benefits/alternatives reviewed with daughter/PODeena who was in support of a trial of Risperdal M-tab. She did report baseline concerns about memory predating this episode as would argue with her about tasks they just did. Ms. Cyr has declined to visit with family during holidays and therefore they admittedly haven't interacted with her much in person in the past 1.5 years. She does become guarded/argumentative on the phone and more reclusive at her housing complex. Daughter notes increase in hoarding behaviors. Reviewed that likely even when recovered that she will be unable to live alone without more support and she stated that she/brother had already been checking out nursing facilities. Will decrease Seroquel to 200 mg for 2 nights then d/c. Start Risperdal 1 mg Mtab this pm then BID starting tomorrow with IM Haldol for refusal of am dose. Monitor tachy. 03/13 --did take Risperdal M tab last pm, monitor on BID dosing. Will order prn sleep aide as remains poor and Seroquel being discontinued after tonight. Risperdal increase likely tomorrow. Discussed implementing a toileting protocol with nursing. 03/14 - had risperdal 1mg po bid as scheduled, and 1mg prn for agitation/ psychosis, will need to watch sleep off seroquel (last dose 03/13/17), has haldol IM for po refusal 03/15 - Increase risperidone to 1mg qam and 2mg qhs. Tolerating well, no tachycardia or hypotension. Sleep has deteriorated. 03/16 -Move Risperdal to all HS and increase to 4 mg. HS 03/17 - Continue current meds 03/18 - remains delusional but affect slowly more composed and able to tolerate more stimulation out of room - as we approach ceiling of dose range of risperdal, if additional calming action needed in daytime, could consider re-initiation of low dose seroquel or perhaps very low dose trazodone. 03/19 - Increase Risperdal to 5 mg. HS 03/20 - pt refused risperdal 03/19 night dosing and is refusing the prn dose this morning as well. has refused some of her medical meds as well, including only taking part of her norvasc dose. We will give haldol 5mg M over objection 03/20 am. Clarified this order to give haldol over injection the next am if refusing risperdal the evening prior. However with staff spending time with pt she decided to take a 2mg prn dosage of risperdal m tab mid morning 03/20 and thus held the haldol IM dose for today. -continue meds unchanged. risperdal hs dose changed to regular tab from M tab on 03/19 for significantly reducing number of pills 03/21 continue meds unchanged, advised nursing to focus on risperdal prn as first choice of prn option, jimena if within a day of pt missing some of her scheduled risperdal dosage. consider med for potential hypersalivation, however since tends to be anticholinergic and pt might be having some dementia aspects to her presentation and with degrees of confusion, that could be worsened by such meds while unclear how significant any hypersalivation is, holding this for now. 03/23 - continue current meds. May need to consider a trial of a different antipsychotic if poor response to risperidone. Has been on risperidone since , and on 5 mg daily since 03/20/2017, so has not had a good trial of the medication yet. Patient lacks capacity to make decisions about medication and disposition. The recommendations at this time are that she go to a shelter, as per family, she has cognitively declined in the past year or so and has not been able to live independently. She is unable to understand the recommendations, waited risks and benefits of different options, or appreciate the risks of noncompliance, and therefore these decisions are being deferred to her daughter Mily who is her power of assistant district attorney. Social work to start to target process and pursue shelter referrals. Meeting scheduled with daughter for . 03/25 Meeting with daughter and Office of Aging today to discuss disposition 03/26--304 granted, psychosis improving on Risperdal. 03/27 - Suspect a high degree of comorbid dementia. - Referrals pending for nursing facilities, while TARGET process proceeds 03/28 - Continue current plan (2) Renal failure 03/08 - be when elevated at 33, and creatinine 1.40. It appears she's had chronic renal dysfunction, with BUN and of 31 and creatinine of 1.9 in September 2016. We will continue to monitor, and consider the need to consult the hospitalist. 03/09 - Pt refused recheck of creatinine and BUN. 03/10 - BMP results reviewed: BUN 41, and creatinine 1.50. Continue to encourage fluids, and recheck creatinine in 2 days. Consider need for medical consultation, as she is at risk for worsening renal function and dehydration she does not drink enough, and may require transfer to the medical floor for IV fluids if this occurs. 03/12--labs improved a little today, encourage PO. 03/14/17 - ate full meal this AM despite ongoing delusion of being poisoned, she will have Creatinine drawn in the AM tomorrow 03/18 - creat inc to 1.6 and EGFR declining today. - push po - consider medicine c/s 03/19 - Will have staff push fluids with her today and check PRP tomorrow. If worse, will consult medicine 03/20 - Cr lowered to 1.3 and BUN lowered to 22.2, continue to monitor and continue to encourage fluid intake and po intake and med compliance (3) Hypertension 03/06 - increase hydralazine to qid and continue amlodipine 03/10 - intermittently refusing antihypertensive education, with elevated blood pressure and pulse (blood pressure this morning 184/87). Often refuses to allow staff to get vital signs. He did take hydralazine and amlodipine today, and asked staff to attempt to recheck vital signs if she will allow it. 03/14 - BP is WNL 03/20 - BP increased this am, likely tied to refusal of meds, attempting to address 03/22 - continues to have intermittent elevated blood pressure, but has been more compliant with medications. 03/23 - pressure stable the past 24 hours. (4) Diabetes mellitus - continue Lantus 10 units SC BID. Decreased from home dose due to poor oral intake - Insulin sliding scale - Checking BSGs q ac and qhs 03/14 - pharmacy continues to follow but due to refusal of evening basal insulin no new formal recs placed, pharmacist cautions about her slowly elevating sugars. Discussed with team as AM BS's are not dangerously high we will monitor and reconsider if forced insulin over objection is needed if the risks of BS elevations in the short term outweigh the risks of forced medication. 03/25 - Has experienced a 15 lb weight loss since admission. Will order Boost daily (5) Atrial fibrillation -Continue Coreg, dronedarone, and pradaxa 03/26--episode of CP yesterday, resolved. Medicine input reviewed. Discharge / Aftercare Planning Primary Care Physician: Name: Dr Hernandez Psychiatrist: Name: Dr Schilling Visit Code E&M Code: 09936 Risk Factors Assessment : Yes /single/: Yes Higher / Fall in social status: No Access to guns: No Health problems: Yes Mental Health Diagnoses: Yes Substance use disorders: No Previous psychiatric stay: Yes Protective Factors Assessment : No Responsible for young children: No Employed: No Stable relationships: No Supportive family: Yes Data Vital Signs Last 24 Hrs: Date Time Temp Pulse Resp B/P (MAP) Pulse Ox O2 Delivery O2 Flow Rate FiO2 03/28/17 07:07 36.5 76 18 119/74 78 110/70 03/27/17 19:59 92 18 138/81 03/27/17 14:25 77 115/77 Meds Administered Last 24 Hrs: Meds Administered (Past 24Hrs) Medications (Trade) Dose Ordered Sig/Krish Route Start Time Stop Time Status Last Admin Dose Admin Enteral Nutritional Formula (Boost Glucose Control) 1 can QDB PO 03/26/17 09:00 04/25/17 08:59 03/27/17 09:16 1 CAN Lab Results Last 24 Hrs: Last 24 Hours Test 03/27/17 12:39 03/27/17 17:10 03/27/17 20:27 03/28/17 07:28 Bedside Glucose 201 mg/dl 198 mg/dl 200 mg/dl White Blood Count 10.28 K/uL Red Blood Count 4.11 M/uL Hemoglobin 11.7 g/dL Hematocrit 35.9 % Mean Corpuscular Volume 87.3 fL Mean Corpuscular Hemoglobin 28.5 pg Mean Corpuscular Hemoglobin Concent 32.6 g/dl RDW Standard Deviation 46.6 fL RDW Coefficient of Variation 14.5 % Platelet Count 578 K/uL Mean Platelet Volume 9.4 fL Sodium Level 140 mmol/L Potassium Level 4.4 mmol/L Chloride Level 106 mmol/L Carbon Dioxide Level 28 mmol/L Anion Gap 6.0 mmol/L Blood Urea Nitrogen 36 mg/dl Creatinine 1.40 mg/dl Est Creatinine Clear Calc Drug Dose 32.4 ml/min Estimated GFR () 42.8 Estimated GFR (Non- 36.9 BUN/Creatinine Ratio 25.6 Random Glucose 152 mg/dl Calcium Level 9.5 mg/dl Problem Qualifiers (1) Schizoaffective disorder: Schizoaffective disorder type: bipolar Qualified Codes: F25.0 - Schizoaffective disorder, bipolar type (2) Diabetes mellitus: Diabetes mellitus type: type 2
[2017-03-28] MEDS ORDERED: POLYETHYLENE (MIRALAX) 17 GM PACK PO SCH (09:00)
[2017-03-28] MEDS: INSULIN ASPART 100 UNITS/ML 3 ML PEN SC SCH ×4 (09:50→22:00)
[2017-03-28] MEDS: INSULIN GLARGINE SOLOSTAR 100 UNITS/ML 3 ML PEN SC SCH (09:52)
--- NOTE | 2017-03-28 10:15 | Pharmacy Progress Note ---
Glycemic Control Progress Note Date of Service Mar 28, 2017. Scope Glycemic Pharmacist consulted for glycemic control to write orders per [facility] inpatient glycemic control protocol. Objective Accuchecks BSG (last 24hrs): Test 03/27/17 12:39 03/27/17 17:10 03/27/17 20:27 03/28/17 07:28 Bedside Glucose 201 mg/dl (70-90) 198 mg/dl (70-90) 200 mg/dl (70-90) Random Glucose 152 mg/dl (70-99) HbA1c: 7.8% 02/25/17 Recent Pertinent Medications The patient is currently receiving: * Basal insulin: Lantus 27 units SQ Q AM * Correctional Insulin: Novolog Correction per scale ACHS Goal Range: Low 110 mg/dL - High 140 mg/dL Correction Factor: 20 mg/dL/unit with breakfast and 25mg/dL/unit with lunch, dinner and bedtime * Prandial insulin: Per carb ratio of 1 unit per 6 grams CHO consumed with breakfast and 1 unit per 9 grams CHO consumed with other meals * Oral Agents: none currently Outpatient Anti-Diabetic Meds Lantus 10 units SQ BID Assessment & Plan ASSESSMENT: 03/27/17 * Glycemic control has been acceptable over the last 24 hours. * BSGs have ranged 103-223mg/dL * Fasting AM BSG 130 today with 27 units of Lantus on board. This is at goal. Will continue. * Post-prandial BSGs have been more difficult to control. However, some of these elevations are due to snacking between meals. When the patient does not snack between meals the CR and CF usually perform fairly well. The pre-dinner BSG spike of 223 yesterday was reported to be due to snacking. Escalating insulin doses to cover BSG elevations due to snacking can lead to hypoglycemia, therefore will not react to yesterday's post-prandial elevations. Will continue to monitor. 03/28/17 * BSGs have ranged 145-201 over the last 24 hrs * Fasting BSG near goal this AM, FBS 145, with 27 units of Lantus on board. Prior to today, FBS had been at goal but at the upper end of goal. Will increase basal dose slightly as it appears she is going to require ~60 units of insulin per day when tolerating a diet * Post-prandial BSGs remain elevated. Will increase the dose with lunch. Will keep a lesser dose with dinner as bedtime BSG tends to be one of the lowest BSGs of the day. PLAN FOR INPATIENT GLYCEMIC CONTROL: * Increasing Lantus to 30 units SQ Q AM * Changing correction factor to 20 mg/dl/unit w/ breakfast + lunch; 25mg/dL/ unit with dinner + HS * Changing carb ratio 1 unit per 6 grams CHO consumed w/ breakfast + lunch; 1 unit per 9 grams CHO w/ dinner * Continuing goal range Low 110 mg/dL - High 140 mg/dL * Please note that the plan above was derived based on current level of insulin resistance and hospital stress. These recommendations are appropriate for inpatient admission only. Plan of care upon discharge will need to be reassessed to avoid potential outpatient hypo/hyperglycemia. Thank you.
[2017-03-28 13:22] VITALS: BP 136/79; PULSE 93
--- NOTE | 2017-03-28 14:56 | DIAGNOSTIC IMAGING REPORT ---
KUB HISTORY: eval for fecal impaction/stool load COMPARISON: KUB 08/16/2010. Abdomen and pelvis CT 06/14/2013. FINDINGS: The bowel gas pattern is unremarkable. There are no dilated loops of small bowel to suggest an obstruction. No renal calculi. No ureteral calculi. No pneumoperitoneum or pneumatosis. Moderate amount of well-formed stool seen throughout the colon. IMPRESSION: No evidence for bowel obstruction. Moderate well-formed stool seen throughout the colon. Electronically signed by: Sagar Kimble M.D. 03/28/2017 2:54 PM Dictated Date/Time: 03/28/2017 2:53 PM
--- NOTE | 2017-03-28 15:28 | Progress Note ---
Subjective Date of Service: Mar 28, 2017. Subjective Pt evaluation today including: conversation w/ patient, physical exam, chart review, lab review, conversation w/ outreach consultant (PSYCH) Pain: abdomen, intermittent, Left-side PO Intake: fair Voiding: no voiding problems nursing notes suggest she has had loose stool x 1 last pm no stool today prior to yesterday apparently had been constipated? when asked how she was feeling today she initially said "bad, but I'm good" when asked again she said "bad" and couldn't really verbalize what was wrong Problem List Medical Problems: (1) Altered mental status Status: Acute (2) Diabetes mellitus with hyperglycemia Status: Acute (3) GI bleed Status: Acute (4) Sinusitis Status: Acute Review of Systems Constitutional: No fever Respiratory: No cough, No shortness of breath Cardiac: No chest pain Abdomen: + see HPI, + pain, No nausea, No vomiting Objective Vital Signs Date Time Temp Pulse Resp B/P (MAP) Pulse Ox O2 Delivery O2 Flow Rate FiO2 03/28/17 13:22 93 136/79 03/28/17 07:07 36.5 76 18 119/74 78 110/70 03/27/17 19:59 92 18 138/81 Physical Exam General Appearance: no apparent distress ENT: pharynx normal Neck: thyroid normal Respiratory/Chest: lungs clear, no respiratory distress, no accessory muscle use Cardiovascular: no gallop, no murmur, + tachycardia, + irregularly irregular Abdomen: normal bowel sounds, soft, no organomegaly, + tenderness (minimal, LLQ ) Extremities: no pedal edema Neurologic/Psychiatric: alert, + pertinent finding (delusions) Laboratory Results Last 24 Hours Test 03/27/17 17:10 03/27/17 20:27 03/28/17 07:28 03/28/17 13:39 Bedside Glucose 198 mg/dl 200 mg/dl White Blood Count 10.28 K/uL Red Blood Count 4.11 M/uL Hemoglobin 11.7 g/dL Hematocrit 35.9 % Mean Corpuscular Volume 87.3 fL Mean Corpuscular Hemoglobin 28.5 pg Mean Corpuscular Hemoglobin Concent 32.6 g/dl RDW Standard Deviation 46.6 fL RDW Coefficient of Variation 14.5 % Platelet Count 578 K/uL Mean Platelet Volume 9.4 fL Sodium Level 140 mmol/L Potassium Level 4.4 mmol/L Chloride Level 106 mmol/L Carbon Dioxide Level 28 mmol/L Anion Gap 6.0 mmol/L Blood Urea Nitrogen 36 mg/dl Creatinine 1.40 mg/dl Est Creatinine Clear Calc Drug Dose 32.4 ml/min Estimated GFR () 42.8 Estimated GFR (Non- 36.9 BUN/Creatinine Ratio 25.6 Random Glucose 152 mg/dl Calcium Level 9.5 mg/dl Assessment and Plan 76yo female - 1. mild abdominal discomfort - check KUB, r/o constipation/impaction. check u/a and urine cx - r/o UTI. 2. a. fib - on exam appears to be in a. fib and was quite rapid today. However , she had refused her AM coreg. she takes multaq and thus this is likely not efficacious unclear if continuing the multaq is necessary since she has not remained in NSR continue beta topher continue pradaxa follow HRs; if they continue to remain high consider changing coreg to toprol 3. HTN - controlled 4. T2DM - control acceptable; pharmacy managing 5. recent chest pain - has not recurred - monitor 6. schizoaffective disorder - per psych 7. CKD stage 3-4 - repeat BMP today with stable Creatinine will follow up on u/a and KUB x-ray Discharge planning: retirement facility
[2017-03-28 20:09] VITALS: BP 169/85; PULSE 90
[2017-03-28] MEDS: POLYETHYLENE (MIRALAX) 17 GM PACK PO SCH (22:00)
[2017-03-28] MEDS: RISPERIDONE 1 MG TAB PO SCH (22:09)
[2017-03-29 06:55] VITALS: BP_SYST 106; BP_SYST 125; BP_DIAS 68; BP_DIAS 83; PULSE 94; PULSE 95; TEMP 36.4
[2017-03-29] MEDS: DRONEDARONE 400 MG TAB PO SCH (08:00)
[2017-03-29] MEDS: DABIGATRAN ELEXILATE 75 MG CAP PO SCH ×2 (08:00→19:47)
[2017-03-29] MEDS: CARVEDILOL 12.5 MG TAB PO SCH (08:00)
[2017-03-29] MEDS: PRAVASTATIN SOD 40 MG TAB PO SCH ×2 (08:00→20:01)
[2017-03-29] MEDS: POLYETHYLENE (MIRALAX) 17 GM PACK PO SCH ×2 (09:00→19:50)
[2017-03-29] MEDS: AMLODIPINE BESYLATE 5 MG TAB PO SCH (09:00)
[2017-03-29] MEDS: INSULIN GLARGINE SOLOSTAR 100 UNITS/ML 3 ML PEN SC SCH (09:00)
[2017-03-29] MEDS: PYRIDOXINE HCL 50 MG TAB PO SCH (09:00)
[2017-03-29] MEDS: ASPIRIN 81 MG ECTAB PO SCH (09:00)
[2017-03-29] MEDS: DOCUSATE SODIUM 100 MG CAP PO SCH ×2 (09:00→19:50)
[2017-03-29] MEDS: PANTOprazole SOD 40 MG TAB PO SCH (09:00)
[2017-03-29] MEDS: BOOST GLUCOSE CONTROL PO SCH (09:00)
[2017-03-29] MEDS: INSULIN ASPART 100 UNITS/ML 3 ML PEN SC SCH ×4 (09:34→21:10)
[2017-03-29] MEDS: PROBENECID 500 MG TAB PO SCH ×2 (10:09→19:48)
--- NOTE | 2017-03-29 11:21 | Psychiatric Progress Notes ---
Progress Note Date of Service Mar 29, 2017. Interval History Tressa is a 76 y/o female who resides alone in [place], has a diagnosis of schizoaffective disorder bipolar type, and was admitted to the medical floor for cardiac work-up/delirium on 02/26/17 and seen for initial consultation on . She was followed on the medical floor and manic behavior became more apparent as other issues resolved, so she was ultimately transferred to [facility] on a 302 commitment supported by her daughter (ROS). She is on a 303 as of 03/09/17. Chief Complaint "Will I talk to you? ". Subjective Patient was seen & assessed interval progress reviewed with Treatment Team. Patient is difficult to engage in meaningful conversation. She repeats my name but will not answer questions or come to the interview room. She repeats my questions but doesn't them. She does not seem to remember that she refused her am medications. (She did take her insulin this am and her risperdal last evening ). She smiles when I ask her to describe her mood but doesn't answer. When attempting ROS she states "get out of my room." Staff report that she makes rude comments and needs to be frequently redirected. She did not sleep well last night. Review of Systems refused to answer. Sleep Information Total Hours of Sleep: 3.75 Meal Information Percent of Breakfast Consumed: 100 Percent of Lunch Consumed: 100 Percent of Dinner Consumed: 100 Mental Status Exam During interview pt is: uncooperative Appearance: disheveled, appeared stated age, other (pale) Eye contact is: poor Motor behavior is: steady gait & station, no abnormal motor movements Speech: normal in rate, rhythm & volume Affect: irritable Mood is: irritable Thought process: concrete, other (refusing to engage) Thought content: paranoid, delusions, persecution Suicidal thought are: denied Homicidal thoughts are: denied Hallucinations: denies auditory, denies visual Cognition: other (all spheres impaired) Intelligence estimated to be: average Insight: severely impaired Judgement: severely impaired Impression We have a two-physician order for meds over objection, and 303 granted on 03/09. Patient remains delusional and paranoid, labile and poorly cooperative with care. Nursing is spending a lot of time getting her meds into her, and she is still selective. no chest pain today. Appreciate Ms Marie"s input. Meeting with daughter and Office of Aging this resulted in referrels to long term, and we await the outcome of several referrals. MA 51 completed and TARGET process initiated. At this point we have high suspicion that there is a significant degree of comorbid dementia effecting the rate and degree of her improvement. We believe that she will be able to be transferred to a nursing facility when one is agreed on and the TARGET process complete. Continue current plan. Plan (1) Schizoaffective disorder 03/06 - History supports previous good effect of Seroquel and decompensation associated with noncompliance -Will increase at bedtime Seroquel to 400 mg tonight -Attempting to review history with daughter to consider a more potent antipsychotic such as Risperdal as alternative - Received Haldol prn 1 this a.m. 03/07 - information available at present supports h/o benefit on seroquel. will continue with that agent for now, titrating as indicated. reviewed need for compliance with pt this am and she seemed receptive, hoverer we will have t wait and see if she is compliant tonight. continue haldol prn which she is tolerating well so far. - repeat screening labs in AM 03/08 - Continue quetiapine 50 mg twice a day, and increase bedtime dose to 500 mg. Check fasting labs tomorrow morning. - Continue haloperidol and quetiapine as needed for psychosis. - File for a 303 commitment. 03/09 - Recommend medications over objection, as patient is refusing her antipsychotic and her condition is deteriorating, leading to refusal of medications for HTN and elevated pulse and BP, which put her at risk of NM and stroke. Sleep and appetite are poor, and she is grossly disorganized and psychotic. Will request a second opinion from another physician (medical office representative, Dr. Joe), and spoke with her daughter Mily who is POA, who is in agreement with medications over objection if needed. - Fasting labs were ordered for this morning but patient refused the blood draw. Will re-order for tomorrow. 03/10 - Dr. Joe saw patient and agrees with meds over objection. Will add Haldol 5mg IM for refusal of oral quetiapine, and for now will move quetiapine to the morning, so that more staff will be present when attempting to give medication, and so that antipsychotics can be given at the same time as antihypertensives, hopefully improving medication compliance. He can be moved back to bedtime once she is more consistently taking oral medication. Continue to encourage medication compliance. - She refused quetiapine this morning, so received Haldol IM. - Fasting glucose and lipids ordered for tomorrow 03/11 - Hold AM seroquel today due to sedation, but give at HS - Continue with meds over objection by 2 physician order 03/12 --extensive discussion with daughter re: lack of progress with Seroquel and concerns about sedation and fall risk longer term given age. Also reviewed that if option of a dissolvable that perhaps would be more receptive and minimize IM injections. Risks/benefits/alternatives reviewed with daughter/POA who was in support of a trial of Risperdal M-tab. She did report baseline concerns about memory predating this episode as would argue with her about tasks they just did. Ms. Cyr has declined to visit with family during holidays and therefore they admittedly haven't interacted with her much in person in the past 1.5 years. She does become guarded/argumentative on the phone and more reclusive at her housing complex. Daughter notes increase in hoarding behaviors. Reviewed that likely even when recovered that she will be unable to live alone without more support and she stated that she/brother had already been checking out nursing facilities. Will decrease Seroquel to 200 mg for 2 nights then d/c. Start Risperdal 1 mg Mtab this pm then BID starting tomorrow with IM Haldol for refusal of am dose. Monitor tachy. 03/13 --did take Risperdal M tab last pm, monitor on BID dosing. Will order prn sleep aide as remains poor and Seroquel being discontinued after tonight. Risperdal increase likely tomorrow. Discussed implementing a toileting protocol with nursing. 03/14 - had risperdal 1mg po bid as scheduled, and 1mg prn for agitation/ psychosis, will need to watch sleep off seroquel (last dose 03/13/17), has haldol IM for po refusal 03/15 - Increase risperidone to 1mg qam and 2mg qhs. Tolerating well, no tachycardia or hypotension. Sleep has deteriorated. 03/16 -Move Risperdal to all HS and increase to 4 mg. HS 03/17 - Continue current meds 03/18 - remains delusional but affect slowly more composed and able to tolerate more stimulation out of room - as we approach ceiling of dose range of risperdal, if additional calming action needed in daytime, could consider re-initiation of low dose seroquel or perhaps very low dose trazodone. 03/19 - Increase Risperdal to 5 mg. HS 03/20 - pt refused risperdal 03/19 night dosing and is refusing the prn dose this morning as well. has refused some of her medical meds as well, including only taking part of her norvasc dose. We will give haldol 5mg M over objection 03/20 am. Clarified this order to give haldol over injection the next am if refusing risperdal the evening prior. However with staff spending time with pt she decided to take a 2mg prn dosage of risperdal m tab mid morning 03/20 and thus held the haldol IM dose for today. -continue meds unchanged. risperdal hs dose changed to regular tab from M tab on 03/19 for significantly reducing number of pills 03/21 continue meds unchanged, advised nursing to focus on risperdal prn as first choice of prn option, jimena if within a day of pt missing some of her scheduled risperdal dosage. consider med for potential hypersalivation, however since tends to be anticholinergic and pt might be having some dementia aspects to her presentation and with degrees of confusion, that could be worsened by such meds while unclear how significant any hypersalivation is, holding this for now. 03/23 - continue current meds. May need to consider a trial of a different antipsychotic if poor response to risperidone. Has been on risperidone since , and on 5 mg daily since 03/20/2017, so has not had a good trial of the medication yet. Patient lacks capacity to make decisions about medication and disposition. The recommendations at this time are that she go to a long term, as per family, she has cognitively declined in the past year or so and has not been able to live independently. She is unable to understand the recommendations, waited risks and benefits of different options, or appreciate the risks of noncompliance, and therefore these decisions are being deferred to her daughter Mily who is her power of mergers and acquisitions attorney. Social work to start to target process and pursue long term referrals. Meeting scheduled with daughter for . 03/25 Meeting with daughter and Office of Aging today to discuss disposition 03/26--304 granted, psychosis improving on Risperdal. 03/27 - Suspect a high degree of comorbid dementia. - Referrals pending for nursing facilities, while TARGET process proceeds 03/28 - Continue current plan 03/29 - Continue as above (2) Renal failure 03/08 - be when elevated at 33, and creatinine 1.40. It appears she's had chronic renal dysfunction, with BUN and of 31 and creatinine of 1.9 in September 2016. We will continue to monitor, and consider the need to consult the hospitalist. 03/09 - Pt refused recheck of creatinine and BUN. 03/10 - BMP results reviewed: BUN 41, and creatinine 1.50. Continue to encourage fluids, and recheck creatinine in 2 days. Consider need for medical consultation, as she is at risk for worsening renal function and dehydration she does not drink enough, and may require transfer to the medical floor for IV fluids if this occurs. 03/12--labs improved a little today, encourage PO. 03/14/17 - ate full meal this AM despite ongoing delusion of being poisoned, she will have Creatinine drawn in the AM tomorrow 03/18 - creat inc to 1.6 and EGFR declining today. - push po - consider medicine c/s 03/19 - Will have staff push fluids with her today and check PRP tomorrow. If worse, will consult medicine 03/20 - Cr lowered to 1.3 and BUN lowered to 22.2, continue to monitor and continue to encourage fluid intake and po intake and med compliance (3) Hypertension 03/06 - increase hydralazine to qid and continue amlodipine 03/10 - intermittently refusing antihypertensive education, with elevated blood pressure and pulse (blood pressure this morning 184/87). Often refuses to allow staff to get vital signs. He did take hydralazine and amlodipine today, and asked staff to attempt to recheck vital signs if she will allow it. 03/14 - BP is WNL 03/20 - BP increased this am, likely tied to refusal of meds, attempting to address 03/22 - continues to have intermittent elevated blood pressure, but has been more compliant with medications. 03/23 - pressure stable the past 24 hours. (4) Diabetes mellitus - continue Lantus 10 units SC BID. Decreased from home dose due to poor oral intake - Insulin sliding scale - Checking BSGs q ac and qhs 03/14 - pharmacy continues to follow but due to refusal of evening basal insulin no new formal recs placed, pharmacist cautions about her slowly elevating sugars. Discussed with team as AM BS's are not dangerously high we will monitor and reconsider if forced insulin over objection is needed if the risks of BS elevations in the short term outweigh the risks of forced medication. 03/25 - Has experienced a 15 lb weight loss since admission. Will order Boost daily (5) Atrial fibrillation -Continue Coreg, dronedarone, and pradaxa 03/26--episode of CP yesterday, resolved. Medicine input reviewed. Discharge / Aftercare Planning Primary Care Physician: Name: Dr Hernandez Psychiatrist: Name: Dr Schilling Visit Code E&M Code: 69266 Risk Factors Assessment : Yes /single/: Yes Higher / Fall in social status: No Access to guns: No Health problems: Yes Mental Health Diagnoses: Yes Substance use disorders: No Previous psychiatric stay: Yes Protective Factors Assessment : No Responsible for young children: No Employed: No Stable relationships: No Supportive family: Yes Data Vital Signs Last 24 Hrs: Date Time Temp Pulse Resp B/P (MAP) Pulse Ox O2 Delivery O2 Flow Rate FiO2 03/29/17 06:55 36.4 94 16 125/83 95 106/68 03/28/17 20:09 90 169/85 03/28/17 13:22 93 136/79 Meds Administered Last 24 Hrs: Current Inpatient Medications Medications (Trade) Dose Ordered Sig/Krish Route Start Time Stop Time Status Last Admin Dose Admin Acetaminophen (Tylenol Tab) 650 mg Q4H PRN PO 03/05/17 21:45 04/04/17 21:44 03/16/17 00:40 650 MG Al Hydroxide/Mg Hydroxide (Maalox Susp) 30 ml Q4H PRN PO 03/05/17 21:45 04/04/17 21:44 03/27/17 18:18 30 ML Bismuth Subsalicylate (Kaopectate Liqd) 15 ml DAILY PRN PO 03/05/17 21:45 04/04/17 21:44 Magnesium Hydroxide (Milk Of Magnesia Susp) 30 ml DAILY PRN PO 03/05/17 21:45 04/04/17 21:44 03/25/17 22:36 30 ML Sodium Chloride ([place] Nasal [place]) PRN PRN NA 03/05/17 21:45 04/04/17 21:44 03/29/17 05:27 2 SPRAYS Glucose (Glucose 40% Gel) 15-30 GRAMS 15 GRAMS... UD PRN PO 03/05/17 21:45 04/04/17 21:44 Glucose (Glucose Chew Tab) 4-8 Tablets 4 Tabl... UD PRN PO 03/05/17 21:45 04/04/17 21:44 Dextrose (Dextrose 50% 50ML Syringe) 25-50ML OF 50% DW IV FOR... UD PRN IV 03/05/17 21:45 04/04/17 21:44 Glucagon (Glucagon Inj) 1 mg UD PRN SQ 03/05/17 21:45 04/04/17 21:44 Amlodipine Besylate (Norvasc Tab) 10 mg DAILY PO 03/06/17 09:00 04/05/17 08:59 03/27/17 12:49 10 MG Aspirin (Ecotrin Tab) 81 mg DAILY PO 03/06/17 09:00 04/05/17 08:59 03/25/17 13:07 81 MG Levalbuterol (Xopenex Hfa Inhaler) inhaled Q6H PRN INH 03/05/17 21:30 04/04/17 21:29 Multivitamins (Multivitamin Tab) 1 tab DAILY PO 03/06/17 09:00 04/05/17 08:59 Future Hold 03/07/17 07:55 1 TAB Pantoprazole Sodium (Protonix Tab) 40 mg DAILY PO 03/06/17 09:00 04/05/17 08:59 03/25/17 13:07 40 MG Pyridoxine HCl (Vitamin B-6 Tab) 100 mg DAILY PO 03/06/17 09:00 04/05/17 08:59 03/25/17 13:07 100 MG Calcium/Vitamin D (Caltrate Plus Tab) 1 tab DAILY PO 03/06/17 09:00 04/05/17 08:59 Future Hold 03/07/17 07:53 1 TAB Cholecalciferol (Vitamin D Tab) 2,000 inter.unit Q2D@0900 PO 03/07/17 09:00 04/06/17 08:59 Future Hold 03/07/17 07:57 2,000 INTER.UNIT Fish Oil (Williams-3 (Purified Fish Oil) Cap) 2 gm BID PO 03/05/17 22:00 04/04/17 21:59 Future Hold 03/07/17 20:32 2 GM Lactobacillus Acidophilus (Floranex Tab) 4 tab DAILY PO 03/06/17 09:00 04/05/17 08:59 Future Hold 03/07/17 07:54 4 TAB Haloperidol (Haldol Tab) 5 mg Q8 PRN PO 03/05/17 21:45 04/04/17 21:44 03/20/17 16:13 5 MG Benztropine Mesylate (Cogentin Tab) 0.5 mg BID PRN PO 03/05/17 21:45 04/04/17 21:44 Haloperidol Lactate (Haldol Inj) 5 mg QAM PRN IM 03/10/17 08:30 04/09/17 08:29 03/12/17 09:51 5 MG Miscellaneous Information (Consult Glycemic Management Pharmacy) 1 ea UD PRN N/A 03/11/17 10:20 04/10/17 10:19 Risperidone (Risperdal M Tab) 1 mg Q8 PRN PO 03/13/17 10:00 04/12/17 09:59 03/21/17 13:46 1 MG Trazodone HCl (Desyrel Tab) 100 mg HS PRN PO 03/13/17 10:00 04/12/17 09:59 03/25/17 22:33 100 MG Probenecid (Probenecid Tab) 500 mg BID@ PO 03/19/17 20:00 04/18/17 19:59 03/27/17 20:55 500 MG Carvedilol (Coreg Tab) 12.5 mg BID@799,1999 PO 03/19/17 20:00 04/18/17 19:59 03/28/17 22:08 12.5 MG Cyanocobalamin (Vitamin B-12 Tab) 1,000 mcg BID@ PO 03/19/17 20:00 04/18/17 19:59 Future Hold 03/23/17 20:12 1,000 MCG Dabigatran (Pradaxa Cap) 75 mg BID@ PO 03/19/17 20:00 04/18/17 19:59 03/27/17 20:55 75 MG Dronedarone (Multaq Tab) 400 mg BID@ PO 03/19/17 20:00 04/18/17 19:59 03/28/17 22:08 400 MG Pravastatin Sodium (Pravachol Tab) 40 mg DAILY@ PO 03/19/17 20:00 04/18/17 19:59 03/27/17 20:55 40 MG Hydralazine HCl (Apresoline Tab) 25 mg TID PO 03/19/17 14:00 04/18/17 13:59 03/28/17 22:10 25 MG Risperidone (Risperdal Tab) 5 mg DAILY@1999 PO 03/19/17 20:00 04/18/17 19:59 03/28/17 22:09 5 MG Enteral Nutritional Formula (Boost Glucose Control) 1 can QDB PO 03/26/17 09:00 04/25/17 08:59 03/27/17 09:16 1 CAN Docusate Sodium (coLACE CAP) 100 mg BID PO 03/27/17 22:00 04/26/17 21:59 03/28/17 22:10 100 MG Insulin Aspart (novoLOG ASPART) SLIDING SCALE DAILY@0800,1200 ID 03/28/17 08:00 04/27/17 07:59 03/28/17 13:02 10 UNITS Insulin Aspart (novoLOG ASPART) SLIDING SCALE DAILY@1715,2200 ID 03/28/17 17:15 04/27/17 17:14 03/28/17 18:04 8 UNITS Insulin Glargine (Lantus Solostar Pen) 30 units DAILY SC 03/29/17 09:00 04/28/17 08:59 Polyethylene (Miralax Powder Packet) 17 gm BID PO 03/28/17 22:00 04/27/17 08:59 Lab Results Last 24 Hrs: Last 24 Hours Test 03/28/17 11:21 03/28/17 13:39 03/28/17 16:12 03/28/17 20:44 Bedside Glucose 223 mg/dl 160 mg/dl 112 mg/dl Problem Qualifiers (1) Schizoaffective disorder: Schizoaffective disorder type: bipolar Qualified Codes: F25.0 - Schizoaffective disorder, bipolar type (2) Diabetes mellitus: Diabetes mellitus type: type 2
[2017-03-29] MEDS: AMOXICILLIN 500 MG CAP PO SCH ×2 (13:30→19:48)
[2017-03-29 13:47] LABS: URINE APPEARANCE CLEAR (CLEAR); URINE BILIRUBIN NEG (NEG); URINE COLOR YELLOW; URINE EPITHELIAL CELL AUTO >30 /lpf (0-5); URINE NITRITE NEG (NEG); URINE SPECIFIC GRAVITY 1.017 (1.000-1.030); UROBILINOGEN NEG (NEG)
[2017-03-29 13:49] LABS: MANUAL MICROSCOPIC REQUIRED? NO; REVIEW REQ? NO
[2017-03-29 14:54] VITALS: BP 118/71; PULSE 105
[2017-03-29] MEDS ORDERED: METOPROLOL SUCC 50MG EXT REL TAB PO STA (17:12)
--- NOTE | 2017-03-29 17:23 | Progress Note ---
Subjective Date of Service: Mar 29, 2017. Subjective Pt evaluation today including: conversation w/ patient, physical exam, chart review, lab review, review of studies (urine cx), review of inpatient medication list Pain: none PO Intake: 100% of meals consumed Voiding: no voiding problems no issues overnight patient still believes that the medications are poison and is refusing numerous meds including carvedilol, etc during my exam she complained of mild abdominal discomfort but did not mention any pain prior no nausea, emesis last bowel movement? no other issues per staff Problem List Medical Problems: (1) Altered mental status Status: Acute (2) Diabetes mellitus with hyperglycemia Status: Acute (3) GI bleed Status: Acute (4) Sinusitis Status: Acute Review of Systems Constitutional: No fever, No chills Respiratory: No shortness of breath Cardiac: No chest pain Abdomen: No nausea, No vomiting, No diarrhea Female : No dysuria Objective Vital Signs Date Time Temp Pulse Resp B/P (MAP) Pulse Ox O2 Delivery O2 Flow Rate FiO2 03/29/17 14:54 105 118/71 03/29/17 06:55 36.4 94 16 125/83 95 106/68 03/28/17 20:09 90 169/85 Physical Exam General Appearance: no apparent distress, + pertinent finding (fluctuation of her mood present - one minute happy and smiling, next minute crying) ENT: pharynx normal Neck: no JVD Respiratory/Chest: lungs clear, no respiratory distress, no accessory muscle use Cardiovascular: regular rate, rhythm, no gallop, no murmur Abdomen: normal bowel sounds, soft, no organomegaly, + tenderness (very mild, LLQ) Extremities: no pedal edema Neurologic/Psychiatric: alert, oriented x 3, + depressed affect Laboratory Results Last 24 Hours Test 03/28/17 20:44 03/29/17 08:52 03/29/17 11:40 03/29/17 12:12 Bedside Glucose 112 mg/dl 157 mg/dl 147 mg/dl Urine Color YELLOW Urine Appearance CLEAR Urine pH 6.0 Urine Specific [place] 1.017 Urine Protein NEG Urine Glucose (UA) NEG Urine Ketones NEG Urine Occult Blood NEG Urine Nitrite NEG Urine Bilirubin NEG Urine Urobilinogen NEG Urine Leukocyte Esterase LARGE Urine WBC (Auto) 10-30 /hpf Urine RBC (Auto) 0-4 /hpf Urine Hyaline Casts (Auto) 0 /lpf Urine Epithelial Cells (Auto) >30 /lpf Urine Bacteria (Auto) NEG Assessment and Plan 76yo female - 1. mild abdominal discomfort - could be combination of constipation & UTI. Treat both and follow clinically. Despite the complaint she is eating all meals with no nausea/emesis. 2. a. fib - on exam continues to be irregular. EKG a few days ago with a. fib. She is very inconsistent with her coreg and fleicanide. Will stop coreg; change to toprol xl for ease of administration (once daily rather than BID) and likely better rate control vs coreg. Since the multaq didn't keep her in NSR I wonder if we should simply stop it. continue pradaxa 3. HTN - controlled 4. T2DM - control acceptable; pharmacy managing 5. recent chest pain - has not recurred - monitor 6. schizoaffective disorder - per psych 7. CKD stage 3-4 - creatinine stable over the weekend 8. constipation - bowel regimen 9. group B strep UTI - simple, uncomplicated - 5 days of amox 500mg TID Discharge planning: group home facility
[2017-03-29 17:49] VITALS: BP 153/103; PULSE 99
[2017-03-29 19:05] VITALS: BP 132/79; PULSE 93
[2017-03-29] MEDS: RISPERIDONE 2 MG TAB PO SCH (19:48)
[2017-03-29] MEDS: RISPERIDONE 3 MG TAB PO SCH (19:48)
[2017-03-29] MEDS: TRAZODONE HCL 100 MG TAB PO PRN (21:46)
[2017-03-30] MEDS: TRAZODONE HCL 100 MG TAB PO PRN (02:38)
[2017-03-30] MEDS: PRAVASTATIN SOD 40 MG TAB PO SCH ×2 (08:00→21:19)
[2017-03-30] MEDS: PROBENECID 500 MG TAB PO SCH ×2 (08:00→20:00)
[2017-03-30] MEDS: DABIGATRAN ELEXILATE 75 MG CAP PO SCH ×2 (08:00→20:12)
--- NOTE | 2017-03-30 08:15 | Psychiatric Progress Notes ---
Progress Note Date of Service Mar 30, 2017. Interval History Tressa is a 76 y/o female who resides alone in [place], has a diagnosis of schizoaffective disorder bipolar type, and was admitted to the medical floor for cardiac work-up/delirium on 02/26/17 and seen for initial consultation on . She was followed on the medical floor and manic behavior became more apparent as other issues resolved, so she was ultimately transferred to [facility] on a 302 commitment supported by her daughter (ROS). She is on a 303 as of 03/09/17. Chief Complaint "Can I have something to eat?" Subjective Patient was seen & assessed interval progress reviewed with Nursing. Staff report she was irritable, rude, and refused to shower or change her hospital gowns. She refused most of her morning meds, but took her antipsychotic at bedtime, and took her insulin. She continues to endorse paranoia that staff are giving her poison. Social work spoke to her daughter about [place] [facility] options. Dr. Harris saw her and started amoxicillin for UTI, and adjusted her HTN meds. Today she reports "good" mood, but is resistant to sitting down for an interview, instead standing in the hallway outside the nurses' station and ignoring invitations to sit down for the assessment. She is superficially pleasant, but as soon as questions are asked about her symptoms, she becomes suspicious and irritated. She denies concerns other than wanting something to eat. She cannot state her diagnosis or what medications she is taking, or state why she is in the hospital. She would not answer orientation questions. Sleep Information Total Hours of Sleep: 5.50 Meal Information Percent of Breakfast Consumed: 100 Percent of Lunch Consumed: 70 Percent of Dinner Consumed: 75 Mental Status Exam During interview pt is: uncooperative Appearance: disheveled, appeared stated age, other (wearing 2 hospital gowns with visible stains on the front) Eye contact is: poor Motor behavior is: steady gait & station, no abnormal motor movements Speech: normal in rate, rhythm & volume (minimal) Affect: irritable Mood is: other ("good") Thought process: concrete, other (refusing to engage) Thought content: paranoid Cognition: other (all spheres impaired) Intelligence estimated to be: average Insight: severely impaired Judgement: severely impaired Impression We have a two-physician order for meds over objection, and 303 granted on 03/09. Patient remains delusional and paranoid, labile and poorly cooperative with care. Nursing is spending a lot of time getting her meds into her, and she is still selective. no chest pain today. Appreciate Ms Marie"s input. Meeting with daughter and Office of Aging this resulted [place] referrels [place] [facility], and we await the outcome of several referrals. MA 51 completed and TARGET process initiated. At this point we have high suspicion that there is a significant degree of comorbid dementia effecting the rate and degree of her improvement. We believe that she will be able to be transferred to a nursing facility when one is agreed on and the TARGET process complete. Continue current plan. Plan (1) Schizoaffective disorder 03/06 - History supports previous good effect of Seroquel and decompensation associated with noncompliance -Will increase at bedtime Seroquel to 400 mg tonight -Attempting to review history with daughter to consider a more potent antipsychotic such as Risperdal as alternative - Received Haldol prn 1 this a.m. 03/07 - information available at present supports h/o benefit on seroquel. will continue with that agent for now, titrating as indicated. reviewed need for compliance with pt this am and she seemed receptive, hoverer we will have t wait and see if she is compliant tonight. continue haldol prn which she is tolerating well so far. - repeat screening labs in AM 03/08 - Continue quetiapine 50 mg twice a day, and increase bedtime dose to 500 mg. Check fasting labs tomorrow morning. - Continue haloperidol and quetiapine as needed for psychosis. - File for a 303 commitment. 03/09 - Recommend medications over objection, as patient is refusing her antipsychotic and her condition is deteriorating, leading to refusal of medications for HTN and elevated pulse and BP, which put her at risk of [place] and stroke. Sleep and appetite are poor, and she is grossly disorganized and psychotic. Will request a second opinion from another physician (medical parasitologist, Dr. Joe), and spoke with her daughter Mily who is POA, who is in agreement with medications over objection if needed. - Fasting labs were ordered for this morning but patient refused the blood draw. Will re-order for tomorrow. 03/10 - Dr. Joe saw patient and agrees with meds over objection. Will add Haldol 5mg IM for refusal of oral quetiapine, and for now will move quetiapine to the morning, so that more staff will be present when attempting to give medication, and so that antipsychotics can be given at the same time as antihypertensives, hopefully improving medication compliance. He can be moved back to bedtime once she is more consistently taking oral medication. Continue to encourage medication compliance. - She refused quetiapine this morning, so received Haldol IM. - Fasting glucose and lipids ordered for tomorrow 03/11 - Hold AM seroquel today due to sedation, but give at HS - Continue with meds over objection by 2 physician order 03/12 --extensive discussion with daughter re: lack of progress with Seroquel and concerns about sedation and fall risk longer term given age. Also reviewed that if option of a dissolvable that perhaps would be more receptive and minimize IM injections. Risks/benefits/alternatives reviewed with daughter/POA who was in support of a trial of Risperdal M-tab. She did report baseline concerns about memory predating this episode as would argue with her about tasks they just did. Ms. Cyr has declined to visit with family during holidays and therefore they admittedly haven't interacted with her much in person in the past 1.5 years. She does become guarded/argumentative on the phone and more reclusive at her housing complex. Daughter notes increase in hoarding behaviors. Reviewed that likely even when recovered that she will be unable to live alone without more support and she stated that she/brother had already been checking out nursing facilities. Will decrease Seroquel to 200 mg for 2 nights then d/c. Start Risperdal 1 mg Mtab this pm then BID starting tomorrow with IM Haldol for refusal of am dose. Monitor tachy. 03/13 --did take Risperdal M tab last pm, monitor on BID dosing. Will order prn sleep aide as remains poor and Seroquel being discontinued after tonight. Risperdal increase likely tomorrow. Discussed implementing a toileting protocol with nursing. 03/14 - had risperdal 1mg po bid as scheduled, and 1mg prn for agitation/ psychosis, will need to watch sleep off seroquel (last dose 03/13/17), has haldol IM for po refusal 03/15 - Increase risperidone to 1mg qam and 2mg qhs. Tolerating well, no tachycardia or hypotension. Sleep has deteriorated. 03/16 -Move Risperdal to all HS and increase to 4 mg. HS 03/17 - Continue current meds 03/18 - remains delusional but affect slowly more composed and able to tolerate more stimulation out of room - as we approach ceiling of dose range of risperdal, if additional calming action needed in daytime, could consider re-initiation of low dose seroquel or perhaps very low dose trazodone. 03/19 - Increase Risperdal to 5 mg. HS 03/20 - pt refused risperdal 03/19 night dosing and is refusing the prn dose this morning as well. has refused some of her medical meds as well, including only taking part of her norvasc dose. We will give haldol 5mg M over objection 03/20 am. Clarified this order to give haldol over injection the next am if refusing risperdal the evening prior. However with staff spending time with pt she decided to take a 2mg prn dosage of risperdal m tab mid morning 03/20 and thus held the haldol IM dose for today. -continue meds unchanged. risperdal hs dose changed to regular tab from M tab on 03/19 for significantly reducing number of pills 03/21 continue meds unchanged, advised nursing to focus on risperdal prn as first choice of prn option, jimena if within a day of pt missing some of her scheduled risperdal dosage. consider med for potential hypersalivation, however since tends to be anticholinergic and pt might be having some dementia aspects to her presentation and with degrees of confusion, that could be worsened by such meds while unclear how significant any hypersalivation is, holding this for now. 03/23 - continue current meds. May need to consider a trial of a different antipsychotic if poor response to risperidone. Has been on risperidone since , and on 5 mg daily since 03/20/2017, so has not had a good trial of the medication yet. Patient lacks capacity to make decisions about medication and disposition. The recommendations at this time are that she go to a [place], as per family, she has cognitively declined in the past year or so and has not been able to live independently. She is unable to understand the recommendations, waited risks and benefits of different options, or appreciate the risks of noncompliance, and therefore these decisions are being deferred to her daughter Mily who is her power of defense attorney. Social work to start to target process and pursue [place] [facility] [place] referrals. Meeting scheduled with daughter for . 03/25 Meeting with daughter and Office of Aging today to discuss disposition 03/26--304 granted, psychosis improving on Risperdal. 03/27 - Suspect a high degree of comorbid dementia. - Referrals pending for nursing facilities, while TARGET process proceeds 03/28 - 03/30 - Continue current plan (2) Renal failure 03/08 - be when elevated at 33, and creatinine 1.40. It appears she's had chronic renal dysfunction, with BUN and of 31 and creatinine of 1.9 in September 2016. We will continue to monitor, and consider the need to consult the hospitalist. 03/09 - Pt refused recheck of creatinine and BUN. 03/10 - BMP results reviewed: BUN 41, and creatinine 1.50. Continue to encourage fluids, and recheck creatinine in 2 days. Consider need for medical consultation, as she is at risk for worsening renal function and dehydration she does not drink enough, and may require transfer to the medical floor for IV fluids if this occurs. 03/12--labs improved a little today, encourage PO. 03/14/17 - ate full meal this AM despite ongoing delusion of being poisoned, she will have Creatinine drawn in the AM tomorrow 03/18 - creat inc to 1.6 and EGFR declining today. - push po - consider medicine c/s 03/19 - Will have staff push fluids with her today and check PRP tomorrow. If worse, will consult medicine 03/20 - Cr lowered to 1.3 and BUN lowered to 22.2, continue to monitor and continue to encourage fluid intake and po intake and med compliance (3) Hypertension 03/06 - increase hydralazine to qid and continue amlodipine 03/10 - intermittently refusing antihypertensive education, with elevated blood pressure and pulse (blood pressure this morning 184/87). Often refuses to allow staff to get vital signs. He did take hydralazine and amlodipine today, and asked staff to attempt to recheck vital signs if she will allow it. 03/14 - BP is WNL 03/20 - BP increased this am, likely tied to refusal of meds, attempting to address 03/22 - continues to have intermittent elevated blood pressure, but has been more compliant with medications. 03/23 - pressure stable the past 24 hours. (4) Diabetes mellitus - continue Lantus 10 units SC BID. Decreased from home dose due to poor oral intake - Insulin sliding scale - Checking BSGs q ac and qhs 03/14 - pharmacy continues to follow but due to refusal of evening basal insulin no new formal recs placed, pharmacist cautions about her slowly elevating sugars. Discussed with team as AM BS's are not dangerously high we will monitor and reconsider if forced insulin over objection is needed if the risks of BS elevations in the short term outweigh the risks of forced medication. 03/25 - Has experienced a 15 lb weight loss since admission. Will order Boost daily (5) Atrial fibrillation -Continue Coreg, dronedarone, and pradaxa 03/26--episode of CP yesterday, resolved. Medicine input reviewed. (6) UTI 03/30 - Appreciate Dr. Harris's recommendations, complete course of antibiotics. Discharge / Aftercare Planning Primary Care Physician: Name: Dr Hernandez Psychiatrist: Name: Dr Schilling Visit Code E&M Code: 72034 Risk Factors Assessment : Yes /single/: Yes Higher / Fall in social status: No Access to guns: No Health problems: Yes Mental Health Diagnoses: Yes Substance use disorders: No Previous psychiatric stay: Yes Protective Factors Assessment : No Responsible for young children: No Employed: No Stable relationships: No Supportive family: Yes Data Vital Signs Last 24 Hrs: Date Time Temp Pulse Resp B/P (MAP) Pulse Ox O2 Delivery O2 Flow Rate FiO2 03/29/17 19:05 93 132/79 03/29/17 17:49 99 153/103 03/29/17 14:54 105 118/71 Meds Administered Last 24 Hrs: Meds Administered (Past 24Hrs) Medications (Trade) Dose Ordered Sig/Krish Route Start Time Stop Time Status Last Admin Dose Admin Insulin Aspart (novoLOG ASPART) SLIDING SCALE DAILY@1715,2200 SC 03/28/17 17:15 04/27/17 17:14 03/29/17 21:10 5 UNITS Insulin Glargine (Lantus Solostar Pen) 30 units DAILY SC 03/29/17 09:00 04/28/17 08:59 03/29/17 09:00 30 UNITS Amoxicillin (Amoxil Cap) 500 mg TID PO 03/29/17 13:30 04/03/17 13:29 03/29/17 19:48 500 MG Risperidone (Risperdal Tab) 2 mg DAILY@1999 PO 03/29/17 20:00 04/28/17 19:59 03/29/17 19:48 2 MG Risperidone (Risperdal Tab) 3 mg DAILY@1999 PO 03/29/17 20:00 04/28/17 19:59 03/29/17 19:48 3 MG Metoprolol Succinate (Toprol Xl Tab) 50 mg NOW STAT PO 03/29/17 17:12 03/29/17 17:24 DC 03/29/17 17:51 50 MG Lab Results Last 24 Hrs: Last 24 Hours Test 03/29/17 08:52 03/29/17 11:40 03/29/17 12:12 03/29/17 16:46 Bedside Glucose 157 mg/dl 147 mg/dl 159 mg/dl Urine Color YELLOW Urine Appearance CLEAR Urine pH 6.0 Urine Specific [place] 1.017 Urine Protein NEG Urine Glucose (UA) NEG Urine Ketones NEG Urine Occult Blood NEG Urine Nitrite NEG Urine Bilirubin NEG Urine Urobilinogen NEG Urine Leukocyte Esterase LARGE Urine WBC (Auto) 10-30 /hpf Urine RBC (Auto) 0-4 /hpf Urine Hyaline Casts (Auto) 0 /lpf Urine Epithelial Cells (Auto) >30 /lpf Urine Bacteria (Auto) NEG Test 03/29/17 20:18 Bedside Glucose 168 mg/dl Problem Qualifiers (1) Schizoaffective disorder: Schizoaffective disorder type: bipolar Qualified Codes: F25.0 - Schizoaffective disorder, bipolar type (2) Diabetes mellitus: Diabetes mellitus type: type 2
[2017-03-30] MEDS: POLYETHYLENE (MIRALAX) 17 GM PACK PO SCH ×2 (09:00→21:19)
[2017-03-30] MEDS: AMLODIPINE BESYLATE 5 MG TAB PO SCH (09:00)
[2017-03-30] MEDS: PYRIDOXINE HCL 50 MG TAB PO SCH (09:00)
[2017-03-30] MEDS: METOPROLOL SUCC 50MG EXT REL TAB PO SCH (09:00)
[2017-03-30] MEDS: PANTOprazole SOD 40 MG TAB PO SCH (09:00)
[2017-03-30] MEDS: AMOXICILLIN 500 MG CAP PO SCH ×3 (09:10→20:12)
[2017-03-30] MEDS: BOOST GLUCOSE CONTROL PO SCH (09:11)
[2017-03-30] MEDS: DOCUSATE SODIUM 100 MG CAP PO SCH ×2 (09:12→20:59)
[2017-03-30] MEDS: ASPIRIN 81 MG ECTAB PO SCH (09:12)
[2017-03-30] MEDS: INSULIN GLARGINE SOLOSTAR 100 UNITS/ML 3 ML PEN SC SCH (09:14)
[2017-03-30 09:18] VITALS: BP 127/83; PULSE 108; TEMP 36.4
[2017-03-30] MEDS: INSULIN ASPART 100 UNITS/ML 3 ML PEN SC SCH ×4 (09:21→21:23)
[2017-03-30] MEDS: ACETAMINOPHEN 325 MG TAB PO PRN (09:47)
--- NOTE | 2017-03-30 10:20 | Medical Student: BHU Only ---
Psychiatric Progress Note Date of Service: Mar 30, 2017. Subjective: Tressa Cyr is a 76 year old female on hospital day 25 with paranoid schizophrenia. She was very pleasant this morning as we talked during her breakfast. She did not feel food was poisoned and ate everything offered. She was motivated to fill out her own menu because she did not get enough food ( her words, I observed her to have plenty of food). She notes she slept well and felt well rested. She knew she was in the hospital and that it was Wednesday but asked me to tell her the year and date when asked. Her thought process was logical today and she called me by the correct name. This afternoon she participated in group for some of the time, and she was cooperative with a liaison from [facility]. She spoke about being poisoned here and about "lorena" but other than that said she had no problems with being here. I spoke with the liaison Susan who said she saw no problem with her being accepted, but their flight director would make the final call. She will call back with any questions. Objective: General: Disheveled female appearing older than her stated age. No acute distress. In room and out walking around common areas. Psych: Conversant and fairly logical and organized thought process. Complimentary towards me but not inappropriate. Goal oriented to complete her menu today. Still somewhat demanding when asking for a pen to complete her menu. Feels safe and is glad she is here. Assessment and Plan: 1. paranoid schizophrenia: Continue current treatment plan with medications qhs to improve sleep. Likely underlying dementia, but unable to complete MSE without her becoming frustrated. LOS undertermined but long-term locked unit is needed. Possibility of [facility], waiting daughter's approval. Continue to encourage to go to groups, encourage appropriate behavior. 2. UTI: Seen by medicine yesterday, on amoxicillin. 3. Hypertension: Continue on Toprol XL per medicine. Continue to monitor vitals. 4. Disposition: Possibly [facility] pending viviana's decision, hopefully tomorrow.
--- NOTE | 2017-03-30 14:10 | Progress Note ---
Subjective Date of Service: Mar 30, 2017. Subjective Pt evaluation today including: conversation w/ patient Pt had just finished a shower and states she feels fine. Denies abd pain, n/v. Nursing reported that she had a good bowel movement earlier today and that she has eaten all of her meals today as well. Nursing also states that pt has reported no new concerns today although she did not take her AM metoprolol dose. Pt denies fever, SOB, chest pain, c/d, LE pain or swelling. Problem List Medical Problems: (1) Altered mental status Status: Acute (2) Diabetes mellitus with hyperglycemia Status: Acute (3) GI bleed Status: Acute (4) Sinusitis Status: Acute Review of Systems All Other Systems: Reviewed and Negative Objective Vital Signs Date Time Temp Pulse Resp B/P (MAP) Pulse Ox O2 Delivery O2 Flow Rate FiO2 03/30/17 09:18 36.4 108 16 127/83 03/29/17 19:05 93 132/79 03/29/17 17:49 99 153/103 03/29/17 14:54 105 118/71 Physical Exam General Appearance: WD/WN, no apparent distress Eyes: normal inspection, EOMI Respiratory/Chest: normal breath sounds, no respiratory distress Cardiovascular: regular rate, rhythm, no edema Abdomen: non tender, soft Extremities: non-tender, no pedal edema Neurologic/Psychiatric: alert, + pertinent finding (answers all questions appropriately, although answers differ slightly from nursing) Skin: normal color, warm/dry Laboratory Results Last 24 Hours Test 03/29/17 16:46 03/29/17 20:18 Bedside Glucose 159 mg/dl 168 mg/dl Assessment and Plan 76yo female - 1. mild abdominal discomfort - could be combination of constipation & UTI but regardless this seems to have resolved Treat both and follow clinically Had a bowel movement today and ate without issue 2. a. fib - on exam continues to be irregular. EKG a few days ago with a. fib. She is very inconsistent with her coreg and fleicanide. Will stop coreg; change to toprol xl for ease of administration (once daily rather than BID) and likely better rate control vs coreg. Multaq d/c'd on 03/29 continue pradaxa 3. HTN - controlled 4. T2DM - control acceptable; pharmacy managing 5. recent chest pain - has not recurred - monitor 6. schizoaffective disorder - per psych 7. CKD stage 3-4 - creatinine stable over the weekend 8. constipation - bowel regimen 9. group B strep UTI - simple, uncomplicated - 5 days of amox 500mg TID [facility]
[2017-03-30] MEDS: RISPERIDONE 2 MG TAB PO SCH (21:19)
[2017-03-30] MEDS: RISPERIDONE 3 MG TAB PO SCH (21:19)
[2017-03-31] MEDS: TRAZODONE HCL 100 MG TAB PO PRN (01:28)
[2017-03-31 07:03] VITALS: BP_SYST 122; BP_SYST 154; BP_DIAS 112; BP_DIAS 73; PULSE 102; PULSE 111; TEMP 36.3
[2017-03-31 07:42] VITALS: BP 121/81; PULSE 91
[2017-03-31] MEDS: AMOXICILLIN 500 MG CAP PO SCH ×3 (08:03→22:18)
[2017-03-31] MEDS: INSULIN GLARGINE SOLOSTAR 100 UNITS/ML 3 ML PEN SC SCH (09:35)
[2017-03-31] MEDS: INSULIN ASPART 100 UNITS/ML 3 ML PEN SC SCH ×4 (09:36→22:00)
[2017-03-31] MEDS: DABIGATRAN ELEXILATE 75 MG CAP PO SCH ×3 (09:53→23:00)
[2017-03-31] MEDS: PROBENECID 500 MG TAB PO SCH ×3 (09:53→23:00)
[2017-03-31] MEDS: PRAVASTATIN SOD 40 MG TAB PO SCH ×3 (09:53→23:00)
[2017-03-31] MEDS: ASPIRIN 81 MG ECTAB PO SCH (09:54)
[2017-03-31] MEDS: AMLODIPINE BESYLATE 5 MG TAB PO SCH (09:54)
[2017-03-31] MEDS: BOOST GLUCOSE CONTROL PO SCH (09:54)
[2017-03-31] MEDS: PANTOprazole SOD 40 MG TAB PO SCH (09:54)
[2017-03-31] MEDS: POLYETHYLENE (MIRALAX) 17 GM PACK PO SCH ×2 (09:54→22:00)
[2017-03-31] MEDS: DOCUSATE SODIUM 100 MG CAP PO SCH ×2 (09:54→22:00)
[2017-03-31] MEDS: PYRIDOXINE HCL 50 MG TAB PO SCH (09:55)
[2017-03-31] MEDS: METOPROLOL SUCC 50MG EXT REL TAB PO SCH (09:55)
--- NOTE | 2017-03-31 10:00 | Pharmacy Progress Note ---
Glycemic: Assessment & Plan Date of Service Mar 31, 2017. Assessment & Plan The patient is currently receiving ~50 units of insulin per day. BSGs ranging 127 - 164 mg/dl over the past 24hrs. * Basal insulin: Lantus 30 units every 24 hours * Correctional Insulin: Novolog Correction per scale ACHS Goal Range: Low 110 mg/dL - High 140 mg/dL Correction Factor: 20 mg/dL/unit & 25 mg/dL/unit * Prandial insulin: Per carb ratio of 1 unit per 6 grams CHO consumed & 1 unit per 9 gm CHO consumed BSGs continue to improve, no changes needed to inpatient regimen at this time. Pharmacy will continue to monitor patient daily and write orders per [facility] inpatient glycemic control protocol. Thanks. DISCHARGE RECOMMENDATIONS: * Increase Lantus to 30 units daily (from 10 units BID) * Continue Novolog with meals - patient could not confirm outpatient dose on admission * Recommend 7 units with each meal
--- NOTE | 2017-03-31 11:07 | Psychiatric Progress Notes ---
Progress Note Date of Service Mar 31, 2017. Interval History Tressa is a 76 y/o female who resides alone in [place], has a diagnosis of schizoaffective disorder bipolar type, and was admitted to the medical floor for cardiac work-up/delirium on 02/26/17 and seen for initial consultation on . She was followed on the medical floor and manic behavior became more apparent as other issues resolved, so she was ultimately transferred to [facility] on a 302 commitment supported by her daughter (ROS). She is on a 303 as of 03/09/17. Chief Complaint None stated. Subjective Patient was seen & assessed interval progress reviewed with Treatment Team. Today the patient is being obstinate again, asking to be seen and then refusing to be seen multiple times. She is wandering between her room and the day room , interrupting other's conversations, making comments about peoples' appearances. Her comments are at times mocking, sarcastic. Each time I request that she have a conversation, she has a reason she cannot, or simply will not respond to my questions. She was highly dramatic today when receiving her insulin injections, yelling loudly and complaining that her arm hurt. She does not appear to be responding to internal stimuli. Staff report that her daughter will be visiting nursing homes today to make a decision about a facility. The TARGET process is complete. She continues to be selective about which meds she takes, and refuses to put street clothes on. Review of Systems Constitutional: + fatigue ENT: No hearing loss, No unusual epistaxis, No nasal symptoms, No sore throat, No tinnitus, No dental problems, No trouble swallowing, No problem reported Respiratory: No cough, No sputum, No wheezing, No shortness of breath, No dyspnea on exertion, No dyspnea at rest, No hemoptysis, No problem reported Cardiovascular: No chest pain, No orthopnea, No PND, No edema, No claudication , No palpitations, No problem reported Abdomen: No pain, No nausea, No vomiting, No diarrhea, No constipation, No GI bleeding, No problem reported Musculoskeletal: + problem reported (pain at injection site) Neurologic: No memory loss, No paralysis, No weakness, No numbness/tingling, No vertigo, No balance problems, No problem reported Psychiatric: + problem reported (irritable) Integumentary: No rash, No itch, No new/changing skin lesions, No color change , No bleeding, No problem reported Sleep Information Total Hours of Sleep: 6.00 Meal Information Percent of Breakfast Consumed: 100 Percent of Lunch Consumed: 100 Percent of Dinner Consumed: 100 Mental Status Exam During interview pt is: uncooperative Appearance: disheveled, appeared stated age, other (wearing 2 hospital gowns with visible stains on the front) Eye contact is: poor Motor behavior is: steady gait & station, no abnormal motor movements Speech: normal in rate, rhythm & volume (minimal) Affect: irritable Mood is: irritable Thought process: concrete, other (refusing to engage) Thought content: paranoid Cognition: other (all spheres impaired) Intelligence estimated to be: average Insight: severely impaired Judgement: severely impaired Impression Referrals completed to [facility] and [facility]. Daughter will visit [facility] today and then make a decision about facilities. If a bed is available immediately, will proceed with discharge. Continue current meds. Plan (1) Schizoaffective disorder 03/06 - History supports previous good effect of Seroquel and decompensation associated with noncompliance -Will increase at bedtime Seroquel to 400 mg tonight -Attempting to review history with daughter to consider a more potent antipsychotic such as Risperdal as alternative - Received Haldol prn 1 this a.m. 03/07 - information available at present supports h/o benefit on seroquel. will continue with that agent for now, titrating as indicated. reviewed need for compliance with pt this am and she seemed receptive, hoverer we will have t wait and see if she is compliant tonight. continue haldol prn which she is tolerating well so far. - repeat screening labs in AM 03/08 - Continue quetiapine 50 mg twice a day, and increase bedtime dose to 500 mg. Check fasting labs tomorrow morning. - Continue haloperidol and quetiapine as needed for psychosis. - File for a 303 commitment. 03/09 - Recommend medications over objection, as patient is refusing her antipsychotic and her condition is deteriorating, leading to refusal of medications for HTN and elevated pulse and BP, which put her at risk of GA and stroke. Sleep and appetite are poor, and she is grossly disorganized and psychotic. Will request a second opinion from another physician (medical management trainer, Dr. Joe), and spoke with her daughter Mily who is POA, who is in agreement with medications over objection if needed. - Fasting labs were ordered for this morning but patient refused the blood draw. Will re-order for tomorrow. 03/10 - Dr. Joe saw patient and agrees with meds over objection. Will add Haldol 5mg IM for refusal of oral quetiapine, and for now will move quetiapine to the morning, so that more staff will be present when attempting to give medication, and so that antipsychotics can be given at the same time as antihypertensives, hopefully improving medication compliance. He can be moved back to bedtime once she is more consistently taking oral medication. Continue to encourage medication compliance. - She refused quetiapine this morning, so received Haldol IM. - Fasting glucose and lipids ordered for tomorrow 03/11 - Hold AM seroquel today due to sedation, but give at HS - Continue with meds over objection by 2 physician order 03/12 --extensive discussion with daughter re: lack of progress with Seroquel and concerns about sedation and fall risk longer term given age. Also reviewed that if option of a dissolvable that perhaps would be more receptive and minimize IM injections. Risks/benefits/alternatives reviewed with daughter/PODeena who was in support of a trial of Risperdal M-tab. She did report baseline concerns about memory predating this episode as would argue with her about tasks they just did. Ms. Cyr has declined to visit with family during holidays and therefore they admittedly haven't interacted with her much in person in the past 1.5 years. She does become guarded/argumentative on the phone and more reclusive at her housing complex. Daughter notes increase in hoarding behaviors. Reviewed that likely even when recovered that she will be unable to live alone without more support and she stated that she/brother had already been checking out nursing facilities. Will decrease Seroquel to 200 mg for 2 nights then d/c. Start Risperdal 1 mg Mtab this pm then BID starting tomorrow with IM Haldol for refusal of am dose. Monitor tachy. 03/13 --did take Risperdal M tab last pm, monitor on BID dosing. Will order prn sleep aide as remains poor and Seroquel being discontinued after tonight. Risperdal increase likely tomorrow. Discussed implementing a toileting protocol with nursing. 03/14 - had risperdal 1mg po bid as scheduled, and 1mg prn for agitation/ psychosis, will need to watch sleep off seroquel (last dose 03/13/17), has haldol IM for po refusal 03/15 - Increase risperidone to 1mg qam and 2mg qhs. Tolerating well, no tachycardia or hypotension. Sleep has deteriorated. 03/16 -Move Risperdal to all HS and increase to 4 mg. HS 03/17 - Continue current meds 03/18 - remains delusional but affect slowly more composed and able to tolerate more stimulation out of room - as we approach ceiling of dose range of risperdal, if additional calming action needed in daytime, could consider re-initiation of low dose seroquel or perhaps very low dose trazodone. 03/19 - Increase Risperdal to 5 mg. HS 03/20 - pt refused risperdal 03/19 night dosing and is refusing the prn dose this morning as well. has refused some of her medical meds as well, including only taking part of her norvasc dose. We will give haldol 5mg M over objection 03/20 am. Clarified this order to give haldol over injection the next am if refusing risperdal the evening prior. However with staff spending time with pt she decided to take a 2mg prn dosage of risperdal m tab mid morning 03/20 and thus held the haldol IM dose for today. -continue meds unchanged. risperdal hs dose changed to regular tab from M tab on 03/19 for significantly reducing number of pills 03/21 continue meds unchanged, advised nursing to focus on risperdal prn as first choice of prn option, jimena if within a day of pt missing some of her scheduled risperdal dosage. consider med for potential hypersalivation, however since tends to be anticholinergic and pt might be having some dementia aspects to her presentation and with degrees of confusion, that could be worsened by such meds while unclear how significant any hypersalivation is, holding this for now. 03/23 - continue current meds. May need to consider a trial of a different antipsychotic if poor response to risperidone. Has been on risperidone since , and on 5 mg daily since 03/20/2017, so has not had a good trial of the medication yet. Patient lacks capacity to make decisions about medication and disposition. The recommendations at this time are that she go to a assisted, as per family, she has cognitively declined in the past year or so and has not been able to live independently. She is unable to understand the recommendations, waited risks and benefits of different options, or appreciate the risks of noncompliance, and therefore these decisions are being deferred to her daughter Mily who is her power of billet checker. Social work to start to target process and pursue assisted referrals. Meeting scheduled with daughter for . 03/25 Meeting with daughter and [facility] today to discuss disposition 03/26--304 granted, psychosis improving on Risperdal. 03/27 - Suspect a high degree of comorbid dementia. - Referrals pending for nursing facilities, while TARGET process proceeds 03/28 - 03/30 - Continue current plan 03/31 - TARGET completed. Daughter will decide on a facility today or tomorrow and will discharge as soon as bed available. (2) Renal failure 03/08 - be when elevated at 33, and creatinine 1.40. It appears she's had chronic renal dysfunction, with BUN and of 31 and creatinine of 1.9 in September 2016. We will continue to monitor, and consider the need to consult the hospitalist. 03/09 - Pt refused recheck of creatinine and BUN. 03/10 - BMP results reviewed: BUN 41, and creatinine 1.50. Continue to encourage fluids, and recheck creatinine in 2 days. Consider need for medical consultation, as she is at risk for worsening renal function and dehydration she does not drink enough, and may require transfer to the medical floor for IV fluids if this occurs. 03/12--labs improved a little today, encourage PO. 03/14/17 - ate full meal this AM despite ongoing delusion of being poisoned, she will have Creatinine drawn in the AM tomorrow 03/18 - creat inc to 1.6 and EGFR declining today. - push po - consider medicine c/s 03/19 - Will have staff push fluids with her today and check PRP tomorrow. If worse, will consult medicine 03/20 - Cr lowered to 1.3 and BUN lowered to 22.2, continue to monitor and continue to encourage fluid intake and po intake and med compliance (3) Hypertension 03/06 - increase hydralazine to qid and continue amlodipine 03/10 - intermittently refusing antihypertensive education, with elevated blood pressure and pulse (blood pressure this morning 184/87). Often refuses to allow staff to get vital signs. He did take hydralazine and amlodipine today, and asked staff to attempt to recheck vital signs if she will allow it. 03/14 - BP is WNL 03/20 - BP increased this am, likely tied to refusal of meds, attempting to address 03/22 - continues to have intermittent elevated blood pressure, but has been more compliant with medications. 03/23 - pressure stable the past 24 hours. (4) Diabetes mellitus - continue Lantus 10 units SC BID. Decreased from home dose due to poor oral intake - Insulin sliding scale - Checking BSGs q ac and qhs 03/14 - pharmacy continues to follow but due to refusal of evening basal insulin no new formal recs placed, pharmacist cautions about her slowly elevating sugars. Discussed with team as AM BS's are not dangerously high we will monitor and reconsider if forced insulin over objection is needed if the risks of BS elevations in the short term outweigh the risks of forced medication. 03/25 - Has experienced a 15 lb weight loss since admission. Will order Boost daily (5) Atrial fibrillation -Continue Coreg, dronedarone, and pradaxa 03/26--episode of CP yesterday, resolved. Medicine input reviewed. (6) UTI 03/30 - Appreciate Dr. Harris's recommendations, complete course of antibiotics. Discharge / Aftercare Planning Primary Care Physician: Name: Dr Hernandez Psychiatrist: Name: Dr Schilling Visit Code E&M Code: 22014 Risk Factors Assessment : Yes /single/: Yes Higher / Fall in social status: No Access to guns: No Health problems: Yes Mental Health Diagnoses: Yes Substance use disorders: No Previous psychiatric stay: Yes Protective Factors Assessment : No Responsible for young children: No Employed: No Stable relationships: No Supportive family: Yes Data Vital Signs Last 24 Hrs: Date Time Temp Pulse Resp B/P (MAP) Pulse Ox O2 Delivery O2 Flow Rate FiO2 03/31/17 07:42 91 121/81 03/31/17 07:03 36.3 111 16 154/112 102 122/73 Meds Administered Last 24 Hrs: Meds Administered (Past 24Hrs) Medications (Trade) Dose Ordered Sig/Krish Route Start Time Stop Time Status Last Admin Dose Admin Amoxicillin (Amoxil Cap) 500 mg TID PO 03/29/17 13:30 04/03/17 13:29 03/31/17 08:03 500 MG Risperidone (Risperdal Tab) 2 mg DAILY@1999 PO 03/29/17 20:00 04/28/17 19:59 03/30/17 21:19 2 MG Risperidone (Risperdal Tab) 3 mg DAILY@1999 PO 03/29/17 20:00 04/28/17 19:59 03/30/17 21:19 3 MG Metoprolol Succinate (Toprol Xl Tab) 50 mg NOW STAT PO 03/29/17 17:12 03/29/17 17:24 DC 03/29/17 17:51 50 MG Lab Results Last 24 Hrs: Last 24 Hours Test 03/30/17 11:48 03/30/17 16:01 03/30/17 21:21 03/31/17 07:39 Bedside Glucose 153 mg/dl 164 mg/dl 137 mg/dl 127 mg/dl Problem Qualifiers (1) Schizoaffective disorder: Schizoaffective disorder type: bipolar Qualified Codes: F25.0 - Schizoaffective disorder, bipolar type (2) Diabetes mellitus: Diabetes mellitus type: type 2
[2017-03-31 13:41] VITALS: BP 130/91; PULSE 95
--- NOTE | 2017-03-31 16:51 | Progress Note ---
Progress Note Date of Service Mar 31, 2017. Progress Note Chart reviewed. No new concerns. Per notes, target was complete and awaiting bed availability on transfer No change to current recs. Please call if new issues arise.
[2017-03-31] MEDS: RISPERIDONE 2 MG TAB PO SCH ×3 (20:00→23:00)
[2017-03-31] MEDS: RISPERIDONE 3 MG TAB PO SCH (20:44)
[2017-04-01 08:12] VITALS: BP 124/82; PULSE 111
[2017-04-01] MEDS: DABIGATRAN ELEXILATE 75 MG CAP PO SCH (08:26)
[2017-04-01] MEDS: AMOXICILLIN 500 MG CAP PO SCH (08:26)
[2017-04-01] MEDS: METOPROLOL SUCC 50MG EXT REL TAB PO SCH (08:27)
[2017-04-01] MEDS: AMLODIPINE BESYLATE 5 MG TAB PO SCH (08:28)
[2017-04-01] MEDS: BOOST GLUCOSE CONTROL PO SCH (08:32)
[2017-04-01] MEDS: INSULIN GLARGINE SOLOSTAR 100 UNITS/ML 3 ML PEN SC SCH (08:33)
[2017-04-01] MEDS: PRAVASTATIN SOD 40 MG TAB PO SCH (08:35)
[2017-04-01] MEDS: DOCUSATE SODIUM 100 MG CAP PO SCH (08:36)
[2017-04-01] MEDS: ASPIRIN 81 MG ECTAB PO SCH (08:36)
[2017-04-01] MEDS: PANTOprazole SOD 40 MG TAB PO SCH (08:36)
[2017-04-01] MEDS: POLYETHYLENE (MIRALAX) 17 GM PACK PO SCH (08:36)
[2017-04-01] MEDS: PROBENECID 500 MG TAB PO SCH (08:36)
[2017-04-01] MEDS: PYRIDOXINE HCL 50 MG TAB PO SCH (08:36)
[2017-04-01 08:43] VITALS: BP 124/82; PULSE 111; TEMP 36.3
[2017-04-01] MEDS: INSULIN ASPART 100 UNITS/ML 3 ML PEN SC SCH (09:26)
[2017-04-01] MEDS ORDERED: RSP3 PO (09:31)
[2017-04-01] MEDS ORDERED: NUTR-7 PO (09:31)
[2017-04-01] MEDS ORDERED: LCTX PO (09:31)
[2017-04-01] MEDS ORDERED: RSP2 PO (09:31)
[2017-04-01] MEDS ORDERED: AMX500 PO (09:31)
[2017-04-01] MEDS ORDERED: PRVC/40 PO (09:31)
[2017-04-01] MEDS ORDERED: TPRSR50 PO (09:31)
[2017-04-01] MEDS ORDERED: DABI1CAP PO (09:31)
[2017-04-01] MEDS ORDERED: CALC-388 PO (09:31)
[2017-04-01] MEDS ORDERED: CHOL2000 PO (09:31)
[2017-04-01] MEDS ORDERED: AMLO-114 PO (09:31)
[2017-04-01] MEDS ORDERED: MULTTAB58 PO (09:31)
[2017-04-01] MEDS ORDERED: INSDGIPEN SC (09:31)
[2017-04-01] MEDS ORDERED: PYRI100T4 PO (09:31)
[2017-04-01] MEDS ORDERED: PANT40TA PO (09:31)
[2017-04-01] MEDS ORDERED: CLC100 PO (09:31)
[2017-04-01] MEDS ORDERED: OMEG5CAP PO (09:31)
[2017-04-01] MEDS ORDERED: PROB500T8 PO (09:31)
[2017-04-01] MEDS ORDERED: ASPI-435 PO (09:31)
[2017-04-01] MEDS ORDERED: CYAN100020 PO (09:31)
[2017-04-01] MEDS ORDERED: POLYSOL4 OPB (09:31)
[2017-04-01] MEDS ORDERED: NVLGI/PEN SQ (09:31)
[2017-04-01] MEDS ORDERED: APR25 PO (09:31)
--- NOTE | 2017-04-01 09:45 | Discharge Instructions ---
Discharge Information Report Includes Report will include the: Discharge Instructions & Summary Admission Admission Date / Time: Mar 05, 2017 at 20:30 Reason for Admission: Schizoaffective Disorder Discharge Discharge Diagnosis / Problem: schizoaffective disorder Condition at Discharge: Fair Discharge Goals Goal(s): Decrease discomfort, Improve disease control, Prevent Disease Progression Activity Recommendations Activity Limitations: as noted below (Patient will need assistance with ADL's, meds, safety monitoring in a shelter facility) . Instructions / Follow-Up Instructions / Follow-Up . SPECIAL CARE INSTRUCTIONS: 1. Follow through with your scheduled aftercare appointments. If unable to keep an appointment, please call to reschedule. 2. Take your medication only as prescribed. Medication should not be changed or stopped without the approval of your doctor. In the event of worsening symptoms or concerns about side effects, contact your doctor immediately. 3. Utilize new healthy coping skills, anger management skills, and stress management skills learned during your hospitalization. Journal feelings and process them with a support person. Identify stressors or situations that may result in relapse, deterioration or inappropriate behaviors and develop a plan to deal with those issues. 4. If your coping skills are ineffective and you are in crisis, contact your outpatient providers for direction. If unable to reach your providers, please call the CAN HELP LINE AT or go to the closest Emergency Room. 5. Avoid alcohol and un-prescribed drugs. 6. You have been provided with the Mental Health Advance Directives Pamphlet for your review. AFTERCARE APPOINTMENTS: * Please call your insurance company prior to your scheduled appointment to confirm your aftercare providers are covered. Take your insurance information to your appointments. . Discharge / Aftercare Planning Primary Care Physician: Name: Dr Hernandez Psychiatrist: Name: Dr Schilling . Follow-Up Care Plan for Follow-Up Care: The patient is moving to [facility] and will receive psychiatric care through their facility Current Hospital Diet Patient's current hospital diet: Diabetes Type 2 Diet, AHA Diet (Heart Healthy) Discharge Diet Recommended Diet: AHA Diet (Heart Healthy), Diabetes Type 2 Diet Procedures Procedures Performed: No Pending Studies Pending Studies at Discharge: No Medical Emergencies . Who to Call and When: Medical Emergencies: For questions or emergencies related to your hospital stay, please contact the Inpatient Behavioral Health Unit at [phone]. A tie fastener is on-call 08/03 for the Behavioral Health Unit for emergencies At any time you feel your situation is an emergency, you may also call 911 immediately. . Non-Emergent Contact Non-Emergency issues call your: Primary Care Provider, Psychiatrist Past History Medical & Surgical History: (1) COPD (chronic obstructive pulmonary disease) (2) Gastroesophageal reflux disease (3) Hyperlipidemia (4) Polyarthritis (5) Hypertension (6) Diabetes mellitus (7) Atrial fibrillation (8) UTI Advance Directives Existing Advance Directive: No Do You Have an Existing Mental: No Existing Living Will: No Existing Power of Ground Crew Linesman: Yes (daughter Mily) Advance Directives Info Given: To Pt/S.O. Advance Directives Reason: Declines as Mental Health Visit. Discharge Summary Admission HPI Per the Admitting provider: 76 yo woman with long standing schizoaffective disorder, admitted due to inability to function outside of a structured environment. Hospital Course (1) Schizoaffective disorder 03/06 - History supports previous good effect of Seroquel and decompensation associated with noncompliance -Will increase at bedtime Seroquel to 400 mg tonight -Attempting to review history with daughter to consider a more potent antipsychotic such as Risperdal as alternative - Received Haldol prn 1 this a.m. 03/07 - information available at present supports h/o benefit on seroquel. will continue with that agent for now, titrating as indicated. reviewed need for compliance with pt this am and she seemed receptive, hoverer we will have t wait and see if she is compliant tonight. continue haldol prn which she is tolerating well so far. - repeat screening labs in AM 03/08 - Continue quetiapine 50 mg twice a day, and increase bedtime dose to 500 mg. Check fasting labs tomorrow morning. - Continue haloperidol and quetiapine as needed for psychosis. - File for a 303 commitment. 03/09 - Recommend medications over objection, as patient is refusing her antipsychotic and her condition is deteriorating, leading to refusal of medications for HTN and elevated pulse and BP, which put her at risk of [place] and stroke. Sleep and appetite are poor, and she is grossly disorganized and psychotic. Will request a second opinion from another physician (medical transcription editor, Dr. Joe), and spoke with her daughter Mily who is POA, who is in agreement with medications over objection if needed. - Fasting labs were ordered for this morning but patient refused the blood draw. Will re-order for tomorrow. 03/10 - Dr. Joe saw patient and agrees with meds over objection. Will add Haldol 5mg IM for refusal of oral quetiapine, and for now will move quetiapine to the morning, so that more staff will be present when attempting to give medication, and so that antipsychotics can be given at the same time as antihypertensives, hopefully improving medication compliance. He can be moved back to bedtime once she is more consistently taking oral medication. Continue to encourage medication compliance. - She refused quetiapine this morning, so received Haldol IM. - Fasting glucose and lipids ordered for tomorrow 03/11 - Hold AM seroquel today due to sedation, but give at HS - Continue with meds over objection by 2 physician order 03/12 --extensive discussion with daughter re: lack of progress with Seroquel and concerns about sedation and fall risk longer term given age. Also reviewed that if option of a dissolvable that perhaps would be more receptive and minimize IM injections. Risks/benefits/alternatives reviewed with daughter/POA who was in support of a trial of Risperdal M-tab. She did report baseline concerns about memory predating this episode as would argue with her about tasks they just did. Ms. Cyr has declined to visit with family during holidays and therefore they admittedly haven't interacted with her much in person in the past 1.5 years. She does become guarded/argumentative on the phone and more reclusive at her housing complex. Daughter notes increase in hoarding behaviors. Reviewed that likely even when recovered that she will be unable to live alone without more support and she stated that she/brother had already been checking out nursing facilities. Will decrease Seroquel to 200 mg for 2 nights then d/c. Start Risperdal 1 mg Mtab this pm then BID starting tomorrow with IM Haldol for refusal of am dose. Monitor tachy. 03/13 --did take Risperdal M tab last pm, monitor on BID dosing. Will order prn sleep aide as remains poor and Seroquel being discontinued after tonight. Risperdal increase likely tomorrow. Discussed implementing a toileting protocol with nursing. 03/14 - had risperdal 1mg po bid as scheduled, and 1mg prn for agitation/ psychosis, will need to watch sleep off seroquel (last dose 03/13/17), has haldol IM for po refusal 03/15 - Increase risperidone to 1mg qam and 2mg qhs. Tolerating well, no tachycardia or hypotension. Sleep has deteriorated. 03/16 -Move Risperdal to all HS and increase to 4 mg. HS 03/17 - Continue current meds 03/18 - remains delusional but affect slowly more composed and able to tolerate more stimulation out of room - as we approach ceiling of dose range of risperdal, if additional calming action needed in daytime, could consider re-initiation of low dose seroquel or perhaps very low dose trazodone. 03/19 - Increase Risperdal to 5 mg. HS 03/20 - pt refused risperdal 03/19 night dosing and is refusing the prn dose this morning as well. has refused some of her medical meds as well, including only taking part of her norvasc dose. We will give haldol 5mg M over objection 03/20 am. Clarified this order to give haldol over injection the next am if refusing risperdal the evening prior. However with staff spending time with pt she decided to take a 2mg prn dosage of risperdal m tab mid morning 03/20 and thus held the haldol IM dose for today. -continue meds unchanged. risperdal hs dose changed to regular tab from M tab on 03/19 for significantly reducing number of pills 03/21 continue meds unchanged, advised nursing to focus on risperdal prn as first choice of prn option, jimena if within a day of pt missing some of her scheduled risperdal dosage. consider med for potential hypersalivation, however since tends to be anticholinergic and pt might be having some dementia aspects to her presentation and with degrees of confusion, that could be worsened by such meds while unclear how significant any hypersalivation is, holding this for now. 03/23 - continue current meds. May need to consider a trial of a different antipsychotic if poor response to risperidone. Has been on risperidone since , and on 5 mg daily since 03/20/2017, so has not had a good trial of the medication yet. Patient lacks capacity to make decisions about medication and disposition. The recommendations at this time are that she go to a shelter, as per family, she has cognitively declined in the past year or so and has not been able to live independently. She is unable to understand the recommendations, waited risks and benefits of different options, or appreciate the risks of noncompliance, and therefore these decisions are being deferred to her daughter Mily who is her power of wood polisher. Social work to start to target process and pursue shelter referrals. Meeting scheduled with daughter for . 03/25 Meeting with daughter and [facility] today to discuss disposition 03/26--304 granted, psychosis improving on Risperdal. 03/27 - Suspect a high degree of comorbid dementia. - Referrals pending for nursing facilities, while TARGET process proceeds 03/28 - 03/30 - Continue current plan 03/31 - TARGET completed. Daughter will decide on a facility today or tomorrow and will discharge as soon as bed available. (2) Renal failure 03/08 - be when elevated at 33, and creatinine 1.40. It appears she's had chronic renal dysfunction, with BUN and of 31 and creatinine of 1.9 in September 2016. We will continue to monitor, and consider the need to consult the hospitalist. 03/09 - Pt refused recheck of creatinine and BUN. 03/10 - BMP results reviewed: BUN 41, and creatinine 1.50. Continue to encourage fluids, and recheck creatinine in 2 days. Consider need for medical consultation, as she is at risk for worsening renal function and dehydration she does not drink enough, and may require transfer to the medical floor for IV fluids if this occurs. 03/12--labs improved a little today, encourage PO. 03/14/17 - ate full meal this AM despite ongoing delusion of being poisoned, she will have Creatinine drawn in the AM tomorrow 03/18 - creat inc to 1.6 and EGFR declining today. - push po - consider medicine c/s 03/19 - Will have staff push fluids with her today and check PRP tomorrow. If worse, will consult medicine 03/20 - Cr lowered to 1.3 and BUN lowered to 22.2, continue to monitor and continue to encourage fluid intake and po intake and med compliance (3) Hypertension 03/06 - increase hydralazine to qid and continue amlodipine 03/10 - intermittently refusing antihypertensive education, with elevated blood pressure and pulse (blood pressure this morning 184/87). Often refuses to allow staff to get vital signs. He did take hydralazine and amlodipine today, and asked staff to attempt to recheck vital signs if she will allow it. 03/14 - BP is WNL 03/20 - BP increased this am, likely tied to refusal of meds, attempting to address 03/22 - continues to have intermittent elevated blood pressure, but has been more compliant with medications. 03/23 - pressure stable the past 24 hours. (4) Diabetes mellitus - continue Lantus 10 units SC BID. Decreased from home dose due to poor oral intake - Insulin sliding scale - Checking BSGs q ac and qhs 03/14 - pharmacy continues to follow but due to refusal of evening basal insulin no new formal recs placed, pharmacist cautions about her slowly elevating sugars. Discussed with team as AM BS's are not dangerously high we will monitor and reconsider if forced insulin over objection is needed if the risks of BS elevations in the short term outweigh the risks of forced medication. 03/25 - Has experienced a 15 lb weight loss since admission. Will order Boost daily (5) Atrial fibrillation -Continue Coreg, dronedarone, and pradaxa 03/26--episode of CP yesterday, resolved. Medicine input reviewed. (6) UTI 03/30 - Appreciate Dr. Harris's recommendations, complete course of antibiotics. Risk Factors Assessment : Yes /single/: Yes Higher / Fall in social status: No Access to guns: No Health problems: Yes Mental Health Diagnoses: Yes Substance use disorders: No Previous psychiatric stay: Yes Protective Factors Assessment : No Responsible for young children: No Employed: No Stable relationships: No Supportive family: Yes Day of Discharge Assessment COURSE OF HOSPITALIZATION: The patient was on our unit for 27 days. She was initially admitted voluntarily but proceeded then to require 302 commitment 303 as well. Upon admission she had initially been on Seroquel as an antipsychotic for her schizoaffective disorder but even with dosage escalation this did not appear to be potent enough and so she was switched to Risperdal getting to 5 mg at bedtime. She was not reality based through a large part of her hospitalization. She was paranoid that people were out to get her and maintained delusions that certain staff members were actually her children. We had difficulty getting her to eat and she did lose weight during the hospitalization until we added some boost. She also started eating more consistently and the weight loss ceased. Her daughter Mily, who is her POA, was involved in her treatment and agreed that she could not return home in her current condition. Patient was deemed not to have capacity to make decisions regarding discharge and so Mily stepped in. It's the target process was completed and Mily visited both [facility] and [facility] and decided on [facility] as the shelter facility of choice. During Tressa's stay, she showed evidence of sundowning, with her behaviors being worse in the evening. She also showed some frontal lobe impairment in terms of saying things without thinking, chronically criticizing people and picking up their faults. We believe there is a certain degree of dementia underlying her schizoaffective disorder, affecting the rate and degree of her improvement. The patient intermittently would refuse medications including her cardiac medications and at least once, upon reports of chest pain, was found to be in atrial fibrillation. This was managed conservatively, with medical consultation. They encouraged the patient to take her cardiac medicines which she did with slightly more regularity after their visit. She refused to dress in street clothes throughout her hospitalization, preferring to wear 2 hospital gowns. Her blood sugars throughout her stay were somewhat erratic based on whether or not she was refusing to take her insulins that day. Nursing spent a lot of time cajoling and encouraging generally with good success. The patient is aware that she will be transferred to [facility] today and is accepting of this. Her daughter Mily will come to transport this a.m. DAY OF DISCHARGE ASSESSMENT: The patient is much the same today with me as she has been in previous days. She will come to my office and ask questions or make comments, but when asked to come for an interview she refuses. I ask her if she is aware she is [facility] and she says yes. She is saying she does not want to get dressed to go there and is irritable with staff when they approach. She is poorly cooperative with redirection. Today her gait and station is within normal limits. Eye contact is good. Affect is blunted. Speech is of normal rate volume and tone. Thoughts are organized, mildly tangential and continue to be paranoid. Recent and remote memory are both impaired due to her psychosis. Intelligence is estimated to be average. Insight and judgment are minimally improved over admission. Laboratory Test 03/08/17 06:23 03/11/17 06:53 03/20/17 07:00 03/28/17 07:28 White Blood Count 10.54 10.28 Red Blood Count 3.78 4.11 Hemoglobin 10.9 11.7 Hematocrit 32.2 35.9 Mean Corpuscular Volume 85.2 87.3 Mean Corpuscular Hemoglobin 28.8 28.5 Mean Corpuscular Hemoglobin Concent 33.9 32.6 Platelet Count 655 578 Mean Platelet Volume 9.3 9.4 Neutrophils (%) (Auto) 49.8 Lymphocytes (%) (Auto) 36.4 Monocytes (%) (Auto) 10.1 Eosinophils (%) (Auto) 3.0 Basophils (%) (Auto) 0.4 Neutrophils # (Auto) 5.25 Lymphocytes # (Auto) 3.84 Monocytes # (Auto) 1.06 Eosinophils # (Auto) 0.32 Basophils # (Auto) 0.04 RDW Standard Deviation 44.6 46.6 RDW Coefficient of Variation 14.3 14.5 Immature Granulocyte % (Auto) 0.3 Immature Granulocyte # (Auto) 0.03 Fasting Glucose 87 Triglycerides Level 74 Cholesterol Level 130 HDL Cholesterol 43 LDL Cholesterol, Calculated 72 VLDL Cholesterol, Calculated 15 Cholesterol/HDL Ratio 3.0 Sodium Level 141 140 Potassium Level 4.0 4.4 Chloride Level 108 106 Carbon Dioxide Level 27 28 Anion Gap 6.0 6.0 Blood Urea Nitrogen 29 36 Creatinine 1.30 1.40 Est Creatinine Clear Calc Drug Dose 34.6 32.4 Estimated GFR () 46.8 42.8 Estimated GFR (Non- 40.4 36.9 BUN/Creatinine Ratio 22.2 25.6 Random Glucose 169 152 Calcium Level 9.2 9.5 Test 03/29/17 11:40 03/31/17 22:56 04/01/17 08:21 Urine Color YELLOW Urine Appearance CLEAR Urine pH 6.0 Urine Specific [place] 1.017 Urine Protein NEG Urine Glucose (UA) NEG Urine Ketones NEG Urine Occult Blood NEG Urine Nitrite NEG Urine Bilirubin NEG Urine Urobilinogen NEG Urine Leukocyte Esterase LARGE Urine WBC (Auto) 10-30 Urine RBC (Auto) 0-4 Urine Hyaline Casts (Auto) 0 Urine Epithelial Cells (Auto) >30 Urine Bacteria (Auto) NEG POC Glucose 143 153 Total Time Total Time Spent (min): Greater than 30 minutes Total Time Included: examination of the patient, discharge planning, medication reconciliation, communication with other providers Tobacco Cessation at Discharge Smoking Status: Former Smoker FDA approved Prescription: declined med & out pt counseling Problem Qualifiers (1) Schizoaffective disorder: Schizoaffective disorder type: bipolar Qualified Codes: F25.0 - Schizoaffective disorder, bipolar type (2) Diabetes mellitus: Diabetes mellitus type: type 2
== END 2017-04-01 10:45 | DRG 885 ==
LOC: C.MHU 20:30
PROVIDERS: ADMIT Psychiatry & Neurology Child & Adolescent Psychiatry; ATTEND Student in an Organized Health Care Education/Training Program
DX: F25.0 Schizoaffective disorder, bipolar type (principal); N18.4 Chronic kidney disease, stage 4 (severe); N39.0 Urinary tract infection, site not specified; E11.22 Type 2 diabetes mellitus with diabetic chronic kidney disease; I48.91 Unspecified atrial fibrillation; K59.00 Constipation, unspecified; B95.1 Streptococcus, group B, as the cause of diseases classified elsewhere; R07.9 Chest pain, unspecified; K21.9 Gastro-esophageal reflux disease without esophagitis; F03.90 Unspecified dementia, unspecified severity, without behavioral disturbance, psychotic disturbance, mood disturbance, and anxiety; J44.9 Chronic obstructive pulmonary disease, unspecified; E78.5 Hyperlipidemia, unspecified; M19.90 Unspecified osteoarthritis, unspecified site; F41.9 Anxiety disorder, unspecified; J32.9 Chronic sinusitis, unspecified; Z79.899 Other long term (current) drug therapy; Z87.891 Personal history of nicotine dependence; Z79.82 Long term (current) use of aspirin; Z53.29 Procedure and treatment not carried out because of patient's decision for other reasons; Z79.4 Long term (current) use of insulin

== ENCOUNTER → 2017-05-12 | Outpatient (CLI) | payer OTHER ==
[~2017-05-12] MED LIST changes: +AMX500 PO; -CARV12.5 PO; +CLC100 PO; -DEXT40GE20 PO; -DEXT4CHW64 PO; -DRON400T PO; -FLUV1CAP11 PO; -GLCI SQ; -INSDGIPEN SQ; +LCTX PO; -LORA-741 PO; -MISCCAP80 PO; -MRLP17X PO; +NUTR-7 PO; -NVLG SQ; +NVLGI/PEN SQ; -NVLGIPEN SC; -PRVC/40; +PRVC/40 PO; -QUET1TAB11 PO; +RSP2 PO; +RSP3 PO; -SRQ25 PO; -SRQ300 PO; +TPRSR50 PO
[2017-05-12 08:50] LABS: HEMATOCRIT 39.3 % (37-47); MEAN CELL VOLUME 88.3 fL (80-100); MEAN CORPUSCULAR HEMOGLOBIN 27.9 pg (25-34); MEAN CORPUSCULAR HGB CONC 31.6 g/dl (32-36); MEAN PLATELET VOLUME 10.4 fL (7.4-10.4); PLATELET COUNT 632 K/uL (130-400); RED BLOOD COUNT 4.45 M/uL (4.2-5.4); WHITE BLOOD COUNT 10.91 K/uL (4.8-10.8)
[2017-05-12 08:59] LABS: ALT/SGPT 20 U/L (12-78); AST/SGOT 11 U/L (15-37); BLOOD UREA NITROGEN 30 mg/dl (7-18); BUN/CREATININE RATIO 23.1 (10-20); CARBON DIOXIDE 26 mmol/L (21-32); CHLORIDE 102 mmol/L (98-107); GLUCOSE 281 mg/dl (70-99); POTASSIUM 4.1 mmol/L (3.5-5.1); SODIUM 139 mmol/L (136-145)
[2017-05-12 09:01] LABS: ALB/GLOB RATIO 0.8 (0.9-2); ALKALINE PHOSPHATASE 74 U/L (45-117)
== END | disposition home or self-care (01) ==
LOC: C.LABUPUNI 08:39
PROVIDERS: ATTEND Nurse Practitioner Family
DX: I10 Essential (primary) hypertension (principal); E08.9 Diabetes mellitus due to underlying condition without complications

== ENCOUNTER → 2017-05-13 | Outpatient (CLI) | payer OTHER ==
[2017-05-13 09:29] LABS: URINE APPEARANCE CLEAR (CLEAR); URINE BILIRUBIN NEG (NEG); URINE COLOR YELLOW; URINE NITRITE NEG (NEG); URINE SPECIFIC GRAVITY 1.004 (1.000-1.030); UROBILINOGEN NEG (NEG)
[2017-05-13 09:33] LABS: MANUAL MICROSCOPIC REQUIRED? NO; REVIEW REQ? NO
== END ==
LOC: C.LABUPUNI 08:20
PROVIDERS: ATTEND Nurse Practitioner Family
DX: Z87.440 Personal history of urinary (tract) infections (principal)

== ENCOUNTER → 2017-05-17 | Outpatient (CLI) | payer OTHER ==
[2017-05-17 14:46] LABS: BLOOD UREA NITROGEN 27 mg/dl (7-18); BUN/CREATININE RATIO 19.1 (10-20); C-REACTIVE PROTEIN < 0.29 mg/dl (0-0.29); CALCIUM 10.1 mg/dl (8.5-10.1); CARBON DIOXIDE 27 mmol/L (21-32); CHLORIDE 100 mmol/L (98-107); GLUCOSE 233 mg/dl (70-99); POTASSIUM 4.2 mmol/L (3.5-5.1); SODIUM 137 mmol/L (136-145)
--- NOTE | 2017-05-19 13:18 | CODING QUERY NO DIAGNOSIS ---
: 1940 TREATMENT RENDERED WITHOUT A DIAGNOSIS To promote full compliance with coding requirements relating to patient care, physician participation is requested in all cases of impregnator operator uncertainty. Please assist us with providing a diagnosis/symptom for the test(s) below: A diagnosis/symptom was not documented on your Order. A valid diagnosis/symptom is required to bill all insurances. Please remember that we are unable to code a diagnosis of rule out, probable, possible, questionable, or suspected. Tests that require a diagnosis: DOS: 05/17/17 * CKMB DIAGNOSIS: * C-REACTIVE PROTEIN DIAGNOSIS: * PARTIAL RENAL PROFILE DIAGNOSIS: * TROPONIN DIAGNOSIS: Provider Signature: Date: Thank you Miranda Clifton [employer] Once completed, please kindly fax back to [phone] For questions please call [phone]
== END ==
LOC: C.LABUPUNI 13:51
PROVIDERS: ATTEND Nurse Practitioner Family
DX: R07.9 Chest pain, unspecified (principal)

== ENCOUNTER → 2017-05-18 | Outpatient (CLI) | payer OTHER ==
[2017-05-18 10:09] LABS: HEMATOCRIT 36.7 % (37-47); MEAN CELL VOLUME 87.2 fL (80-100); MEAN CORPUSCULAR HEMOGLOBIN 27.8 pg (25-34); MEAN CORPUSCULAR HGB CONC 31.9 g/dl (32-36); MEAN PLATELET VOLUME 10.5 fL (7.4-10.4); PLATELET COUNT 574 K/uL (130-400); RED BLOOD COUNT 4.21 M/uL (4.2-5.4); WHITE BLOOD COUNT 14.04 K/uL (4.8-10.8)
== END | disposition home or self-care (01) ==
LOC: C.LABUPUNI 09:46
PROVIDERS: ATTEND Nurse Practitioner Family
DX: I10 Essential (primary) hypertension (principal)

== ENCOUNTER → 2017-05-19 | Outpatient (CLI) | payer OTHER ==
[2017-05-19 08:18] LABS: BASO % 0.6 %; BASO ABS # 0.08 K/uL (0-0.2); COMPLETE YES; EOS % 2.5 %; HEMATOCRIT 36.5 % (37-47); IG% 0.5 %; LYMPH % 28.3 %; LYMPH ABS # 3.55 K/uL (1.2-3.4); MEAN CELL VOLUME 86.9 fL (80-100); MEAN CORPUSCULAR HEMOGLOBIN 28.1 pg (25-34); MEAN CORPUSCULAR HGB CONC 32.3 g/dl (32-36); MEAN PLATELET VOLUME 10.5 fL (7.4-10.4); MONO % 9.2 %; NEUT % 58.9 %; PLATELET COUNT 598 K/uL (130-400); WHITE BLOOD COUNT 12.56 K/uL (4.8-10.8)
[2017-05-19 08:27] LABS: BLOOD UREA NITROGEN 28 mg/dl (7-18); BUN/CREATININE RATIO 21.3 (10-20); C-REACTIVE PROTEIN < 0.29 mg/dl (0-0.29); CARBON DIOXIDE 26 mmol/L (21-32); CHLORIDE 105 mmol/L (98-107); GLUCOSE 118 mg/dl (70-99); POTASSIUM 3.9 mmol/L (3.5-5.1); SODIUM 139 mmol/L (136-145)
== END ==
LOC: C.LABUPUNI 07:53
PROVIDERS: ATTEND Nurse Practitioner Family
DX: I10 Essential (primary) hypertension (principal); E78.5 Hyperlipidemia, unspecified; E08.9 Diabetes mellitus due to underlying condition without complications; I48.91 Unspecified atrial fibrillation

== ENCOUNTER → 2017-05-24 | Outpatient (CLI) | payer OTHER ==
[2017-05-24 08:39] LABS: HEMATOCRIT 31.9 % (37-47); MEAN CORPUSCULAR HEMOGLOBIN 29.1 pg (25-34); MEAN CORPUSCULAR HGB CONC 33.9 g/dl (32-36); MEAN PLATELET VOLUME 9.8 fL (7.4-10.4); PLATELET COUNT 548 K/uL (130-400); RED BLOOD COUNT 3.71 M/uL (4.2-5.4)
== END | disposition home or self-care (01) ==
LOC: C.LABUPUNI 07:57
PROVIDERS: ATTEND Nurse Practitioner Family
DX: I10 Essential (primary) hypertension (principal)

== ENCOUNTER → 2017-06-30 | Outpatient (CLI) | payer OTHER ==
--- NOTE | 2017-06-30 15:20 | MAMMOGRAPHY REPORT ---
BILATERAL DIGITAL SCREENING MAMMOGRAM WITH CAD: 06/30/2017 CLINICAL HISTORY: Routine screening. Patient has no complaints. TECHNIQUE: Bilateral CC, MLO and repeat left MLO views were obtained. Current study was also evaluat ed with a Computer Aided Detection (CAD) system. COMPARISON: Comparison is made to exams dated: 11/06/2014 mammogram, 10/10/2013 mammogram, 08/12/2012 mammogram, 07/15/2011 mammogram, 07/08/2010 mammogram, and 07/05/2009 mammogram - [facility]. BREAST COMPOSITION: There are scattered areas of fibroglandular density in both breasts. FINDINGS: There are mild to moderate vascular calcifications in the breasts. A benign popcorn calcif ication in the left breast and stable punctate calcifications in the right breast. No new suspicious mass, architectural distortion or cluster of microcalcifications is seen. IMPRESSION: ACR BI-RADS CATEGORY 1: NEGATIVE There is no mammographic evidence of malignancy. A 1 year screening mammogram is recommended. The pa tient will receive written notification of the results. Approximately 10% of breast cancers are not detected with mammography. A negative mammographic report should not delay biopsy if a clinically suggestive mass is present. Di Jose M.D. ay/:06/30/2017 14:52:59 Supervisor Sheet Manufacturing: Юлия WEBBER)(Malik), [facility] letter sent: Normal 1/2 BI-RADS Code: ACR BI-RADS Category 1: Negative
== END ==
LOC: C.MAMM 14:22
PROVIDERS: ATTEND Family Medicine
DX: Z12.31 Encounter for screening mammogram for malignant neoplasm of breast (principal)

== ENCOUNTER → 2017-06-30 | Outpatient (CLI) | payer OTHER ==
[2017-07-01 09:19] LABS: URINE APPEARANCE CLEAR (CLEAR); URINE BILIRUBIN NEG (NEG); URINE COLOR YELLOW; URINE NITRITE NEG (NEG); URINE SPECIFIC GRAVITY 1.007 (1.000-1.030); UROBILINOGEN NEG (NEG)
[2017-07-01 09:23] LABS: MANUAL MICROSCOPIC REQUIRED? NO; REVIEW REQ? NO
== END ==
LOC: C.LABUPUNI 08:45
PROVIDERS: ATTEND Nurse Practitioner Family
DX: N39.0 Urinary tract infection, site not specified (principal); E08.9 Diabetes mellitus due to underlying condition without complications

== ENCOUNTER → 2017-06-30 | Outpatient (CLI) | payer OTHER ==
[2017-06-30 09:01] LABS: HEMATOCRIT 37.3 % (37-47); MEAN CELL VOLUME 86.7 fL (80-100); MEAN CORPUSCULAR HEMOGLOBIN 28.4 pg (25-34); MEAN CORPUSCULAR HGB CONC 32.7 g/dl (32-36); PLATELET COUNT 626 K/uL (130-400); WHITE BLOOD COUNT 12.89 K/uL (4.8-10.8)
[2017-06-30 09:11] LABS: ALT/SGPT 27 U/L (12-78); BLOOD UREA NITROGEN 33 mg/dl (7-18); BUN/CREATININE RATIO 19.6 (10-20); CALCIUM 9.9 mg/dl (8.5-10.1); CARBON DIOXIDE 30 mmol/L (21-32); CHLORIDE 102 mmol/L (98-107); CREATININE 1.66 mg/dl (0.60-1.20); GLUCOSE 133 mg/dl (70-99); POTASSIUM 4.1 mmol/L (3.5-5.1); SODIUM 141 mmol/L (136-145)
[2017-06-30 09:14] LABS: ALB/GLOB RATIO 0.9 (0.9-2); ALKALINE PHOSPHATASE 63 U/L (45-117); AST/SGOT 17 U/L (15-37)
[2017-06-30 09:25] LABS: ESTIMATED AVERAGE GLUCOSE 180 mg/dl; HA1C FLAG Normal (Normal)
== END ==
LOC: C.LABUPUNI 08:34
PROVIDERS: ATTEND Nurse Practitioner Family
DX: I48.91 Unspecified atrial fibrillation (principal); E08.9 Diabetes mellitus due to underlying condition without complications; I10 Essential (primary) hypertension

== ENCOUNTER → 2017-07-02 | Outpatient (CLI) | payer OTHER ==
[2017-07-02 08:52] LABS: BLOOD UREA NITROGEN 29 mg/dl (7-18); BUN/CREATININE RATIO 21.8 (10-20); CALCIUM 9.2 mg/dl (8.5-10.1); CARBON DIOXIDE 27 mmol/L (21-32); CHLORIDE 103 mmol/L (98-107); CREATININE 1.34 mg/dl (0.60-1.20); GLUCOSE 117 mg/dl (70-99); POTASSIUM 3.7 mmol/L (3.5-5.1); SODIUM 140 mmol/L (136-145)
[2017-07-02 08:58] LABS: BASO % 1.2 %; BASO ABS # 0.12 K/uL (0-0.2); COMPLETE YES; EOS % 6.4 %; HEMATOCRIT 34.5 % (37-47); IG% 1.4 %; LYMPH % 31.3 %; LYMPH ABS # 3.24 K/uL (1.2-3.4); MEAN CELL VOLUME 86.5 fL (80-100); MEAN CORPUSCULAR HEMOGLOBIN 28.6 pg (25-34); MEAN PLATELET VOLUME 10.1 fL (7.4-10.4); NEUT % 48.7 %; PLATELET COUNT 523 K/uL (130-400); RED BLOOD COUNT 3.99 M/uL (4.2-5.4); WHITE BLOOD COUNT 10.34 K/uL (4.8-10.8)
== END ==
LOC: C.LABUPUNI 08:08
PROVIDERS: ATTEND Nurse Practitioner Family
DX: J44.9 Chronic obstructive pulmonary disease, unspecified (principal); F25.9 Schizoaffective disorder, unspecified

== ENCOUNTER → 2017-07-04 | Outpatient (CLI) | payer OTHER ==
[2017-07-04 21:41] LABS: URINE APPEARANCE CLEAR (CLEAR); URINE BILIRUBIN NEG (NEG); URINE COLOR YELLOW; URINE EPITHELIAL CELL AUTO 20-30 /lpf (0-5); URINE NITRITE NEG (NEG); UROBILINOGEN NEG (NEG)
[2017-07-04 21:48] LABS: MANUAL MICROSCOPIC REQUIRED? NO; REVIEW REQ? NO
== END | disposition home or self-care (01) ==
LOC: C.LABUPUNI 12:00
PROVIDERS: ATTEND Nurse Practitioner Family
DX: N39.0 Urinary tract infection, site not specified (principal)

== ENCOUNTER → 2017-09-30 | Outpatient (CLI) | payer OTHER ==
[2017-09-30 09:58] LABS: HEMOGLOBIN A1C 7.6 % (4.5-5.6)
== END | disposition home or self-care (01) ==
LOC: C.LABUPUNI 08:46
PROVIDERS: ATTEND Nurse Practitioner Family
DX: E08.9 Diabetes mellitus due to underlying condition without complications (principal)

== ENCOUNTER → 2017-12-27 | Outpatient (CLI) | payer OTHER ==
[2017-12-27 10:19] LABS: HEMOGLOBIN A1C 7.7 % (4.5-5.6)
== END ==
LOC: C.LABUPBEA 09:44
PROVIDERS: ATTEND Nurse Practitioner Family
DX: E08.9 Diabetes mellitus due to underlying condition without complications (principal)

== ENCOUNTER → 2018-03-10 | Outpatient (CLI) | payer OTHER ==
[~2018-03-10] MED LIST changes: -AMLO-114 PO; +AMLO10TA3 PO
[2018-03-10 10:07] LABS: CREATININE 1.44 mg/dl (0.60-1.20)
[2018-03-10 10:20] LABS: HEMOGLOBIN A1C 7.5 % (4.5-5.6)
== END | disposition home or self-care (01) ==
LOC: C.LABUPUNI 09:25
PROVIDERS: ATTEND Nurse Practitioner Family
DX: G89.29 Other chronic pain (principal); E08.9 Diabetes mellitus due to underlying condition without complications

== ENCOUNTER → 2018-03-11 | Outpatient (CLI) | payer OTHER ==
[2018-03-11 08:59] LABS: EOS % 4.6 %; EOS ABS # 0.48 K/uL (0-0.5); HEMATOCRIT 39.4 % (37-47); HEMOGLOBIN 13.1 g/dL (12.0-16.0); LYMPH % 28.8 %; LYMPH ABS # 3.01 K/uL (1.2-3.4); MEAN CELL VOLUME 89.3 fL (80-100); MEAN CORPUSCULAR HEMOGLOBIN 29.7 pg (25-34); MEAN CORPUSCULAR HGB CONC 33.2 g/dl (32-36); MEAN PLATELET VOLUME 10.4 fL (7.4-10.4); MONO % 9.9 %; MONO ABS # 1.03 K/uL (0.11-0.59); NEUT % 53.8 %; NEUT ABS # 5.63 K/uL (1.4-6.5); PLATELET COUNT 546 K/uL (130-400); RED CELL DISTRIBUTION WIDTH CV 13.6 % (11.5-14.5); RED CELL DISTRIBUTION WIDTH SD 44.5 fL (36.4-46.3); WHITE BLOOD COUNT 10.45 K/uL (4.8-10.8)
[2018-03-11 09:13] LABS: ALKALINE PHOSPHATASE 57 U/L (45-117); ALT/SGPT 16 U/L (12-78); AST/SGOT 10 U/L (15-37); BLOOD UREA NITROGEN 26 mg/dl (7-18); CALCIUM 9.2 mg/dl (8.5-10.1); CARBON DIOXIDE 26 mmol/L (21-32); CREATININE 1.34 mg/dl (0.60-1.20); GLUCOSE 128 mg/dl (70-99); POTASSIUM 3.9 mmol/L (3.5-5.1); SODIUM 139 mmol/L (136-145)
[2018-03-11 09:33] LABS: HEMOGLOBIN A1C 7.5 % (4.5-5.6)
== END ==
LOC: C.LABUPUNI 08:08
PROVIDERS: ATTEND Nurse Practitioner Family
DX: F25.9 Schizoaffective disorder, unspecified (principal); I10 Essential (primary) hypertension; R35.8 Other polyuria

== ENCOUNTER → 2018-03-29 | Outpatient (CLI) | payer OTHER ==
[2018-03-29 08:55] LABS: HEMOGLOBIN A1C 6.9 % (4.5-5.6)
== END ==
LOC: C.LABUPUNI 07:47
PROVIDERS: ATTEND Nurse Practitioner Family
DX: E08.9 Diabetes mellitus due to underlying condition without complications (principal)

== ENCOUNTER 2019-11-14 22:22 | Inpatient (IN) ==
[2019-11-14] MEDS ORDERED: PIPERACILL/TAZOBAC CONSULT ACTIVE PRN (22:35)
[2019-11-14] MEDS ORDERED: PIPERACILLIN/TAZOBACTAM 4.5 GM/120 ML BAG IV ONE (22:35)
--- NOTE | 2019-11-14 22:57 | Emergency Department Note ---
History of Present Illness General Chief complaint: Respiratory Distress Stated complaint: RESP. FAILURE Time Seen by Provider: 11/14/19 22:24 History of Present Illness The patient is a 79-year-old female who presented to the emergency department by ambulance for an evaluation of difficulty breathing. The patient was unable to give history because of her extreme shortness of breath. History was obtained from the prehospital personnel as well as the patient's intermediate documentation. No phone call proceeded the patient's arrival from the intermediate. Apparently the patient has been having shortness of breath and breathing difficulty over the last few days. She started worsening this evening. She had a chest x-ray done as an outpatient which showed a significant infiltrate which could be consistent with a bilateral viral pneumonitis or possibly tuberculosis. The patient was placed directly into room A9B and respiratory isolation and contact precautions were undertaken immediately. The patient arrived on BiPAP. She was tolerating this quite well but was very obtunded. I reviewed the rayna beltran's records show that she was a DO NOT RESUSCITATE and specifically did not wish to be intubated. Because of the current coronavirus situation I discussed her presentation with the emergency department charge nurse. A call was made to the patient's power of automatic head sawyer and we discussed the patient's presentation including the need for intubation or removing the noninvasive ventilation for patient and staff safety. After discussion the patient's family member has decided that she would like to remove the noninvasive ventilation and she would not like to have the patient intubated at this time. The patient offers no complaints but she is very obtunded. According to the prehospital personnel she had no fever. Apparently she has been having difficulty breathing and coughing but also experiencing some orthopnea. There is no reported swelling in the legs. Home Medications Home Medications Medication Instructions Recorded Confirmed Type acetaminophen 650 mg PO Q6 PRN MDD 3gm/24hr 11/14/19 11/14/19 History acetaminophen 650 mg PO Q6 PRN MDD 3gm/24hr 11/14/19 11/14/19 History acetaminophen 650 mg WV Q6H PRN MDD 3gm APAP/24hr 11/14/19 11/14/19 History acetaminophen 650 mg WV Q6H PRN MDD 3gm APAP/24hr 11/14/19 11/14/19 History albuterol sulfate [Ventolin HFA] 2 puff INHALATION Q8 PRN 11/14/19 11/14/19 History aspirin 81 mg PO DAILY 11/14/19 11/14/19 History bupropion HCl 300 mg PO DAILY 11/14/19 11/14/19 History calcium carbonate-vitamin D3 1 tab PO DAILY 11/14/19 11/14/19 History [Calcium 600 + D(3)] clonidine HCl 0.1 mg PO DAILY 11/14/19 11/14/19 History dabigatran etexilate [Pradaxa] 75 mg PO BID 11/14/19 11/14/19 History dextromethorphan-quinidine 1 cap PO Q12 11/14/19 11/14/19 History [Nuedexta] divalproex 250 mg PO DAILY 11/14/19 11/14/19 History docusate sodium [Colace] 100 mg PO BID 11/14/19 11/14/19 History guaifenesin [Mucinex] 600 mg PO BID 11/14/19 11/14/19 History hydralazine 25 mg PO BID 11/14/19 11/14/19 History insulin aspart U-100 [Novolog 0 sliding scale dose SUBCUT AC 11/14/19 11/14/19 History U-100 Insulin aspart] insulin aspart U-100 [Novolog 14 unit SUBCUT AC 11/14/19 11/14/19 History U-100 Insulin aspart] insulin detemir U-100 [Levemir 69 unit SUBCUT DAILY 11/14/19 11/14/19 History U-100 Insulin] ipratropium-albuterol 3 ml INHALATION Q6H PRN 11/14/19 11/14/19 History lorazepam 0.5 mg PO BID 11/14/19 11/14/19 History peg 400-propylene glycol [Systane 1 drp OPB QID 11/14/19 11/14/19 History Ultra] peg 400-propylene glycol [Systane 1 drp OPHTHALMIC (EYE) ONCE PRN 11/14/19 11/14/19 History Ultra] probenecid 500 mg PO BID 11/14/19 11/14/19 History risperidone 0.5 mg PO BID 11/14/19 11/14/19 History tramadol 50 mg PO BID 11/14/19 11/14/19 History Allergies Allergy/AdvReac Type Severity Reaction Status Date / Time MARIANO Inhibitors Allergy Intermediate HEPATOTOXIC Unverified 11/14/19 22:54 ITY amiodarone Allergy Intermediate HEPATOTOXIC Unverified 11/14/19 22:54 ITY cephalexin Allergy Unknown unknown Verified 11/14/19 22:54 erythromycin base Allergy Unknown UNSURE Verified 11/14/19 22:54 levofloxacin Allergy Unknown Unknown. Verified 11/14/19 22:54 Past Med/Surg History Medical History Atrial fibrillation Bronchitis (Acute) Confusion COPD (chronic obstructive pulmonary disease) (Acute) Dyspnea (Acute) Hypertension Melena Oral bleeding (Acute) Pneumonia (Acute) Renal failure Schizoaffective disorder (Acute) Tiredness (Acute) Weakness (Acute) Social History Smoking Status: Unknown if ever smoked Review of Systems See HPI for pertinent positives & negatives. Unobtainable due to cognitive status Additional history is obtained from the prehospital personnel as well as the patient's nursing documentation. Physical Exam Vital Signs Vital Signs - 24 hr 11/14/19 22:25 11/14/19 22:29 11/14/19 22:30 Temperature Temperature Source Pulse Rate 143 H 143 H Pulse Rate [Apical] Pulse Rate from SpO2 Sensor 142 H 145 H Pulse Rhythm Pulse Strength Respiratory Rate 37 H 39 H Respiratory Effort / Characteristics Spontaneous Accessory Muscle Use Labored Short of Breath Respiratory Depth Shallow Respiratory Pattern Rapid/Shallow Blood Pressure 135/94 130/83 Blood Pressure [Left Arm] Blood Pressure Mean 108 89 Blood Pressure Mean [Left Arm] Blood Pressure Position Pulse Oximetry 99 99 Oxygen Delivery Method BiPAP Oxygen Flow Rate 100 Fraction of Inspired Oxygen SaO2/FiO2 Ratio Sepsis Recent Fever Within 48 Hours Sepsis New/Unexplained Change in Mental Status Sepsis Action Taken by Nursing 11/14/19 22:31 11/14/19 22:32 11/14/19 22:34 Temperature 35.9 C L Temperature Source Axillary Pulse Rate 145 H 143 H 112 H Pulse Rate [Apical] Pulse Rate from SpO2 Sensor 143 H Pulse Rhythm Regular Regular Pulse Strength Normal Respiratory Rate 26 H 25 H 28 H Respiratory Effort / Characteristics Spontaneous Respiratory Depth Normal Respiratory Pattern Regular Blood Pressure 130/86 Blood Pressure [Left Arm] Blood Pressure Mean 100 Blood Pressure Mean [Left Arm] Blood Pressure Position Lying Pulse Oximetry 100 99 8 L Oxygen Delivery Method BiPAP Oxymask Oxygen Flow Rate Fraction of Inspired Oxygen 100 SaO2/FiO2 Ratio 100 Sepsis Recent Fever Within 48 Hours Yes Sepsis New/Unexplained Change in Mental Status Yes Sepsis Action Taken by Nursing Previously Notified 11/14/19 22:45 11/14/19 22:55 11/14/19 23:00 Temperature Temperature Source Pulse Rate 124 H 112 H 116 H Pulse Rate [Apical] Pulse Rate from SpO2 Sensor 120 H 116 H 110 H Pulse Rhythm Pulse Strength Respiratory Rate 36 H 33 H 33 H Respiratory Effort / Characteristics Respiratory Depth Respiratory Pattern Blood Pressure 110/86 116/91 112/79 Blood Pressure [Left Arm] Blood Pressure Mean 94 99 82 Blood Pressure Mean [Left Arm] Blood Pressure Position Pulse Oximetry 100 93 95 Oxygen Delivery Method Oxygen Flow Rate Fraction of Inspired Oxygen SaO2/FiO2 Ratio Sepsis Recent Fever Within 48 Hours Sepsis New/Unexplained Change in Mental Status Sepsis Action Taken by Nursing 11/15/19 00:18 Temperature Temperature Source Pulse Rate Pulse Rate [Apical] 101 H Pulse Rate from SpO2 Sensor Pulse Rhythm Pulse Strength Respiratory Rate 31 H Respiratory Effort / Characteristics Respiratory Depth Respiratory Pattern Blood Pressure Blood Pressure [Left Arm] 106/73 Blood Pressure Mean Blood Pressure Mean [Left Arm] 84 Blood Pressure Position Pulse Oximetry 98 Oxygen Delivery Method Oxymask Oxygen Flow Rate 8 Fraction of Inspired Oxygen SaO2/FiO2 Ratio Sepsis Recent Fever Within 48 Hours Sepsis New/Unexplained Change in Mental Status Sepsis Action Taken by Nursing GENERAL: The patient is lethargic and slow to respond to questioning. She is currently on CPAP. EYES: The conjunctivae are clear. The pupils are round and reactive. EARS, NOSE, MOUTH AND THROAT: The nose is without any evidence of any deformity. Mucous membranes are moist. NECK: The neck is nontender and supple. RESPIRATORY: Diminished breath sounds are noted throughout. There is shallow and ineffective respirations noted. The patient is very tachypneic. CARDIOVASCULAR: Irregular and tachycardic rate was noted to auscultation. No murmur was noted but it was difficult to auscultate due to the loud breath sounds. GASTROINTESTINAL: The abdomen is moderately distended and diffusely soft. There is no guarding or rigidity appreciated. MUSCULOSKELETAL/EXTREMITIES: There is no evidence of gross deformity full range of motion is noted in the hips and shoulders. SKIN: Skin is cool and diaphoretic. Pulses are symmetric in both feet. There is pedal edema bilaterally. NEUROLOGIC: Patient is able to open her eyes to verbal commands. She does f ollow commands slowly but purposefully. Strength is diminished but symmetric. Course Administered Medications Sodium Chloride (Nss 1000ml) 1,000 mls @ 999 mls/hr IV .Q1H1M ONE Stop: 11/15/19 00:32 Last Admin: 11/14/19 23:39 Dose: 999 mls/hr Documented by: [id number] Magnesium Sulfate/Dextrose (Magnesium Sulfate / D5w) 1 gm in 100 mls @ 100 mls/hr IV Q1H [facility] Stop: 11/15/19 01:44 Last Admin: 11/15/19 00:17 Dose: 100 mls/hr Documented by: [id number] Discontinued Medications Piperacillin Sod/Tazobactam Sod (Zosyn) 4.5 gm in 120 mls @ 240 mls/hr IV NOW ONE Stop: 11/14/19 23:04 Last Infusion: 11/15/19 00:12 Dose: 0 mls/hr Documented by: [id number] Admin: 11/14/19 23:36 Dose: 240 mls/hr Documented by: [id number] Critical Care Time Critical Care Time: Yes Total Critical Care Time: 45 I have personally spent greater than 45 minutes of critical care time in the direct management of this patient. This includes bedside care, interpretation of diagnostic studies, and testing, discussion with consultants, patient, and family members, and other required patient management activities. This 45 minutes is in excess of all separately billable procedures. Medical Decision Making Differential Diagnosis Reactive airway disease, pneumonia, pneumothorax, COPD, CHF, infections, cardiac ischemia, pulmonary embolism, musculoskeletal, gastrointestinal, as well as other pathologies. Medical Records Attestation: I reviewed the patient's medical records. Home Medications Current Medication List: was personally reviewed by me Laboratory Data Attestation: I reviewed the patient's lab results. Result diagrams: 11/14/19 22:50 11/14/19 22:50 Lab Results 11/14/19 11/14/19 11/14/19 Range/Units 22:45 22:50 22:50 WBC 17.21 H (4.8-10.8) K/uL RBC 4.22 (4.2-5.4) M/uL Hgb 12.8 (12.0-16.0) g/dL Hct 39.2 (37-47) % MCV 92.9 (80-100) fL MCH 30.3 (25-34) pg MCHC 32.7 (32-36) g/dL RDW Std Deviation 46.9 H (36.4-46.3) fL RDW Coeff of Liya 13.8 (11.5-14.5) % Plt Count 637 H (130-400) K/uL MPV 10.2 (7.4-10.4) fL Absolute Nucleated RBC 0.02 H (0-0) K/uL Nucleated RBC % (auto) 0.1 % Neutrophils % (Manual) 86.6 % Lymphocytes % (Manual) 8.0 % Monocytes % (Manual) 0.9 % Basophils % (Manual) 1.8 % Metamyelocytes % (Man) 0.9 % Myelocytes % (Man) 1.8 % Neutrophils # (Manual) 14.90 H (1.4-6.5) K/uL Total Absolute Neuts 14.90 H (1.4-6.5) K/uL Lymphocytes # (Manual) 1.38 (1.2-3.4) K/uL Total Abs Lymphocytes 1.38 (1.2-3.4) K/uL Monocytes # (Manual) 0.15 (0.11-0.59) K/uL Basophils # (Manual) 0.31 H (0-0.2) K/uL Metamyelocytes # (Man) 0.15 H (0-0) K/uL Myelocytes # (Manual) 0.31 H (0-0) K/uL PT 14.1 H (9.0-12.0) Seconds INR 1.4 H (0.9-1.1) APTT 39.9 H (21.0-31.0) Seconds PTT Ratio 1.4 VBG pH (7.36-7.41) VBG pCO2 (38-50) mmHg VBG pO2 mmHg VBG HCO3 mmol/L VBG O2 Saturation % VBG Base Excess mEq/L Barometric Pressure mm/Hg Sodium (136-145) mmol/L Potassium (3.5-5.1) mmol/L Chloride (98-107) mmol/L Carbon Dioxide (21-32) mmol/L Anion Gap (3-11) BUN (7-18) mg/dl Creatinine (0.6-1.2) mg/dl Est Cr Clr Drug Dosing ml/min Est GFR ( Amer) Est GFR (Non-Af Amer) BUN/Creatinine Ratio (10-20) Glucose (70-99) mg/dl Lactate (0.4-2.0) mmol/L Calcium (8.5-10.1) mg/dl Magnesium (1.8-2.4) mg/dl Total Bilirubin (0.2-1) mg/dl AST (15-37) U/L ALT (12-78) U/L Alkaline Phosphatase (45-117) U/L Troponin I (0-0.045) ng/ml Total Protein (6.4-8.2) gm/dl Albumin (3.4-5.0) gm/dl Globulin (2.5-4.0) gm/dl Albumin/Globulin Ratio (0.9-2) Beta-Hydroxybutyric Acd (0.2-2.81) mg/dl Procalcitonin (0-0.5) ng/ml Valproic Acid (50-100) mcg/ml Influenza Type A (PCR) Cancelled Influenza Type B (PCR) Cancelled 11/14/19 11/14/19 11/14/19 Range/Units 22:50 22:50 22:50 WBC (4.8-10.8) K/uL RBC (4.2-5.4) M/uL Hgb (12.0-16.0) g/dL Hct (37-47) % MCV (80-100) fL MCH (25-34) pg MCHC (32-36) g/dL RDW Std Deviation (36.4-46.3) fL RDW Coeff of Liya (11.5-14.5) % Plt Count (130-400) K/uL MPV (7.4-10.4) fL Absolute Nucleated RBC (0-0) K/uL Nucleated RBC % (auto) % Neutrophils % (Manual) % Lymphocytes % (Manual) % Monocytes % (Manual) % Basophils % (Manual) % Metamyelocytes % (Man) % Myelocytes % (Man) % Neutrophils # (Manual) (1.4-6.5) K/uL Total Absolute Neuts (1.4-6.5) K/uL Lymphocytes # (Manual) (1.2-3.4) K/uL Total Abs Lymphocytes (1.2-3.4) K/uL Monocytes # (Manual) (0.11-0.59) K/uL Basophils # (Manual) (0-0.2) K/uL Metamyelocytes # (Man) (0-0) K/uL Myelocytes # (Manual) (0-0) K/uL PT (9.0-12.0) Seconds INR (0.9-1.1) APTT (21.0-31.0) Seconds PTT Ratio VBG pH (7.36-7.41) VBG pCO2 (38-50) mmHg VBG pO2 mmHg VBG HCO3 mmol/L VBG O2 Saturation % VBG Base Excess mEq/L Barometric Pressure mm/Hg Sodium 128 L (136-145) mmol/L Potassium 5.8 H (3.5-5.1) mmol/L Chloride 92 L (98-107) mmol/L Carbon Dioxide 28 (21-32) mmol/L Anion Gap 9.0 (3-11) BUN 32 H (7-18) mg/dl Creatinine 2.28 H (0.6-1.2) mg/dl Est Cr Clr Drug Dosing 22.6 ml/min Est GFR ( Amer) 23.2 Est GFR (Non-Af Amer) 20.0 BUN/Creatinine Ratio 14.2 (10-20) Glucose 315 H* (70-99) mg/dl Lactate 5.2 H* (0.4-2.0) mmol/L Calcium 9.0 (8.5-10.1) mg/dl Magnesium 1.7 L (1.8-2.4) mg/dl Total Bilirubin 0.5 (0.2-1) mg/dl AST 168 H (15-37) U/L ALT 142 H (12-78) U/L Alkaline Phosphatase 84 (45-117) U/L Troponin I 0.253 H* (0-0.045) ng/ml Total Protein 7.8 (6.4-8.2) gm/dl Albumin 2.9 L (3.4-5.0) gm/dl Globulin 4.9 H (2.5-4.0) gm/dl Albumin/Globulin Ratio 0.6 L (0.9-2) Beta-Hydroxybutyric Acd 2.68 (0.2-2.81) mg/dl Procalcitonin 0.31 (0-0.5) ng/ml Valproic Acid (50-100) mcg/ml Influenza Type A (PCR) Influenza Type B (PCR) 11/14/19 11/14/19 Range/Units 22:50 23:48 WBC (4.8-10.8) K/uL RBC (4.2-5.4) M/uL Hgb (12.0-16.0) g/dL Hct (37-47) % MCV (80-100) fL MCH (25-34) pg MCHC (32-36) g/dL RDW Std Deviation (36.4-46.3) fL RDW Coeff of Liya (11.5-14.5) % Plt Count (130-400) K/uL MPV (7.4-10.4) fL Absolute Nucleated RBC (0-0) K/uL Nucleated RBC % (auto) % Neutrophils % (Manual) % Lymphocytes % (Manual) % Monocytes % (Manual) % Basophils % (Manual) % Metamyelocytes % (Man) % Myelocytes % (Man) % Neutrophils # (Manual) (1.4-6.5) K/uL Total Absolute Neuts (1.4-6.5) K/uL Lymphocytes # (Manual) (1.2-3.4) K/uL Total Abs Lymphocytes (1.2-3.4) K/uL Monocytes # (Manual) (0.11-0.59) K/uL Basophils # (Manual) (0-0.2) K/uL Metamyelocytes # (Man) (0-0) K/uL Myelocytes # (Manual) (0-0) K/uL PT (9.0-12.0) Seconds INR (0.9-1.1) APTT (21.0-31.0) Seconds PTT Ratio VBG pH 7.28 L (7.36-7.41) VBG pCO2 60 H (38-50) mmHg VBG pO2 39 mmHg VBG HCO3 28 mmol/L VBG O2 Saturation 63.8 % VBG Base Excess -0.2 mEq/L Barometric Pressure 728.2 mm/Hg Sodium (136-145) mmol/L Potassium (3.5-5.1) mmol/L Chloride (98-107) mmol/L Carbon Dioxide (21-32) mmol/L Anion Gap (3-11) BUN (7-18) mg/dl Creatinine (0.6-1.2) mg/dl Est Cr Clr Drug Dosing ml/min Est GFR ( Amer) Est GFR (Non-Af Amer) BUN/Creatinine Ratio (10-20) Glucose (70-99) mg/dl Lactate (0.4-2.0) mmol/L Calcium (8.5-10.1) mg/dl Magnesium (1.8-2.4) mg/dl Total Bilirubin (0.2-1) mg/dl AST (15-37) U/L ALT (12-78) U/L Alkaline Phosphatase (45-117) U/L Troponin I (0-0.045) ng/ml Total Protein (6.4-8.2) gm/dl Albumin (3.4-5.0) gm/dl Globulin (2.5-4.0) gm/dl Albumin/Globulin Ratio (0.9-2) Beta-Hydroxybutyric Acd (0.2-2.81) mg/dl Procalcitonin (0-0.5) ng/ml Valproic Acid 6 L (50-100) mcg/ml Influenza Type A (PCR) Influenza Type B (PCR) Imaging Data Attestation: I personally reviewed and interpreted this imaging study as fol lows: My Impression: Portable chest x-ray was obtained in the emergency department. My interpretation includes a right lower lobe infiltrate. There was cardiomega ly noted. There is blunting of the left costophrenic angle. There is no free air or signs of pneumothorax. ECG Data Attestation: I personally reviewed and interpreted this ECG as follows: Indication: + SOB/dyspnea Rate (beats per minute): 109 Additional Comments: EKG was obtained in the emergency department. My interpretation is atrial fibrillation at 109 bpm. There was anterior Q waves noted. Diffuse ST segment depressions were noted. Increased rate otherwise no specific change compared to March 25, 2017. Blood Pressure Blood Pressure Findings: Normal blood pressure MDM Narrative The patient is a 79-year-old female who presented to the emergency department for an evaluation of difficulty breathing. Apparently the patient has been having difficulty breathing over the last few days. She had an outpatient x-ray which showed some signs of infiltrate as well as a questionable area of upper lobe involvement which was questionable for tuberculosis according to the radiology read. The patient arrived at the emergency department via ambulance. She was placed directly into respiratory isolation given the chest x-ray read as well as the recent coronavirus outbreak. The patient was treated with supplemental oxygen as well as IV fluids. She was also placed on IV antibiotics and IV magnesium for replacement therapy. The patient initially arrived at the emergency department on noninvasive ventilation. After discussion with the patient's family members this was removed as her family member felt it may be against her mother's wishes and she was placed on a oxygen mask. The patient tolerated this quite well and her oxygen saturation was well maintained but her respiratory rate was elevated. I discussed the patient's condition with the on- call [facility] hospitalist group. They have agreed to evaluate the patient in the emergency department for further management disposition. The patient's condition is very significant at this time. This was relayed to the patient's daughter via of the emergency department charge nurse. Impression & Plan Pneumonia, Hypomagnesemia, Acute kidney injury, Hypoxia, Elevated troponin I level, Acute respiratory distress, Acute respiratory acidosis Discharge Plan Visit Data Chief Complaint: Respiratory Distress Stated Complaint: RESP. FAILURE ED Provider: Gerry Honeycutt Discharge Problem: Pneumonia, Hypomagnesemia, Acute kidney injury, Hypoxia, Elevated troponin I level, Acute respiratory distress, Acute respiratory acidosis Patient Disposition: Being Evaluated by Hospitalist Condition: Good Forms Stand Alone Forms: My [facility] Prescriptions Prescriptions: No Action calcium carbonate-vitamin D3 [Calcium 600 + D(3)] 600 mg(1,500mg) -200 unit Tablet 1 tab PO DAILY RF: 0 aspirin 81 mg Tablet,Delayed Release (Dr/Ec) 81 mg PO DAILY RF: 0 clonidine HCl 0.1 mg tablet 0.1 mg PO DAILY RF: 0 divalproex 250 mg tablet,delayed release (DR/EC) 250 mg PO DAILY RF: 0 tramadol 50 mg Tablet 50 mg PO BID RF: 0 risperidone 0.5 mg tablet 0.5 mg PO BID RF: 0 bupropion HCl 300 mg tablet extended release 24 hr 300 mg PO DAILY RF: 0 Levemir U-100 Insulin 100 unit/mL solution 69 unit SUBCUT DAILY RF: 0 hydralazine 25 mg tablet 25 mg PO BID RF: 0 lorazepam 0.5 mg tablet 0.5 mg PO BID RF: 0 docusate sodium [Colace] 100 mg Capsule 100 mg PO BID RF: 0 Nuedexta 20-10 mg capsule 1 cap PO Q12 RF: 0 guaifenesin [Mucinex] 600 mg Tablet Extended Release 12hr 600 mg PO BID RF: 0 probenecid 500 mg tablet 500 mg PO BID RF: 0 Pradaxa 75 mg capsule 75 mg PO BID RF: 0 insulin aspart U-100 [Novolog U-100 Insulin aspart] 100 unit/mL solution 14 unit subcut AC RF: 0 insulin aspart U-100 [Novolog U-100 Insulin aspart] 100 unit/mL solution 0 sliding scale dose subcut AC RF: 0 Systane Ultra 0.4-0.3 % Drops 1 drp OPB QID RF: 0 acetaminophen 325 mg Tablet 650 mg PO Q6 MDD 3gm/24hr PRN (Reason: Pain) RF: 0 acetaminophen 325 mg Tablet 650 mg PO Q6 MDD 3gm/24hr PRN (Reason: temp>101) RF: 0 acetaminophen 650 mg Suppository 650 mg WV Q6H MDD 3gm APAP/24hr PRN (Reason: temp>101) RF: 0 acetaminophen 650 mg Suppository 650 mg WV Q6H MDD 3gm APAP/24hr PRN (Reason: Pain) RF: 0 ipratropium-albuterol 0.5 mg-3 mg(2.5 mg base)/3 mL Solution For Nebulization 3 ml INHALATION Q6H PRN (Reason: Shortness Of Breath Or Wheezing) RF: 0 albuterol sulfate [Ventolin HFA] 90 mcg/actuation HFA aerosol inhaler 2 puff INHALATION Q8 PRN (Reason: Shortness Of Breath Or Wheezing) RF: 0 Systane Ultra 0.4-0.3 % Drops 1 drp OPHTHALMIC (EYE) ONCE PRN (Reason: DRY EYES FROM 10-6 AM) RF: 0 Referrals Referrals: [facility] [Primary Care Provider] - Discharge Problem: Pneumonia Qualifiers: Pneumonia type: due to unspecified organism Laterality: right Lung location: lower lobe of lung Qualified Code(s): J18.9 - Pneumonia, unspecified organism
[2019-11-14 23:07] LABS: Hematocrit (blood only) 39.2 % (37-47); Hemoglobin 12.8 g/dL (12.0-16.0); Mean Corpuscular Hemoglobin 30.3 pg (25-34); Mean Corpuscular Hgb Conc 32.7 g/dL (32-36); Mean Corpuscular Volume 92.9 fL (80-100); Mean Platelet Volume 10.2 fL (7.4-10.4); Nucleated RBC # (auto) 0.02 K/uL (0-0); Nucleated RBC % (auto) 0.1 %; Platelet Count 637 K/uL (130-400); RDW Coefficient of Variation 13.8 % (11.5-14.5); RDW Standard Deviation 46.9 fL (36.4-46.3); Red Blood Count 4.22 M/uL (4.2-5.4); White Blood Count 17.21 K/uL (4.8-10.8)
[2019-11-14 23:20] LABS: INR 1.4 (0.9-1.1); Partial Thromboplastin Ratio 1.4; Partial Thromboplastin Time 39.9 Seconds (21.0-31.0); Prothrombin Time 14.1 Seconds (9.0-12.0)
[2019-11-14 23:32] LABS: Albumin Globulin Ratio 0.6 (0.9-2); Albumin Level 2.9 gm/dl (3.4-5.0); BUN Creatinine Ratio 14.2 (10-20); Bilirubin,Total 0.5 mg/dl (0.2-1); Creatinine Clr Calc Pharmacy 22.6 ml/min; Est GFR (African American) 23.2; Globulin 4.9 gm/dl (2.5-4.0); Magnesium 1.7 mg/dl (1.8-2.4); Potassium 5.8 mmol/L (3.5-5.1); Total Protein 7.8 gm/dl (6.4-8.2); Troponin I 0.253 ng/ml (0-0.045)
[2019-11-14] MEDS ORDERED: SODIUM CHLORIDE 0.9% 1000ML 1,000 ML IV ONE (23:32)
[2019-11-14 23:42] LABS: ALC (manual) 1.38 K/uL (1.2-3.4); Basophils # (manual) 0.31 K/uL (0-0.2); Basophils % (manual) 1.8 %; Lymphocytes # (manual) 1.38 K/uL (1.2-3.4); Metamyelocytes # (manual) 0.15 K/uL (0-0); Metamyelocytes % (manual) 0.9 %; Monocytes # (manual) 0.15 K/uL (0.11-0.59); Monocytes % (manual) 0.9 %; Myelocytes # (manual) 0.31 K/uL (0-0); Myelocytes % (manual) 1.8 %; Neutrophils % (manual) 86.6 %
[2019-11-14 23:53] LABS: Beta-Hydroxybutyrate 2.68 mg/dl (0.2-2.81)
[2019-11-14 23:59] LABS: Base Excess VBG -0.2 mEq/L; Oxygen Saturation VBG 63.8 %; pH VBG 7.28 (7.36-7.41)
[2019-11-15] MEDS: MAGNESIUM SULFATE / D5W 1 GM/100 ML BAG IV SCH ×2 (00:17→01:26)
[2019-11-15 00:53] LABS: Adenovirus PCR Not Detected (NotDetected); Bordetella parapertussis PCR Not Detected (NotDetected); Bordetella pertussis PCR Not Detected (NotDetected); Chlamydia pneumoniae PCR Not Detected (NotDetected); Coronavirus 229E PCR Not Detected (NotDetected); Coronavirus HKU1 PCR Not Detected (NotDetected); Coronavirus NL63 PCR Not Detected (NotDetected); Coronavirus OC43PCR Not Detected (NotDetected); Influenza A PCR Not Detected (NotDetected); Influenza B PCR Not Detected (NotDetected); Mycoplasma pneumoniae PCR Not Detected (NotDetected); Parainfluenza Virus 1 PCR Not Detected (NotDetected); Parainfluenza Virus 2 PCR Not Detected (NotDetected); Parainfluenza Virus 3 PCR Not Detected (NotDetected); Parainfluenza Virus 4 PCR Not Detected (NotDetected); Respiratory Syncytial VirusPCR Not Detected (NotDetected); Rhinovirus/Enterovirus PCR Not Detected (NotDetected)
[2019-11-15 00:55] LABS: Human Metapneumovirus PCR DETECTED (NotDetected)
[2019-11-15] MEDS ORDERED: ALBUMIN HUMAN 25% 12.5 GM/50 ML VIAL IV ONE (01:43)
[2019-11-15] MEDS: ATROPINE SULFATE 1% OP SOLN 5 ML BTL PO PRN ×2 (01:59→04:54)
--- NOTE | 2019-11-15 02:11 | History & Physical Report ---
Date of Service November 15, 2019 Assessment & Plan (1) Acute respiratory failure with hypoxia and hypercapnia: Acute respiratory failure with hypoxia and hypercapnia/COPD/pneumonia- Laboratories consistent with human metapneumovirus infection, with concern regarding COVID-19 infection- Human metapneumovirus infection primarily requires contact isolation and standard precautions. However, with concern about the possibility of coinfection with COVID-19, patient will be admitted to a negative pressure room until COVID-19 testing returns. Continue Zosyn 3.375 mg IV every 8 hours. Patient with overall very poor prognosis. Her case was discussed by the ED with her POA. May consider consult of palliative therapy in a.m. Present on Admission?: Yes (2) Elevated troponin I level: Likely supply demand mismatch type II. Treat underlying pulmonary process. Will not track further troponins due to patient's overall very poor prognosis. Present on Admission?: Yes (3) Schizoaffective disorder: Unable to take oral medications. Present on Admission?: Yes (4) Acute kidney injury superimposed on chronic kidney disease: Creatinine 2.28 upon admission, with baseline 1.39-1.6. Patient did receive IV fluids while in the ED. Again because of poor prognosis, would not do any additional testing at this time. Present on Admission?: Yes (5) Pneumonia: See above. Differential includes viral pneumonia, as patient is positive for metapneumovirus infection, and will be tested for COVID-19 infection. Patient may have a secondary bacterial process and/or aspiration event, and therefore will continue Zosyn as noted above. Present on Admission?: Yes (6) Hypertension: Hold oral medications. Cardizem 10 mg IV every 4 hours as needed heart rate greater than 110 oh systolic blood pressure greater than 160. Present on Admission?: Yes (7) COPD (chronic obstructive pulmonary disease): See above Present on Admission?: Yes (8) Atrial fibrillation: Hold Pradaxa. Can place on Lovenox IV therapeutically if more aggressive therapy is decided to be taken by family in the a.m. Present on Admission?: Yes Admission and Anticipated Discharge Date Admission Date: 11/14/2019 Anticipated date of discharge: 11/15/19 History of Present Illness Chief Complaint: Patient presents to the emergency department due to severe shortness of breath, and was unable to contribute to her HPI or review of systems due to this dyspnea. Primary Care Provider: [facility] The patient is a 79-year-old female with a past medical history including schizoaffective disorder, chronic kidney disease, hypertension, COPD, bronchitis, atrial fibrillation, melena and pneumonia. She presents to the emergency department with 3 days of persistent and worsening dyspnea on exertion and more recently shortness of breath at rest this evening. She is a resident of [facility], [place], and had a chest x-ray there that was reportedly consistent with a bilateral viral pneumonitis or possibly tuberculosis. Patient was brought into room A9B in respiratory isolation in the emergency department. She was determined to be a DNR/DNI, and because of the current pandemic of coronavirus and I state, it was determined that BiPAP would not appropriate in the setting due to potential for spread of a COVID-19 infection, and discussion was made with her power of superintendent [employer] as to the possibility of intubation and more aggressive therapy. Her POA elected to have less aggressive intervention, therefore, the BiPAP was discontinued, and plans were made for patient to be admitted to the hospital for conservative therapy. In the emergency department, laboratory work-up included negative influenza A and B testing, and biofire was primarily positive for human metapneumovirus infection. Since it was unknown if patient had a coexistent COVID-19 infection, she will be admitted to a negative pressure room to prevent potential spread of the viral process. Allergies Allergy/AdvReac Type Severity Reaction Status Date / Time MARIANO Inhibitors Allergy Intermediate HEPATOTOXIC Unverified 11/14/19 22:54 ITY amiodarone Allergy Intermediate HEPATOTOXIC Unverified 11/14/19 22:54 ITY cephalexin Allergy Unknown unknown Verified 11/14/19 22:54 erythromycin base Allergy Unknown UNSURE Verified 11/14/19 22:54 levofloxacin Allergy Unknown Unknown. Verified 11/14/19 22:54 Home Medications Home Medications Medication Instructions Recorded Confirmed Type acetaminophen 650 mg PO Q6 PRN MDD 3gm/24hr 11/14/19 11/14/19 History acetaminophen 650 mg PO Q6 PRN MDD 3gm/24hr 11/14/19 11/14/19 History acetaminophen 650 mg ND Q6H PRN MDD 3gm APAP/24hr 11/14/19 11/14/19 History acetaminophen 650 mg ND Q6H PRN MDD 3gm APAP/24hr 11/14/19 11/14/19 History albuterol sulfate [Ventolin HFA] 2 puff INHALATION Q8 PRN 11/14/19 11/14/19 History aspirin 81 mg PO DAILY 11/14/19 11/14/19 History bupropion HCl 300 mg PO DAILY 11/14/19 11/14/19 History calcium carbonate-vitamin D3 1 tab PO DAILY 11/14/19 11/14/19 History [Calcium 600 + D(3)] clonidine HCl 0.1 mg PO DAILY 11/14/19 11/14/19 History dabigatran etexilate [Pradaxa] 75 mg PO BID 11/14/19 11/14/19 History dextromethorphan-quinidine 1 cap PO Q12 11/14/19 11/14/19 History [Nuedexta] divalproex 250 mg PO DAILY 11/14/19 11/14/19 History docusate sodium [Colace] 100 mg PO BID 11/14/19 11/14/19 History guaifenesin [Mucinex] 600 mg PO BID 11/14/19 11/14/19 History hydralazine 25 mg PO BID 11/14/19 11/14/19 History insulin aspart U-100 [Novolog 0 sliding scale dose SUBCUT AC 11/14/19 11/14/19 History U-100 Insulin aspart] insulin aspart U-100 [Novolog 14 unit SUBCUT AC 11/14/19 11/14/19 History U-100 Insulin aspart] insulin detemir U-100 [Levemir 69 unit SUBCUT DAILY 11/14/19 11/14/19 History U-100 Insulin] ipratropium-albuterol 3 ml INHALATION Q6H PRN 11/14/19 11/14/19 History lorazepam 0.5 mg PO BID 11/14/19 11/14/19 History peg 400-propylene glycol [Systane 1 drp OPB QID 11/14/19 11/14/19 History Ultra] peg 400-propylene glycol [Systane 1 drp OPHTHALMIC (EYE) ONCE PRN 11/14/19 11/14/19 History Ultra] probenecid 500 mg PO BID 11/14/19 11/14/19 History risperidone 0.5 mg PO BID 11/14/19 11/14/19 History tramadol 50 mg PO BID 11/14/19 11/14/19 History Past Med/Surg History Medical History Atrial fibrillation Bronchitis (Acute) Confusion COPD (chronic obstructive pulmonary disease) (Acute) Dyspnea (Acute) Hypertension Melena Oral bleeding (Acute) Pneumonia (Acute) Renal failure Schizoaffective disorder (Acute) Tiredness (Acute) Weakness (Acute) Social History Preferred Language: Malawian Communication Ability: Effective Accounts Receivable Manager Required: No Current Living Situation: Jail Other Information That Helps Us Care for You: No Feels Safe at Home: Yes Safety Concerns: Feels Safe At This Time Smoking Status: Former smoker Hx Alcohol Use: No Hx Substance Use: No Review of Systems Review of Systems: Unobtainable due to mental health condition and Unobtainable due to reduced consciousness Physical Exam Physical Exam: The patient is awake, normocephalic and atraumatic, lying in bed and in moderate respiratory distress. HEENT--PERRL, EOMI, mucous membranes and oropharynx dry. Neck--supple. No JVD. No bruits. Thyroid normal, trachea midline, no adenopathy. Heart--normal S1 and S2. No murmurs, rubs or gallops. Lungs--coarse breath sounds bilaterally with wheezes throughout. Moderate respiratory distress with accessory muscle use. Abdomen--normal bowel sounds and soft. Nontender. Nondistended, no hernias or masses, no organomegaly. Extremities--no cyanosis or clubbing. No edema. Dermatologic--normal skin turgor, normal color, no abnormal lymph nodes, no rash. Neurologic--cranial nerves II through XII grossly intact. Rheumatologic--normal range of motion. Psychiatric-answers no to question asked "are you in pain". Otherwise poorly responsive. Results & Data Results & Data ([facility]) Vital Signs (Past 12 Hours) Vital Signs Temp Pulse Pulse Resp BP BP Pulse Ox 11/15/19 02:00 101 H 28 H 138/87 97 11/15/19 01:37 97 H 32 H 121/80 98 11/15/19 01:15 96 H 24 153/87 H 97 11/15/19 01:00 109 H 27 H 132/81 97 11/15/19 00:45 92 H 99 H 27 H 126/87 126/87 97 11/15/19 00:18 101 H 31 H 106/73 98 11/14/19 23:00 116 H 33 H 112/79 95 11/14/19 22:55 112 H 33 H 116/91 93 11/14/19 22:45 124 H 36 H 110/86 100 11/14/19 22:34 112 H 28 H 8 L 11/14/19 22:32 143 H 25 H 99 11/14/19 22:31 96.6 F L 145 H 26 H 130/86 100 11/14/19 22:30 143 H 39 H 130/83 99 11/14/19 22:29 143 H 37 H 135/94 99 Laboratory Results Laboratory Results WBC 17.21 K/uL (4.8-10.8) H 11/14/19 22:50 RBC 4.22 M/uL (4.2-5.4) 11/14/19 22:50 Hgb 12.8 g/dL (12.0-16.0) 11/14/19 22:50 Hct 39.2 % (37-47) 11/14/19 22:50 MCV 92.9 fL (80-100) 11/14/19 22:50 MCH 30.3 pg (25-34) 11/14/19 22:50 MCHC 32.7 g/dL (32-36) 11/14/19 22:50 RDW Std Deviation 46.9 fL (36.4-46.3) H 11/14/19 22:50 RDW Coeff of Liya 13.8 % (11.5-14.5) 11/14/19 22:50 Plt Count 637 K/uL (130-400) H 11/14/19 22:50 MPV 10.2 fL (7.4-10.4) 11/14/19 22:50 Absolute Nucleated RBC 0.02 K/uL (0-0) H 11/14/19 22:50 Nucleated RBC % (auto) 0.1 % 11/14/19 22:50 Neutrophils % (Manual) 86.6 % 11/14/19 22:50 Lymphocytes % (Manual) 8.0 % 11/14/19 22:50 Monocytes % (Manual) 0.9 % 11/14/19 22:50 Basophils % (Manual) 1.8 % 11/14/19 22:50 Metamyelocytes % (Man) 0.9 % 11/14/19 22:50 Myelocytes % (Man) 1.8 % 11/14/19 22:50 Neutrophils # (Manual) 14.90 K/uL (1.4-6.5) H 11/14/19 22:50 Total Absolute Neuts 14.90 K/uL (1.4-6.5) H 11/14/19 22:50 Lymphocytes # (Manual) 1.38 K/uL (1.2-3.4) 11/14/19 22:50 Total Abs Lymphocytes 1.38 K/uL (1.2-3.4) 11/14/19 22:50 Monocytes # (Manual) 0.15 K/uL (0.11-0.59) 11/14/19 22:50 Basophils # (Manual) 0.31 K/uL (0-0.2) H 11/14/19 22:50 Metamyelocytes # (Man) 0.15 K/uL (0-0) H 11/14/19 22:50 Myelocytes # (Manual) 0.31 K/uL (0-0) H 11/14/19 22:50 PT 14.1 Seconds (9.0-12.0) H 11/14/19 22:50 INR 1.4 (0.9-1.1) H 11/14/19 22:50 APTT 39.9 Seconds (21.0-31.0) H 11/14/19 22:50 PTT Ratio 1.4 11/14/19 22:50 VBG pH 7.28 (7.36-7.41) L 11/14/19 23:48 VBG pCO2 60 mmHg (38-50) H 11/14/19 23:48 VBG pO2 39 mmHg 11/14/19 23:48 VBG HCO3 28 mmol/L 11/14/19 23:48 VBG O2 Saturation 63.8 % 11/14/19 23:48 VBG Base Excess -0.2 mEq/L 11/14/19 23:48 Barometric Pressure 728.2 mm/Hg 11/14/19 23:48 Sodium 128 mmol/L (136-145) L 11/14/19 22:50 Potassium 5.8 mmol/L (3.5-5.1) H 11/14/19 22:50 Chloride 92 mmol/L (98-107) L 11/14/19 22:50 Carbon Dioxide 28 mmol/L (21-32) 11/14/19 22:50 Anion Gap 9.0 (3-11) 11/14/19 22:50 BUN 32 mg/dl (7-18) H 11/14/19 22:50 Creatinine 2.28 mg/dl (0.6-1.2) H 11/14/19 22:50 Est Cr Clr Drug Dosing 22.6 ml/min 11/14/19 22:50 Est GFR ( Amer) 23.2 11/14/19 22:50 Est GFR (Non-Af Amer) 20.0 11/14/19 22:50 BUN/Creatinine Ratio 14.2 (10-20) 11/14/19 22:50 Glucose 315 mg/dl (70-99) H* 11/14/19 22:50 POC Glucose 422 mg/dl (70-99) H* 11/15/19 04:19 Lactate 2.8 mmol/L (0.4-2.0) H* 11/15/19 01:31 Calcium 9.0 mg/dl (8.5-10.1) 11/14/19 22:50 Magnesium 1.7 mg/dl (1.8-2.4) L 11/14/19 22:50 Total Bilirubin 0.5 mg/dl (0.2-1) 11/14/19 22:50 AST 168 U/L (15-37) H 11/14/19 22:50 ALT 142 U/L (12-78) H 11/14/19 22:50 Alkaline Phosphatase 84 U/L (45-117) 11/14/19 22:50 Troponin I 0.253 ng/ml (0-0.045) H* 11/14/19 22:50 Total Protein 7.8 gm/dl (6.4-8.2) 11/14/19 22:50 Albumin 2.9 gm/dl (3.4-5.0) L 11/14/19 22:50 Globulin 4.9 gm/dl (2.5-4.0) H 11/14/19 22:50 Albumin/Globulin Ratio 0.6 (0.9-2) L 11/14/19 22:50 Beta-Hydroxybutyric Acd 2.68 mg/dl (0.2-2.81) 11/14/19 22:50 Procalcitonin 0.31 ng/ml (0-0.5) 11/14/19 22:50 Valproic Acid 6 mcg/ml (50-100) L 11/14/19 22:50 Adenovirus (PCR) Not Detected (NotDetected) 11/14/19 22:45 B. pertussis DNA (PCR) Not Detected (NotDetected) 11/14/19 22:45 B.parapertussis DNA PCR Not Detected (NotDetected) 11/14/19 22:45 C. pneumoniae DNA (PCR) Not Detected (NotDetected) 11/14/19 22:45 Coronavirus OC43 (PCR) Not Detected (NotDetected) 11/14/19 22:45 Coronavirus HKU1 (PCR) Not Detected (NotDetected) 11/14/19 22:45 Coronavirus 229E (PCR) Not Detected (NotDetected) 11/14/19 22:45 Coronavirus NL63 (PCR) Not Detected (NotDetected) 11/14/19 22:45 Human Metapneumovir PCR DETECTED (NotDetected) A* 11/14/19 22:45 Influenza Type A (PCR) Cancelled 11/14/19 22:45 Influenza Type A (PCR) Not Detected (NotDetected) 11/14/19 22:45 Influenza Type B (PCR) Cancelled 11/14/19 22:45 Influenza Type B (PCR) Not Detected (NotDetected) 11/14/19 22:45 M. pneumoniae (PCR) Not Detected (NotDetected) 11/14/19 22:45 Parainfluenza 1 (PCR) Not Detected (NotDetected) 11/14/19 22:45 Parainfluenza 2 (PCR) Not Detected (NotDetected) 11/14/19 22:45 Parainfluenza 3 (PCR) Not Detected (NotDetected) 11/14/19 22:45 Parainfluenza 4 (PCR) Not Detected (NotDetected) 11/14/19 22:45 RSV (PCR) Not Detected (NotDetected) 11/14/19 22:45 Entero/Rhino (PCR) Not Detected (NotDetected) 11/14/19 22:45 Code Status & VTE Plan Code Status DNR/DNI VTE Prophylaxis Plan VTE Prophylaxis will be ordered: Yes PG Care Time/CCT Total # of Minutes Spent Total Time Spent with Patient: Total time spent is greater than 50% in coordination of care (as documented) at patient's floor/unit and/or counseling patient: Coding Level of Care Code 65983 Initial Inpt Care Lvl 3 Diagnoses Acute respiratory failure with hypoxia and hypercapnia J96.01; J96.02 Elevated troponin I level R79.89 Schizoaffective disorder F25.9 Acute kidney injury superimposed on chronic kidney disease N17.9; N18.9 Pneumonia J18.9 Laterality: right Lung location: lower lobe of lung Pneumonia type: due to unspecified organism Hypertension I10 COPD (chronic obstructive pulmonary disease) J44.9 Atrial fibrillation I48.91 (1) Pneumonia Laterality: right Lung location: lower lobe of lung Pneumonia type: due to unspecified organism Qualified Code(s): J18.9 - Pneumonia, unspecified organism
[2019-11-15] MEDS ORDERED: CARBOHYDRATES FOR HYPOGLYCEMIA PO PRN (04:03)
[2019-11-15] MEDS ORDERED: DEXTROSE 50% 50 ML SYRINGE IV PRN (04:03)
[2019-11-15] MEDS ORDERED: GLUCAGON FOR INJ 1 MG VIAL SQ PRN (04:03)
[2019-11-15] MEDS ORDERED: GLUCOSE 40% GEL 15 GM TUBE PO PRN (04:03)
[2019-11-15] MEDS ORDERED: GLUCOSE 10 TABS/TUBE PO PRN (04:03)
[2019-11-15] MEDS ORDERED: ONDANSETRON INJ 2 MG/ML 2 ML VIAL IV PRN (04:03)
[2019-11-15] MEDS ORDERED: ACETAMINOPHEN 650 MG SUPP PR PRN ×2 (04:03)
[2019-11-15] MEDS ORDERED: INSULIN ASPART PER SC STA (04:43)
[2019-11-15] MEDS: PIPERACILLIN/TAZOBACTAM 3.375 GM in DEXTROSE 5% 100 ML IV SCH ×3 (04:54→21:34)
[2019-11-15] MEDS ORDERED: INSULIN ASPART 100 UNITS/ML 3 ML PEN SC SCH (05:00)
[2019-11-15] MEDS: INSULIN ASPART 100 UNITS/ML 3 ML PEN SC SCH ×6 (05:12→20:43)
[2019-11-15] MEDS ORDERED: dilTIAZem HCl 5 MG/ML 5 ML VIAL IV STA (05:24)
[2019-11-15] MEDS ORDERED: cloNIDine HCL 0.1 MG/24 HR TRANSDERM SYS TD SCH (06:00)
--- NOTE | 2019-11-15 06:25 | XRay Report ---
XR chest 1V portable CLINICAL HISTORY: 79 years-old Female presenting with SEPSIS. TECHNIQUE: Portable upright AP view of the chest was obtained. COMPARISON: 05/01/2015. FINDINGS: Atherosclerosis of the aortic arch. Cardiac silhouette enlarged. Mitral annular calcification suspect ed. Interstitial prominence. Patchy hazy and irregular linear opacities in the right lung with a adam pheral and basilar predominance and to lesser extent in the left midlung. No large effusion or pneumo thorax. Degenerative changes of the spine and glenohumeral joints. Upper abdomen normal. IMPRESSION: 1. Patchy bilateral infiltrates, right greater than left, with a peripheral and basilar predominance . This is concerning for multifocal pneumonia. ACT 112: Negative or not required by law. Electronically signed by: Alton Anderson M.D. 11/15/2019 6:24 AM
[2019-11-15 06:30] LABS: Appearance Urine Cloudy (Clear); Bacteria Urine Automated Negative (Negative); Bilirubin Urine Negative (Negative); Blood Urine Negative (Negative); Color Urine Dark Yellow; Epithelial Cell Urine Auto >30 /lpf (0-5); Glucose Urine UA Trace (Negative); Ketones Urine Trace (Negative); Leukocyte Esterase Urine Negative (Negative); Nitrite Urine Negative (Negative); Protein Urine 1+ (Negative); RBC Urine Automated 0-4 /hpf (0-4); Specific Gravity Urine 1.025 (1.000-1.030); Urobilinogen Urine Negative (Negative)
[2019-11-15 06:38] LABS: Amorphous Sediment Urine Present (None Prsent); Calcium Oxalate Crystals Urine Present (None Prsent)
[2019-11-15] MEDS: MoRPHine SULFATE 2 MG/ML CARP IV PRN (06:59)
[2019-11-15] MEDS: CHECK CLONIDINE PATCH PLACEMENT SCH ×2 (08:12→16:21)
[2019-11-15 08:39] LABS: Basophils # (auto) 0.07 K/uL (0-0.2); Basophils % (auto) 0.5 %; Hematocrit (blood only) 34.1 % (37-47); Hemoglobin 11.3 g/dL (12.0-16.0); Immature Granulocytes # (auto) 0.17 K/uL (0.00-0.02); Immature Granulocytes % (auto) 1.3 %; Lymphocytes # (auto) 2.11 K/uL (1.2-3.4); Lymphocytes % (auto) 16.1 %; Mean Corpuscular Hemoglobin 30.4 pg (25-34); Mean Corpuscular Hgb Conc 33.1 g/dL (32-36); Mean Corpuscular Volume 91.7 fL (80-100); Monocytes # (auto) 0.83 K/uL (0.11-0.59); Monocytes % (auto) 6.3 %; Neutrophils # (auto) 9.91 K/uL (1.4-6.5); Neutrophils % (auto) 75.8 %; Platelet Count 521 K/uL (130-400); RDW Coefficient of Variation 13.6 % (11.5-14.5); RDW Standard Deviation 45.5 fL (36.4-46.3); Red Blood Count 3.72 M/uL (4.2-5.4); White Blood Count 13.09 K/uL (4.8-10.8)
[2019-11-15 09:01] LABS: Albumin Level 2.9 gm/dl (3.4-5.0); Calcium 8.6 mg/dl (8.5-10.1); Creatinine Clr Calc Pharmacy 23.6 ml/min; Est GFR (African American) 24.9; Est GFR (Non-African American) 21.5; Magnesium 2.3 mg/dl (1.8-2.4); Potassium 4.3 mmol/L (3.5-5.1)
[2019-11-15 09:02] LABS: Albumin Globulin Ratio 0.7 (0.9-2); Bilirubin,Total 0.3 mg/dl (0.2-1); Globulin 4.3 gm/dl (2.5-4.0); Total Protein 7.2 gm/dl (6.4-8.2); Troponin I 1.16 ng/ml (0-0.045)
--- NOTE | 2019-11-15 10:40 | Hospitalist Progress Note ---
Date of Service November 15, 2019 Assessment & Plan (1) Acute respiratory failure with hypoxia and hypercapnia: Acute respiratory failure with hypoxia and hypercapnia/COPD/pneumonia- Laboratories consistent with human metapneumovirus infection discussed with pulmonary and infection control, does not require COVID testing (no known contact, resides at [facility] that has had strict visitor restrictions) Human metapneumovirus infection requires contact precaution, notified staff to change patient's room out of the negative pressure Continue Zosyn 3.375 mg IV every 8 hours for possible secondary bacterial infection IV fluids, supportive care with oxygen (8L via mask but stable) discussed situation with family last night, she is a Do Not Intubate, would not want BIPAP either fortunately she is holding her own today as long as she keeps the oxygen in place (2) Elevated troponin I level: Likely supply demand mismatch type II. due to tachycardia, increased strain on heart no need to follow further (3) Schizoaffective disorder: will order her typical medications including Risperdone, Buproprion, divalproex use Ativan 0.5mg IV q8 as she takes this at [facility] as well want to keep her calm, cooperative so she keeps her oxygen mask in place (4) Acute kidney injury superimposed on chronic kidney disease: Creatinine 2.28 upon admission, with baseline 1.39-1.6 repeat Cr is 2.1 this morning, will resume gentle IV fluids since PO intake is not great (5) Pneumonia: See above. Differential includes viral pneumonia, as patient is positive for metapneumovirus infection Patient may have a secondary bacterial process and/or aspiration event, and therefore will continue Zosyn as noted above. WBC is down to 13k from 17k, afebrile LDH quite high at 675 lactic acid going down to 2.2 (6) Hypertension: Hold oral medications as BP is stable, likely a little intravascularly depleted (7) COPD (chronic obstructive pulmonary disease): See above (8) Atrial fibrillation: Hold Pradaxa. HR is elevated at times, likely due to illness, dehydration, will resume fluids does not take anything chronically for rate control Admission and Anticipated Discharge Date Admission Date: November 15, 2019 Anticipated date of discharge: 11/20/19 Subjective patient admitted last night from [facility] due to bilateral pneumonia, tested positive for human metapneumovirus COVID 19 test sent, from [facility] contacted by RN this morning, patient pulling at mask, trying to crawl out of bed a lot she is not it a great deal of distress, just confused and uncooperative called her daughter to discuss over the phone, she says that she is prone to acting out, h/o psychosis, certainly this situation is aggravating things discussed that treatment for the virus is supportive, family wishes her to be DNR, DNI repeated labs this AM, WBC 13k with 75% neutrophils, no lymphopenia, platelets elevated Na 130, Cr 2.15 (down slightly), lactic acid 2.2 (down from 5) AST 400 and AST 360, both going up, LDH 675, troponin up to 1.16 Review of Systems Review of Systems: Unobtainable due to cognitive status (confused, just says she "hurts all over") Physical Exam Constitutional: + ill appearing, + frail appearing and + in distress; + uncooperative and not diaphoretic Eyes: PERRL, conjunctivae normal, anicteric sclerae ENMT: external ear and nose normal, oropharynx normal (dry mucous membranes) Neck: trachea midline, no thyromegaly Respiratory: + labored breathing and + tachypneic; no cough Auscultation: + diminished lung sounds and + crackles; no rales, no rhonchi and no wheezes Cardiovascular: Rate/Rhythm: + tachycardic and + irregularly irregular Heart Sounds: normal S1 and normal S2; no murmur Vessels: no JVD Extremities: normal capillary refill; no edema Gastrointestinal (Abdomen): normal bowel sounds, soft, nontender, no hepatosplenomegaly Musculoskeletal: no cyanosis or clubbing, extremities motor strength 5/5 Skin: + turgor decreased; no rashes, no wound and no jaundice Neurologic: patellar DTR's 2+ bilat, sensation intact and PERRL, EOMI, accommodation nl, no face palsy, no dysarthria Psychiatric: Orientation: oriented to person and + guarded; + not oriented to place, + not oriented to time and + uncooperative Eye Contact: + poor eye contact Insight: + limited insight Lymphatic: no cervical or axillary lymphadenopathy Results & Data Results & Data ([facility]) Vital Signs (Past 12 Hours) Vital Signs Temp Pulse Pulse Pulse Resp BP BP 11/15/19 09:44 11/15/19 09:34 93 H 28 H 11/15/19 09:15 140 H 34 H 11/15/19 08:23 36.7 C 107 H 28 H 11/15/19 07:08 124 H 11/15/19 04:23 36.5 C 107 H 30 H 155/94 H 11/15/19 04:00 36.5 C 110 H 30 H 155/94 H 11/15/19 03:00 103 H 26 H 118/92 11/15/19 02:45 104 H 25 H 121/84 11/15/19 02:15 102 H 34 H 131/82 11/15/19 02:00 101 H 28 H 138/87 11/15/19 01:37 97 H 32 H 121/80 11/15/19 01:15 96 H 24 153/87 H 11/15/19 01:00 109 H 27 H 132/81 11/15/19 00:45 92 H 99 H 27 H 126/87 126/87 11/15/19 00:18 101 H 31 H 106/73 11/14/19 23:00 116 H 33 H 112/79 11/14/19 22:55 112 H 33 H 116/91 11/14/19 22:45 124 H 36 H 110/86 11/14/19 22:34 112 H 28 H 11/14/19 22:32 143 H 25 H BP Pulse Ox 11/15/19 09:44 97 11/15/19 09:34 95 11/15/19 09:15 131/105 H 77 L 11/15/19 08:23 125/91 97 11/15/19 07:08 134/84 11/15/19 04:23 96 11/15/19 04:00 97 11/15/19 03:00 97 11/15/19 02:45 96 11/15/19 02:15 97 11/15/19 02:00 97 11/15/19 01:37 98 11/15/19 01:15 97 11/15/19 01:00 97 11/15/19 00:45 97 11/15/19 00:18 98 11/14/19 23:00 95 11/14/19 22:55 93 11/14/19 22:45 100 11/14/19 22:34 8 L 11/14/19 22:32 99 Laboratory Results Laboratory Results - last 24 hr 11/14/19 11/14/19 11/14/19 22:45 22:45 22:45 WBC RBC Hgb Hct MCV MCH MCHC RDW Std Deviation RDW Coeff of Liya Plt Count MPV Immature Gran % (Auto) Neut % (Auto) Lymph % (Auto) Stanton % (Auto) Eos % (Auto) Baso % (Auto) Immature Gran # (Auto) Neut # (Auto) Lymph # (Auto) Stanton # (Auto) Eos # (Auto) Baso # (Auto) Absolute Nucleated RBC Nucleated RBC % (auto) Neutrophils % (Manual) Lymphocytes % (Manual) Monocytes % (Manual) Basophils % (Manual) Metamyelocytes % (Man) Myelocytes % (Man) Neutrophils # (Manual) Total Absolute Neuts Lymphocytes # (Manual) Total Abs Lymphocytes Monocytes # (Manual) Basophils # (Manual) Metamyelocytes # (Man) Myelocytes # (Manual) PT INR APTT PTT Ratio VBG pH VBG pCO2 VBG pO2 VBG HCO3 VBG O2 Saturation VBG Base Excess Barometric Pressure Sodium Potassium Chloride Carbon Dioxide Anion Gap BUN Creatinine Est Cr Clr Drug Dosing Est GFR ( Amer) Est GFR (Non-Af Amer) BUN/Creatinine Ratio Glucose POC Glucose Lactate Calcium Magnesium Total Bilirubin AST ALT Alkaline Phosphatase Lactate Dehydrogenase Troponin I Total Protein Albumin Globulin Albumin/Globulin Ratio Beta-Hydroxybutyric Acd Procalcitonin Urine Color Urine Appearance Urine pH Ur Specific [place] Urine Protein Urine Glucose (UA) Urine Ketones Urine Blood Urine Nitrite Urine Bilirubin Urine Urobilinogen Ur Leukocyte Esterase Urine WBC (Auto) Urine RBC (Auto) U Hyaline Cast (Auto) U Epithel Cells (Auto) Urine Bacteria (Auto) Ur Renal Epithelial Cell Calcium Oxalate Crystal Amorphous Sediment Granular Casts Nasal Screen MRSA (PCR) Valproic Acid Adenovirus (PCR) Not Detected B. pertussis DNA (PCR) Not Detected B.parapertussis DNA PCR Not Detected C. pneumoniae DNA (PCR) Not Detected Coronavirus (PCR) Pending Coronavirus OC43 (PCR) Not Detected Coronavirus HKU1 (PCR) Not Detected Coronavirus 229E (PCR) Not Detected COVID-19 Pt Symptomatic Pending COVID-19 Source Pending Coronavirus NL63 (PCR) Not Detected Human Metapneumovir PCR DETECTED A* Influenza Type A (PCR) Cancelled Not Detected Influenza Type B (PCR) Cancelled Not Detected M. pneumoniae (PCR) Not Detected Parainfluenza 1 (PCR) Not Detected Parainfluenza 2 (PCR) Not Detected Parainfluenza 3 (PCR) Not Detected Parainfluenza 4 (PCR) Not Detected RSV (PCR) Not Detected Entero/Rhino (PCR) Not Detected SARS Virus RNA (PCR) Pending SARS-CoV-2 RNA (RT-PCR) Pending TB Test (QFT) Gold Plus TB Test (QFT) Nil TB Test Mitogen - Nil TB Test Ag - Nil 1 TB Test Ag - Nil 2 11/14/19 11/14/19 11/14/19 22:50 22:50 22:50 WBC 17.21 H RBC 4.22 Hgb 12.8 Hct 39.2 MCV 92.9 MCH 30.3 MCHC 32.7 RDW Std Deviation 46.9 H RDW Coeff of Liya 13.8 Plt Count 637 H MPV 10.2 Immature Gran % (Auto) Neut % (Auto) Lymph % (Auto) Stanton % (Auto) Eos % (Auto) Baso % (Auto) Immature Gran # (Auto) Neut # (Auto) Lymph # (Auto) Stanton # (Auto) Eos # (Auto) Baso # (Auto) Absolute Nucleated RBC 0.02 H Nucleated RBC % (auto) 0.1 Neutrophils % (Manual) 86.6 Lymphocytes % (Manual) 8.0 Monocytes % (Manual) 0.9 Basophils % (Manual) 1.8 Metamyelocytes % (Man) 0.9 Myelocytes % (Man) 1.8 Neutrophils # (Manual) 14.90 H Total Absolute Neuts 14.90 H Lymphocytes # (Manual) 1.38 Total Abs Lymphocytes 1.38 Monocytes # (Manual) 0.15 Basophils # (Manual) 0.31 H Metamyelocytes # (Man) 0.15 H Myelocytes # (Manual) 0.31 H PT 14.1 H INR 1.4 H APTT 39.9 H PTT Ratio 1.4 VBG pH VBG pCO2 VBG pO2 VBG HCO3 VBG O2 Saturation VBG Base Excess Barometric Pressure Sodium 128 L Potassium 5.8 H Chloride 92 L Carbon Dioxide 28 Anion Gap 9.0 BUN 32 H Creatinine 2.28 H Est Cr Clr Drug Dosing 22.6 Est GFR ( Amer) 23.2 Est GFR (Non-Af Amer) 20.0 BUN/Creatinine Ratio 14.2 Glucose 315 H* POC Glucose Lactate Calcium 9.0 Magnesium 1.7 L Total Bilirubin 0.5 AST 168 H ALT 142 H Alkaline Phosphatase 84 Lactate Dehydrogenase Troponin I 0.253 H* Total Protein 7.8 Albumin 2.9 L Globulin 4.9 H Albumin/Globulin Ratio 0.6 L Beta-Hydroxybutyric Acd 2.68 Procalcitonin Urine Color Urine Appearance Urine pH Ur Specific [place] Urine Protein Urine Glucose (UA) Urine Ketones Urine Blood Urine Nitrite Urine Bilirubin Urine Urobilinogen Ur Leukocyte Esterase Urine WBC (Auto) Urine RBC (Auto) U Hyaline Cast (Auto) U Epithel Cells (Auto) Urine Bacteria (Auto) Ur Renal Epithelial Cell Calcium Oxalate Crystal Amorphous Sediment Granular Casts Nasal Screen MRSA (PCR) Valproic Acid Adenovirus (PCR) B. pertussis DNA (PCR) B.parapertussis DNA PCR C. pneumoniae DNA (PCR) Coronavirus (PCR) Coronavirus OC43 (PCR) Coronavirus HKU1 (PCR) Coronavirus 229E (PCR) COVID-19 Pt Symptomatic COVID-19 Source Coronavirus NL63 (PCR) Human Metapneumovir PCR Influenza Type A (PCR) Influenza Type B (PCR) M. pneumoniae (PCR) Parainfluenza 1 (PCR) Parainfluenza 2 (PCR) Parainfluenza 3 (PCR) Parainfluenza 4 (PCR) RSV (PCR) Entero/Rhino (PCR) SARS Virus RNA (PCR) SARS-CoV-2 RNA (RT-PCR) TB Test (QFT) Gold Plus TB Test (QFT) Nil TB Test Mitogen - Nil TB Test Ag - Nil 1 TB Test Ag - Nil 2 11/14/19 11/14/19 11/14/19 22:50 22:50 22:50 WBC RBC Hgb Hct MCV MCH MCHC RDW Std Deviation RDW Coeff of Liya Plt Count MPV Immature Gran % (Auto) Neut % (Auto) Lymph % (Auto) Stanton % (Auto) Eos % (Auto) Baso % (Auto) Immature Gran # (Auto) Neut # (Auto) Lymph # (Auto) Stanton # (Auto) Eos # (Auto) Baso # (Auto) Absolute Nucleated RBC Nucleated RBC % (auto) Neutrophils % (Manual) Lymphocytes % (Manual) Monocytes % (Manual) Basophils % (Manual) Metamyelocytes % (Man) Myelocytes % (Man) Neutrophils # (Manual) Total Absolute Neuts Lymphocytes # (Manual) Total Abs Lymphocytes Monocytes # (Manual) Basophils # (Manual) Metamyelocytes # (Man) Myelocytes # (Manual) PT INR APTT PTT Ratio VBG pH VBG pCO2 VBG pO2 VBG HCO3 VBG O2 Saturation VBG Base Excess Barometric Pressure Sodium Potassium Chloride Carbon Dioxide Anion Gap BUN Creatinine Est Cr Clr Drug Dosing Est GFR ( Amer) Est GFR (Non-Af Amer) BUN/Creatinine Ratio Glucose POC Glucose Lactate 5.2 H* Calcium Magnesium Total Bilirubin AST ALT Alkaline Phosphatase Lactate Dehydrogenase Troponin I Total Protein Albumin Globulin Albumin/Globulin Ratio Beta-Hydroxybutyric Acd Procalcitonin 0.31 Urine Color Urine Appearance Urine pH Ur Specific [place] Urine Protein Urine Glucose (UA) Urine Ketones Urine Blood Urine Nitrite Urine Bilirubin Urine Urobilinogen Ur Leukocyte Esterase Urine WBC (Auto) Urine RBC (Auto) U Hyaline Cast (Auto) U Epithel Cells (Auto) Urine Bacteria (Auto) Ur Renal Epithelial Cell Calcium Oxalate Crystal Amorphous Sediment Granular Casts Nasal Screen MRSA (PCR) Valproic Acid 6 L Adenovirus (PCR) B. pertussis DNA (PCR) B.parapertussis DNA PCR C. pneumoniae DNA (PCR) Coronavirus (PCR) Coronavirus OC43 (PCR) Coronavirus HKU1 (PCR) Coronavirus 229E (PCR) COVID-19 Pt Symptomatic COVID-19 Source Coronavirus NL63 (PCR) Human Metapneumovir PCR Influenza Type A (PCR) Influenza Type B (PCR) M. pneumoniae (PCR) Parainfluenza 1 (PCR) Parainfluenza 2 (PCR) Parainfluenza 3 (PCR) Parainfluenza 4 (PCR) RSV (PCR) Entero/Rhino (PCR) SARS Virus RNA (PCR) SARS-CoV-2 RNA (RT-PCR) TB Test (QFT) Gold Plus TB Test (QFT) Nil TB Test Mitogen - Nil TB Test Ag - Nil 1 TB Test Ag - Nil 2 11/14/19 11/14/19 11/15/19 23:48 23:51 01:31 WBC RBC Hgb Hct MCV MCH MCHC RDW Std Deviation RDW Coeff of Liya Plt Count MPV Immature Gran % (Auto) Neut % (Auto) Lymph % (Auto) Stanton % (Auto) Eos % (Auto) Baso % (Auto) Immature Gran # (Auto) Neut # (Auto) Lymph # (Auto) Stanton # (Auto) Eos # (Auto) Baso # (Auto) Absolute Nucleated RBC Nucleated RBC % (auto) Neutrophils % (Manual) Lymphocytes % (Manual) Monocytes % (Manual) Basophils % (Manual) Metamyelocytes % (Man) Myelocytes % (Man) Neutrophils # (Manual) Total Absolute Neuts Lymphocytes # (Manual) Total Abs Lymphocytes Monocytes # (Manual) Basophils # (Manual) Metamyelocytes # (Man) Myelocytes # (Manual) PT INR APTT PTT Ratio VBG pH 7.28 L VBG pCO2 60 H VBG pO2 39 VBG HCO3 28 VBG O2 Saturation 63.8 VBG Base Excess -0.2 Barometric Pressure 728.2 Sodium Potassium Chloride Carbon Dioxide Anion Gap BUN Creatinine Est Cr Clr Drug Dosing Est GFR ( Amer) Est GFR (Non-Af Amer) BUN/Creatinine Ratio Glucose POC Glucose Lactate 2.8 H* Calcium Magnesium Total Bilirubin AST ALT Alkaline Phosphatase Lactate Dehydrogenase Troponin I Total Protein Albumin Globulin Albumin/Globulin Ratio Beta-Hydroxybutyric Acd Procalcitonin Urine Color Urine Appearance Urine pH Ur Specific [place] Urine Protein Urine Glucose (UA) Urine Ketones Urine Blood Urine Nitrite Urine Bilirubin Urine Urobilinogen Ur Leukocyte Esterase Urine WBC (Auto) Urine RBC (Auto) U Hyaline Cast (Auto) U Epithel Cells (Auto) Urine Bacteria (Auto) Ur Renal Epithelial Cell Calcium Oxalate Crystal Amorphous Sediment Granular Casts Nasal Screen MRSA (PCR) Valproic Acid Adenovirus (PCR) B. pertussis DNA (PCR) B.parapertussis DNA PCR C. pneumoniae DNA (PCR) Coronavirus (PCR) Coronavirus OC43 (PCR) Coronavirus HKU1 (PCR) Coronavirus 229E (PCR) COVID-19 Pt Symptomatic COVID-19 Source Coronavirus NL63 (PCR) Human Metapneumovir PCR Influenza Type A (PCR) Influenza Type B (PCR) M. pneumoniae (PCR) Parainfluenza 1 (PCR) Parainfluenza 2 (PCR) Parainfluenza 3 (PCR) Parainfluenza 4 (PCR) RSV (PCR) Entero/Rhino (PCR) SARS Virus RNA (PCR) SARS-CoV-2 RNA (RT-PCR) TB Test (QFT) Gold Plus Pending TB Test (QFT) Nil Pending TB Test Mitogen - Nil Pending TB Test Ag - Nil 1 Pending TB Test Ag - Nil 2 Pending 11/15/19 11/15/19 11/15/19 04:13 04:15 04:19 WBC RBC Hgb Hct MCV MCH MCHC RDW Std Deviation RDW Coeff of Liya Plt Count MPV Immature Gran % (Auto) Neut % (Auto) Lymph % (Auto) Stanton % (Auto) Eos % (Auto) Baso % (Auto) Immature Gran # (Auto) Neut # (Auto) Lymph # (Auto) Stanton # (Auto) Eos # (Auto) Baso # (Auto) Absolute Nucleated RBC Nucleated RBC % (auto) Neutrophils % (Manual) Lymphocytes % (Manual) Monocytes % (Manual) Basophils % (Manual) Metamyelocytes % (Man) Myelocytes % (Man) Neutrophils # (Manual) Total Absolute Neuts Lymphocytes # (Manual) Total Abs Lymphocytes Monocytes # (Manual) Basophils # (Manual) Metamyelocytes # (Man) Myelocytes # (Manual) PT INR APTT PTT Ratio VBG pH VBG pCO2 VBG pO2 VBG HCO3 VBG O2 Saturation VBG Base Excess Barometric Pressure Sodium Potassium Chloride Carbon Dioxide Anion Gap BUN Creatinine Est Cr Clr Drug Dosing Est GFR ( Amer) Est GFR (Non-Af Amer) BUN/Creatinine Ratio Glucose POC Glucose 440 H* 490 H* 422 H* Lactate Calcium Magnesium Total Bilirubin AST ALT Alkaline Phosphatase Lactate Dehydrogenase Troponin I Total Protein Albumin Globulin Albumin/Globulin Ratio Beta-Hydroxybutyric Acd Procalcitonin Urine Color Urine Appearance Urine pH Ur Specific [place] Urine Protein Urine Glucose (UA) Urine Ketones Urine Blood Urine Nitrite Urine Bilirubin Urine Urobilinogen Ur Leukocyte Esterase Urine WBC (Auto) Urine RBC (Auto) U Hyaline Cast (Auto) U Epithel Cells (Auto) Urine Bacteria (Auto) Ur Renal Epithelial Cell Calcium Oxalate Crystal Amorphous Sediment Granular Casts Nasal Screen MRSA (PCR) Valproic Acid Adenovirus (PCR) B. pertussis DNA (PCR) B.parapertussis DNA PCR C. pneumoniae DNA (PCR) Coronavirus (PCR) Coronavirus OC43 (PCR) Coronavirus HKU1 (PCR) Coronavirus 229E (PCR) COVID-19 Pt Symptomatic COVID-19 Source Coronavirus NL63 (PCR) Human Metapneumovir PCR Influenza Type A (PCR) Influenza Type B (PCR) M. pneumoniae (PCR) Parainfluenza 1 (PCR) Parainfluenza 2 (PCR) Parainfluenza 3 (PCR) Parainfluenza 4 (PCR) RSV (PCR) Entero/Rhino (PCR) SARS Virus RNA (PCR) SARS-CoV-2 RNA (RT-PCR) TB Test (QFT) Gold Plus TB Test (QFT) Nil TB Test Mitogen - Nil TB Test Ag - Nil 1 TB Test Ag - Nil 2 11/15/19 11/15/19 11/15/19 05:00 05:00 05:50 WBC RBC Hgb Hct MCV MCH MCHC RDW Std Deviation RDW Coeff of Liya Plt Count MPV Immature Gran % (Auto) Neut % (Auto) Lymph % (Auto) Stanton % (Auto) Eos % (Auto) Baso % (Auto) Immature Gran # (Auto) Neut # (Auto) Lymph # (Auto) Stanton # (Auto) Eos # (Auto) Baso # (Auto) Absolute Nucleated RBC Nucleated RBC % (auto) Neutrophils % (Manual) Lymphocytes % (Manual) Monocytes % (Manual) Basophils % (Manual) Metamyelocytes % (Man) Myelocytes % (Man) Neutrophils # (Manual) Total Absolute Neuts Lymphocytes # (Manual) Total Abs Lymphocytes Monocytes # (Manual) Basophils # (Manual) Metamyelocytes # (Man) Myelocytes # (Manual) PT INR APTT PTT Ratio VBG pH VBG pCO2 VBG pO2 VBG HCO3 VBG O2 Saturation VBG Base Excess Barometric Pressure Sodium Potassium Chloride Carbon Dioxide Anion Gap BUN Creatinine Est Cr Clr Drug Dosing Est GFR ( Amer) Est GFR (Non-Af Amer) BUN/Creatinine Ratio Glucose POC Glucose 416 H* Lactate Calcium Magnesium Total Bilirubin AST ALT Alkaline Phosphatase Lactate Dehydrogenase Troponin I Total Protein Albumin Globulin Albumin/Globulin Ratio Beta-Hydroxybutyric Acd Procalcitonin Urine Color Dark Yellow Urine Appearance Cloudy A Urine pH 5.0 Ur Specific [place] 1.025 Urine Protein 1+ H Urine Glucose (UA) Trace H Urine Ketones Trace H Urine Blood Negative Urine Nitrite Negative Urine Bilirubin Negative Urine Urobilinogen Negative Ur Leukocyte Esterase Negative Urine WBC (Auto) 5-10 H Urine RBC (Auto) 0-4 U Hyaline Cast (Auto) 1-5 U Epithel Cells (Auto) >30 H Urine Bacteria (Auto) Negative Ur Renal Epithelial Cell Not Reportable Calcium Oxalate Crystal Present A Amorphous Sediment Present A Granular Casts 5-10 H Nasal Screen MRSA (PCR) Negative Valproic Acid Adenovirus (PCR) B. pertussis DNA (PCR) B.parapertussis DNA PCR C. pneumoniae DNA (PCR) Coronavirus (PCR) Coronavirus OC43 (PCR) Coronavirus HKU1 (PCR) Coronavirus 229E (PCR) COVID-19 Pt Symptomatic COVID-19 Source Coronavirus NL63 (PCR) Human Metapneumovir PCR Influenza Type A (PCR) Influenza Type B (PCR) M. pneumoniae (PCR) Parainfluenza 1 (PCR) Parainfluenza 2 (PCR) Parainfluenza 3 (PCR) Parainfluenza 4 (PCR) RSV (PCR) Entero/Rhino (PCR) SARS Virus RNA (PCR) SARS-CoV-2 RNA (RT-PCR) TB Test (QFT) Gold Plus TB Test (QFT) Nil TB Test Mitogen - Nil TB Test Ag - Nil 1 TB Test Ag - Nil 2 11/15/19 11/15/19 11/15/19 05:51 05:52 08:08 WBC RBC Hgb Hct MCV MCH MCHC RDW Std Deviation RDW Coeff of Liya Plt Count MPV Immature Gran % (Auto) Neut % (Auto) Lymph % (Auto) Stanton % (Auto) Eos % (Auto) Baso % (Auto) Immature Gran # (Auto) Neut # (Auto) Lymph # (Auto) Stanton # (Auto) Eos # (Auto) Baso # (Auto) Absolute Nucleated RBC Nucleated RBC % (auto) Neutrophils % (Manual) Lymphocytes % (Manual) Monocytes % (Manual) Basophils % (Manual) Metamyelocytes % (Man) Myelocytes % (Man) Neutrophils # (Manual) Total Absolute Neuts Lymphocytes # (Manual) Total Abs Lymphocytes Monocytes # (Manual) Basophils # (Manual) Metamyelocytes # (Man) Myelocytes # (Manual) PT INR APTT PTT Ratio VBG pH VBG pCO2 VBG pO2 VBG HCO3 VBG O2 Saturation VBG Base Excess Barometric Pressure Sodium Potassium Chloride Carbon Dioxide Anion Gap BUN Creatinine Est Cr Clr Drug Dosing Est GFR ( Amer) Est GFR (Non-Af Amer) BUN/Creatinine Ratio Glucose POC Glucose 386 H* 384 H* 278 H Lactate Calcium Magnesium Total Bilirubin AST ALT Alkaline Phosphatase Lactate Dehydrogenase Troponin I Total Protein Albumin Globulin Albumin/Globulin Ratio Beta-Hydroxybutyric Acd Procalcitonin Urine Color Urine Appearance Urine pH Ur Specific [place] Urine Protein Urine Glucose (UA) Urine Ketones Urine Blood Urine Nitrite Urine Bilirubin Urine Urobilinogen Ur Leukocyte Esterase Urine WBC (Auto) Urine RBC (Auto) U Hyaline Cast (Auto) U Epithel Cells (Auto) Urine Bacteria (Auto) Ur Renal Epithelial Cell Calcium Oxalate Crystal Amorphous Sediment Granular Casts Nasal Screen MRSA (PCR) Valproic Acid Adenovirus (PCR) B. pertussis DNA (PCR) B.parapertussis DNA PCR C. pneumoniae DNA (PCR) Coronavirus (PCR) Coronavirus OC43 (PCR) Coronavirus HKU1 (PCR) Coronavirus 229E (PCR) COVID-19 Pt Symptomatic COVID-19 Source Coronavirus NL63 (PCR) Human Metapneumovir PCR Influenza Type A (PCR) Influenza Type B (PCR) M. pneumoniae (PCR) Parainfluenza 1 (PCR) Parainfluenza 2 (PCR) Parainfluenza 3 (PCR) Parainfluenza 4 (PCR) RSV (PCR) Entero/Rhino (PCR) SARS Virus RNA (PCR) SARS-CoV-2 RNA (RT-PCR) TB Test (QFT) Gold Plus TB Test (QFT) Nil TB Test Mitogen - Nil TB Test Ag - Nil 1 TB Test Ag - Nil 2 11/15/19 11/15/19 11/15/19 08:28 08:28 08:28 WBC 13.09 H RBC 3.72 L Hgb 11.3 L Hct 34.1 L MCV 91.7 MCH 30.4 MCHC 33.1 RDW Std Deviation 45.5 RDW Coeff of Liya 13.6 Plt Count 521 H MPV 10.0 Immature Gran % (Auto) 1.3 Neut % (Auto) 75.8 Lymph % (Auto) 16.1 Stanton % (Auto) 6.3 Eos % (Auto) 0.0 Baso % (Auto) 0.5 Immature Gran # (Auto) 0.17 H Neut # (Auto) 9.91 H Lymph # (Auto) 2.11 Stanton # (Auto) 0.83 H Eos # (Auto) 0.00 Baso # (Auto) 0.07 Absolute Nucleated RBC Nucleated RBC % (auto) Neutrophils % (Manual) Lymphocytes % (Manual) Monocytes % (Manual) Basophils % (Manual) Metamyelocytes % (Man) Myelocytes % (Man) Neutrophils # (Manual) Total Absolute Neuts Lymphocytes # (Manual) Total Abs Lymphocytes Monocytes # (Manual) Basophils # (Manual) Metamyelocytes # (Man) Myelocytes # (Manual) PT INR APTT PTT Ratio VBG pH VBG pCO2 VBG pO2 VBG HCO3 VBG O2 Saturation VBG Base Excess Barometric Pressure Sodium 130 L Potassium 4.3 D Chloride 94 L Carbon Dioxide 28 Anion Gap 8.0 BUN 41 H Creatinine 2.15 H Est Cr Clr Drug Dosing 23.6 Est GFR ( Amer) 24.9 Est GFR (Non-Af Amer) 21.5 BUN/Creatinine Ratio 19.0 Glucose 276 H POC Glucose Lactate 2.2 H* Calcium 8.6 Magnesium 2.3 Total Bilirubin 0.3 AST 414 H ALT 363 H Alkaline Phosphatase 75 Lactate Dehydrogenase Troponin I 1.160 H* Total Protein 7.2 Albumin 2.9 L Globulin 4.3 H Albumin/Globulin Ratio 0.7 L Beta-Hydroxybutyric Acd Procalcitonin Urine Color Urine Appearance Urine pH Ur Specific [place] Urine Protein Urine Glucose (UA) Urine Ketones Urine Blood Urine Nitrite Urine Bilirubin Urine Urobilinogen Ur Leukocyte Esterase Urine WBC (Auto) Urine RBC (Auto) U Hyaline Cast (Auto) U Epithel Cells (Auto) Urine Bacteria (Auto) Ur Renal Epithelial Cell Calcium Oxalate Crystal Amorphous Sediment Granular Casts Nasal Screen MRSA (PCR) Valproic Acid Adenovirus (PCR) B. pertussis DNA (PCR) B.parapertussis DNA PCR C. pneumoniae DNA (PCR) Coronavirus (PCR) Coronavirus OC43 (PCR) Coronavirus HKU1 (PCR) Coronavirus 229E (PCR) COVID-19 Pt Symptomatic COVID-19 Source Coronavirus NL63 (PCR) Human Metapneumovir PCR Influenza Type A (PCR) Influenza Type B (PCR) M. pneumoniae (PCR) Parainfluenza 1 (PCR) Parainfluenza 2 (PCR) Parainfluenza 3 (PCR) Parainfluenza 4 (PCR) RSV (PCR) Entero/Rhino (PCR) SARS Virus RNA (PCR) SARS-CoV-2 RNA (RT-PCR) TB Test (QFT) Gold Plus TB Test (QFT) Nil TB Test Mitogen - Nil TB Test Ag - Nil 1 TB Test Ag - Nil 2 11/15/19 08:28 WBC RBC Hgb Hct MCV MCH MCHC RDW Std Deviation RDW Coeff of Liya Plt Count MPV Immature Gran % (Auto) Neut % (Auto) Lymph % (Auto) [place] % (Auto) Eos % (Auto) Baso % (Auto) Immature Gran # (Auto) Neut # (Auto) Lymph # (Auto) [place] # (Auto) Eos # (Auto) Baso # (Auto) Absolute Nucleated RBC Nucleated RBC % (auto) Neutrophils % (Manual) Lymphocytes % (Manual) Monocytes % (Manual) Basophils % (Manual) Metamyelocytes % (Man) Myelocytes % (Man) Neutrophils # (Manual) Total Absolute Neuts Lymphocytes # (Manual) Total Abs Lymphocytes Monocytes # (Manual) Basophils # (Manual) Metamyelocytes # (Man) Myelocytes # (Manual) PT INR APTT PTT Ratio VBG pH VBG pCO2 VBG pO2 VBG HCO3 VBG O2 Saturation VBG Base Excess Barometric Pressure Sodium Potassium Chloride Carbon Dioxide Anion Gap BUN Creatinine Est Cr Clr Drug Dosing Est GFR ( Amer) Est GFR (Non-Af Amer) BUN/Creatinine Ratio Glucose POC Glucose Lactate Calcium Magnesium Total Bilirubin AST ALT Alkaline Phosphatase Lactate Dehydrogenase 675 H Troponin I Total Protein Albumin Globulin Albumin/Globulin Ratio Beta-Hydroxybutyric Acd Procalcitonin Urine Color Urine Appearance Urine pH Ur Specific [place] Urine Protein Urine Glucose (UA) Urine Ketones Urine Blood Urine Nitrite Urine Bilirubin Urine Urobilinogen Ur Leukocyte Esterase Urine WBC (Auto) Urine RBC (Auto) U Hyaline Cast (Auto) U Epithel Cells (Auto) Urine Bacteria (Auto) Ur Renal Epithelial Cell Calcium Oxalate Crystal Amorphous Sediment Granular Casts Nasal Screen MRSA (PCR) Valproic Acid Adenovirus (PCR) B. pertussis DNA (PCR) B.parapertussis DNA PCR C. pneumoniae DNA (PCR) Coronavirus (PCR) Coronavirus OC43 (PCR) Coronavirus HKU1 (PCR) Coronavirus 229E (PCR) COVID-19 Pt Symptomatic COVID-19 Source Coronavirus NL63 (PCR) Human Metapneumovir PCR Influenza Type A (PCR) Influenza Type B (PCR) M. pneumoniae (PCR) Parainfluenza 1 (PCR) Parainfluenza 2 (PCR) Parainfluenza 3 (PCR) Parainfluenza 4 (PCR) RSV (PCR) Entero/Rhino (PCR) SARS Virus RNA (PCR) SARS-CoV-2 RNA (RT-PCR) TB Test (QFT) Gold Plus TB Test (QFT) Nil TB Test Mitogen - Nil TB Test Ag - Nil 1 TB Test Ag - Nil 2 Medications Administered Current Inpatient Medications Acetaminophen (Tylenol) 650 mg TN Q6H PRN PRN Reason: temp>101/PAIN Stop: 12/15/19 04:02 Atropine Sulfate (Atropine Sulfate 1% Oph) 1 drops PO Q2H PRN PRN Reason: .SECRETIONS Stop: 12/15/19 01:53 Last Admin: 11/15/19 04:54 Dose: 1 drops Documented by: Clonidine HCl (Enhtrams-Ufh-7 0.1mg/24hr) 1 patch TD We@0600 [facility] Stop: 12/15/19 05:59 Last Admin: 11/15/19 06:25 Dose: 1 patch Documented by: Dextrose (Dextrose 50%) 25 - 50 ml IV UD PRN; Protocol PRN Reason: Hypoglycemia Protocol Stop: 12/15/19 04:02 Glucagon (Glucagen) 1 mg SQ UD PRN; Protocol PRN Reason: Hypoglycemia Protocol Stop: 12/15/19 04:02 Glucose (Dex4 Glucose) 4 - 8 tabs PO UD PRN; Protocol PRN Reason: Hypoglycemia Protocol Stop: 12/15/19 04:02 Glucose (Glucose 40%) 15 - 30 gm PO UD PRN; Protocol PRN Reason: Hypoglycemia Protocol Stop: 12/15/19 04:02 Piperacillin Sod/Tazobactam (Sod 3.375 gm/ Dextrose) 115 mls @ 28.75 mls/hr IV Q8H [facility]; Protocol Stop: 11/22/19 04:29 Last Infusion: 11/15/19 08:58 Dose: Infused Documented by: Lorazepam (Ativan) 0.5 mg in 1 mls @ 1 mls/min IV Q8 [facility] Stop: 12/15/19 21:59 Lorazepam (Ativan) 0.25 mg in 0.5 mls @ 0.5 mls/min IV ONE ONE Stop: 11/15/19 10:46 Sodium Chloride (Nss 1000ml) 1,000 mls @ 80 mls/hr IV .[id number] [facility] Stop: 12/15/19 10:29 Insulin Aspart (Novolog Flexpen) 0 units SC Q4H [facility] Stop: 12/15/19 03:59 Last Admin: 11/15/19 08:13 Dose: 6 units Documented by: Miscellaneous (Carbohydrates For Hypoglycemia) 15 - 30 gm PO UD PRN PRN Reason: Hypoglycemia Protocol Stop: 12/15/19 04:02 Miscellaneous (Remove Clonidine Patch) 1 ea N/A CQWK [facility] Stop: 12/22/19 05:59 Miscellaneous (Check Clonidine Patch) 1 ea N/A QS [facility] Stop: 12/15/19 07:59 Last Admin: 11/15/19 08:12 Dose: 1 ea Documented by: Miscellaneous Information (Consult) 1 ea N/A UD PRN PRN Reason: Consult Stop: 12/14/19 22:34 Morphine Sulfate (Morphine Sulfate) 2 mg IV Q2R PRN PRN Reason: Shortness Of Breath Or Wheezing Stop: 11/29/19 04:45 Last Admin: 11/15/19 06:59 Dose: 2 mg Documented by: Ondansetron HCl (Zofran) 4 mg IV Q6H PRN PRN Reason: Nausea Stop: 12/15/19 04:02 PG Care Time/CCT Total # of Minutes Spent Total Time Spent with Patient: Total time spent is greater than 50% in coordination of care (as documented) at patient's floor/unit and/or counseling patient: Coding Level of Care Code 73962 Subseq Hosp Care Lvl 3 Diagnoses Acute respiratory failure with hypoxia and hypercapnia J96.01; J96.02 Elevated troponin I level R79.89 Schizoaffective disorder F25.9 Acute kidney injury superimposed on chronic kidney disease N17.9; N18.9 Pneumonia J18.9 Laterality: right Lung location: lower lobe of lung Pneumonia type: due to unspecified organism Hypertension I10 COPD (chronic obstructive pulmonary disease) J44.9 Atrial fibrillation I48.91 (1) Pneumonia Laterality: right Lung location: lower lobe of lung Pneumonia type: due to unspecified organism Qualified Code(s): J18.9 - Pneumonia, unspecified organism
[2019-11-15] MEDS ORDERED: LORazepam 0.25 MG/0.5 ML VIAL IV ONE (10:45)
[2019-11-15] MEDS: SODIUM CHLORIDE 0.9% 1000ML 1,000 ML IV SCH (12:04)
[2019-11-15] MEDS: DIVALPROEX DELAY RELEASE 250 MG TABEC PO SCH (12:08)
[2019-11-15] MEDS: risperiDONE 0.5 MG TABLET PO SCH ×2 (12:08→21:34)
[2019-11-15] MEDS: BuPROPion XL 300 MG TABCR PO SCH (12:08)
[2019-11-15] MEDS: INSULIN DETEMIR FLEXPEN/FLEX TOUCH 100 UNITS/ML 3ML SC SCH (12:14)
--- NOTE | 2019-11-15 14:03 | Electrocardiogram Report ---
Test Reason : Blood Pressure : / mmHG Vent. Rate : 109 BPM Atrial Rate : 117 BPM P-R Int : 000 ms QRS Dur : 086 ms QT Int : 312 ms P-R-T Axes : 000 242 074 degrees QTc Int : 420 ms Atrial fibrillation with rapid ventricular response Right superior axis deviation Anteroseptal infarct , age undetermined Abnormal ECG When compared with ECG of 25-MAR-2017 10:02, QRS axis Shifted left Anteroseptal infarct is now Present T wave amplitude has decreased in Lateral leads Confirmed by Gerry Lock ([id number]) on 11/15/2019 2:03:19 PM Referred By: [facility] Confirmed By:Gerry Lock
[2019-11-15] MEDS ORDERED: dilTIAZem HCL 30 MG TAB PO STA (16:25)
[2019-11-15] MEDS ORDERED: dilTIAZem HCl 5 MG/ML 5 ML VIAL IV PRN (17:28)
[2019-11-15] MEDS ORDERED: STAT IV Infusion **Titration per Protocol STA (17:29)
[2019-11-15] MEDS: dilTIAZem HCL 125 MG in DEXTROSE 5% 100 ML IV SCH (17:48)
[2019-11-15] MEDS ORDERED: LORazepam 0.5 MG/1 ML VIAL IV STA (18:15)
[2019-11-15] MEDS: LORazepam 0.5 MG/1 ML VIAL IV SCH (21:29)
[2019-11-16] MEDS: SODIUM CHLORIDE 0.9% 1000ML 1,000 ML IV SCH ×2 (00:04→12:12)
[2019-11-16] MEDS: CHECK CLONIDINE PATCH PLACEMENT SCH ×3 (00:04→15:02)
[2019-11-16] MEDS: INSULIN ASPART 100 UNITS/ML 3 ML PEN SC SCH ×6 (00:05→18:41)
[2019-11-16] MEDS: MoRPHine SULFATE 2 MG/ML CARP IV PRN ×2 (02:27→21:02)
[2019-11-16] MEDS: dilTIAZem HCL 125 MG in DEXTROSE 5% 100 ML IV SCH ×3 (02:47→18:33)
[2019-11-16] MEDS: PIPERACILLIN/TAZOBACTAM 3.375 GM in DEXTROSE 5% 100 ML IV SCH ×3 (03:09→20:08)
[2019-11-16] MEDS: LORazepam 0.5 MG/1 ML VIAL IV SCH ×2 (05:09→15:00)
[2019-11-16 08:17] LABS: Basophils # (auto) 0.05 K/uL (0-0.2); Basophils % (auto) 0.4 %; Eosinophils # (auto) 0.08 K/uL (0-0.5); Eosinophils % (auto) 0.6 %; Hematocrit (blood only) 35.9 % (37-47); Hemoglobin 11.8 g/dL (12.0-16.0); Immature Granulocytes # (auto) 0.14 K/uL (0.00-0.02); Immature Granulocytes % (auto) 1.1 %; Lymphocytes # (auto) 2.61 K/uL (1.2-3.4); Lymphocytes % (auto) 20.4 %; Mean Corpuscular Hemoglobin 30.2 pg (25-34); Mean Corpuscular Hgb Conc 32.9 g/dL (32-36); Mean Corpuscular Volume 91.8 fL (80-100); Mean Platelet Volume 10.3 fL (7.4-10.4); Monocytes # (auto) 0.99 K/uL (0.11-0.59); Monocytes % (auto) 7.7 %; Neutrophils # (auto) 8.92 K/uL (1.4-6.5); Neutrophils % (auto) 69.8 %; Platelet Count 541 K/uL (130-400); RDW Coefficient of Variation 13.8 % (11.5-14.5); RDW Standard Deviation 46.4 fL (36.4-46.3); Red Blood Count 3.91 M/uL (4.2-5.4); White Blood Count 12.79 K/uL (4.8-10.8)
[2019-11-16 08:28] LABS: Albumin Level 2.6 gm/dl (3.4-5.0); BUN Creatinine Ratio 23.4 (10-20); Calcium 8.5 mg/dl (8.5-10.1); Creatinine Clr Calc Pharmacy 33.8 ml/min; Est GFR (African American) 38.2; Potassium 3.8 mmol/L (3.5-5.1)
[2019-11-16] MEDS: DIVALPROEX DELAY RELEASE 250 MG TABEC PO SCH (08:29)
[2019-11-16] MEDS: risperiDONE 0.5 MG TABLET PO SCH ×2 (08:29→20:08)
[2019-11-16] MEDS: BuPROPion XL 300 MG TABCR PO SCH (08:29)
[2019-11-16] MEDS: INSULIN DETEMIR FLEXPEN/FLEX TOUCH 100 UNITS/ML 3ML SC SCH (08:30)
[2019-11-16 08:31] LABS: Albumin Globulin Ratio 0.6 (0.9-2); Bilirubin,Total 0.4 mg/dl (0.2-1); Globulin 4.4 gm/dl (2.5-4.0)
[2019-11-16] MEDS ORDERED: methylPREDNISolone 40 MG in SYRINGE 0 ML IV STA (10:25)
--- NOTE | 2019-11-16 16:10 | Hospitalist Progress Note ---
Date of Service November 16, 2019 Assessment & Plan (1) Atrial fibrillation: RVR that started yesterday afternoon moved to PCU, started on Cardizem drip will continue on Cardizem and use Ativan to relieve anxiety which seems to drive HR (2) Acute respiratory failure with hypoxia and hypercapnia: Acute respiratory failure with hypoxia and hypercapnia/COPD/pneumonia- Laboratories consistent with human metapneumovirus infection discussed with pulmonary and infection control, does not require COVID testing (no known contact, resides at [facility] that has had strict visitor restrictions) Human metapneumovirus infection requires contact precaution, notified staff to change patient's room out of the negative pressure Continue Zosyn 3.375 mg IV every 8 hours for possible secondary bacterial infection WBC down slightly, no fever still requiring 7L add Solu Medrol today for wheezing no BIPAP, no intubation family knows prognosis is guarded (3) Elevated troponin I level: Likely supply demand mismatch type II. due to tachycardia, increased strain on heart no need to follow further (4) Schizoaffective disorder: will order her typical medications including Risperdone, Buproprion, divalproex use Ativan 0.5mg IV q6 as she takes this at [facility] as well want to keep her calm, cooperative so she keeps her oxygen mask in place (5) Acute kidney injury superimposed on chronic kidney disease: Creatinine 2.28 upon admission, with baseline 1.39-1.6 repeat Cr is down to 1.5 today, BUN coming down continue IV fluids as PO intake is not good (6) Pneumonia: See above. Differential includes viral pneumonia, as patient is positive for metapneumovirus infection Patient may have a secondary bacterial process and/or aspiration event, and therefore will continue Zosyn as noted above. WBC is down to 12k from 17k, afebrile LDH quite high but coming down lactic acid going down to 2.2 (7) Hypertension: BP up today, likely from anxiety using Cardizem drip on Clonidine patch (8) COPD (chronic obstructive pulmonary disease): increased wheezing today will add Solu Medrol Duoneb PRN Admission and Anticipated Discharge Date Admission Date: November 15, 2019 Anticipated date of discharge: 11/20/19 Subjective patient continues to have some respiratory distress, wheezing requiring 7L NC HR is hovering around 100-120 on Diltiazem drip, seems to respond the most to Ativan IV reviewed labs, WBC down slightly to 12k, Hb 11.8 BUN and Cr down to 35 and 1.5 AST and ALT elevated, LDH high at 540 but coming down discussed with her daughter over the phone, explained again that the patient's prognosis is guarded she understands Review of Systems Review of Systems: Unobtainable due to cognitive status Physical Exam Constitutional: + ill appearing, + frail appearing and + in distress; + uncooperative and not diaphoretic Eyes: PERRL, conjunctivae normal, anicteric sclerae ENMT: external ear and nose normal, oropharynx normal (dry mucous membranes) Neck: trachea midline, no thyromegaly Respiratory: + labored breathing, + tachypneic and + audible wheezes; no cough Auscultation: + diminished lung sounds and + crackles; no rales, no rhonchi and no wheezes Cardiovascular: Rate/Rhythm: + tachycardic and + irregularly irregular Heart Sounds: normal S1 and normal S2; no murmur Vessels: no JVD Extremities: normal capillary refill; no edema Gastrointestinal (Abdomen): normal bowel sounds, soft, nontender, no hepatosplenomegaly Musculoskeletal: no cyanosis or clubbing, extremities motor strength 5/5 Skin: + turgor decreased; no rashes, no wound and no jaundice Neurologic: patellar DTR's 2+ bilat, sensation intact and PERRL, EOMI, ac commodation nl, no face palsy, no dysarthria Psychiatric: Orientation: oriented to person and + guarded; + not oriented to place, + not oriented to time and + uncooperative Eye Contact: + poor eye contact Insight: + limited insight Lymphatic: no cervical or axillary lymphadenopathy Results & Data Results & Data ([facility]) Vital Signs (Past 12 Hours) Vital Signs Temp Pulse Pulse Resp BP Pulse Ox 11/16/19 15:40 36.6 C 120 H 23 166/86 H 91 11/16/19 11:38 36.4 C L 98 H 25 H 130/92 92 11/16/19 07:45 110 H 11/16/19 07:10 36.7 C 97 H 32 H 111/74 92 Laboratory Results Laboratory Results - last 24 hr 03/31/20 04/01/20 04/01/20 22:45 16:18 19:55 WBC RBC Hgb Hct MCV MCH MCHC RDW Std Deviation RDW Coeff of Liya Plt Count MPV Immature Gran % (Auto) Neut % (Auto) Lymph % (Auto) [place] % (Auto) Eos % (Auto) Baso % (Auto) Immature Gran # (Auto) Neut # (Auto) Lymph # (Auto) [place] # (Auto) Eos # (Auto) Baso # (Auto) Sodium Potassium Chloride Carbon Dioxide Anion Gap BUN Creatinine Est Cr Clr Drug Dosing Est GFR ( Amer) Est GFR (Non-Af Amer) BUN/Creatinine Ratio Glucose POC Glucose 90 94 Calcium Total Bilirubin AST ALT Alkaline Phosphatase Lactate Dehydrogenase Total Protein Albumin Globulin Albumin/Globulin Ratio Coronavirus (PCR) Cancelled COVID-19 Pt Symptomatic Cancelled COVID-19 Source Cancelled SARS Virus RNA (PCR) Cancelled SARS-CoV-2 RNA (RT-PCR) Cancelled 11/16/19 11/16/19 11/16/19 00:00 03:53 07:41 WBC 12.79 H RBC 3.91 L Hgb 11.8 L Hct 35.9 L MCV 91.8 MCH 30.2 MCHC 32.9 RDW Std Deviation 46.4 H RDW Coeff of Liya 13.8 Plt Count 541 H MPV 10.3 Immature Gran % (Auto) 1.1 Neut % (Auto) 69.8 Lymph % (Auto) 20.4 [place] % (Auto) 7.7 Eos % (Auto) 0.6 Baso % (Auto) 0.4 Immature Gran # (Auto) 0.14 H Neut # (Auto) 8.92 H Lymph # (Auto) 2.61 [place] # (Auto) 0.99 H Eos # (Auto) 0.08 Baso # (Auto) 0.05 Sodium Potassium Chloride Carbon Dioxide Anion Gap BUN Creatinine Est Cr Clr Drug Dosing Est GFR ( Amer) Est GFR (Non-Af Amer) BUN/Creatinine Ratio Glucose POC Glucose 164 H 181 H Calcium Total Bilirubin AST ALT Alkaline Phosphatase Lactate Dehydrogenase Total Protein Albumin Globulin Albumin/Globulin Ratio Coronavirus (PCR) COVID-19 Pt Symptomatic COVID-19 Source SARS Virus RNA (PCR) SARS-CoV-2 RNA (RT-PCR) 11/16/19 11/16/19 11/16/19 07:41 07:41 07:59 WBC RBC Hgb Hct MCV MCH MCHC RDW Std Deviation RDW Coeff of Liya Plt Count MPV Immature Gran % (Auto) Neut % (Auto) Lymph % (Auto) [place] % (Auto) Eos % (Auto) Baso % (Auto) Immature Gran # (Auto) Neut # (Auto) Lymph # (Auto) [place] # (Auto) Eos # (Auto) Baso # (Auto) Sodium 135 L Potassium 3.8 Chloride 99 Carbon Dioxide 29 Anion Gap 7.0 BUN 35 H Creatinine 1.51 H D Est Cr Clr Drug Dosing 33.8 Est GFR ( Amer) 38.2 Est GFR (Non-Af Amer) 33.0 BUN/Creatinine Ratio 23.4 H Glucose 146 H POC Glucose 166 H Calcium 8.5 Total Bilirubin 0.4 AST 386 H ALT 503 H Alkaline Phosphatase 75 Lactate Dehydrogenase 540 H Total Protein 7.0 Albumin 2.6 L Globulin 4.4 H Albumin/Globulin Ratio 0.6 L Coronavirus (PCR) COVID-19 Pt Symptomatic COVID-19 Source SARS Virus RNA (PCR) SARS-CoV-2 RNA (RT-PCR) 11/16/19 11:36 WBC RBC Hgb Hct MCV MCH MCHC RDW Std Deviation RDW Coeff of Liya Plt Count MPV Immature Gran % (Auto) Neut % (Auto) Lymph % (Auto) [place] % (Auto) Eos % (Auto) Baso % (Auto) Immature Gran # (Auto) Neut # (Auto) Lymph # (Auto) [place] # (Auto) Eos # (Auto) Baso # (Auto) Sodium Potassium Chloride Carbon Dioxide Anion Gap BUN Creatinine Est Cr Clr Drug Dosing Est GFR ( Amer) Est GFR (Non-Af Amer) BUN/Creatinine Ratio Glucose POC Glucose 257 H Calcium Total Bilirubin AST ALT Alkaline Phosphatase Lactate Dehydrogenase Total Protein Albumin Globulin Albumin/Globulin Ratio Coronavirus (PCR) COVID-19 Pt Symptomatic COVID-19 Source SARS Virus RNA (PCR) SARS-CoV-2 RNA (RT-PCR) Medications Administered Current Inpatient Medications Acetaminophen (Tylenol) 650 mg [place] Q6H PRN PRN Reason: temp>101/PAIN Stop: 12/15/19 04:02 Atropine Sulfate (Atropine Sulfate 1% Oph) 1 drops PO Q2H PRN PRN Reason: .SECRETIONS Stop: 12/15/19 01:53 Last Admin: 11/15/19 04:54 Dose: 1 drops Documented by: Bupropion HCl (Wellbutrin-Xl) 300 mg PO DAILY [facility] Stop: 12/15/19 11:14 Last Admin: 11/16/19 08:29 Dose: 300 mg Documented by: Clonidine HCl (Lxxvqwbo-Fmt-0 0.1mg/24hr) 1 patch TD We@0600 [facility] Stop: 12/15/19 05:59 Last Admin: 11/15/19 06:25 Dose: 1 patch Documented by: Dextrose (Dextrose 50%) 25 - 50 ml IV UD PRN; Protocol PRN Reason: Hypoglycemia Protocol Stop: 12/15/19 04:02 Diltiazem HCl (Cardizem) 10 mg IV Q6 PRN PRN Reason: tachycardia Stop: 12/15/19 17:27 Last Admin: 11/15/19 17:35 Dose: 10 mg Documented by: Divalproex Sodium (Depakote Delay Release) 250 mg PO DAILY [facility] Stop: 12/15/19 11:14 Last Admin: 11/16/19 08:29 Dose: 250 mg Documented by: Glucagon (Glucagen) 1 mg SQ UD PRN; Protocol PRN Reason: Hypoglycemia Protocol Stop: 12/15/19 04:02 Glucose (Dex4 Glucose) 4 - 8 tabs PO UD PRN; Protocol PRN Reason: Hypoglycemia Protocol Stop: 12/15/19 04:02 Glucose (Glucose 40%) 15 - 30 gm PO UD PRN; Protocol PRN Reason: Hypoglycemia Protocol Stop: 12/15/19 04:02 Piperacillin Sod/Tazobactam (Sod 3.375 gm/ Dextrose) 115 mls @ 28.75 mls/hr IV Q8H [facility]; Protocol Stop: 11/22/19 04:29 Last Admin: 11/16/19 13:33 Dose: 28.8 mls/hr Documented by: Lorazepam (Ativan) 0.5 mg in 1 mls @ 1 mls/min IV Q8 [facility] Stop: 12/15/19 21:59 Last Admin: 11/16/19 15:00 Dose: 1 mls/min Documented by: Sodium Chloride (Nss 1000ml) 1,000 mls @ 80 mls/hr IV .[id number] [facility] Stop: 12/15/19 10:29 Last Admin: 11/16/19 12:12 Dose: 80 mls/hr Documented by: Diltiazem HCl 125 mg/ Dextrose 125 mls @ 15 mls/hr IV .[id number] [facility]; Protocol Stop: 12/15/19 17:44 Last Admin: 11/16/19 11:09 Dose: 15 mg/hr, 15 mls/hr Documented by: Methylprednisolone 40 mg/ (Syringe) 0.64 mls @ 1.5 mls/min IV Q12 [facility] Stop: 12/16/19 20:59 Insulin Aspart (Novolog Flexpen) 0 units SC Q4H [facility] Stop: 12/15/19 03:59 Last Admin: 11/16/19 13:32 Dose: 5 units Documented by: Insulin Detemir (Levemir Flextouch) 30 units SC DAILY [facility] Stop: 12/15/19 11:14 Last Admin: 11/16/19 08:30 Dose: 30 units Documented by: Miscellaneous (Carbohydrates For Hypoglycemia) 15 - 30 gm PO UD PRN PRN Reason: Hypoglycemia Protocol Stop: 12/15/19 04:02 Miscellaneous (Remove Clonidine Patch) 1 ea N/A CQWK [facility] Stop: 12/22/19 05:59 Miscellaneous (Check Clonidine Patch) 1 ea N/A QS [facility] Stop: 12/15/19 07:59 Last Admin: 11/16/19 15:02 Dose: 1 ea Documented by: Miscellaneous Information (Consult) 1 ea N/A UD PRN PRN Reason: Consult Stop: 12/14/19 22:34 Morphine Sulfate (Morphine Sulfate) 2 mg IV Q2R PRN PRN Reason: Shortness Of Breath Or Wheezing Stop: 11/29/19 04:45 Last Admin: 11/16/19 02:27 Dose: 2 mg Documented by: Ondansetron HCl (Zofran) 4 mg IV Q6H PRN PRN Reason: Nausea Stop: 12/15/19 04:02 Risperidone (Risperdal) 0.5 mg PO BID [facility] Stop: 12/15/19 11:14 Last Admin: 11/16/19 08:29 Dose: 0.5 mg Documented by: PG Care Time/CCT Total # of Minutes Spent Total Time Spent with Patient: Total time spent is greater than 50% in coordination of care (as documented) at patient's floor/unit and/or counseling patient: Coding Level of Care Code 52227 Subseq Hosp Care Lvl 3 Diagnoses Atrial fibrillation I48.91 Acute respiratory failure with hypoxia and hypercapnia J96.01; J96.02 Elevated troponin I level R79.89 Schizoaffective disorder F25.9 Acute kidney injury superimposed on chronic kidney disease N17.9; N18.9 Pneumonia J18.9 Laterality: right Lung location: lower lobe of lung Pneumonia type: due to unspecified organism Hypertension I10 COPD (chronic obstructive pulmonary disease) J44.9 (1) Pneumonia Laterality: right Lung location: lower lobe of lung Pneumonia type: due to unspecified organism Qualified Code(s): J18.9 - Pneumonia, unspecified organism
[2019-11-16] MEDS ORDERED: INSULIN DETEMIR FLEXPEN/FLEX TOUCH 100 UNITS/ML 3ML SC STA (16:30)
[2019-11-16] MEDS: methylPREDNISolone 40 MG in SYRINGE 0 ML IV SCH (20:09)
[2019-11-16] MEDS ORDERED: ALBUT/IPRATROP 3MG/0.5MG NEB 3 ML VIAL NEB PRN (23:19)
[2019-11-17] MEDS: SODIUM CHLORIDE 0.9% 1000ML 1,000 ML IV SCH ×2 (01:00→13:32)
[2019-11-17] MEDS: dilTIAZem HCL 125 MG in DEXTROSE 5% 100 ML IV SCH ×3 (01:14→11:40)
[2019-11-17] MEDS: INSULIN ASPART 100 UNITS/ML 3 ML PEN SC SCH ×3 (01:15→20:29)
[2019-11-17] MEDS: CHECK CLONIDINE PATCH PLACEMENT SCH ×4 (01:16→23:37)
[2019-11-17] MEDS: LORazepam 0.5 MG/1 ML VIAL IV SCH ×4 (01:56→23:13)
[2019-11-17] MEDS ORDERED: PHARMACY GLYCEMIC MGMT CONSULT PRN (04:02)
[2019-11-17] MEDS ORDERED: INSULIN ASPART 100 UNITS/ML 3 ML PEN SC SCH ×2 (04:15→08:02)
[2019-11-17] MEDS ORDERED: INSULIN HUMAN REGULAR PER UNIT 4 UNITS in SYRINGE 3.96 ML IV ONE (04:15)
[2019-11-17 06:00] LABS: Basophils # (auto) 0.04 K/uL (0-0.2); Basophils % (auto) 0.3 %; Hematocrit (blood only) 32.5 % (37-47); Hemoglobin 10.5 g/dL (12.0-16.0); Immature Granulocytes # (auto) 0.25 K/uL (0.00-0.02); Lymphocytes # (auto) 1.09 K/uL (1.2-3.4); Lymphocytes % (auto) 8.7 %; Mean Corpuscular Hemoglobin 29.7 pg (25-34); Mean Corpuscular Hgb Conc 32.3 g/dL (32-36); Mean Corpuscular Volume 92.1 fL (80-100); Mean Platelet Volume 10.3 fL (7.4-10.4); Monocytes # (auto) 0.75 K/uL (0.11-0.59); Neutrophils # (auto) 10.41 K/uL (1.4-6.5); Platelet Count 510 K/uL (130-400); RDW Coefficient of Variation 13.7 % (11.5-14.5); RDW Standard Deviation 45.6 fL (36.4-46.3); Red Blood Count 3.53 M/uL (4.2-5.4); White Blood Count 12.54 K/uL (4.8-10.8)
[2019-11-17 06:41] LABS: Albumin Globulin Ratio 0.5 (0.9-2); Albumin Level 2.4 gm/dl (3.4-5.0); BUN Creatinine Ratio 24.1 (10-20); Bilirubin,Total 0.3 mg/dl (0.2-1); Calcium 8.2 mg/dl (8.5-10.1); Creatinine Clr Calc Pharmacy 29.7 ml/min; Est GFR (African American) 32.2; Est GFR (Non-African American) 27.8; Globulin 4.5 gm/dl (2.5-4.0); Potassium 4.2 mmol/L (3.5-5.1); Total Protein 6.9 gm/dl (6.4-8.2)
[2019-11-17 06:52] LABS: Beta-Hydroxybutyrate 4.72 mg/dl (0.2-2.81)
[2019-11-17] MEDS ORDERED: Nursing to Pharmacy Communication ONE (08:17)
--- NOTE | 2019-11-17 08:43 | XRay Report ---
XR chest 1V portable CLINICAL HISTORY: hypoxia COMPARISON STUDY: Chest radiograph November 14, 2019. FINDINGS: No pneumothorax or pleural effusion is noted. There is mild cardiomegaly. Mitral annular ca lcification is noted. There is pulmonary vascular congestion without overt pulmonary edema. Multifoca l bilateral airspace opacities are noted. Overall, these have slightly progressed, particularly withi n the left midlung. Right basilar opacity has slightly diminished. Left perihilar and right upper nicholas g opacities have slightly increased. IMPRESSION: 1. Slight progression of multifocal airspace opacities which favor an infectious process. 2. Pulmonary vascular congestion without overt pulmonary edema. ACT 112: Negative or not required by law. Electronically signed by: Moo Vidal M.D. 11/17/2019 8:41 AM
[2019-11-17] MEDS: INSULIN DETEMIR FLEXPEN/FLEX TOUCH 100 UNITS/ML 3ML SC SCH ×2 (08:53→20:30)
[2019-11-17] MEDS: PIPERACILLIN/TAZOBACTAM 3.375 GM in DEXTROSE 5% 100 ML IV SCH ×3 (08:57→17:49)
[2019-11-17] MEDS: risperiDONE 0.5 MG TABLET PO SCH ×2 (08:59→20:30)
[2019-11-17] MEDS: BuPROPion XL 300 MG TABCR PO SCH (08:59)
[2019-11-17] MEDS: methylPREDNISolone 40 MG in SYRINGE 0 ML IV SCH (08:59)
[2019-11-17] MEDS: DIVALPROEX DELAY RELEASE 250 MG TABEC PO SCH (08:59)
[2019-11-17] MEDS ORDERED: INSULIN DETEMIR FLEXPEN/FLEX TOUCH 100 UNITS/ML 3ML SC SCH (09:00)
--- NOTE | 2019-11-17 10:50 | Pharmacy Report ---
Glycemic Control Consultation - Date of Service November 17, 2019 - Scope Scope: Glycemic Pharmacist consulted for glycemic control and to write orders per [facility] inpatient glycemic control protocol. - Objective Weight: 84.5 kg Accuchecks BSG (last 24hrs): 11/16/19 11/16/19 11/16/19 11:36 16:16 16:20 Glucose POC Glucose 257 H 342 H* 328 H* 11/17/19 11/17/19 11/17/19 01:05 01:08 03:38 Glucose POC Glucose 430 H* 411 H* 350 H* 11/17/19 11/17/19 11/17/19 03:40 05:26 06:45 Glucose 311 H* POC Glucose 347 H* 300 H 11/17/19 08:32 Glucose POC Glucose 312 H* Laboratory Data (last 24hrs): 11/17/19 05:26 Potassium 4.2 Carbon Dioxide 26 Anion Gap 7.0 Creatinine 1.74 H Est Cr Clr Drug Dosing 29.7 Beta-Hydroxybutyric Acd 4.72 H - Recent Pertinent Medications Outpatient Anti-diabetic Regimen: * Levemir 69 units SC daily * Novolog 14 units SC AC, plus additional SSI 0-10 units based on BSG * A1c = 7.9 % 09/08/19 The patient is currently receiving: * Basal insulin: Levemir 30 units SC daily, plus additional 35 units x1 4/2 PM * Correctional Insulin: Novolog Correction per scale ACHS Goal Range: Low 1-- mg/dL - High 150 mg/dL Correction Factor: 15 mg/dL/unit * Prandial insulin: Per carb ratio of 1 unit per 7 grams CHO consumed Risk Factors for Insulin Resistance: * Steroids: methylprednisolone 40 mg IV q12h x3 doses 4/2-43 AM, tapering to prednisone 20 mg po qAM starting 44 AM * Infection: viral pneumonia with possible superimposed bacterial PNA, on Zosyn * Diet: T2DM - Assessment & Plan Assessment & Plan: ASSESSMENT: * 79 yo F with diabetes on a large amount of outpatient insulin (>100 units/day) admitted on 11/14 with viral PNA (metapenumovirus positive) and possible superimposed bacterial PNA * Pharmacy consulted 4/3 AM 2nd severe hyperglycemia. Etiology likely 2nd initiation of steroids on 42 AM. * Will increase Levemir dose this AM * BSG at lunch persistently >300 mg/dL despite tighter Novolog parameters in AM. Initiation of insulin drip indicated and authorized by Dr. Cheek. Plan is to transition the insulin drip off soon, as early as later this evening, depending on trend in insulin drip rates and BS's PLAN FOR INPATIENT GLYCEMIC CONTROL: * Initiate insulin drip - 3 unit bolus then 3.2 units/hr initial rate. Titration per protocol. * Basal insulin * Levemir 55 units SQ x1 this AM then additional 20-40 units this evening depending on insulin drip rate * Bolus insulin * Nutritional / Prandial insulin per carb ratio of 1 unit per 5 grams CHO consumed while on insulin drip * Please note that the plan above was derived based on current level of insulin resistance and hospital stress. These recommendations are appropriate for inpatient admission only. Plan of care upon discharge will need to be reassessed to avoid potential outpatient hypo/hyperglycemia. Thank you.
[2019-11-17] MEDS: dilTIAZem HCL 240 MG CAPCR PO SCH (11:04)
[2019-11-17] MEDS ORDERED: INSULIN HUMAN REGULAR IV BOLUS 3 UNITS in SYRINGE 0 ML IV STA (12:37)
[2019-11-17] MEDS: INSULIN REGULAR 250 UNITS in SODIUM CHLORIDE 0.9% 247.5 ML IV SCH (13:24)
[2019-11-17 13:42] LABS: Quantiferon Mitogen-NIL 7.85 IU/mL; Quantiferon NIL 0.17 IU/mL; Quantiferon TB Gold Plus NEGATIVE (NEGATIVE); Quantiferon TB1-NIL <0.00 IU/mL; Quantiferon TB2-NIL <0.00 IU/mL
--- NOTE | 2019-11-17 15:32 | Hospitalist Progress Note ---
Date of Service November 17, 2019 Assessment & Plan (1) Atrial fibrillation: RVR that started on 11/14 moved to PCU, started on Cardizem drip HR better today, in the 90's but requiring 15mg/hr of the Diltiazem will start on Cardizem CD 240mg and try to stop the drip continue Ativan q6 to keep her calm (2) Acute respiratory failure with hypoxia and hypercapnia: Acute respiratory failure with hypoxia and hypercapnia/COPD/pneumonia- Laboratories consistent with human metapneumovirus infection discussed with pulmonary and infection control, does not require COVID testing (no known contact, resides at [facility] that has had strict visitor restrictions) Human metapneumovirus infection requires contact precaution, notified staff to change patient's room out of the negative pressure Continue Zosyn 3.375 mg IV every 8 hours for possible secondary bacterial infection WBC stable at 12k, no fever requiring 8L but far less distress change Solu Medrol to Prednisone 20mg daily no BIPAP, no intubation family knows prognosis is guarded but for now she is stable (3) Elevated troponin I level: Likely supply demand mismatch type II. due to tachycardia, increased strain on heart no need to follow further (4) Schizoaffective disorder: will order her typical medications including Risperdone, Buproprion, divalproex use Ativan 0.5mg IV q6 as she takes this at [facility] as well want to keep her calm, cooperative so she keeps her oxygen mask in place working well thus far (5) Acute kidney injury superimposed on chronic kidney disease: Creatinine 2.28 upon admission, with baseline 1.39-1.6 Cr stable at 1.7 today stop IV fluids today (6) Pneumonia: See above. Differential includes viral pneumonia, as patient is positive for metapneumovirus infection Patient may have a secondary bacterial process and/or aspiration event, and therefore will continue Zosyn as noted above. WBC is down to 12k from 17k, afebrile LDH quite high but coming down at 378 AST and ALT elevated, consistent with viral infection (7) Hypertension: BP up today, likely from anxiety using Cardizem drip, change to Cardizem PO 240mg on Clonidine patch (8) COPD (chronic obstructive pulmonary disease): increased wheezing on 11/15 will add Solu Medrol, change this to Prednisone Duoneb PRN (9) Hyperglycemia: secondary to steroid use and stress will start on insulin drip as increased doses of Lantus and Novolog have not controlled sugars discussed with pharmacy Admission and Anticipated Discharge Date Admission Date: November 15, 2019 Anticipated date of discharge: 11/20/19 Subjective patient in less distress today, breathing better, HR is better controlled in the 90's, still on Diltiazem drip sugars very difficult to control, into the 400's over night d/w pharmacy, will start on insulin drip for better glycemic control, stopping Solu Medrol after this morning's dose called patient's daughter, provided her with update patient is taking medications, will try to get her to eat and drink more, stopping fluids reviewed labs, WBC 12k, Hb 10.5, Cr up slightly at 1.7 but this is within her baseline AST and ALT both elevated, LDH down to 378 CXR today with slightly worsening infiltrates compared to time of admission Review of Systems Review of Systems: All systems reviewed & are unremarkable except as noted in HPI & below Constitutional: + fatigue and + weakness; no fever Respiratory: + cough, + dyspnea and + wheezing Cardiovascular: no chest pain Gastrointestinal: no abdominal pain, no nausea, no vomiting, no constipation and no diarrhea/loose stools Physical Exam Constitutional: + ill appearing Eyes: PERRL, conjunctivae normal, anicteric sclerae ENMT: external ear and nose normal, oropharynx normal (dry mucous membranes) Neck: trachea midline, no thyromegaly Respiratory: + labored breathing and + audible wheezes; no cough Auscultation: + diminished lung sounds and + wheezes; no crackles, no rales and no rhonchi Cardiovascular: Rate/Rhythm: regular rate and + irregularly irregular Heart Sounds: normal S1 and normal S2; no murmur Vessels: no JVD Extremities: normal capillary refill; no edema Gastrointestinal (Abdomen): normal bowel sounds, soft, nontender, no hepatosplenomegaly Musculoskeletal: no cyanosis or clubbing, extremities motor strength 5/5 Skin: + turgor decreased; no rashes, no wound and no jaundice Neurologic: patellar DTR's 2+ bilat, sensation intact and PERRL, EOMI, accommodation nl, no face palsy, no dysarthria Psychiatric: Orientation: alert, oriented to person, oriented to place and cooperative; + not oriented to time Lymphatic: no cervical or axillary lymphadenopathy Results & Data Results & Data ([facility]) Vital Signs (Past 12 Hours) Vital Signs Temp Pulse Pulse Resp BP Pulse Ox 11/17/19 11:07 36.5 C 88 29 H 158/111 H 97 11/17/19 08:00 83 11/17/19 07:49 36.6 C 88 19 166/99 H 95 11/17/19 03:35 36.6 C 87 24 128/71 93 Laboratory Results Laboratory Results - last 24 hr 11/14/19 11/16/19 11/16/19 23:51 16:16 16:20 WBC RBC Hgb Hct MCV MCH MCHC RDW Std Deviation RDW Coeff of Liya Plt Count MPV Immature Gran % (Auto) Neut % (Auto) Lymph % (Auto) [place] % (Auto) Eos % (Auto) Baso % (Auto) Immature Gran # (Auto) Neut # (Auto) Lymph # (Auto) [place] # (Auto) Eos # (Auto) Baso # (Auto) Sodium Potassium Chloride Carbon Dioxide Anion Gap BUN Creatinine Est Cr Clr Drug Dosing Est GFR ( Amer) Est GFR (Non-Af Amer) BUN/Creatinine Ratio Glucose POC Glucose 342 H* 328 H* Calcium Total Bilirubin AST ALT Alkaline Phosphatase Lactate Dehydrogenase Total Protein Albumin Globulin Albumin/Globulin Ratio Beta-Hydroxybutyric Acd TB Test (QFT) Gold Plus NEGATIVE TB Test (QFT) Nil 0.17 TB Test Mitogen - Nil 7.85 TB Test Ag - Nil 1 <0.00 TB Test Ag - Nil 2 <0.00 11/17/19 11/17/19 11/17/19 01:05 01:08 03:38 WBC RBC Hgb Hct MCV MCH MCHC RDW Std Deviation RDW Coeff of Liya Plt Count MPV Immature Gran % (Auto) Neut % (Auto) Lymph % (Auto) [place] % (Auto) Eos % (Auto) Baso % (Auto) Immature Gran # (Auto) Neut # (Auto) Lymph # (Auto) [place] # (Auto) Eos # (Auto) Baso # (Auto) Sodium Potassium Chloride Carbon Dioxide Anion Gap BUN Creatinine Est Cr Clr Drug Dosing Est GFR ( Amer) Est GFR (Non-Af Amer) BUN/Creatinine Ratio Glucose POC Glucose 430 H* 411 H* 350 H* Calcium Total Bilirubin AST ALT Alkaline Phosphatase Lactate Dehydrogenase Total Protein Albumin Globulin Albumin/Globulin Ratio Beta-Hydroxybutyric Acd TB Test (QFT) Gold Plus TB Test (QFT) Nil TB Test Mitogen - Nil TB Test Ag - Nil 1 TB Test Ag - Nil 2 11/17/19 11/17/19 11/17/19 03:40 05:26 05:26 WBC 12.54 H RBC 3.53 L Hgb 10.5 L Hct 32.5 L MCV 92.1 MCH 29.7 MCHC 32.3 RDW Std Deviation 45.6 RDW Coeff of Liya 13.7 Plt Count 510 H MPV 10.3 Immature Gran % (Auto) 2.0 Neut % (Auto) 83.0 Lymph % (Auto) 8.7 [place] % (Auto) 6.0 Eos % (Auto) 0.0 Baso % (Auto) 0.3 Immature Gran # (Auto) 0.25 H Neut # (Auto) 10.41 H Lymph # (Auto) 1.09 L [place] # (Auto) 0.75 H Eos # (Auto) 0.00 Baso # (Auto) 0.04 Sodium 132 L Potassium 4.2 Chloride 100 Carbon Dioxide 26 Anion Gap 7.0 BUN 42 H Creatinine 1.74 H Est Cr Clr Drug Dosing 29.7 Est GFR ( Amer) 32.2 Est GFR (Non-Af Amer) 27.8 BUN/Creatinine Ratio 24.1 H Glucose 311 H* POC Glucose 347 H* Calcium 8.2 L Total Bilirubin 0.3 AST 222 H ALT 551 H Alkaline Phosphatase 74 Lactate Dehydrogenase Total Protein 6.9 Albumin 2.4 L Globulin 4.5 H Albumin/Globulin Ratio 0.5 L Beta-Hydroxybutyric Acd 4.72 H TB Test (QFT) Gold Plus TB Test (QFT) Nil TB Test Mitogen - Nil TB Test Ag - Nil 1 TB Test Ag - Nil 2 11/17/19 11/17/19 11/17/19 05:26 06:45 08:32 WBC RBC Hgb Hct MCV MCH MCHC RDW Std Deviation RDW Coeff of Liya Plt Count MPV Immature Gran % (Auto) Neut % (Auto) Lymph % (Auto) [place] % (Auto) Eos % (Auto) Baso % (Auto) Immature Gran # (Auto) Neut # (Auto) Lymph # (Auto) [place] # (Auto) Eos # (Auto) Baso # (Auto) Sodium Potassium Chloride Carbon Dioxide Anion Gap BUN Creatinine Est Cr Clr Drug Dosing Est GFR ( Amer) Est GFR (Non-Af Amer) BUN/Creatinine Ratio Glucose POC Glucose 300 H 312 H* Calcium Total Bilirubin AST ALT Alkaline Phosphatase Lactate Dehydrogenase 378 H Total Protein Albumin Globulin Albumin/Globulin Ratio Beta-Hydroxybutyric Acd TB Test (QFT) Gold Plus TB Test (QFT) Nil TB Test Mitogen - Nil TB Test Ag - Nil 1 TB Test Ag - Nil 2 11/17/19 11/17/19 11/17/19 11:01 11:03 14:11 WBC RBC Hgb Hct MCV MCH MCHC RDW Std Deviation RDW Coeff of Liya Plt Count MPV Immature Gran % (Auto) Neut % (Auto) Lymph % (Auto) [place] % (Auto) Eos % (Auto) Baso % (Auto) Immature Gran # (Auto) Neut # (Auto) Lymph # (Auto) [place] # (Auto) Eos # (Auto) Baso # (Auto) Sodium Potassium Chloride Carbon Dioxide Anion Gap BUN Creatinine Est Cr Clr Drug Dosing Est GFR ( Amer) Est GFR (Non-Af Amer) BUN/Creatinine Ratio Glucose POC Glucose 334 H* 390 H* 416 H* Calcium Total Bilirubin AST ALT Alkaline Phosphatase Lactate Dehydrogenase Total Protein Albumin Globulin Albumin/Globulin Ratio Beta-Hydroxybutyric Acd TB Test (QFT) Gold Plus TB Test (QFT) Nil TB Test Mitogen - Nil TB Test Ag - Nil 1 TB Test Ag - Nil 2 Diagnostic Findings XR chest 1V portable CLINICAL HISTORY: hypoxia COMPARISON STUDY: Chest radiograph November 14, 2019. FINDINGS: No pneumothorax or pleural effusion is noted. There is mild cardiomegaly. Mitral annular calcification is noted. There is pulmonary vascular congestion without overt pulmonary edema. Multifocal bilateral airspace opacities are noted. Overall, these have slightly progressed, particularly within the left midlung. Right basilar opacity has slightly diminished. Left perihilar and right upper lung opacities have slightly increased. IMPRESSION: 1. Slight progression of multifocal airspace opacities which favor an infectious process. 2. Pulmonary vascular congestion without overt pulmonary edema. Medications Administered Current Inpatient Medications Acetaminophen (Tylenol) 650 mg [place] Q6H PRN PRN Reason: temp>101/PAIN Stop: 12/15/19 04:02 Albuterol (Duoneb) 3 ml NEB QIDR PRN PRN Reason: Shortness Of Breath Or Wheezing Stop: 12/17/19 06:59 Atropine Sulfate (Atropine Sulfate 1% Oph) 1 drops PO Q2H PRN PRN Reason: .SECRETIONS Stop: 12/15/19 01:53 Last Admin: 11/15/19 04:54 Dose: 1 drops Documented by: Bupropion HCl (Wellbutrin-Xl) 300 mg PO DAILY [facility] Stop: 12/15/19 11:14 Last Admin: 11/17/19 08:59 Dose: 300 mg Documented by: Clonidine HCl ([id number] 0.1mg/24hr) 1 patch TD We@0600 [facility] Stop: 12/15/19 05:59 Last Admin: 11/15/19 06:25 Dose: 1 patch Documented by: Dextrose (Dextrose 50%) 25 - 50 ml IV UD PRN; Protocol PRN Reason: Hypoglycemia Protocol Stop: 12/15/19 04:02 Diltiazem HCl (Cardizem) 10 mg IV Q6 PRN PRN Reason: tachycardia Stop: 12/15/19 17:27 Last Admin: 11/15/19 17:35 Dose: 10 mg Documented by: Diltiazem HCl (Cardizem Cd) 240 mg PO QAM [facility] Stop: 12/17/19 10:14 Last Admin: 11/17/19 11:04 Dose: 240 mg Documented by: Divalproex Sodium (Depakote Delay Release) 250 mg PO DAILY [facility] Stop: 12/15/19 11:14 Last Admin: 11/17/19 08:59 Dose: 250 mg Documented by: Glucagon (Glucagen) 1 mg SQ UD PRN; Protocol PRN Reason: Hypoglycemia Protocol Stop: 12/15/19 04:02 Glucose (Dex4 Glucose) 4 - 8 tabs PO UD PRN; Protocol PRN Reason: Hypoglycemia Protocol Stop: 12/15/19 04:02 Glucose (Glucose 40%) 15 - 30 gm PO UD PRN; Protocol PRN Reason: Hypoglycemia Protocol Stop: 12/15/19 04:02 Piperacillin Sod/Tazobactam (Sod 3.375 gm/ Dextrose) 115 mls @ 28.75 mls/hr IV Q8H [facility]; Protocol Stop: 11/22/19 04:29 Last Infusion: 11/17/19 13:48 Dose: Infused Documented by: Lorazepam (Ativan) 0.5 mg in 1 mls @ 1 mls/min IV Q8 [facility] Stop: 12/15/19 21:59 Last Admin: 11/17/19 09:03 Dose: 1 mls/min Documented by: Sodium Chloride (Nss 1000ml) 1,000 mls @ 80 mls/hr IV .[id number] [facility] Stop: 12/15/19 10:29 Last Admin: 11/17/19 13:32 Dose: 80 mls/hr Documented by: Diltiazem HCl 125 mg/ Dextrose 125 mls @ 10 mls/hr IV .[id number] [facility]; Protocol Stop: 12/15/19 17:44 Last Admin: 11/17/19 11:40 Dose: 10 mg/hr, 10 mls/hr Documented by: Insulin Human Regular 250 (units/ Sodium Chloride) 250 mls @ 4.5 mls/hr IV .Q24H [facility]; Protocol Stop: 12/17/19 12:44 Last Titration: 11/17/19 14:13 Dose: 4.5 units/hr, 4.5 mls/hr Documented by: Insulin Aspart (Novolog Flexpen) 0 units SC ACHS [facility]; Protocol Stop: 12/17/19 16:29 Insulin Detemir (Levemir Flextouch) 0 units SC Q12 [facility]; Protocol Stop: 12/17/19 08:59 Last Admin: 11/17/19 08:53 Dose: 55 units Documented by: Miscellaneous (Carbohydrates For Hypoglycemia) 15 - 30 gm PO UD PRN PRN Reason: Hypoglycemia Protocol Stop: 12/15/19 04:02 Miscellaneous (Remove Clonidine Patch) 1 ea N/A CQWK [facility] Stop: 12/22/19 05:59 Miscellaneous (Check Clonidine Patch) 1 ea N/A QS [facility] Stop: 12/15/19 07:59 Last Admin: 11/17/19 08:50 Dose: 1 ea Documented by: Miscellaneous Information (Consult) 1 ea N/A UD PRN PRN Reason: Consult Stop: 12/14/19 22:34 Miscellaneous Information (Consult Glycemic Management Pharmacy) 1 ea N/A UD PRN PRN Reason: Consult Stop: 12/17/19 04:01 Morphine Sulfate (Morphine Sulfate) 2 mg IV Q2R PRN PRN Reason: Shortness Of Breath Or Wheezing Stop: 11/29/19 04:45 Last Admin: 11/16/19 21:02 Dose: 2 mg Documented by: Ondansetron HCl (Zofran) 4 mg IV Q6H PRN PRN Reason: Nausea Stop: 12/15/19 04:02 Prednisone (Prednisone) 20 mg PO QAM [facility] Stop: 12/18/19 08:59 Risperidone (Risperdal) 0.5 mg PO BID [facility] Stop: 12/15/19 11:14 Last Admin: 11/17/19 08:59 Dose: 0.5 mg Documented by: PG Care Time/CCT Total # of Minutes Spent Total Time Spent with Patient: Total time spent is greater than 50% in coordination of care (as documented) at patient's floor/unit and/or counseling patient: Coding Level of Care Code 61843 Subseq Hosp Care Lvl 3 Diagnoses Atrial fibrillation I48.91 Acute respiratory failure with hypoxia and hypercapnia J96.01; J96.02 Elevated troponin I level R79.89 Schizoaffective disorder F25.9 Acute kidney injury superimposed on chronic kidney disease N17.9; N18.9 Pneumonia J18.9 Laterality: right Lung location: lower lobe of lung Pneumonia type: due to unspecified organism Hypertension I10 COPD (chronic obstructive pulmonary disease) J44.9 Hyperglycemia R73.9 (1) Pneumonia Laterality: right Lung location: lower lobe of lung Pneumonia type: due to unspecified organism Qualified Code(s): J18.9 - Pneumonia, unspecified organism
[2019-11-17] MEDS ORDERED: FUROSEMIDE 10 MG in SYRINGE 0 ML IV ONE (22:15)
[2019-11-18] MEDS: PIPERACILLIN/TAZOBACTAM 3.375 GM in DEXTROSE 5% 100 ML IV SCH ×3 (02:17→17:24)
[2019-11-18] MEDS: LORazepam 0.5 MG/1 ML VIAL IV SCH ×3 (05:58→19:54)
[2019-11-18] MEDS: ALBUT/IPRATROP 3MG/0.5MG NEB 3 ML VIAL NEB SCH ×4 (07:07→19:16)
[2019-11-18 08:00] LABS: Basophils # (auto) 0.02 K/uL (0-0.2); Basophils % (auto) 0.1 %; Hematocrit (blood only) 31.5 % (37-47); Hemoglobin 10.2 g/dL (12.0-16.0); Immature Granulocytes # (auto) 0.44 K/uL (0.00-0.02); Immature Granulocytes % (auto) 2.8 %; Lymphocytes # (auto) 0.92 K/uL (1.2-3.4); Lymphocytes % (auto) 5.8 %; Mean Corpuscular Hemoglobin 29.8 pg (25-34); Mean Corpuscular Hgb Conc 32.4 g/dL (32-36); Mean Corpuscular Volume 92.1 fL (80-100); Mean Platelet Volume 10.1 fL (7.4-10.4); Monocytes # (auto) 1.09 K/uL (0.11-0.59); Monocytes % (auto) 6.9 %; Neutrophils # (auto) 13.31 K/uL (1.4-6.5); Neutrophils % (auto) 84.4 %; Nucleated RBC # (auto) 0.07 K/uL (0-0); Nucleated RBC % (auto) 0.4 %; Platelet Count 559 K/uL (130-400); RDW Coefficient of Variation 13.8 % (11.5-14.5); RDW Standard Deviation 46.4 fL (36.4-46.3); Red Blood Count 3.42 M/uL (4.2-5.4); White Blood Count 15.78 K/uL (4.8-10.8)
[2019-11-18 08:26] LABS: Albumin Level 2.5 gm/dl (3.4-5.0); BUN Creatinine Ratio 27.4 (10-20); Calcium 8.5 mg/dl (8.5-10.1); Creatinine Clr Calc Pharmacy 31.9 ml/min; Est GFR (African American) 34.9; Est GFR (Non-African American) 30.1; Potassium 4.3 mmol/L (3.5-5.1)
[2019-11-18 08:29] LABS: Albumin Globulin Ratio 0.6 (0.9-2); Bilirubin,Total 0.4 mg/dl (0.2-1); Globulin 4.5 gm/dl (2.5-4.0)
[2019-11-18] MEDS: dilTIAZem HCL 240 MG CAPCR PO SCH (08:38)
[2019-11-18] MEDS: CHECK CLONIDINE PATCH PLACEMENT SCH ×2 (08:38→15:57)
[2019-11-18] MEDS: DIVALPROEX DELAY RELEASE 250 MG TABEC PO SCH (08:39)
[2019-11-18] MEDS: INSULIN ASPART 100 UNITS/ML 3 ML PEN SC SCH ×4 (08:39→21:39)
[2019-11-18] MEDS: predniSONE 20 MG TAB PO SCH (08:40)
[2019-11-18] MEDS: risperiDONE 0.5 MG TABLET PO SCH ×2 (08:40→19:55)
[2019-11-18] MEDS: BuPROPion XL 300 MG TABCR PO SCH (08:40)
[2019-11-18] MEDS: INSULIN DETEMIR FLEXPEN/FLEX TOUCH 100 UNITS/ML 3ML SC SCH ×2 (08:41→21:40)
--- NOTE | 2019-11-18 10:54 | Hospitalist Progress Note ---
Date of Service November 18, 2019 Assessment & Plan (1) Atrial fibrillation: RVR that started on 11/14 moved to PCU, started on Cardizem drip HR better today, continue Cardizem 240mg qAM resume Pradaxa 75mg BID continue Ativan q6 to keep her calm (2) Acute respiratory failure with hypoxia and hypercapnia: Acute respiratory failure with hypoxia and hypercapnia/COPD/pneumonia- Laboratories consistent with human metapneumovirus infection discussed with pulmonary and infection control, does not require COVID testing (no known contact, resides at [facility] that has had strict visitor restrictions) Human metapneumovirus infection requires contact precaution, notified staff to change patient's room out of the negative pressure Continue Zosyn 3.375 mg IV every 8 hours for possible secondary bacterial infection WBC up to 15k, could be due to steroids, no fever requiring 10L via mask, more distress today provide Ativan and Morphine IV prn for comfort d/w patient and her family, main concern is that she is comfortable, if she deteriorates further then make full comfort care continue Prednisone 20mg daily for wheezing no BIPAP, no intubation family knows prognosis is guarded but for now she is stable (3) Elevated troponin I level: Likely supply demand mismatch type II. due to tachycardia, increased strain on heart no need to follow further (4) Schizoaffective disorder: will order her typical medications including Risperdone, Buproprion, divalproex use Ativan 0.5mg IV q6 to keep her calm want to keep her calm, cooperative so she keeps her oxygen mask in place per her daughter, she is very, very anxious at baseline so this is making things worse (5) Acute kidney injury superimposed on chronic kidney disease: Creatinine 2.28 upon admission, with baseline 1.39-1.6 Cr stable at 1.6 today but BUN trending up the past three days will give gentle hydration at 50mL/hr because she is not eating or drinking enough (6) Pneumonia: See above. Differential includes viral pneumonia, as patient is positive for metapneumovirus infection Patient may have a secondary bacterial process and/or aspiration event, and therefore will continue Zosyn as noted above. WBC up slightly at 15k, likely from Prednisone LDH quite high but coming down at 378 yesterday AST and ALT coming down slowly (7) Hypertension: using Cardizem drip, change to Cardizem PO 240mg on Clonidine patch (8) COPD (chronic obstructive pulmonary disease): increased wheezing on 11/15 will add Solu Medrol, changed to Prednisone Duoneb PRN (9) Hyperglycemia: secondary to steroid use and stress resolved with insulin drip, defer to pharmacy for management Admission and Anticipated Discharge Date Admission Date: November 15, 2019 Anticipated date of discharge: 11/20/19 Subjective patient in more distress this morning, breathing a little heavier she complains that she feels terrible, she cannot eat, she is "tired of this" she is wheezing, exhibiting accessory muscle use, up to 10L via mask and saturations dipping into the 80's discussed situation with the patient, she says that she does not want to be uncomfortable gave her Ativan 0.5mg IV and she calmed down, went to sleep called her daughter Mily over the phone, she agreed that the patient should be comfortable we agreed that we will continue to treat with antibiotics, supportive care but if she is uncomfortable we will give her Ativan and/or Morphine she understands that she may not recover from this infection reviewed labs, Cr is 1.6, Na 136, K 4.3, BUN is rising and she is not drinking well, will give some gentle hydration WBC up to 15k AST and ALT coming down slowly Review of Systems Review of Systems: All systems reviewed & are unremarkable except as noted in HPI & below Constitutional: + body aches, + fatigue and + weakness; no fever, no chills and no sweats Respiratory: + cough, + chest congestion, + dyspnea, + pain on inspiration and + wheezing; no sputum production Cardiovascular: no chest pain and no edema Gastrointestinal: no abdominal pain, no nausea, no vomiting, no constipation and no diarrhea/loose stools Genitourinary: no dysuria Musculoskeletal: + myalgia (diffuse) and + body aches (diffuse) Psychiatric: + irritability and + anxiety Physical Exam Constitutional: + ill appearing and + in distress; + uncomfortable Eyes: PERRL, conjunctivae normal, anicteric sclerae ENMT: external ear and nose normal, oropharynx normal (dry mucous membranes) Neck: trachea midline, no thyromegaly Respiratory: + labored breathing, + uses accessory muscles and + audible wheezes; no cough Auscultation: + diminished lung sounds, + rhonchi and + wheezes; no crackles and no rales Cardiovascular: Rate/Rhythm: regular rate and + irregularly irregular Heart Sounds: normal S1 and normal S2; no murmur Vessels: no JVD Extremities: normal capillary refill; no edema Gastrointestinal (Abdomen): normal bowel sounds, soft, nontender, no hepatosplenomegaly Musculoskeletal: no cyanosis or clubbing, extremities motor strength 5/5 Skin: + turgor decreased; no rashes, no wound and no jaundice Neurologic: patellar DTR's 2+ bilat, sensation intact and PERRL, EOMI, accommodation nl, no face palsy, no dysarthria Psychiatric: Orientation: alert, oriented to person, oriented to place and + guarded; + not oriented to time Lymphatic: no cervical or axillary lymphadenopathy Results & Data Results & Data ([facility]) Vital Signs (Past 12 Hours) Vital Signs Temp Pulse Resp BP BP Pulse Ox 11/18/19 07:45 34.3 C L 87 18 150/79 H 95 11/18/19 07:09 72 20 96 11/18/19 03:51 36.5 C 89 22 165/107 H 94 11/17/19 23:32 36.5 C 77 24 148/79 H 93 Laboratory Results Laboratory Results - last 24 hr 11/14/19 11/17/19 11/17/19 23:51 11:01 11:03 WBC RBC Hgb Hct MCV MCH MCHC RDW Std Deviation RDW Coeff of Liya Plt Count MPV Immature Gran % (Auto) Neut % (Auto) Lymph % (Auto) Roosevelt % (Auto) Eos % (Auto) Baso % (Auto) Immature Gran # (Auto) Neut # (Auto) Lymph # (Auto) Roosevelt # (Auto) Eos # (Auto) Baso # (Auto) Absolute Nucleated RBC Nucleated RBC % (auto) Sodium Potassium Chloride Carbon Dioxide Anion Gap BUN Creatinine Est Cr Clr Drug Dosing Est GFR ( Amer) Est GFR (Non-Af Amer) BUN/Creatinine Ratio Glucose POC Glucose 334 H* 390 H* Calcium Total Bilirubin AST ALT Alkaline Phosphatase Total Protein Albumin Globulin Albumin/Globulin Ratio TB Test (QFT) Gold Plus NEGATIVE TB Test (QFT) Nil 0.17 TB Test Mitogen - Nil 7.85 TB Test Ag - Nil 1 <0.00 TB Test Ag - Nil 2 <0.00 11/17/19 11/17/19 11/17/19 14:11 15:39 16:30 WBC RBC Hgb Hct MCV MCH MCHC RDW Std Deviation RDW Coeff of Liya Plt Count MPV Immature Gran % (Auto) Neut % (Auto) Lymph % (Auto) Roosevelt % (Auto) Eos % (Auto) Baso % (Auto) Immature Gran # (Auto) Neut # (Auto) Lymph # (Auto) Roosevelt # (Auto) Eos # (Auto) Baso # (Auto) Absolute Nucleated RBC Nucleated RBC % (auto) Sodium Potassium Chloride Carbon Dioxide Anion Gap BUN Creatinine Est Cr Clr Drug Dosing Est GFR ( Amer) Est GFR (Non-Af Amer) BUN/Creatinine Ratio Glucose POC Glucose 416 H* 398 H* 358 H* Calcium Total Bilirubin AST ALT Alkaline Phosphatase Total Protein Albumin Globulin Albumin/Globulin Ratio TB Test (QFT) Gold Plus TB Test (QFT) Nil TB Test Mitogen - Nil TB Test Ag - Nil 1 TB Test Ag - Nil 2 11/17/19 11/17/19 11/17/19 18:11 19:03 20:09 WBC RBC Hgb Hct MCV MCH MCHC RDW Std Deviation RDW Coeff of Liya Plt Count MPV Immature Gran % (Auto) Neut % (Auto) Lymph % (Auto) Roosevelt % (Auto) Eos % (Auto) Baso % (Auto) Immature Gran # (Auto) Neut # (Auto) Lymph # (Auto) Roosevelt # (Auto) Eos # (Auto) Baso # (Auto) Absolute Nucleated RBC Nucleated RBC % (auto) Sodium Potassium Chloride Carbon Dioxide Anion Gap BUN Creatinine Est Cr Clr Drug Dosing Est GFR ( Amer) Est GFR (Non-Af Amer) BUN/Creatinine Ratio Glucose POC Glucose 366 H* 297 H 260 H Calcium Total Bilirubin AST ALT Alkaline Phosphatase Total Protein Albumin Globulin Albumin/Globulin Ratio TB Test (QFT) Gold Plus TB Test (QFT) Nil TB Test Mitogen - Nil TB Test Ag - Nil 1 TB Test Ag - Nil 2 11/17/19 11/17/19 11/17/19 21:08 22:04 23:12 WBC RBC Hgb Hct MCV MCH MCHC RDW Std Deviation RDW Coeff of Liya Plt Count MPV Immature Gran % (Auto) Neut % (Auto) Lymph % (Auto) Roosevelt % (Auto) Eos % (Auto) Baso % (Auto) Immature Gran # (Auto) Neut # (Auto) Lymph # (Auto) Roosevelt # (Auto) Eos # (Auto) Baso # (Auto) Absolute Nucleated RBC Nucleated RBC % (auto) Sodium Potassium Chloride Carbon Dioxide Anion Gap BUN Creatinine Est Cr Clr Drug Dosing Est GFR ( Amer) Est GFR (Non-Af Amer) BUN/Creatinine Ratio Glucose POC Glucose 240 H 236 H 168 H Calcium Total Bilirubin AST ALT Alkaline Phosphatase Total Protein Albumin Globulin Albumin/Globulin Ratio TB Test (QFT) Gold Plus TB Test (QFT) Nil TB Test Mitogen - Nil TB Test Ag - Nil 1 TB Test Ag - Nil 2 11/18/19 11/18/19 11/18/19 00:33 01:36 02:38 WBC RBC Hgb Hct MCV MCH MCHC RDW Std Deviation RDW Coeff of Liya Plt Count MPV Immature Gran % (Auto) Neut % (Auto) Lymph % (Auto) Roosevelt % (Auto) Eos % (Auto) Baso % (Auto) Immature Gran # (Auto) Neut # (Auto) Lymph # (Auto) Roosevelt # (Auto) Eos # (Auto) Baso # (Auto) Absolute Nucleated RBC Nucleated RBC % (auto) Sodium Potassium Chloride Carbon Dioxide Anion Gap BUN Creatinine Est Cr Clr Drug Dosing Est GFR ( Amer) Est GFR (Non-Af Amer) BUN/Creatinine Ratio Glucose POC Glucose 172 H 144 H 165 H Calcium Total Bilirubin AST ALT Alkaline Phosphatase Total Protein Albumin Globulin Albumin/Globulin Ratio TB Test (QFT) Gold Plus TB Test (QFT) Nil TB Test Mitogen - Nil TB Test Ag - Nil 1 TB Test Ag - Nil 2 11/18/19 11/18/19 11/18/19 03:37 04:35 05:37 WBC RBC Hgb Hct MCV MCH MCHC RDW Std Deviation RDW Coeff of Liya Plt Count MPV Immature Gran % (Auto) Neut % (Auto) Lymph % (Auto) Roosevelt % (Auto) Eos % (Auto) Baso % (Auto) Immature Gran # (Auto) Neut # (Auto) Lymph # (Auto) Roosevelt # (Auto) Eos # (Auto) Baso # (Auto) Absolute Nucleated RBC Nucleated RBC % (auto) Sodium Potassium Chloride Carbon Dioxide Anion Gap BUN Creatinine Est Cr Clr Drug Dosing Est GFR ( Amer) Est GFR (Non-Af Amer) BUN/Creatinine Ratio Glucose POC Glucose 126 H 129 H 145 H Calcium Total Bilirubin AST ALT Alkaline Phosphatase Total Protein Albumin Globulin Albumin/Globulin Ratio TB Test (QFT) Gold Plus TB Test (QFT) Nil TB Test Mitogen - Nil TB Test Ag - Nil 1 TB Test Ag - Nil 2 11/18/19 11/18/19 11/18/19 06:32 07:53 07:53 WBC 15.78 H RBC 3.42 L Hgb 10.2 L Hct 31.5 L MCV 92.1 MCH 29.8 MCHC 32.4 RDW Std Deviation 46.4 H RDW Coeff of Liya 13.8 Plt Count 559 H MPV 10.1 Immature Gran % (Auto) 2.8 Neut % (Auto) 84.4 Lymph % (Auto) 5.8 Roosevelt % (Auto) 6.9 Eos % (Auto) 0.0 Baso % (Auto) 0.1 Immature Gran # (Auto) 0.44 H Neut # (Auto) 13.31 H Lymph # (Auto) 0.92 L Roosevelt # (Auto) 1.09 H Eos # (Auto) 0.00 Baso # (Auto) 0.02 Absolute Nucleated RBC 0.07 H Nucleated RBC % (auto) 0.4 Sodium 136 Potassium 4.3 Chloride 103 Carbon Dioxide 27 Anion Gap 5.0 BUN 45 H Creatinine 1.63 H Est Cr Clr Drug Dosing 31.9 Est GFR ( Amer) 34.9 Est GFR (Non-Af Amer) 30.1 BUN/Creatinine Ratio 27.4 H Glucose 129 H POC Glucose 129 H Calcium 8.5 Total Bilirubin 0.4 AST 109 H ALT 434 H Alkaline Phosphatase 66 Total Protein 7.0 Albumin 2.5 L Globulin 4.5 H Albumin/Globulin Ratio 0.6 L TB Test (QFT) Gold Plus TB Test (QFT) Nil TB Test Mitogen - Nil TB Test Ag - Nil 1 TB Test Ag - Nil 2 11/18/19 11/18/19 08:29 10:31 WBC RBC Hgb Hct MCV MCH MCHC RDW Std Deviation RDW Coeff of Liya Plt Count MPV Immature Gran % (Auto) Neut % (Auto) Lymph % (Auto) Roosevelt % (Auto) Eos % (Auto) Baso % (Auto) Immature Gran # (Auto) Neut # (Auto) Lymph # (Auto) Roosevelt # (Auto) Eos # (Auto) Baso # (Auto) Absolute Nucleated RBC Nucleated RBC % (auto) Sodium Potassium Chloride Carbon Dioxide Anion Gap BUN Creatinine Est Cr Clr Drug Dosing Est GFR ( Amer) Est GFR (Non-Af Amer) BUN/Creatinine Ratio Glucose POC Glucose 129 H 145 H Calcium Total Bilirubin AST ALT Alkaline Phosphatase Total Protein Albumin Globulin Albumin/Globulin Ratio TB Test (QFT) Gold Plus TB Test (QFT) Nil TB Test Mitogen - Nil TB Test Ag - Nil 1 TB Test Ag - Nil 2 Medications Administered Current Inpatient Medications Acetaminophen (Tylenol) 650 mg ME Q6H PRN PRN Reason: temp>101/PAIN Stop: 12/15/19 04:02 Albuterol (Duoneb) 3 ml NEB QIDR [facility] Stop: 12/18/19 06:59 Last Admin: 11/18/19 07:07 Dose: 3 ml Documented by: Atropine Sulfate (Atropine Sulfate 1% Oph) 1 drops PO Q2H PRN PRN Reason: .SECRETIONS Stop: 12/15/19 01:53 Last Admin: 11/15/19 04:54 Dose: 1 drops Documented by: Bupropion HCl (Wellbutrin-Xl) 300 mg PO DAILY [facility] Stop: 12/15/19 11:14 Last Admin: 11/18/19 08:40 Dose: 300 mg Documented by: Clonidine HCl ([id number]-Kol-6 0.1mg/24hr) 1 patch TD We@0600 [facility] Stop: 12/15/19 05:59 Last Admin: 11/15/19 06:25 Dose: 1 patch Documented by: Dextrose (Dextrose 50%) 25 - 50 ml IV UD PRN; Protocol PRN Reason: Hypoglycemia Protocol Stop: 12/15/19 04:02 Diltiazem HCl (Cardizem) 10 mg IV Q6 PRN PRN Reason: tachycardia Stop: 12/15/19 17:27 Last Admin: 11/15/19 17:35 Dose: 10 mg Documented by: Diltiazem HCl (Cardizem Cd) 240 mg PO QAM [facility] Stop: 12/17/19 10:14 Last Admin: 11/18/19 08:38 Dose: 240 mg Documented by: Divalproex Sodium (Depakote Delay Release) 250 mg PO DAILY [facility] Stop: 12/15/19 11:14 Last Admin: 11/18/19 08:39 Dose: 250 mg Documented by: Glucagon (Glucagen) 1 mg SQ UD PRN; Protocol PRN Reason: Hypoglycemia Protocol Stop: 12/15/19 04:02 Glucose (Dex4 Glucose) 4 - 8 tabs PO UD PRN; Protocol PRN Reason: Hypoglycemia Protocol Stop: 12/15/19 04:02 Glucose (Glucose 40%) 15 - 30 gm PO UD PRN; Protocol PRN Reason: Hypoglycemia Protocol Stop: 12/15/19 04:02 Piperacillin Sod/Tazobactam (Sod 3.375 gm/ Dextrose) 115 mls @ 28.75 mls/hr IV Q8H [facility]; Protocol Stop: 11/22/19 04:29 Last Admin: 11/18/19 08:42 Dose: 28 mls/hr Documented by: Lorazepam (Ativan) 0.5 mg in 1 mls @ 1 mls/min IV Q8 [facility] Stop: 12/15/19 21:59 Last Admin: 11/18/19 09:12 Dose: 1 mls/min Documented by: Diltiazem HCl 125 mg/ Dextrose 125 mls @ 0 mls/hr IV .Q0M [facility]; Protocol Stop: 12/15/19 17:44 Last Titration: 11/18/19 02:19 Dose: 0 mg/hr, 0 mls/hr Documented by: Insulin Human Regular 250 (units/ Sodium Chloride) 250 mls @ 3.5 mls/hr IV .Q24H [facility]; Protocol Stop: 12/17/19 12:44 Last Titration: 11/18/19 10:34 Dose: 3.5 units/hr, 3.5 mls/hr Documented by: Insulin Aspart (Novolog Flexpen) 0 units SC ACHS [facility]; Protocol Stop: 12/17/19 16:29 Last Admin: 11/18/19 08:39 Dose: Not Given Documented by: Insulin Detemir (Levemir Flextouch) 0 units SC Q12 [facility]; Protocol Stop: 12/17/19 08:59 Last Admin: 11/18/19 08:41 Dose: 30 units Documented by: Miscellaneous (Carbohydrates For Hypoglycemia) 15 - 30 gm PO UD PRN PRN Reason: Hypoglycemia Protocol Stop: 12/15/19 04:02 Miscellaneous (Remove Clonidine Patch) 1 ea N/A CQWK [facility] Stop: 12/22/19 05:59 Miscellaneous (Check Clonidine Patch) 1 ea N/A QS [facility] Stop: 12/15/19 07:59 Last Admin: 11/18/19 08:38 Dose: 1 ea Documented by: Miscellaneous Information (Consult) 1 ea N/A UD PRN PRN Reason: Consult Stop: 12/14/19 22:34 Miscellaneous Information (Consult Glycemic Management Pharmacy) 1 ea N/A UD PRN PRN Reason: Consult Stop: 12/17/19 04:01 Morphine Sulfate (Morphine Sulfate) 2 mg IV Q4H PRN PRN Reason: Dyspnea Stop: 12/02/19 09:18 Ondansetron HCl (Zofran) 4 mg IV Q6H PRN PRN Reason: Nausea Stop: 12/15/19 04:02 Prednisone (Prednisone) 20 mg PO QAM [facility] Stop: 12/18/19 08:59 Last Admin: 11/18/19 08:40 Dose: 20 mg Documented by: Risperidone (Risperdal) 0.5 mg PO BID [facility] Stop: 12/15/19 11:14 Last Admin: 11/18/19 08:40 Dose: 0.5 mg Documented by: PG Care Time/CCT Total # of Minutes Spent Total Time Spent with Patient: Total time spent is greater than 50% in coordination of care (as documented) at patient's floor/unit and/or counseling patient: Coding Level of Care Code 33368 Subseq Hosp Care Lvl 3 Diagnoses Atrial fibrillation I48.91 Acute respiratory failure with hypoxia and hypercapnia J96.01; J96.02 Elevated troponin I level R79.89 Schizoaffective disorder F25.9 Acute kidney injury superimposed on chronic kidney disease N17.9; N18.9 Pneumonia J18.9 Laterality: right Lung location: lower lobe of lung Pneumonia type: due to unspecified organism Hypertension I10 COPD (chronic obstructive pulmonary disease) J44.9 Hyperglycemia R73.9 (1) Pneumonia Laterality: right Lung location: lower lobe of lung Pneumonia type: due to unspecified organism Qualified Code(s): J18.9 - Pneumonia, unspecified organism
[2019-11-18] MEDS: SODIUM CHLORIDE 0.9% 1000ML 1,000 ML IV SCH (11:23)
[2019-11-18] MEDS: dilTIAZem HCL 125 MG in DEXTROSE 5% 100 ML IV SCH (11:55)
--- NOTE | 2019-11-18 15:13 | Pharmacy Report ---
Pharmacy Glycemic Short Note 2 - Date of Service November 18, 2019 - Glycemic Short BSG Results (Last 24 hours): 11/17/19 11/17/19 11/17/19 15:39 16:30 18:11 Glucose POC Glucose 398 H* 358 H* 366 H* 11/17/19 11/17/19 11/17/19 19:03 20:09 21:08 Glucose POC Glucose 297 H 260 H 240 H 11/17/19 11/17/19 11/18/19 22:04 23:12 00:33 Glucose POC Glucose 236 H 168 H 172 H 11/18/19 11/18/19 11/18/19 01:36 02:38 03:37 Glucose POC Glucose 144 H 165 H 126 H 11/18/19 11/18/19 11/18/19 04:35 05:37 06:32 Glucose POC Glucose 129 H 145 H 129 H 11/18/19 11/18/19 11/18/19 07:53 08:29 10:31 Glucose 129 H POC Glucose 129 H 145 H 11/18/19 11/18/19 12:32 14:43 Glucose POC Glucose 164 H 202 H OUTPATIENT ANTIDIABETIC REGIMEN: * Levemir 69 units SC daily * Novolog 14 units SC AC, plus additional SSI 0-10 units based on BSG * A1c = 7.9 % 09/08/19 Risk Factors for Insulin Resistance: * Steroids: methylprednisolone 40 mg IV q12h x3 doses 11/15-11/16 AM, tapering to prednisone 20 mg po qAM starting 11/17 AM * Infection: viral pneumonia with possible superimposed bacterial PNA, on Zosyn * Diet: T2DM ASSESSMENT: 11/18/19: * Patient remains on IV insulin infusion (current rate: 4.2 units/hr) overlapped with SQ insulin * I had decreased basal insulin scale this morning due to rapid improvement in glycemic control overnight and steroids being transitioned to PO. However, insulin drip needs are now on the rise despite no oral intake. Will increase scale for this evening. * Patients clinically condition does not appear to be improving. 11/17/19: * 79 yo F with diabetes on a large amount of outpatient insulin (>100 units/day) admitted on 11/14 with viral PNA (metapenumovirus positive) and possible superimposed bacterial PNA * Pharmacy consulted 11/16 AM 2nd severe hyperglycemia. Etiology likely 2nd initiation of steroids on 4/2 AM. * Will increase Levemir dose this AM * BSG at lunch persistently >300 mg/dL despite tighter Novolog parameters in AM. Initiation of insulin drip indicated and authorized by Dr. Cheek. Plan is to transition the insulin drip off soon, as early as later this evening, depending on trend in insulin drip rates and BSG's PLAN FOR INPATIENT GLYCEMIC CONTROL: * Continue insulin drip per protocol * goal range: 120 -180 mg/dL * Basal insulin * Levemir SQ BID per scale based on insulin drip rate: * 40 units if drip rate is < 2 units/hr * 45 units if drip rate is 2-4 units/hr * 55 units if drip rate is > 4 units/hr * Bolus insulin * Set carb ratio of 1 unit for every 4 grams of CHO * Please note that the plan above was derived based on current level of insulin resistance and hospital stress. These recommendations are appropriate for inpatient admission only. Plan of care upon discharge will need to be reassessed to avoid potential outpatient hypo/hyperglycemia. Thank you.
[2019-11-18] MEDS: MoRPHine SULFATE 2 MG/ML CARP IV PRN ×2 (15:55→19:27)
[2019-11-18] MEDS: DABIGATRAN ETEXILATE 75 MG CAP PO SCH (19:55)
[2019-11-19] MEDS: CHECK CLONIDINE PATCH PLACEMENT SCH ×3 (00:36→15:48)
[2019-11-19] MEDS: PIPERACILLIN/TAZOBACTAM 3.375 GM in DEXTROSE 5% 100 ML IV SCH ×3 (01:42→17:08)
[2019-11-19] MEDS: MoRPHine SULFATE 2 MG/ML CARP IV PRN ×3 (04:49→14:48)
[2019-11-19 04:58] LABS: Hematocrit (blood only) 32.9 % (37-47); Hemoglobin 10.6 g/dL (12.0-16.0); Mean Corpuscular Hemoglobin 29.9 pg (25-34); Mean Corpuscular Hgb Conc 32.2 g/dL (32-36); Mean Corpuscular Volume 92.9 fL (80-100); Mean Platelet Volume 10.2 fL (7.4-10.4); Nucleated RBC # (auto) 0.05 K/uL (0-0); Nucleated RBC % (auto) 0.3 %; Platelet Count 664 K/uL (130-400); RDW Standard Deviation 47.8 fL (36.4-46.3); Red Blood Count 3.54 M/uL (4.2-5.4); White Blood Count 16.25 K/uL (4.8-10.8)
[2019-11-19] MEDS: LORazepam 0.5 MG/1 ML VIAL IV SCH ×3 (05:14→21:41)
[2019-11-19 05:19] LABS: Albumin Level 2.6 gm/dl (3.4-5.0); BUN Creatinine Ratio 25.8 (10-20); Calcium 8.7 mg/dl (8.5-10.1); Creatinine Clr Calc Pharmacy 33.3 ml/min; Est GFR (African American) 36.8; Est GFR (Non-African American) 31.7; Potassium 4.2 mmol/L (3.5-5.1)
[2019-11-19 05:21] LABS: Albumin Globulin Ratio 0.6 (0.9-2); Bilirubin,Total 0.4 mg/dl (0.2-1); Globulin 4.4 gm/dl (2.5-4.0)
[2019-11-19 05:28] LABS: Basophils # (auto) 0.08 K/uL (0-0.2); Basophils % (auto) 0.5 %; Immature Granulocytes # (auto) 1.06 K/uL (0.00-0.02); Immature Granulocytes % (auto) 6.5 %; Lymphocytes # (auto) 1.13 K/uL (1.2-3.4); Neutrophils # (auto) 12.68 K/uL (1.4-6.5); Polychromasia 1+
[2019-11-19] MEDS: ALBUT/IPRATROP 3MG/0.5MG NEB 3 ML VIAL NEB SCH ×3 (07:35→15:13)
[2019-11-19] MEDS: DABIGATRAN ETEXILATE 75 MG CAP PO SCH (09:21)
[2019-11-19] MEDS: dilTIAZem HCL 240 MG CAPCR PO SCH (09:24)
[2019-11-19] MEDS: BuPROPion XL 300 MG TABCR PO SCH (09:24)
[2019-11-19] MEDS: DIVALPROEX DELAY RELEASE 250 MG TABEC PO SCH (09:24)
[2019-11-19] MEDS: INSULIN DETEMIR FLEXPEN/FLEX TOUCH 100 UNITS/ML 3ML SC SCH ×2 (09:24→22:25)
[2019-11-19] MEDS: predniSONE 20 MG TAB PO SCH (09:24)
[2019-11-19] MEDS: risperiDONE 0.5 MG TABLET PO SCH (09:30)
[2019-11-19] MEDS ORDERED: NovoLIN-N (NPH) PER UNIT CHARGE SQ ONE (09:30)
[2019-11-19] MEDS: INSULIN ASPART 100 UNITS/ML 3 ML PEN SC SCH ×5 (09:44→22:24)
[2019-11-19] MEDS: INSULIN REGULAR 250 UNITS in SODIUM CHLORIDE 0.9% 247.5 ML IV SCH (09:45)
--- NOTE | 2019-11-19 09:47 | Pharmacy Report ---
Pharmacy Glycemic Short Note 2 - Date of Service November 19, 2019 - Glycemic Short BSG Results (Last 24 hours): 11/18/19 11/18/19 11/18/19 10:31 12:32 14:43 Glucose POC Glucose 145 H 164 H 202 H 11/18/19 11/18/19 11/18/19 15:34 16:19 17:18 Glucose POC Glucose 138 H 160 H 162 H 11/18/19 11/18/19 11/18/19 18:11 19:17 20:18 Glucose POC Glucose 174 H 191 H 195 H 11/18/19 11/18/19 11/18/19 21:19 22:30 23:29 Glucose POC Glucose 191 H 206 H 210 H 11/19/19 11/19/19 11/19/19 00:30 01:29 02:25 Glucose POC Glucose 165 H 160 H 140 H 11/19/19 11/19/19 11/19/19 04:32 04:34 06:34 Glucose 114 H POC Glucose 125 H 100 H 11/19/19 11/19/19 11/19/19 07:33 07:34 08:01 Glucose POC Glucose 75 74 83 11/19/19 08:59 Glucose POC Glucose 142 H OUTPATIENT ANTIDIABETIC REGIMEN: * Levemir 69 units SC daily * Novolog 14 units SC AC, plus additional SSI 0-10 units based on BSG * A1c = 7.9 % 09/08/19 Risk Factors for Insulin Resistance: * Steroids: prednisone 20 mg Po qAM * Infection: viral pneumonia with possible superimposed bacterial PNA, on Zosyn * Diet: T2DM ASSESSMENT: 11/19/19: * Tressa continued to demonstrate significant insulin resistance over the past 24 hours despite taper in steroids and lack of oral intake. * Insulin drip rates ranged from 2.5 - 5.2 units/hr * She was given a total of 75 units of levemir * Patient remains on prednisone 20 mg PO qAM. Appetite remains poor but patient did consume ~40 grams CHO with breakfast. * Discussed treatment goals with Hospitalist; BSGs in the 200s are acceptable given patient condition and comorbidities * Insulin drip has been held since ~0600 for BSG of 100 and 72 mg/dL. Will attempt to transition off drip. Will add once daily NPH to cover steroid induced hyperglycemia. 11/18/19: * Patient remains on IV insulin infusion (current rate: 4.2 units/hr) overlapped with SQ insulin * I had decreased basal insulin scale this morning due to rapid improvement in glycemic control overnight and steroids being transitioned to PO. However, insulin drip needs are now on the rise despite no oral intake. Will increase scale for this evening. * Patients clinically condition does not appear to be improving. 11/17/19: * 79 yo F with diabetes on a large amount of outpatient insulin (>100 units/day) admitted on 11/14 with viral PNA (metapenumovirus positive) and possible superimposed bacterial PNA * Pharmacy consulted 11/16 AM 2nd severe hyperglycemia. Etiology likely 2nd initiation of steroids on 11/15 AM. * Will increase Levemir dose this AM * BSG at lunch persistently >300 mg/dL despite tighter Novolog parameters in AM. Initiation of insulin drip indicated and authorized by Dr. Cheek. Plan is to transition the insulin drip off soon, as early as later this evening, depending on trend in insulin drip rates and BSG's PLAN FOR INPATIENT GLYCEMIC CONTROL: * Basal insulin * Levemir SQ BID per scale: * 30 units for BSG < 140 * 35 units for BSG 140-180 * 40 units for BSG > 180 * NPH 20 units (~0.2 units/kg) qAM - to be given with prednisone * Bolus insulin * Novolog q4h * Goal range: 120 - 150 mg/dL * Correction factor: 15 mg/dL/unit * Carb ratio: 1 unit for every 4 grams CHO * Please note that the plan above was derived based on current level of insulin resistance and hospital stress. These recommendations are appropriate for inpatient admission only. Plan of care upon discharge will need to be reassessed to avoid potential outpatient hypo/hyperglycemia. Thank you.
--- NOTE | 2019-11-19 10:17 | Hospitalist Progress Note ---
Date of Service November 19, 2019 Assessment & Plan (1) Acute respiratory failure with hypoxia and hypercapnia: Acute respiratory failure with hypoxia and hypercapnia/COPD/pneumonia- Laboratories consistent with human metapneumovirus infection discussed with pulmonary and infection control, does not require COVID testing (no known contact, resides at [facility] that has had strict visitor restrictions) Human metapneumovirus infection requires contact precaution, notified staff to change patient's room out of the negative pressure treated with Zosyn 3.375 mg IV every 8 hours for possible secondary bacterial infection WBC up to 16k, could be due to steroids, no fever requiring 10L via mask, far more distress today, not able to be comfortable on Ativan and Morphine pushes discussed goals of care with patient's daughter, she wants patient to be comfortable patient constantly saying "I can't take this any more" no improvement in wheezing with steroids and nebulizers will change to comfort care stop Zosyn, stop nebulizers, stop steroids will place on Morphine drip, Ativan PRN, Haldol PRN for extreme agitation once she is calm and sedated can downgrade to medical floor discussed with family that they are welcome to visit due to end of life, can come back to bedside one at a time (2) Atrial fibrillation: RVR that started on 11/14 moved to PCU, started on Cardizem drip HR was better now back up into the 140-150 range despite PO Cardizem constantly agitated and uncomfortable (3) Elevated troponin I level: Likely supply demand mismatch type II. due to tachycardia, increased strain on heart no need to follow further (4) Schizoaffective disorder: will order her typical medications including Risperdone, Buproprion, divalproex these are not helping, still very agitated and confused will use Ativan and Haldol PRN for agitation (5) Acute kidney injury superimposed on chronic kidney disease: Creatinine 2.28 upon admission, with baseline 1.39-1.6 Cr stable at 1.5 today, BUN down a little at 40 very poor oral intake the past few days (6) Pneumonia: See above. Differential includes viral pneumonia, as patient is positive for metapneumovirus infection Patient may have a secondary bacterial process and/or aspiration event treated with Zosyn IV, will stop now with comfort planned WBC up slightly at 16k, could be due to Prednisone LDH quite high but coming down at 378 when last checked AST and ALT coming down slowly (7) Hypertension: extremely high today due to agitation and distress (8) COPD (chronic obstructive pulmonary disease): increased wheezing on 11/15 will add Solu Medrol, changed to Prednisone Duoneb PRN - no improvement at all (9) Hyperglycemia: secondary to steroid use and stress resolved with insulin drip, defer to pharmacy for management can stop checking now with comfort measures Admission and Anticipated Discharge Date Admission Date: November 15, 2019 Anticipated date of discharge: 11/20/19 Subjective patient more agitated this morning, very uncomfortable tried to provide relief with Morphine and Ativan but not working auditory wheezing, no response to diuretics HR going up to the 120-150 range, blood pressure up in the 200's systolic, extremely uncomfortable constantly pulling off her mask, saturations in the 80's on oxygen revisited in the afternoon, still very uncomfortable talked with her daughter Mily over the phone, discussed that the patient was in a great deal of distress, getting worse deteriorating despite several days of hospitalization, fear that she might be headed toward a point where intubation would be only option for oxygenation had already established with family that she would not want that discussed that the patient was suffering, had not really been comfortable all day long, not eating much will make patient comfort measures, stop all non-essential medications give Morphine 4mg IV now, Ativan 1mg IV, Haldol PRN place on morphine drip, can titrate down on oxygen d/w RN, once she is stable we can downgrade to medical floor Review of Systems Review of Systems: Unobtainable due to cognitive status Physical Exam Constitutional: + ill appearing and + in distress; + uncomfortable Eyes: PERRL, conjunctivae normal, anicteric sclerae ENMT: external ear and nose normal, oropharynx normal (dry mucous membranes) Neck: trachea midline, no thyromegaly Respiratory: + labored breathing, + uses accessory muscles and + audible wheezes; no cough Auscultation: + diminished lung sounds, + rhonchi and + wheezes; no crackles and no rales Cardiovascular: Rate/Rhythm: + tachycardic (rates 140-150) and + irregularly irregular Heart Sounds: normal S1 and normal S2; no murmur Vessels: no JVD Extremities: normal capillary refill; no edema Gastrointestinal (Abdomen): normal bowel sounds, soft, nontender, no hepatosplenomegaly Musculoskeletal: no cyanosis or clubbing, extremities motor strength 5/5 Skin: + turgor decreased; no rashes, no wound and no jaundice Neurologic: patellar DTR's 2+ bilat, sensation intact and PERRL, EOMI, accommodation nl, no face palsy, no dysarthria Psychiatric: Orientation: alert, oriented to person and + guarded; + not oriented to place and + not oriented to time Eye Contact: + poor eye contact Insight: + limited insight Lymphatic: no cervical or axillary lymphadenopathy Results & Data Results & Data ([facility]) Vital Signs (Past 12 Hours) Vital Signs Temp Pulse Pulse Resp BP Pulse Ox 11/19/19 07:35 104 H 24 94 11/19/19 07:28 36.6 C 100 H 23 174/91 H 94 11/19/19 07:03 36.4 C L 111 H 24 164/99 H 96 11/19/19 03:09 36.8 C 95 H 16 175/97 H 92 11/18/19 23:59 113 H 11/18/19 23:19 36.6 C 108 H 26 H 150/102 H 93 Laboratory Results Laboratory Results - last 24 hr 11/18/19 11/18/19 11/18/19 17:18 18:11 19:17 WBC RBC Hgb Hct MCV MCH MCHC RDW Std Deviation RDW Coeff of Liya Plt Count MPV Immature Gran % (Auto) Neut % (Auto) Lymph % (Auto) [place] % (Auto) Eos % (Auto) Baso % (Auto) Immature Gran # (Auto) Neut # (Auto) Lymph # (Auto) [place] # (Auto) Eos # (Auto) Baso # (Auto) Absolute Nucleated RBC Nucleated RBC % (auto) Polychromasia Sodium Potassium Chloride Carbon Dioxide Anion Gap BUN Creatinine Est Cr Clr Drug Dosing Est GFR ( Amer) Est GFR (Non-Af Amer) BUN/Creatinine Ratio Glucose POC Glucose 162 H 174 H 191 H Calcium Total Bilirubin AST ALT Alkaline Phosphatase Total Protein Albumin Globulin Albumin/Globulin Ratio 11/18/19 11/18/19 11/18/19 20:18 21:19 22:30 WBC RBC Hgb Hct MCV MCH MCHC RDW Std Deviation RDW Coeff of Liya Plt Count MPV Immature Gran % (Auto) Neut % (Auto) Lymph % (Auto) [place] % (Auto) Eos % (Auto) Baso % (Auto) Immature Gran # (Auto) Neut # (Auto) Lymph # (Auto) [place] # (Auto) Eos # (Auto) Baso # (Auto) Absolute Nucleated RBC Nucleated RBC % (auto) Polychromasia Sodium Potassium Chloride Carbon Dioxide Anion Gap BUN Creatinine Est Cr Clr Drug Dosing Est GFR ( Amer) Est GFR (Non-Af Amer) BUN/Creatinine Ratio Glucose POC Glucose 195 H 191 H 206 H Calcium Total Bilirubin AST ALT Alkaline Phosphatase Total Protein Albumin Globulin Albumin/Globulin Ratio 11/18/19 11/19/19 11/19/19 23:29 00:16 00:30 WBC 16.25 H RBC 3.54 L Hgb 10.6 L Hct 32.9 L MCV 92.9 MCH 29.9 MCHC 32.2 RDW Std Deviation 47.8 H RDW Coeff of Liya 14.0 Plt Count 664 H MPV 10.2 Immature Gran % (Auto) 6.5 Neut % (Auto) 78.0 Lymph % (Auto) 7.0 [place] % (Auto) 8.0 Eos % (Auto) 0.0 Baso % (Auto) 0.5 Immature Gran # (Auto) 1.06 H Neut # (Auto) 12.68 H Lymph # (Auto) 1.13 L [place] # (Auto) 1.30 H Eos # (Auto) 0.00 Baso # (Auto) 0.08 Absolute Nucleated RBC 0.05 H Nucleated RBC % (auto) 0.3 Polychromasia 1+ Sodium Potassium Chloride Carbon Dioxide Anion Gap BUN Creatinine Est Cr Clr Drug Dosing Est GFR ( Amer) Est GFR (Non-Af Amer) BUN/Creatinine Ratio Glucose POC Glucose 210 H 165 H Calcium Total Bilirubin AST ALT Alkaline Phosphatase Total Protein Albumin Globulin Albumin/Globulin Ratio 11/19/19 11/19/19 11/19/19 01:29 02:25 04:32 WBC RBC Hgb Hct MCV MCH MCHC RDW Std Deviation RDW Coeff of Liya Plt Count MPV Immature Gran % (Auto) Neut % (Auto) Lymph % (Auto) [place] % (Auto) Eos % (Auto) Baso % (Auto) Immature Gran # (Auto) Neut # (Auto) Lymph # (Auto) [place] # (Auto) Eos # (Auto) Baso # (Auto) Absolute Nucleated RBC Nucleated RBC % (auto) Polychromasia Sodium Potassium Chloride Carbon Dioxide Anion Gap BUN Creatinine Est Cr Clr Drug Dosing Est GFR ( Amer) Est GFR (Non-Af Amer) BUN/Creatinine Ratio Glucose POC Glucose 160 H 140 H 125 H Calcium Total Bilirubin AST ALT Alkaline Phosphatase Total Protein Albumin Globulin Albumin/Globulin Ratio 11/19/19 11/19/19 11/19/19 04:34 06:34 07:33 WBC RBC Hgb Hct MCV MCH MCHC RDW Std Deviation RDW Coeff of Liya Plt Count MPV Immature Gran % (Auto) Neut % (Auto) Lymph % (Auto) [place] % (Auto) Eos % (Auto) Baso % (Auto) Immature Gran # (Auto) Neut # (Auto) Lymph # (Auto) [place] # (Auto) Eos # (Auto) Baso # (Auto) Absolute Nucleated RBC Nucleated RBC % (auto) Polychromasia Sodium 139 Potassium 4.2 Chloride 106 Carbon Dioxide 29 Anion Gap 4.0 BUN 40 H Creatinine 1.56 H Est Cr Clr Drug Dosing 33.3 Est GFR ( Amer) 36.8 Est GFR (Non-Af Amer) 31.7 BUN/Creatinine Ratio 25.8 H Glucose 114 H POC Glucose 100 H 75 Calcium 8.7 Total Bilirubin 0.4 AST 69 H ALT 369 H Alkaline Phosphatase 88 Total Protein 7.0 Albumin 2.6 L Globulin 4.4 H Albumin/Globulin Ratio 0.6 L 11/19/19 11/19/19 11/19/19 07:34 08:01 08:59 WBC RBC Hgb Hct MCV MCH MCHC RDW Std Deviation RDW Coeff of Liya Plt Count MPV Immature Gran % (Auto) Neut % (Auto) Lymph % (Auto) [place] % (Auto) Eos % (Auto) Baso % (Auto) Immature Gran # (Auto) Neut # (Auto) Lymph # (Auto) [place] # (Auto) Eos # (Auto) Baso # (Auto) Absolute Nucleated RBC Nucleated RBC % (auto) Polychromasia Sodium Potassium Chloride Carbon Dioxide Anion Gap BUN Creatinine Est Cr Clr Drug Dosing Est GFR ( Amer) Est GFR (Non-Af Amer) BUN/Creatinine Ratio Glucose POC Glucose 74 83 142 H Calcium Total Bilirubin AST ALT Alkaline Phosphatase Total Protein Albumin Globulin Albumin/Globulin Ratio 11/19/19 11/19/19 11:30 17:11 WBC RBC Hgb Hct MCV MCH MCHC RDW Std Deviation RDW Coeff of Liya Plt Count MPV Immature Gran % (Auto) Neut % (Auto) Lymph % (Auto) [place] % (Auto) Eos % (Auto) Baso % (Auto) Immature Gran # (Auto) Neut # (Auto) Lymph # (Auto) [place] # (Auto) Eos # (Auto) Baso # (Auto) Absolute Nucleated RBC Nucleated RBC % (auto) Polychromasia Sodium Potassium Chloride Carbon Dioxide Anion Gap BUN Creatinine Est Cr Clr Drug Dosing Est GFR ( Amer) Est GFR (Non-Af Amer) BUN/Creatinine Ratio Glucose POC Glucose 170 H 248 H Calcium Total Bilirubin AST ALT Alkaline Phosphatase Total Protein Albumin Globulin Albumin/Globulin Ratio Medications Administered Current Inpatient Medications Acetaminophen (Tylenol) 650 mg IN Q6H PRN PRN Reason: temp>101/PAIN Stop: 12/15/19 04:02 Atropine Sulfate (Atropine Sulfate 1% Oph) 1 drops PO Q2H PRN PRN Reason: .SECRETIONS Stop: 12/15/19 01:53 Last Admin: 11/15/19 04:54 Dose: 1 drops Documented by: Dextrose (Dextrose 50%) 25 - 50 ml IV UD PRN; Protocol PRN Reason: Hypoglycemia Protocol Stop: 12/15/19 04:02 Glucagon (Glucagen) 1 mg SQ UD PRN; Protocol PRN Reason: Hypoglycemia Protocol Stop: 12/15/19 04:02 Glucose (Dex4 Glucose) 4 - 8 tabs PO UD PRN; Protocol PRN Reason: Hypoglycemia Protocol Stop: 12/15/19 04:02 Glucose (Glucose 40%) 15 - 30 gm PO UD PRN; Protocol PRN Reason: Hypoglycemia Protocol Stop: 12/15/19 04:02 Haloperidol Lactate (Haldol) 5 mg IV Q6 PRN PRN Reason: Agitation Stop: 12/19/19 17:16 Lorazepam (Ativan) 0.5 mg in 1 mls @ 1 mls/min IV Q8 [facility] Stop: 12/15/19 21:59 Last Admin: 11/19/19 14:26 Dose: 1 mls/min Documented by: Morphine Sulfate (Morphine Sulf/Nss) 250 mg in 250 mls @ 2 mls/hr IV .Q24H [facility]; Protocol Stop: 12/03/19 17:14 Insulin Aspart (Novolog Flexpen) 0 units SC Q4 [facility] Stop: 12/19/19 11:59 Last Admin: 11/19/19 17:13 Dose: 7 units Documented by: Insulin Detemir (Levemir Flextouch) 0 units SC Q12 [facility]; Protocol Stop: 12/17/19 08:59 Last Admin: 11/19/19 09:24 Dose: 40 units Documented by: Miscellaneous (Carbohydrates For Hypoglycemia) 15 - 30 gm PO UD PRN PRN Reason: Hypoglycemia Protocol Stop: 12/15/19 04:02 Miscellaneous (Remove Clonidine Patch) 1 ea N/A CQWK [facility] Stop: 12/22/19 05:59 Miscellaneous (Check Clonidine Patch) 1 ea N/A QS [facility] Stop: 12/15/19 07:59 Last Admin: 11/19/19 15:48 Dose: Not Given Documented by: Miscellaneous Information (Consult Glycemic Management Pharmacy) 1 ea N/A UD PRN PRN Reason: Consult Stop: 12/17/19 04:01 Morphine Sulfate (Morphine Sulfate) 2 mg IV Q4H PRN PRN Reason: Dyspnea Stop: 12/02/19 09:18 Last Admin: 11/19/19 14:48 Dose: 2 mg Documented by: Ondansetron HCl (Zofran) 4 mg IV Q6H PRN PRN Reason: Nausea Stop: 12/15/19 04:02 PG Care Time/CCT Total # of Minutes Spent Total Time Spent with Patient: Total time spent is greater than 50% in coordination of care (as documented) at patient's floor/unit and/or counseling patient: Coding Level of Care Code 98594 Subseq Hosp Care Lvl 3 Diagnoses Acute respiratory failure with hypoxia and hypercapnia J96.01; J96.02 Atrial fibrillation I48.91 Elevated troponin I level R79.89 Schizoaffective disorder F25.9 Acute kidney injury superimposed on chronic kidney disease N17.9; N18.9 Pneumonia J18.9 Laterality: right Lung location: lower lobe of lung Pneumonia type: due to unspecified organism Hypertension I10 COPD (chronic obstructive pulmonary disease) J44.9 Hyperglycemia R73.9 (1) Pneumonia Laterality: right Lung location: lower lobe of lung Pneumonia type: due to unspecified organism Qualified Code(s): J18.9 - Pneumonia, unspecified organism
[2019-11-19] MEDS: SODIUM CHLORIDE 0.9% 1000ML 1,000 ML IV SCH (10:22)
[2019-11-19] MEDS ORDERED: Nursing to Pharmacy Communication ONE (14:53)
[2019-11-19] MEDS ORDERED: MoRPHine SULF/NSS 250 MG/250 ML BTL IV SCH (17:15)
[2019-11-19] MEDS ORDERED: MoRPHine SULFATE 4 MG/ML 1 ML CARP\\VIAL IV STA (17:15)
[2019-11-19] MEDS ORDERED: LORazepam 1 MG/2 ML VIAL IV STA (17:15)
[2019-11-19] MEDS ORDERED: STAT IV Infusion **Titration per Protocol STA (17:15)
[2019-11-19] MEDS ORDERED: HALOPERIDOL LACTATE 5 MG/ML 1 ML VIAL IV PRN (17:17)
[2019-11-19] MEDS ORDERED: FUROSEMIDE 40 MG/4 ML VIAL IV ONE (17:25)
[2019-11-19] MEDS ORDERED: FUROSEMIDE 20 MG in SYRINGE 0 ML IV ONE (17:45)
[2019-11-20] MEDS: INSULIN ASPART 100 UNITS/ML 3 ML PEN SC SCH (01:04)
[2019-11-20] MEDS: CHECK CLONIDINE PATCH PLACEMENT SCH (01:05)
[2019-11-20] MEDS ORDERED: Nursing to Pharmacy Communication ONE (01:44)
--- NOTE | 2019-11-20 05:00 | Communication Note ---
Date of Service: November 20, 2019 Notified that pt passed at about 4:15AM. certificate signed. Resident Activity Tracking Resident Involvement: Ladler Coverage Note Care Provided: Adult Hospital Medicine
--- NOTE | 2019-11-23 07:46 | Discharge Summary ---
Date of Service November 20, 2019 Admission HPI Per Admitting Provider The patient is a 79-year-old female with a past medical history including schizoaffective disorder, chronic kidney disease, hypertension, COPD, bronchitis, atrial fibrillation, melena and pneumonia. She presents to the emergency department with 3 days of persistent and worsening dyspnea on exertion and more recently shortness of breath at rest this evening. She is a resident of [facility], and had a chest x-ray there that was reportedly consistent with a bilateral viral pneumonitis or possibly tuberculosis. Patient was brought into room A9B in respiratory isolation in the emergency department. She was determi leesa to be a DNR/DNI, and because of the current pandemic of coronavirus and I state, it was determined that BiPAP would not appropriate in the setting due to potential for spread of a COVID-19 infection, and discussion was made with her power of student assistance counselor as to the possibility of intubation and more aggressive therapy. Her POA elected to have less aggressive intervention, therefore, the BiPAP was discontinued, and plans were made for patient to be admitted to the hospital for conservative therapy. In the emergency department, laboratory work-up included negative influenza A and B testing, and biofire was primarily positive for human metapneumovirus infection. Since it was unknown if patient had a coexistent COVID-19 infection, she will be admitted to a negative pressure room to prevent potential spread of the viral process. Principal Diagnosis Pneumonia due to human metapneumovirus Discharge Exam no pulse, no heart sounds, not breathing, pupils fixed, unresponsive Discharge Data Allergies Allergy/AdvReac Type Severity Reaction Status Date / Time MARIANO Inhibitors Allergy Intermediate HEPATOTOXIC Unverified 11/14/19 22:54 ITY amiodarone Allergy Intermediate HEPATOTOXIC Unverified 11/14/19 22:54 ITY cephalexin Allergy Unknown unknown Verified 11/14/19 22:54 erythromycin base Allergy Unknown UNSURE Verified 11/14/19 22:54 levofloxacin Allergy Unknown Unknown. Verified 11/14/19 22:54 Consultations 11/14/19 23:55 ED Decision to Admit Stat 11/15/19 04:03 Consult Case Management - Discharge Planning Routine Hospital Course (1) Acute respiratory failure with hypoxia and hypercapnia: Acute respiratory failure with hypoxia and hypercapnia/COPD/pneumonia- Laboratories consistent with human metapneumovirus infection discussed with pulmonary and infection control, does not require COVID testing (no known contact, resides at [facility] that has had strict visitor restrictions) Human metapneumovirus infection requires contact precaution, notified staff to change patient's room out of the negative pressure treated with Zosyn 3.375 mg IV every 8 hours for possible secondary bacterial infection but no improvement WBC up to 16k, could be due to steroids, no fever requiring 10L via mask, far more distress on 11/18, not able to be comfortable on Ativan and Morphine pushes discussed goals of care with patient's daughter Mily, she wants patient to be comfortable patient constantly saying "I can't take this any more" no improvement in wheezing with steroids and nebulizers changed to comfort care in the evening on 11/[address] on Morphine drip, Ativan PRN, Haldol PRN for extreme agitation once she is calm and sedated can downgrade to medical floor discussed with family that they are welcome to visit due to end of life, can come back to bedside one at a time patient in the morning on 11/19, family notified (2) Atrial fibrillation: RVR that started on 11/14 moved to PCU, started on Cardizem drip HR was better back up into the 140-150 range despite PO Cardizem on 11/18 due to extreme agitation HR improved with comfort (3) Elevated troponin I level: Likely supply demand mismatch type II. due to tachycardia, increased strain on heart no need to follow further (4) Schizoaffective disorder: will order her typical medications including Risperdone, Buproprion, divalproex these are not helping, still very agitated and confused will use Ativan and Haldol PRN for agitation (5) Acute kidney injury superimposed on chronic kidney disease: Creatinine 2.28 upon admission, with baseline 1.39-1.6 Cr stable at 1.5 today, BUN down a little at 40 very poor oral intake the past few days (6) Pneumonia: See above. Differential includes viral pneumonia, as patient is positive for metapneumovirus infection Patient may have a secondary bacterial process and/or aspiration event treated with Zosyn IV, will stop now with comfort planned WBC up slightly at 16k, could be due to Prednisone LDH quite high but coming down at 378 when last checked AST and ALT coming down slowly despite numbers improving, respiratory status declining, patient suffering changed to comfort care 11/18 (7) Hypertension: extremely high 200/110 due to agitation and distress (8) COPD (chronic obstructive pulmonary disease): increased wheezing on 11/15 no improvement with steroids Duoneb PRN - no improvement at all (9) Hyperglycemia: secondary to steroid use and stress resolved with insulin drip, defer to pharmacy for management can stop checking now with comfort measures Total Time Total Time Spent Total Time Spent (In Minutes): 15 minutes Total Time Includes: Examination of the Patient Discharge Plan Discharge Items Patient Disposition: Reason For Visit: VIRAL PNEUMONIA, HUMAN METAPNEUMOVIRUS Condition on Discharge: Good Follow-up/Referrals: [facility] [Primary Care Provider] - Admission Data Admit Date/Time: 11/15/19 02:10 Other DC Date/Time DO NOT enter until pt leaves facility: 11/20/19 04:14 Coding Level of Care Code D/C Day Management <30 mins Diagnoses Acute respiratory failure with hypoxia and hypercapnia J96.01; J96.02 Atrial fibrillation I48.91 Elevated troponin I level R79.89 Schizoaffective disorder F25.9 Acute kidney injury superimposed on chronic kidney disease N17.9; N18.9 Pneumonia J18.9 Laterality: right Lung location: lower lobe of lung Pneumonia type: due to unspecified organism Hypertension I10 COPD (chronic obstructive pulmonary disease) J44.9 Hyperglycemia R73.9
--- NOTE | 2019-11-23 13:37 | Coding Query ---
To promote full compliance with coding requirements relating to patient care, provider participation is requested in all cases of type casting machine operator uncertainty. Please assist us with the question(s) below: Coding Question(s): The diagnosis below was documented in the 11/17/19 hospitalist progress note then subsequently fell off all further documentation. Please indicate if it is still a possible diagnosis or ruled out. Physician's Response(s): SEPSIS ( ) Diagnosed and POA ( ) Diagnosed and not POA ( x ) Ruled out ( ) Other (please specify) MTDD
== END 2019-11-20 04:14 | disposition expired | DRG 193 ==
LOC: ED 22:22 → 3E 11-15 02:10 → SUATTDRO 11-15 02:10 → 3E 11-15 03:27 → 2E 11-15 16:22